=== PATIENT | female | born 1970 | race Caucasian/White ===

== ENCOUNTER 2019-05-23 01:50 | Observation (INO) | payer OTHER, SELFPAY ==
[2019-05-23] VITALS (8 sets, daily range): BP systolic 113–164; BP diastolic 67–94; PULSE 64–74; RESP 13–20; TEMP 36.3–37.1; O2SAT 95–97; BMI 37.2
--- NOTE | ~2019-05-23 | XR_ITS ---
XR chest 1V portable DATE: 05/23/2019 02:57 INDICATION: Generalized, anterior chest pain. TECHNIQUE: Portable upright AP chest on 05/23/2019 0255 hours COMPARISON: 12/15/2017 PA and lateral chest FINDINGS: Normal heart size. No hilar or mediastinal enlargement. No pulmonary infiltrate or consolid ation, pleural effusion or pulmonary vascular congestion or pneumothorax. IMPRESSION: No active cardiopulmonary disease Reviewed, dictated and finalized at location A. [employer] LEAD REFIN[employer]
--- NOTE | ~2019-05-23 | CT_ITS ---
EXAMINATION: CT abdomen pelvis w con DATE: 05/23/2019 03:06 INDICATION: Epigastric abdominal pain for 2 days. Nausea. TECHNIQUE: Computed tomography (CT) of the abdomen and pelvis was performed with 100 cc Omnipaque 350 intravenous contrast. Automated exposure control and iterative reconstruction technique were employe d. Exam dose: 1584.01 mGy-cm total exam DLP. COMPARISON: None. FINDINGS: The lung bases are clear. Normal heart size. No pericardial or pleural effusion. The gallbladder is distended with thickening of the wall. No hepatic, splenic, pancreatic, adrenal or renal space-occupying mass lesion is evident. No bile priscilla t or pancreatic duct dilatation. There are nonobstructing bilateral small kidney stones. No ureteral calculus or hydroureteronephrosis . The urinary bladder is unremarkable. Status post hysterectomy. 3.2 cm right ovarian cystic lesion is noted. Pelvic ultrasound is recommended for further characteriz ation, particularly in a likely postmenopausal patient. Diverticulosis of the left colon; no CT evidence of diverticulitis. Appendix is not definitively iden tified but no evidence of appendicitis. No bowel obstruction or intraperitoneal free air. Normal caliber of the abdominal aorta. No intraperitoneal or retroperitoneal or pelvic mass lesion or adenopathy or ascites. Degenerative changes of the thoracic and lumbar spine. IMPRESSION: Distended gallbladder with gallbladder wall thickening; consider gallbladder ultrasound for further evaluation 3.2 cm right ovarian cyst; pelvic ultrasound examination is recommended Diverticulosis of the colon Reviewed, dictated and finalized at Location [facility]. Reviewed, dictated and finalized at location A. UCTION CONTROLLER IMPRESSION: Distended gallbladder with gallbladder wall thickening; consider g allbladder ultrasound for further evaluation 3.2 cm right ovarian cyst; pelvic ultrasound examination is recommended Diverticulosis of the colon
--- NOTE | ~2019-05-23 | US_ITS ---
US right upper quadrant DATE: 05/23/2019 08:23 INDICATION: Abdominal pain. Gallbladder wall thickening reported on 05/23/2019 CT abdomen pelvis exami [place] TECHNIQUE: Real-time imaging of liver, pancreas, gallbladder areas COMPARISON: 05/23/2019 CT abdomen pelvis FINDINGS: No hepatic or pancreatic space-occupying mass lesion is detected. Normal hepatic portal fadia ous flow direction. There is an apparent filling defect of the gallbladder neck with shadowing, suggesting cholelithiasis . There is gallbladder wall thickening, measuring up to 4-5 mm. Comment bile duct measures 4 mm, normal. IMPRESSION: Nonmobile stone is suggested at the gallbladder neck, with thickening of the gallbladder wall, suggesting acute cholecystitis If further imaging confirmation is desired, consider radionuclide hepatobiliary scan Reviewed, dictated and finalized at [facility]. Reviewed, dictated and finalized at location A. [employer] IMPRESSION: Nonmobile stone is suggested at the gallbladder neck, with thickeni ng of the gallbladder wall, suggesting acute cholecystitis If further imaging confirmation is desired, consider radionuclide hepatobiliary scan
--- NOTE | 2019-05-23 01:58 | ECG_ITS ---
Measurements Intervals [place] Rate: 57 P: 38 [place]: 155 QRS: -3 QRSD: 94 T: 47 QT: 428 QTc: 418 Interpretive Statements SINUS BRADYCARDIA BASELINE ARTIFACT- I, II, AVR BORDERLINE ECG Electronically Signed On 05-23-2019 7:21:08 [employer]INE [employer]ENDER by Rogelio Coreas D.O.
--- NOTE | 2019-05-23 01:58 | ED.ABDPAIN ---
HPI - Abdominal Pain General Chief Complaint: Chest Pain Stated Complaint: CHEST PAIN Time Seen by Provider: 05/23/19 01:55 Source: patient and RN notes reviewed Mode of arrival: ambulatory Limitations: no limitations History of Present Illness HPI narrative: Pt is a 49 y/o female presenting to the ED c/o ABD pain. Pt reports she started experiencing bilateral upper ABD pain last Friday. Pt also reports nausea and dry heaving. Pt states she took Gas X and Ibuprofen around 1500 this afternoon. Pt states she presented to the ED at this time due to insomnia. Pertinent past history: none Onset (ago): day(s) (2) Location: [facility] and [facility]Q Associated symptoms: nausea, vomiting (Dry heaving) and other (Insomnia) Related Data Allergies Allergy/AdvReac Type Severity Reaction Status Date / Time No Known Allergies Allergy Unverified 11/17/18 15:40 Review of Systems Review of Systems: All systems reviewed & are unremarkable except as noted in HPI and below Constitutional: Constitutional: Reports difficulty sleeping Gastrointestinal: Gastrointestinal: Reports abdominal pain (Bilateral upper), Reports nausea and Reports vomiting (Dry heaving) [facility] Past Medical History Medical History Anemia Anxiety Arthritis Hypothyroid Migraines UTI (urinary tract infection) Surgical History Surgical History H/O bilateral breast reduction surgery H/O: hysterectomy History of appendectomy Family History Family History Sibling Family history of thyroid disease Asthma Family history of diabetes mellitus in first degree relative Grandparent Family history of cataracts Cerebrovascular accident Family history of Alzheimer's disease Family history of heart disease in male family member before age 55 Father Family history of alcoholism Family history of seizure disorder Family history of heart disease in male family member before age 55 Social History Social History Smoking packs per day: 1 Smoking cigarettes per day: 20.0 Years smoked: 20 Smoking pack-years: 20.00 Smoking status: Former smoker Alcohol intake: current Exam Narrative: Exam Narrative: APPEARANCE: No acute distress, nontoxic, resting in bed HEENT: Normocephalic, atraumatic, OMM RESPIRATORY: No respiratory distress, clear to auscultation bilaterally with no rhonchi wheezing or rales CARDIOVASCULAR: RRR s murmur ABDOMINAL: Soft, nondistended, tender palpation epigastric and right upper quadrant left upper quadrant, no tenderness right lower quadrant left lower quadrant, no rebound or guarding MUSCULOSKELETAl: Moves all extremities. No clubbing, cyanosis or edema. NEURO: Awake and alert. Following commands, speech normal, no focal deficits SKIN:: Warm, dry. Normal Color PSYCHIATRIC: Normal affect/mood Course Course Emergency Course: Patient continues to have pain following morphine and Tylenol. Will admit at this time Discussed with Dr. Salazar presentation work-up. Agrees with admission at this time. Request antibiotics be held at this time but does request a.m. ultrasound Discussed with patient and family results of workup and diagnosis. Discussed need for admission. Patient and family understand and agree to current treatment plan Vital Signs Vital signs: Vital Signs Temperature 97.9 F 05/23/19 01:55 Pulse Rate 65 05/23/19 01:55 Respiratory Rate 13 05/23/19 01:55 Blood Pressure 164/94 H 05/23/19 01:55 Pulse Oximetry 97 05/23/19 01:55 Temperature 97.9 F 05/23/19 01:55 Pulse Rate 64 05/23/19 01:58 Respiratory Rate 13 05/23/19 01:55 Blood Pressure 164/94 H 05/23/19 01:55 Pulse Oximetry 97 05/23/19 01:55 MDM - Abdominal Pain Lab Data Result diagrams: 05/23/19 02:13 05/23/19 02:13 Labs: Lab Results 05/23/19
[2019-05-23] MEDS: LACTATED RINGERS 1,000 ML 999 ML IV CONT (02:28)
[2019-05-23] MEDS: ONDANSETRON INJ 4 MG/2 ML VIAL IV PUSH ×2 (02:28→09:22)
[2019-05-23 02:32] LABS: Basophils Absolute Auto 0.1 K/mm3 (0.0-0.1); Basophils Percent Auto 0.9 % (0.2-1.2); Eosinophils Absolute Auto 0.3 K/mm3 (0-0.3); Eosinophils Percent Auto 2.7 % (0-4.4); Hematocrit 44.1 % (37.0-47.0); Hemoglobin 14.5 g/dL (12.0-15.0); Immature Granulocyte Absolute 0.05 K/mm3 (0.00-0.031); Immature Granulocyte Percent A 0.5 % (0-0.5); Lymphocytes Absolute Auto 2.53 K/mm3 (0.9-3.2); Lymphocytes Percent Auto 24.2 % (18.3-44.2); Mean Corpuscular HGB Conc 32.9 g/dl (32-36); Mean Corpuscular Hemoglobin 29.6 pg (26-34); Mean Platelet Volume 10.7 fl (7.4-10.4); Monocytes Absolute Auto 0.8 K/mm3 (0.1-0.6); Monocytes Percent Auto 7.5 % (2.6-8.5); Neutrophils Absolute Auto 6.7 K/mm3 (1.3-6.7); Neutrophils Percent Auto 64.2 % (45.5-73.1); Platelet Count Result 314 k/mm3 (150-375); Red Cell Distribution Width 13.2 % (11.5-14.5); White Blood Count 10.5 K/mm3 (4.5-10.0)
[2019-05-23 02:37] LABS: Alanine Aminotransferase 20 U/L (4-35); Albumin Level 3.9 g/dL (3.5-5.1); Alkaline Phosphatase 94 U/L (38-126); Aspartate Amino Transferase 22 U/L (14-36); Bilirubin,Total 0.2 mg/dL (0.2-1.3); Blood Urea Nitrogen 13 mg/dL (7-17); Calcium 9.3 mg/dL (8.4-10.2); Carbon Dioxide 28 mmol/L (22-30); Chloride 98 mmol/L (98-107); Estimated CRCL calculation 92 ml/min; Estimated Glomerular Filt Rate > 60; Glucose 121 mg/dL (65-105); Lipase 249 U/L (23-300); Potassium 3.4 mmol/L (3.4-5.0); Sodium 136 mmol/L (137-145)
[2019-05-23 02:38] LABS: INR 0.9; Prothrombin Time 11.4 Seconds (11.1-14.7)
[2019-05-23 02:40] LABS: Partial Thromboplastin Time 26.4 SECONDS (22.3-36.8)
[2019-05-23 02:45] LABS: Add Urine Microscopic? YES; Appearance Urine Clear (Clear); Bacteria Urine Trace /hpf; Bilirubin Urine Negative (Negative); Blood Urine Negative (Negative); Color Urine Yellow (Yellow); Glucose Urine UA Negative (Negative); Ketones Urine Negative (Negative); Leukocyte Esterase Ur Negative LEU/UL (Negative); Mucus Urine Rare /lpf; Nitrate Urine Negative (Negative); Protein Urine 1+ mg/dL (Negative); RBC Urine 0-2 /hpf (0-2); Specific Grav Ur 1.026 (1.001-1.035); Squamous Epithelial Cell Urine Many /hpf (Few); Urobilinogen Urine Negative mg/dL (<2.0); WBC Urine 0-3 /hpf
[2019-05-23 02:49] LABS: Troponin I < 0.012 ng/mL (0.000-0.034)
[2019-05-23] MEDS: MORPHINE SULFATE 4 MG/ML INJ IV PUSH (03:46)
--- NOTE | 2019-05-23 04:41 | PC.NURSE ---
Patient verbalized her pain still 10/10. Dr Quintero aware, no further orders.
--- NOTE | 2019-05-23 05:03 | ADMGEN ---
This patient, Alethea Newsome, was admitted to 3 [facility] Surg Room 300-01 at 0457. Patient/family oriented to hospital policies and general routines including ID bracelet, bed and alarms, visiting hours, pain management, procedures, bathroom and other care routines, personal items, smoking policy, room service/diet, and visiting hours. Valuables list has been completed. Information on how to activate the Rapid Response Team has been discussed. Patient/Family are encouraged to report perceived risks to care and to ask questions if they do not understand what they are told or what they should do.
[2019-05-23] MEDS: LACTATED RINGERS 1,000 ML 125 ML IV CONT ×2 (06:01→14:15)
--- NOTE | 2019-05-23 12:37 | PM.IMHP ---
H&P: HPI History of Present Illness Chief complaint: cholecystitis Narrative: Alethea Newsome is a 49 year old female who presented to the emergency department early this morning with right upper quadrant pain and bloating. Patient states that she has had pain off and on for about a week, but yesterday pain became more severe. She could not tolerate the pain anymore and could not get comfortable enough to sleep, therefore she came into the emergency department. She was having some diarrhea yesterday, but denies any typical problems with her bowels moving. She was having some slight nausea, but no vomiting. She has had minor episodes of pain after eating before, but never attributes it to any particular food. She denies any fevers. She does have a family history of gallbladder disease. Review of Systems Review of Systems: All systems reviewed & are unremarkable except as noted in HPI and below Eyes: Eyes: Denies change in vision ENT: Denies hearing loss, Denies neck pain and Denies sore throat Cardiovascular: Cardiovascular: Denies chest pain and Denies dyspnea Respiratory: Respiratory: Denies cough, Denies dyspnea and Denies wheezing Genitourinary: Genitourinary: Denies hematuria and Denies dysuria Musculoskeletal: Musculoskeletal: Denies arthralgias, Denies joint swelling and Denies neck pain Allergic/Immunologic: Allergic/Immunologic: Denies wheezing PMFSH Past Medical History Medical History Anemia Anxiety Arthritis Hypothyroid Migraines UTI (urinary tract infection) Surgical History Surgical History H/O bilateral breast reduction surgery H/O: hysterectomy History of appendectomy Family History Family History Sibling Family history of thyroid disease Asthma Family history of diabetes mellitus in first degree relative Grandparent Family history of cataracts Cerebrovascular accident Family history of Alzheimer's disease Family history of heart disease in male family member before age 55 Father Family history of alcoholism Family history of seizure disorder Family history of heart disease in male family member before age 55 Social History Social History Smoking packs per day: 1 Smoking cigarettes per day: 20.0 Years smoked: 20 Smoking pack-years: 20.00 Smoking status: Former smoker Tobacco type: cigarettes Alcohol intake: current Substance use: never Gender identity (if verbalized by the patient): Female Spiritual care concerns: No Agree to blood products: Yes Meds Home Medications and Allergies Home Medications Medication Instructions Recorded Confirmed Type bupropion HCl 150 mg PO DAILY 05/23/19 05/23/19 History duloxetine 60 mg PO DAILY 05/23/19 05/23/19 History estradiol 2 mg PO DAILY 05/23/19 05/23/19 History levothyroxine 100 mcg PO DAILY 05/23/19 05/23/19 History liothyronine 10 mcg PO BID 05/23/19 05/23/19 History triamterene-hydrochlorothiazid 1 tablet PO DAILY 05/23/19 05/23/19 History Allergies Allergy/AdvReac Type Severity Reaction Status Date / Time No Known Allergies Allergy Unverified 11/17/18 15:40 Vital Signs Vital Signs - 24 hr 05/23/19 01:55 05/23/19 01:58 05/23/19 04:42 Temperature 36.6 C Pulse Rate 65 64 73 Respiratory Rate 13 16 Blood Pressure 164/94 H 133/85 Pulse Oximetry 97 95 05/23/19 04:53 05/23/19 05:05 Temperature 36.3 C L Pulse Rate 71 65 Respiratory Rate 18 18 Blood Pressure 132/78 153/94 H Pulse Oximetry 97 97 Exam Const: General: alert; No acute distress Orientation/consciousness: patient oriented x3 Limitations: no limitations HENMT: Head: normocephalic and atraumatic Ears: hearing grossly normal bilaterally General nose exam: Normal external nose present and [place]
[2019-05-23] MEDS: estradioL 1 MG TABLET 2 MG PO (14:14)
[2019-05-23] MEDS: TRIAMTERENE 37.5 MG/HCTZ 25 MG (MAXZIDE) TABLET 2 TAB PO (14:14)
[2019-05-23] MEDS: DULOXETINE 60 MG CAPSULE.DR PO (14:15)
--- NOTE | 2019-05-23 14:53 | WPDANESEPP ---
Anes - Eval Pre Procedure Procedure: LAP RENEA Date/Time: 05/23/19 14:53 Surgeon: Paula QURESHI Preop Diagnosis: CHOLECYSTITIS Pre Op Diagnosis: cholecystitis Patient Data Age: 49 Gender: F Height: 5 ft 7 in Weight: 107.9 kg Last Vital Signs Temp 97.4 F L 05/23/19 05:05 Pulse 72 05/23/19 14:12 Resp 18 05/23/19 14:12 BP 151/67 H 05/23/19 14:12 Pulse Ox 97 05/23/19 14:12 Allergies Allergy/AdvReac Type Severity Reaction Status Date / Time No Known Allergies Allergy Unverified 11/17/18 15:40 Home Medications Medication Instructions Recorded Confirmed Type bupropion HCl 150 mg PO DAILY 05/23/19 05/23/19 History duloxetine 60 mg PO DAILY 05/23/19 05/23/19 History estradiol 2 mg PO DAILY 05/23/19 05/23/19 History levothyroxine 100 mcg PO DAILY 05/23/19 05/23/19 History liothyronine 10 mcg PO BID 05/23/19 05/23/19 History triamterene-hydrochlorothiazid 1 tablet PO DAILY 05/23/19 05/23/19 History Laboratory Tests 05/23/19 05/23/19 05/23/19 02:13 02:13 02:13 WBC 10.5 K/mm3 H K/mm3 (4.5-10.0) RBC 4.90 M/mm3 M/mm3 (4.2-5.4) Hgb 14.5 g/dL g/dL (12.0-15.0) Hct 44.1 % % (37.0-47.0) MCV 90.0 fl fl (80-100) MCH 29.6 pg pg (26-34) MCHC 32.9 g/dl g/dl (32-36) RDW 13.2 % % (11.5-14.5) Plt Count 314 k/mm3 k/mm3 (150-375) MPV 10.7 fl H fl (7.4-10.4) Immature Gran % (Auto) 0.5 % % (0-0.5) Neut % (Auto) 64.2 % % (45.5-73.1) Lymph % (Auto) 24.2 % % (18.3-44.2) [place] % (Auto) 7.5 % % (2.6-8.5) Eos % (Auto) 2.7 % % (0-4.4) Baso % (Auto) 0.9 % % (0.2-1.2) Lymph # (Auto) 2.53 K/mm3 K/mm3 (0.9-3.2) [place] # (Auto) 0.8 K/mm3 H K/mm3 (0.1-0.6) Eos # (Auto) 0.3 K/mm3 K/mm3 (0-0.3) Baso # (Auto) 0.1 K/mm3 K/mm3 (0.0-0.1) Abs Immat Gran (auto) 0.05 K/mm3 H K/mm3 (0.00-0.031) Absolute Neuts (auto) 6.7 K/mm3 K/mm3 (1.3-6.7) Absolute Nucleated RBC 0.0 K/mm3 K/mm3 (0.0-0.012) Nucleated RBC % 0.0 % % (0.0-0.2) PT 11.4 Seconds Seconds (11.1-14.7) INR 0.9 APTT 26.4 SECONDS SECONDS (22.3-36.8) Sodium 136 mmol/L L mmol/L (137-145) Potassium 3.4 mmol/L mmol/L (3.4-5.0) Chloride 98 mmol/L mmol/L (98-107) Carbon Dioxide 28 mmol/L mmol/L (22-30) BUN 13 mg/dL mg/dL (7-17) Creatinine 0.80 mg/dL mg/dL (0.7-1.0) Estim Creat Clear Calc 92 ml/min ml/min Estimated GFR > 60 (59 - ) Glucose 121 mg/dL H mg/dL (65-105) Calcium 9.3 mg/dL mg/dL (8.4-10.2) Total Bilirubin 0.2 mg/dL mg/dL (0.2-1.3) AST 22 U/L U/L (14-36) ALT 20 U/L U/L (4-35) Alkaline Phosphatase 94 U/L U/L (38-126) Troponin I < 0.012 ng/mL ng/mL (0.000-0.034) Total Protein 7.0 g/dL g/dL (6.3-8.2) Albumin 3.9 g/dL g/dL (3.5-5.1) Lipase 249 U/L U/L (23-300) Urine Color Urine Appearance Urine pH Ur Specific [place] Urine Protein Urine Glucose (UA) Urine Ketones Ur Blood (Man) Urine Nitrate Urine Bilirubin Urine Urobilinogen Leukocyte Esterase Rfl Urine RBC Urine WBC Ur Squamous Epith Cells Urine Bacteria Urine Mucus 05/23/19 02:25 WBC RBC Hgb Hct MCV MCH MCHC RDW Plt Count MPV Immature Gran % (Auto) Neut % (Auto) Lymph % (Auto) [place] % (Auto) Eos % (Auto) Baso % (Auto) Lymph # (Auto) [place] # (Auto) Eos # (Auto) Baso # (Auto
[2019-05-23] MEDS: ACETAMINOPHEN 500 MG TABLET 1000 MG PO (19:56)
[2019-05-24] VITALS (14 sets, daily range): BP systolic 117–143; BP diastolic 63–79; PULSE 58–90; RESP 12–18; TEMP 36.2–36.9; O2SAT 89–99
[2019-05-24] MEDS: LACTATED RINGERS 1,000 ML 125 ML IV CONT ×2 (01:06→06:12)
[2019-05-24] MEDS: CHLORHEXIDINE GLUCONATE 4% SOL 120 ML BTL 1 APPLIC TOPICAL (06:12)
[2019-05-24] MEDS: LEVOTHYROXINE SODIUM 100 MCG TABLET PO (06:13)
[2019-05-24 06:28] LABS: Basophils Absolute Auto 0.1 K/mm3 (0.0-0.1); Eosinophils Absolute Auto 0.2 K/mm3 (0-0.3); Eosinophils Percent Auto 3.5 % (0-4.4); Hematocrit 40.3 % (37.0-47.0); Hemoglobin 13.5 g/dL (12.0-15.0); Immature Granulocyte Absolute 0.01 K/mm3 (0.00-0.031); Immature Granulocyte Percent A 0.2 % (0-0.5); Lymphocytes Absolute Auto 1.83 K/mm3 (0.9-3.2); Mean Corpuscular HGB Conc 33.5 g/dl (32-36); Mean Corpuscular Volume 89.6 fl (80-100); Mean Platelet Volume 10.5 fl (7.4-10.4); Monocytes Absolute Auto 0.4 K/mm3 (0.1-0.6); Monocytes Percent Auto 6.5 % (2.6-8.5); Neutrophils Absolute Auto 3.8 K/mm3 (1.3-6.7); Neutrophils Percent Auto 59.8 % (45.5-73.1); Platelet Count Result 279 k/mm3 (150-375); Red Cell Distribution Width 13.1 % (11.5-14.5); White Blood Count 6.3 K/mm3 (4.5-10.0)
[2019-05-24 06:37] LABS: Alanine Aminotransferase 16 U/L (4-35); Albumin Level 3.4 g/dL (3.5-5.1); Alkaline Phosphatase 79 U/L (38-126); Aspartate Amino Transferase 18 U/L (14-36); Bilirubin,Total 0.2 mg/dL (0.2-1.3); Blood Urea Nitrogen 8 mg/dL (7-17); Calcium 8.2 mg/dL (8.4-10.2); Carbon Dioxide 29 mmol/L (22-30); Chloride 100 mmol/L (98-107); Estimated CRCL calculation 106 ml/min; Estimated Glomerular Filt Rate > 60; Glucose 99 mg/dL (65-105); Potassium 3.6 mmol/L (3.4-5.0); Sodium 136 mmol/L (137-145)
[2019-05-24] MEDS: ACETAMINOPHEN 500 MG TABLET 1000 MG PO ×2 (06:42→20:15)
[2019-05-24] MEDS: TRIAMTERENE 37.5 MG/HCTZ 25 MG (MAXZIDE) TABLET 2 TAB PO (10:13)
[2019-05-24] MEDS: DULOXETINE 60 MG CAPSULE.DR PO (10:13)
[2019-05-24] MEDS: estradioL 1 MG TABLET 2 MG PO (10:13)
[2019-05-24] MEDS: buPROPion HCL XL (24 HR) 150 MG TABCR PO (10:13)
[2019-05-24] MEDS: ONDANSETRON INJ 4 MG/2 ML VIAL IV PUSH (13:22)
[2019-05-24] MEDS: LACTATED RINGERS 1,000 ML 30 ML IV CONT ×2 (13:45→16:11)
--- NOTE | 2019-05-24 14:13 | WPDANESEFPP ---
Anes - Eval Final PreProcedure Day of Procedure 05/24/19 14:13 Patient weight: obese Heart: regular rate and rhythm Lungs: decreased breath sounds Airway: Mallampati scale class II Neurological: alert and oriented Last oral intake: >/= 8 hours ASA classification: III Emergent: no Anesthetic plan: proceed Anesthesia type and monitoring: general ETT and standard monitoring Informed Consent: The patient's anesthetic plan and its attendant risks and benefits were discussed with the patient/family/POA. Questions were solicited and answers provided to the satisfaction of the patient/family/POA.
[2019-05-24] MEDS: SCOPOLAMINE 1.5 MG PATCH TRANSDERM (14:15)
[2019-05-24] MEDS: ceFAZolin 2 GM/D5W 50 ML 2 GM/50 ML BAG IVPB (14:58)
[2019-05-24] MEDS: IBUPROFEN IV 800 MG/200 ML 800 MG/200 ML BAG 400 MG IVPB (15:15)
[2019-05-24] MEDS: BUPIVACAINE/EPINEPHRINE 0.5% 30 ML VIAL INFILTRATE (15:31)
--- NOTE | 2019-05-24 16:03 | PM.PROC ---
Procedure Note - Detailed Date of procedure: 05/24/19 Pre-op diagnosis: acute calculous cholecystitis Post-op diagnosis: same Procedure performed: Laparoscopic Cholecystectomy Description of procedure: Procedure as well as risks, benefits, and alternatives were discussed with patient. Written consent was obtained and placed in chart prior to procedure. The patient was brought back to surgical suite. Patient was placed in supine position on operating table. Time-out was done to confirm patient and procedure. Patient was then intubated by the anesthesia department. Abdomen was prepped and draped in sterile fashion using chlorhexidine prep. 0.5% bupivacaine with epinephrine was infiltrated at each site of incision. A 5 millimeter incision was made near the umbilicus, and a 5 millimeter Optiview trocar was advanced through the abdominal layers under direct visualization. Once inside the abdominal cavity, carbon dioxide was insufflated to create a pneumoperitoneum. The camera was inserted and the abdomen was inspected. No immediate abnormalities were identified. The patient was placed in reverse Trendelenburg position and rotated slightly to the left. An 11 millimeter incision was made in the subxiphoid region, and an 11 millimeter trocar was inserted under direct visualization. Two 5 millimeter incisions were made in the right upper quadrant, and two 5 millimeter trocars were inserted under direct visualization. The gallbladder was identified and grasped at the fundus and retracted superiorly. It was then grasped at the infundibulum retracted laterally. Careful dissection around the neck of the gallbladder was performed using blunt dissection with a [place] grasper and hook electrocautery. The cystic duct was identified, and a window was created behind it. The cystic artery was also identified and a window was created behind it. The critical view of safety was identified, visualizing the cystic duct running directly into the neck of the gallbladder, and the cystic artery running directly into the wall of the gallbladder. A 5 millimeter clip android ios developer was then used to place 2 clips proximally and 1 clip distally on both the cystic duct and cystic artery. They were then both transected using endoscopic scissors. Once safely away from the albina hepatitis, the gallbladder was dissected free from the liver bed using hook electrocautery. Hemostasis was achieved along the way. The gallbladder was removed completely and then removed through the subxiphoid port. The liver bed was then inspected. Hemostasis appeared adequate, and our clips appeared secure. The area was gently irrigated with sterile saline. No other abnormalities were seen. The patient was flattened out in bed, and 1 final inspection was made around the abdominal cavity. The subxiphoid port was removed, and a Chun Eliz cone was used to approximate the fascia with an 0-Vicryl simple interrupted suture. The remaining ports were then removed under direct visualization, the camera was removed, and the pneumoperitoneum was released. The skin of the incisions was approximated using 4-0 Monocryl subcuticular sutures. Exofin glue was applied on top. The patient was then awakened from anesthesia, extubated, and transferred to recovery. Anesthesia: GETA and local (0.5% bupivicaine with epi) Surgeon: Toy Salazar DO Estimated blood loss (mL): 20 Drains: No Packing: No Pathology: yes Complications: No immediate complications Condition: stable (Patient tolerated procedure well, and is currently resting comfortably in recovery.) Disposition: same day Findings: This is a 49-year-old woman who presented to the emergency department yesterday with right upper quadrant pain for the past 2 days. She had been having some mild pain off and on for about a week before hand but then over the past 2 days her pain became constant and more severe. She denied any fevers or chills. She was having some nause
[2019-05-24] MEDS: LACTATED RINGERS 1,000 ML 100 ML IV CONT (18:40)
--- NOTE | 2019-05-24 19:56 | PC.NURSE ---
Patient arrived from PACU @1800, incisions glued and open to air. Stating 10/10 pain. Pain was controlled with position change and medication.
--- NOTE | 2019-05-24 20:37 | PC.NURSE ---
Dr. Marroquin notified about patient requesting to stay one more night due to post-op pain and nausea.
[2019-05-25 02:00] VITALS: BP 117/71; PULSE 66; RESP 18; TEMP 36.5; O2SAT 97
[2019-05-25 05:52] VITALS: BP 126/75; PULSE 71; RESP 18; TEMP 36.8; O2SAT 97
[2019-05-25 06:06] LABS: Hematocrit 39.9 % (37.0-47.0); Hemoglobin 13.4 g/dL (12.0-15.0); Mean Corpuscular HGB Conc 33.6 g/dl (32-36); Mean Corpuscular Volume 89.5 fl (80-100); Mean Platelet Volume 10.6 fl (7.4-10.4); Platelet Count Result 287 k/mm3 (150-375); Red Blood Count 4.46 M/mm3 (4.2-5.4); Red Cell Distribution Width 12.8 % (11.5-14.5); White Blood Count 11.4 K/mm3 (4.5-10.0)
[2019-05-25] MEDS: LEVOTHYROXINE SODIUM 100 MCG TABLET PO (06:06)
[2019-05-25 06:30] LABS: Alanine Aminotransferase 22 U/L (4-35); Albumin Level 3.5 g/dL (3.5-5.1); Alkaline Phosphatase 86 U/L (38-126); Aspartate Amino Transferase 28 U/L (14-36); Bilirubin,Total 0.4 mg/dL (0.2-1.3); Blood Urea Nitrogen 7 mg/dL (7-17); Calcium 8.4 mg/dL (8.4-10.2); Carbon Dioxide 28 mmol/L (22-30); Chloride 98 mmol/L (98-107); Estimated CRCL calculation 106 ml/min; Estimated Glomerular Filt Rate > 60; Glucose 109 mg/dL (65-105); Potassium 3.4 mmol/L (3.4-5.0); Sodium 136 mmol/L (137-145)
[2019-05-25 08:00] VITALS: BP 120/65; PULSE 58; RESP 16; TEMP 36.5; O2SAT 96
[2019-05-25] MEDS: buPROPion HCL XL (24 HR) 150 MG TABCR PO (08:17)
[2019-05-25] MEDS: TRIAMTERENE 37.5 MG/HCTZ 25 MG (MAXZIDE) TABLET 2 TAB PO (08:17)
[2019-05-25] MEDS: DULOXETINE 60 MG CAPSULE.DR PO (08:17)
[2019-05-25] MEDS: estradioL 1 MG TABLET 2 MG PO (08:18)
--- NOTE | 2019-05-25 08:50 | PM.PNGS ---
Progress Note: A&P Assessment and Plan (1) Calculus of gallbladder with acute cholecystitis without obstruction: Code(s): K80.00 - Calculus of gallbladder with acute cholecystitis without obstruction Status: Acute Assessment and Plan: Post-op day 1 and patient doing well. Had an episode of shortness of breath and anxiety last night after surgery. This has since resolved. EKG without acute changes. Stable for discharge today. Discharge orders in place. (2) Obesity (BMI 30-39.9): Code(s): E66.9 - Obesity, unspecified Status: Acute (3) Hypothyroid: Code(s): E03.9 - Hypothyroidism, unspecified Status: Chronic (4) Anxiety: Code(s): F41.9 - Anxiety disorder, unspecified Status: Chronic Subjective Subjective Date/Time Seen: 05/25/19 08:20 Patient reports: no new complaints, feels better and no flatus Interval history: Patient seen and examined. Reports having pain near incisions today and feeling sore but no other pain. Shortly after surgery she had an episode of shortness of breath with anxiety that resolved with walking. Denies any shortness of breath or chest pain this morning. Tolerating a low fat diet. Voiding without difficulty. No other complaints at this time. Review of Systems Review of Systems: All systems reviewed & are unremarkable except as noted in HPI and below Exam Const: General: comfortable, no acute distress, alert and awake Orientation/consciousness: patient oriented x3 GI: Inspection: non-distended and incision (Abdominal incisions healing as expected. Clean/dry/intact.) GI Palp: Yes Soft to palpation, Yes Tenderness to palpation present (GI) (expected incisional tenderness) and No Guarding due to palpation present (GI) Auscultation: normal bowel sounds Neuro: General: moves all extremities Cranial nerves: Yes CN's II-XII intact bilaterally Speech: normal speech Extrem: General: no calf tenderness and no edema Psych: Mental Status: mental status grossly normal Attitude: cooperative Thought process: Normal thought process present Thought content: Yes Normal thought content present Objective Data Vital Signs Vital Signs: Vital Signs - 24 hr 05/24/19 14:43 05/24/19 16:11 05/24/19 16:25 Temperature 36.9 C 36.7 C Pulse Rate 65 84 80 Respiratory Rate 18 14 14 Blood Pressure 132/73 143/79 H 126/69 Pulse Oximetry 96 97 99 05/24/19 16:40 05/24/19 16:48 05/24/19 16:49 Temperature Pulse Rate 79 Respiratory Rate 14 Blood Pressure 117/63 Pulse Oximetry 92 89 L 96 05/24/19 16:55 05/24/19 17:09 05/24/19 17:40 Temperature 36.2 C L Pulse Rate 75 90 72 Respiratory Rate 12 18 16 Blood Pressure 127/70 122/69 138/68 Pulse Oximetry 93 98 97 05/24/19 17:55 05/24/19 18:25 05/24/19 19:25 Temperature 36.7 C Pulse Rate 66 68 73 Respiratory Rate 16 16 18 Blood Pressure 141/79 H 142/73 H 141/79 H Pulse Oximetry 97 98 96 05/24/19 22:00 05/25/19 02:00 05/25/19 05:52 Temperature 36.9 C 36.5 C 36.8 C Pulse Rate 76 66 71 Respiratory Rate 16 18 18 Blood Pressure 132/71 117/71 126/75 Pulse Oximetry 94 97 97 05/25/19 08:00 Temperature 36.5 C Pulse Rate 58 L Respiratory Rate 16 Blood Pressure 120/65 Pulse Oximetry 96 Intake/Output Intake/Output: Intake & Output 05/22/19 05/23/19 05/24/19 05/25/19 23:59 23:59 23:59 23:59 Intake Total 3460 2020 1050 Output Total 0 3200 1700 Balance 3460 -1180 -650 Meds/Results Medications: Active Medications Generic Name Dose Route Start Last Admin Trade Name Cherie PRN Reason Stop Dose Admin Acetaminophen 1,000 mg 05/23/19 19:04 05/24/19 20:15 Tylenol Tablet PO 1,000 mg Q6H PRN Administration Headache or Pain 1-3 Hydrocodone Bitart/Acetaminophen 1 tab 05/24/19 17:10 Goodrich 5-325 Mg PO Q4H PRN Pain Rated 4-6 Hydrocodone Bitart/Acetaminophen 1 tab 05/24/19 17:10 05/25/19 06:06 Goodrich 7.5-325 Mg PO 1 tab Q4H PRN Administration
--- NOTE | 2019-05-25 09:32 | WPDANESPN ---
Anes - Prog Note Post-Op Date/Time: 05/25/19 09:32 Cardiovascular status: normal Respiratory status: normal Airway patency: baseline Mental status: baseline Post-Op hydration status: normal Vital Signs: Last Vital Signs Temp 36.5 C 05/25/19 08:00 Pulse 58 L 05/25/19 08:00 Resp 16 05/25/19 08:00 BP 120/65 05/25/19 08:00 Pulse Ox 96 05/25/19 08:00 I/O: Intake & Output 05/24/19 05/25/19 05/25/19 23:59 07:59 15:59 Intake Total 470 1050 480 Output Total 1100 1700 Balance -630 -650 480 Laboratory Tests 05/25/19 05:31 05/25/19 05:31 05/25/19 05/25/19 05:31 05:31 WBC 11.4 H RBC 4.46 Hgb 13.4 Hct 39.9 MCV 89.5 MCH 30.0 MCHC 33.6 RDW 12.8 Plt Count 287 MPV 10.6 H Sodium 136 L Potassium 3.4 Chloride 98 Carbon Dioxide 28 BUN 7 Creatinine 0.70 Estim Creat Clear Calc 106 Estimated GFR > 60 Glucose 109 H Calcium 8.4 Total Bilirubin 0.4 AST 28 ALT 22 Alkaline Phosphatase 86 Total Protein 6.0 L Albumin 3.5 Post-procedural complaints: none Patient Feedback: Patient satisfied with anesthetic care.
--- NOTE | 2019-06-10 10:48 | PM.DS ---
DS: Diagnosis Admitting Diagnosis Admitting Diagnosis: Chest pain, unspecified Discharge Diagnosis (1) Calculus of gallbladder with acute cholecystitis without obstruction: Code(s): K80.00 - Calculus of gallbladder with acute cholecystitis without obstruction Status: Acute (2) Obesity (BMI 30.0-34.9): Code(s): E66.9 - Obesity, unspecified Status: Chronic (3) Hypothyroid: Code(s): E03.9 - Hypothyroidism, unspecified Status: Chronic (4) Anxiety: Code(s): F41.9 - Anxiety disorder, unspecified Status: Chronic DS: Summary Hospital Course Reason for hospitalization: Acute calculous cholecystitis Hospital Course: This is a 49-year-old woman who presented to the emergency department on 05/23/2018 with acute onset of upper abdominal pain. She had an elevated white blood count but normal liver enzymes. A gallbladder ultrasound showed evidence of a stone lodged in the neck of the gallbladder. She was admitted for further treatment. On 05/24 she underwent laparoscopic cholecystectomy. Surgery was uncomplicated and she was returned to the surgical floor postoperatively. Her diet and activity were advanced as tolerated. She was experiencing a lot of gas pains initially postoperatively and was therefore kept overnight 1 more night. On postop day 1 her pains were significantly improved and she was tolerating a low-fat diet. She remained hemodynamically stable. She was discharged on postop day 1. Status at Discharge Functional status at discharge: independent ambulation Overall status at discharge: patient is progressing back to baseline Time Spent with Patient Time attestation: Total time spent providing and/or coordinating discharge services: Time spent: Less than 30 minutes DS: Data Data Completed and Pending Completed studies during hospitalization: Pending at discharge 05/24/19 15:24 Surgical [PTH] Routine Discharge Plan Discharge Attending physician on discharge: Toy Qureshi Consulting providers: Ana Riggins ; Rogelio Coreas ; Pancho Blancas Discharging Clinician: Toy Qureshi Anticipated Discharge Date/Time: 05/24/19 19:00 Patient Disposition: Home, Self-Care Activity: other - see discharge instructions Diet: other - see discharge instructions Wound Care Instructions: other - see discharge instructions Discharge Instructions: Remove the Scopolamine patch that was placed behind your ear in 72 hours or less. Wash your hands after touching. DISCHARGE INSTRUCTION SHEET FOR HERNIA, GALLBLADDER AND APPENDIX SURGERIES DR. QURESHI PATIENT TO TAKE HOME 1. May shower in 24 hours, no soaking in bath x 2weeks. 2. Call office for: Wound increasingly painful or bleeding Vomiting Fever of greater than 101 degrees 3. If no bowel movement for three days, take 1 oz. (30 ml) Milk of Magnesia or MiraLax 17g 1 to 2 times daily. 4. No heavy lifting > 10-15 pounds x 2 weeks for laparoscopic cholecystectomy or appendectomy. 5. No driving for 3 days or while taking narcotic pain medications. 6. Ice to surgical site for 48 hours (30 min on, then 30 min off). 7. Up walking 10-30 minutes three times per day. 8. Resume previous home medications. 9. Call the office to schedule a follow-up in 10-[address] Qureshi in the office for wound check. Our office is located in [address] at [facility] and our phone number is [phone]. 10. Oral pain medications prescription to be sent to pharmacy. Take Tylenol 500mg every 6 hours and Ibuprofen 600mg every 6 hours for the first 2 days, then as needed. 11. NUTRITION: Start out by drinking fluids and increase your diet as tolerated. If you experience nausea, try dry toast, crackers, and 7-UP. If nausea or vomiting persists, contact your surgeon?s office. 12. Gallbladders-Low Fat Diet for 2 weeks (send care note of low fa
== END 2019-05-25 09:50 | disposition home or self-care (01) ==
LOC: ANHED 04:27 → ANH3MEDSUR 04:28
PROVIDERS: Admitting Provider Surgery; Emergency Provider Emergency Medicine; PCP Physician Assistant; Visit Provider Surgery
PROC: 0FT44ZZ Resection of Gallbladder, Percutaneous Endoscopic Approach (ICD-10-PCS; CPT 47562; principal; 2019-05-24 15:00)
DX: K80.12 Calculus of gallbladder with acute and chronic cholecystitis without obstruction (principal); F17.210 Nicotine dependence, cigarettes, uncomplicated; E66.9 Obesity, unspecified; Z68.37 Body mass index [BMI] 37.0-37.9, adult; E03.9 Hypothyroidism, unspecified; F41.9 Anxiety disorder, unspecified
CPT/HCPCS: 47562; 36415; 71045; 74177; 76705; 80053; 81001; 81025; 83690; 84484; 85025; 85027; 85610; 85730; 86850; 86900; 86901; 88304; 93005; 96361; 96365; 96374; 96375; 96376; 99285; A9270; G0378; J0131; J0330; J0690; J1100; J1741; J2250; J2270; J2405; J2704; J2710; J3010; J7030; J7120; Q9967

== ENCOUNTER 2019-06-09 08:11 | Outpatient (CLI) | payer OTHER, SELFPAY ==
--- NOTE | ~2019-06-09 | MM_ITS ---
EXAMINATION: MM screening rad BI w dal[facility] HISTORY: Screening mammogram TECHNIQUE: Craniocaudal and mediolateral oblique 3-D tomosynthesis images were obtained and synthetic 2-D images were generated. CAD analysis was submitted and interpreted. COMPARISON: 05/20/2018 bilateral digital screening mammogram 12/15/2017 and 05/05/2017 bilateral diagnostic mammogram and limited right breast ultrasound examination s 03/27/2016, 03/21/2015 bilateral digital screening mammogram examinations BREAST PARENCHYMAL COMPOSITION: There are scattered areas of fibroglandular density. FINDINGS: There are scattered bilateral punctate benign-appearing microcalcifications. There is no ev idence of suspicious mass, calcification, or architectural distortion to suggest malignancy in either breast. There has been no suspicious interval change. IMPRESSION: 1. No mammographic evidence of malignancy. 2. Recommend routine screening mammography in one year. BI-RADS Category 2: Benign finding(s). Reviewed, dictated and finalized at location A. FACILITATOR
== END 2019-06-09 08:12 | disposition home or self-care (01) ==
PROVIDERS: PCP Physician Assistant; Visit Provider Physician Assistant
DX: Z12.31 Encounter for screening mammogram for malignant neoplasm of breast (principal)
CPT/HCPCS: 77063; 77067

== ENCOUNTER 2019-06-13 15:33 | Emergency (ER) | payer OTHER, SELFPAY ==
--- NOTE | ~2019-06-13 | CT_ITS ---
EXAMINATION: CT abdomen pelvis w con INDICATION: Abdominal pain, recent cholecystectomy TECHNIQUE: Computed tomographic images of the abdomen and pelvis were obtained after the administrati on of 100 cc of Omnipaque 350 intravenous contrast. The dose-length product (DLP) was 1387.03 mGy-cm. Automated exposure control and iterative reconstruction technique were employed. COMPARISON: 05/23/2019 FINDINGS: Minimal dependent atelectasis is present in the lung bases. The heart size is normal. The l iver, spleen, pancreas, and adrenal glands are normal. Areas of mild fatty infiltration of the anteri or subcutaneous tissues in the right upper quadrant are consistent with laparoscopic port sites. Ther e is a 2 mm nonobstructing stone of the right kidney lower pole. A 3 mm nonobstructing stone is prese nt in the left kidney. No pathologically enlarged abdominal or pelvic lymph nodes are identified. The re is no free intraperitoneal gas or evidence of bowel obstruction. A moderate volume of colonic stoo l is present. There is moderate lumbar spondylosis. IMPRESSION: 1. Changes of interval cholecystectomy without acute abnormality. Reviewed, dictated and finalized at location A. TY ASSESSOR
[2019-06-13 15:35] VITALS: BP 138/73; PULSE 69; RESP 16; TEMP 36.2; O2SAT 98
--- NOTE | 2019-06-13 16:03 | ED.ABDPAIN ---
HPI - Abdominal Pain General Chief Complaint: Abdominal Pain Stated Complaint: abd pain Time Seen by Provider: 06/13/19 16:04 Source: patient Mode of arrival: ambulatory Limitations: no limitations History of Present Illness HPI narrative: A 49 y/o female presents to the ED with c/o epigastric ABD pain that began suddenly yesterday. Pt had a cholecystectomy [address] Salazar and notes that he told her there were some stones in her bile duct. Pt states that her pain is the same as before her surgery and she can't bend over due to the pain. Pt has not taken any pain medication. She reports SOB, fatigue, being a former smoker, and occasional alcohol use, but denies a fever, chills, N/V, dysuria, urinary frequency, a cough, rhinorrhea, sneezing, and a PSHx of an appendectomy. Onset (ago): day(s) (1) Radiation: epigastric Context: confirms recent surgery/procedure (cholecystectomy) Related Data Home Medications Medication Instructions Recorded Confirmed bupropion HCl 150 mg PO DAILY 05/23/19 06/08/19 duloxetine 60 mg PO DAILY 05/23/19 06/08/19 estradiol 2 mg PO DAILY 05/23/19 06/08/19 levothyroxine 100 mcg PO DAILY 05/23/19 06/08/19 liothyronine 10 mcg PO BID 05/23/19 06/08/19 triamterene-hydrochlorothiazid 1 tablet PO DAILY 05/23/19 06/08/19 Allergies Allergy/AdvReac Type Severity Reaction Status Date / Time No Known Allergies Allergy Verified 06/13/19 16:07 Review of Systems Review of Systems: All systems reviewed & are unremarkable except as noted in HPI and below Constitutional: Constitutional: Denies chills, Reports fatigue and Denies fever(s) ENT: Comments: Denies: rhinorrhea, sneezing Respiratory: Respiratory: Denies cough and Reports dyspnea Gastrointestinal: Gastrointestinal: Reports abdominal pain (epigastric), Denies nausea and Denies vomiting Genitourinary: Genitourinary: Denies nocturia and Denies dysuria [facility] Past Medical History Medical History (Updated 06/13/19 @ 17:59 by Hansa Hanson MD) Anemia Anxiety Arthritis Hypothyroid Migraines Obesity (BMI 30-39.9) UTI (urinary tract infection) Surgical History Surgical History (Updated 06/13/19 @ 16:16 by Snehal Appiah) H/O bilateral breast reduction surgery H/O left wrist surgery H/O: hysterectomy History of appendectomy Hx of cholecystectomy Family History Family History Sibling Family history of thyroid disease Asthma Family history of diabetes mellitus in first degree relative Grandparent Family history of cataracts Cerebrovascular accident Family history of Alzheimer's disease Family history of heart disease in male family member before age 55 Father Family history of alcoholism Family history of seizure disorder Family history of heart disease in male family member before age 55 Social History Social History Smoking packs per day: 1 Smoking cigarettes per day: 20.0 Years smoked: 20 Smoking pack-years: 20.00 Smoking status: Former smoker Tobacco type: cigarettes Alcohol intake: current Substance use: never Gender identity (if verbalized by the patient): Female Spiritual care concerns: No Agree to blood products: Yes Comments PCP: OSKAR Patton Exam Narrative: Exam Narrative: General appearance: Well-developed, well-nourished Skin: Normal color Head: Normocephalic, nontraumatic Eyes: Clear conjunctiva ENT: Oropharynx normal, ears normal, nose normal Neck: Supple, nontender Chest and respiratory: Airway patent, no respiratory distress, no accessory muscle use Heart: Regular rate/rhythm Abdomen: Soft, mild tenderness epigastric and right upper quadrant, no organomegaly, quiet bowel sounds Vascular: Normal peripheral pulses, normal capillary refill. Musculoskeletal: Normal range of motion, nontender back Neurologic: Alert and oriented ?3, KETTLE COORDINATOR is normal as tested, no gross mo
[2019-06-13 16:15] LABS: Basophils Absolute Auto 0.1 K/mm3 (0.0-0.1); Basophils Percent Auto 1.1 % (0.2-1.2); Eosinophils Absolute Auto 0.3 K/mm3 (0-0.3); Eosinophils Percent Auto 4.3 % (0-4.4); Hematocrit 40.1 % (37.0-47.0); Hemoglobin 13.6 g/dL (12.0-15.0); Immature Granulocyte Absolute 0.01 K/mm3 (0.00-0.031); Immature Granulocyte Percent A 0.1 % (0-0.5); Lymphocytes Absolute Auto 3.11 K/mm3 (0.9-3.2); Lymphocytes Percent Auto 39.7 % (18.3-44.2); Mean Corpuscular HGB Conc 33.9 g/dl (32-36); Mean Corpuscular Hemoglobin 29.8 pg (26-34); Mean Corpuscular Volume 87.9 fl (80-100); Mean Platelet Volume 11.3 fl (7.4-10.4); Monocytes Absolute Auto 0.6 K/mm3 (0.1-0.6); Monocytes Percent Auto 7.4 % (2.6-8.5); Neutrophils Absolute Auto 3.7 K/mm3 (1.3-6.7); Neutrophils Percent Auto 47.4 % (45.5-73.1); Platelet Count Result 296 k/mm3 (150-375); Red Blood Count 4.56 M/mm3 (4.2-5.4); Red Cell Distribution Width 12.9 % (11.5-14.5); White Blood Count 7.8 K/mm3 (4.5-10.0)
[2019-06-13 16:24] LABS: Alanine Aminotransferase 31 U/L (4-35); Alkaline Phosphatase 97 U/L (38-126); Aspartate Amino Transferase 26 U/L (14-36); Bilirubin,Total 0.3 mg/dL (0.2-1.3); Blood Urea Nitrogen 17 mg/dL (7-17); Calcium 9.1 mg/dL (8.4-10.2); Carbon Dioxide 27 mmol/L (22-30); Chloride 99 mmol/L (98-107); Estimated CRCL calculation 118 ml/min; Estimated Glomerular Filt Rate > 60; Glucose 93 mg/dL (65-105); Lipase 421 U/L (23-300); Potassium 3.4 mmol/L (3.4-5.0); Sodium 136 mmol/L (137-145)
[2019-06-13] MEDS: SODIUM CHLORIDE 0.9% IV 1,000 ML 999 ML IV CONT (16:25)
[2019-06-13 18:08] VITALS: BP 122/77; PULSE 80; RESP 18; TEMP 36.7; O2SAT 99
== END 2019-06-13 18:10 | disposition home or self-care (01) ==
PROVIDERS: Emergency Provider Emergency Medicine; PCP Physician Assistant
DX: R10.11 Right upper quadrant pain (principal); F41.9 Anxiety disorder, unspecified; M19.90 Unspecified osteoarthritis, unspecified site; E03.9 Hypothyroidism, unspecified; E66.9 Obesity, unspecified; Z68.35 Body mass index [BMI] 35.0-35.9, adult; Z87.440 Personal history of urinary (tract) infections; Z86.2 Personal history of diseases of the blood and blood-forming organs and certain disorders involving the immune mechanism
CPT/HCPCS: 36415; 74177; 80053; 83690; 85025; 99284; J7030; Q9967

== ENCOUNTER 2019-12-28 15:50 | Emergency (ER) | payer OTHER, SELFPAY ==
[2019-12-28 16:00] VITALS: BP 114/71; PULSE 80; RESP 16; TEMP 36.8; O2SAT 97
--- NOTE | 2019-12-28 16:29 | ED.GENADULT ---
HPI - General Adult General Chief complaint: Extremity Injury, Upper Stated complaint: right elbow pain Time Seen by Provider: 12/28/19 16:10 Source: patient and RN notes reviewed Mode of arrival: ambulatory Limitations: no limitations History of Present Illness HPI narrative: Patient presents today complaining of a two-week history of right elbow pain without injury. States she did bump it on a door frame today, which caused increased pain. She reports some intermittent numbness and tingling to the forearm and fingers. She currently rates her pain 8/10 and has been wearing a forearm sleeve. She takes Celebrex daily. History of tendinitis. States his sleep is not helpful for her symptoms. MD complaint: Right elbow pain Related Data Home Medications Medication Instructions Recorded Confirmed bupropion HCl 150 mg PO DAILY 05/23/19 06/08/19 duloxetine 60 mg PO DAILY 05/23/19 06/08/19 liothyronine 10 mcg PO BID 05/23/19 06/08/19 triamterene-hydrochlorothiazid 1 tablet PO DAILY 05/23/19 06/08/19 Potassium 2 tab-cap DAILY 12/28/19 celecoxib mg 12/28/19 cholecalciferol (vitamin D3) 125 mcg PO DAILY 12/28/19 12/28/19 [Vitamin D3] levothyroxine [Euthyrox] 12/28/19 Allergies Allergy/AdvReac Type Severity Reaction Status Date / Time No Known Allergies Allergy Verified 06/13/19 16:07 Review of Systems Review of Systems: Narrative: CONSTITUTIONAL: Denies body aches, fever, chills, or sweats. EYES: Denies visual changes, redness, or discharge. ENT: Denies rhinorrhea, congestion, sore throat, or otalgia. CARDIOVASCULAR: Denies chest pain, palpitations, or edema. RESPIRATORY: Denies cough or dyspnea. GASTROINTESTINAL: Denies abdominal pain, nausea, vomiting, or diarrhea. GENITOURINARY: Denies dysuria or hematuria. SKIN: Denies rash, itching, or wounds. MUSCULOSKELETAL: Denies back pain, or myalgia. + Right elbow pain NEUROLOGIC: Denies headache, or weakness. + Numbness and tingling in the right forearm and hand PSYCH: Denies depression or anxiety. [facility] Past Medical History Medical History (Updated 12/28/19 @ 16:28 by KRISTI GarciaP, ) Anemia Anxiety Arthritis Hypothyroid Migraines Obesity (BMI 30-39.9) UTI (urinary tract infection) Surgical History Surgical History (Updated 06/13/19 @ 16:16 by Snehal Appiah) H/O bilateral breast reduction surgery H/O left wrist surgery H/O: hysterectomy History of appendectomy Hx of cholecystectomy Social History Social History Smoking packs per day: 1 Smoking cigarettes per day: 20.0 Years smoked: 20 Smoking pack-years: 20.00 Smoking status: Former smoker Tobacco type: cigarettes Alcohol intake: current Substance use: never Gender identity (if verbalized by the patient): Female Spiritual care concerns: No Agree to blood products: Yes Comments At time of signature, I have reviewed and agree with nursing past medical, surgical, social and family history unless otherwise noted. Please see nursing chart for further information. There is no relevant family history pertinent to the presenting complaint Exam Narrative: Exam Narrative: GENERAL: Well-appearing, well-nourished, and in no acute distress. HEAD: Normocephalic, atraumatic. EYES: EOMI. No redness or drainage. Conjunctivae normal. ENT: Mucous membranes pink and moist. NECK: Normal AROM. Nontender cervical spine and bilateral paraspinal cervical muscles. CHEST: No respiratory distress. EXTREMITIES: Right elbow: Tenderness to the lateral epicondyle. No tenderness to the medial epicondyle. No tenderness to the ulnar nerve area. Full range of motion of the elbow with increased pain, slight decreased full flexion due to pain. Full range of motion of the wrist and all fingers. Distal sensation intact. Capillary refill normal. Radial pulse normal. Hand occupational health and safety officer slightly decreased. SKIN: Warm, dry, no rash. Capillary refill no
== END 2019-12-28 16:31 | disposition home or self-care (01) ==
PROVIDERS: Emergency Provider Nurse Practitioner; PCP Physician Assistant
DX: M77.11 Lateral epicondylitis, right elbow (principal); Z87.891 Personal history of nicotine dependence; F41.9 Anxiety disorder, unspecified; M19.90 Unspecified osteoarthritis, unspecified site; E03.9 Hypothyroidism, unspecified; E66.9 Obesity, unspecified; Z68.30 Body mass index [BMI] 30.0-30.9, adult
CPT/HCPCS: 99213; G0463

== ENCOUNTER 2020-01-17 16:05 | Outpatient (CLI) | payer OTHER, SELFPAY ==
--- NOTE | ~2020-01-17 | XR_ITS ---
EXAMINATION: XR elbow RT min 3V DATE: 01/17/2020 16:25 INDICATION: Left lateral elbow pain, tendinitis TECHNIQUE: Anteroposterior, two oblique and lateral views of the right elbow were obtained. COMPARISON: 12/04/2016 FINDINGS: Alignment is normal. No fracture or joint effusion. Mild elbow joint osteoarthritis persist s without significant change.Soft tissues are unremarkable. IMPRESSION: 1. Mild elbow joint osteoarthritis without acute findings or significant interval change. Reviewed, dictated and finalized at location A. IMPRESSION: 1. Mild elbow joint osteoarthritis without acute findings or significant interv al change.
== END 2020-01-17 16:06 | disposition home or self-care (01) ==
PROVIDERS: PCP Physician Assistant; Visit Provider Chiropractor
DX: M19.022 Primary osteoarthritis, left elbow (principal)
CPT/HCPCS: 73080

== ENCOUNTER 2020-04-25 08:55 | Outpatient (CLI) | payer OTHER, SELFPAY ==
--- NOTE | ~2020-04-25 | MR_ITS ---
EXAMINATION: MR elbow RT wo con DATE: 04/25/2020 10:12 INDICATION: Right elbow pain TECHNIQUE: Magnetic resonance imaging (MRI) of the right elbow was performed without intravenous cont rast. Sequences included coronal, axial, and sagittal PD-weighted FS FSE and coronal, axial, and sagi ttal PD-weighted FSE. COMPARISON: None FINDINGS: Osseous/other: Normal alignment. Normal marrow signal with no marrow edema, fracture, osteochondral lesion or abnor mal marrow replacing process. Tiny marginal osteophytes and mild nonuniform joint space narrowing con sistent with mild tricompartmental osteoarthritis at the right elbow. Tendons: Triceps, biceps brachii and brachialis tendons are normal. Common flexor tendon wad is normal. Mild tendinopathy of the common extensor tendon wad with high-grade partial avulsive tear from its lateral epicondylar origin which involves the majority of the wad with up to 1 cm distal retraction of the t ear margin. Ligaments: The medial and lateral collateral ligament complexes are normal. Cubital tunnel: Cubital tunnel is unremarkable with normal signal and caliber of the ulnar nerve. Fluid: Small right elbow joint effusion. IMPRESSION: 1. Mild tendinopathy and high-grade partial tear at the lateral epicondylar origin of the common exte nsor tendon wad. 2. Mild osteoarthritis at the right elbow with small joint effusion. Reviewed, dictated and finalized at location A. DER SETTER IMPRESSION: 1. Mild tendinopathy and high-grade partial tear at the lateral epicondylar katina gin of the common extensor tendon wad. 2. Mild osteoarthritis at the right elbow with small joint effusion.
== END 2020-04-25 08:56 | disposition home or self-care (01) ==
PROVIDERS: PCP Physician Assistant; Visit Provider Orthopaedic Surgery
DX: S56.511A Strain of other extensor muscle, fascia and tendon at forearm level, right arm, initial encounter (principal); M19.021 Primary osteoarthritis, right elbow; M25.421 Effusion, right elbow
CPT/HCPCS: 73221

== ENCOUNTER 2020-06-08 14:47 | Emergency (ER) | payer OTHER, SELFPAY ==
--- NOTE | ~2020-06-08 | CT_ITS ---
EXAMINATION: CT brain wo con DATE: 06/08/2020 19:05 INDICATION: Headache TECHNIQUE: Computed tomography (CT) of the head was performed without intravenous contrast. Sagittal and coronal reconstructions were performed. The mA was adjusted according to patient size. Iterative reconstruction technique was employed. The dose-length product was 605.33 mGy-cm. COMPARISON: None FINDINGS: No acute intracranial hemorrhage, acute infarction or abnormal extra axial fluid collection. Ventricl es are normal and symmetric. No mass/mass effect. The orbits, paranasal sinuses and mastoid air cells are normal. IMPRESSION: 1. Normal head CT. Reviewed, dictated and finalized at location A. LY DAY CARER IMPRESSION: 1. Normal head CT.
--- NOTE | ~2020-06-08 | XR_ITS ---
EXAMINATION: XR chest 2V 06/08/2020 15:53 INDICATION: Shortness of breath, dizziness, vertigo. Migraine. PROCEDURE: 2 view chest COMPARISON: 05/23/2019 FINDINGS: The lungs are clear. The cardiomediastinal silhouette is within normal limits. There are no pleural effusions. There is no pneumothorax suspected. IMPRESSION: 1: NO ACUTE CARDIOPULMONARY DISEASE. Reviewed, dictated and finalized at location B. ER TECHNICIAN
--- NOTE | ~2020-06-08 | CT_ITS ---
EXAMINATION: CTA chest PE protocol DATE: 06/08/2020 19:05 INDICATION: Shortness of breath, nausea and dizziness. TECHNIQUE: Computed tomography (CT) pulmonary angiogram of the chest was performed with 100 mL Omnipa que-350 intravenous contrast. Additional 3D reconstructions utilizing coronal maximum intensity proje ction (MIP) were performed. Automated exposure control and iterative reconstruction technique were em ployed. The dose-length product was 1087.67 mGy-cm. COMPARISON: None FINDINGS: Good contrast opacification of the pulmonary arteries. There is mild streak artifact from dense contr ast in the superior vena cava and right atrium. Mild scattered respiratory motion artifact which does not significantly limit evaluation. No pulmonary embolism. Mild emphysema. Mild dependent atelectasi s in the bilateral upper and lower lobes. No pneumonia, pulmonary edema, pleural effusion or pneumoth orax. Heart size is normal. No pericardial effusion. Thoracic aorta is normal in caliber with no diss ection. No pathologically enlarged thoracic lymphadenopathy. Cholecystectomy clips the gallbladder fo ssa. Visualized upper abdomen is otherwise unremarkable. Moderate thoracic spondylosis. IMPRESSION: 1. No pulmonary embolism or other acute cardiopulmonary disease. 2. Mild emphysema. Reviewed, dictated and finalized at location A. INA PLANT SUPERVISOR
--- NOTE | 2020-06-08 15:12 | ECG_ITS ---
Measurements Intervals [place] Rate: 91 P: 26 DC: 156 QRS: -14 QRSD: 92 T: 47 QT: 352 QTc: 434 Interpretive Statements SINUS RHYTHM BORDERLINE R WAVE PROGRESSION, ANTERIOR LEADS BASELINE WANDER- I, III, AVL BORDERLINE ECG Electronically Signed On 06-08-2020 16:03:40 WATER SAFETY TEACHER by Rogelio Coreas D.O.
[2020-06-08 15:17] VITALS: BP 141/91; PULSE 88; RESP 17; TEMP 36.9; O2SAT 98
[2020-06-08 15:31] LABS: Basophils Absolute Auto 0.1 K/mm3 (0.0-0.1); Basophils Percent Auto 0.8 % (0.2-1.2); Eosinophils Absolute Auto 0.2 K/mm3 (0-0.3); Eosinophils Percent Auto 1.8 % (0-4.4); Hematocrit 46.4 % (37.0-47.0); Immature Granulocyte Absolute 0.03 K/mm3 (0.00-0.031); Immature Granulocyte Percent A 0.3 % (0-0.5); Lymphocytes Absolute Auto 2.91 K/mm3 (0.9-3.2); Lymphocytes Percent Auto 29.6 % (18.3-44.2); Mean Corpuscular HGB Conc 34.5 g/dl (32-36); Mean Corpuscular Hemoglobin 30.2 pg (26-34); Mean Corpuscular Volume 87.7 fl (80-100); Mean Platelet Volume 10.3 fl (7.4-10.4); Monocytes Absolute Auto 0.7 K/mm3 (0.1-0.6); Neutrophils Percent Auto 60.5 % (45.5-73.1); Platelet Count Result 354 k/mm3 (150-375); Red Blood Count 5.29 M/mm3 (4.2-5.4); Red Cell Distribution Width 13.2 % (11.5-14.5); White Blood Count 9.8 K/mm3 (4.5-10.0)
[2020-06-08 15:43] LABS: Anion Gap 6 mmol/L (8-16); Blood Urea Nitrogen 15 mg/dL (7-17); Calcium 9.4 mg/dL (8.4-10.2); Carbon Dioxide 29 mmol/L (22-30); Chloride 103 mmol/L (98-107); Estimated CRCL calculation 96 ml/min; Estimated Glomerular Filt Rate > 60; Glucose 97 mg/dL (65-105); Potassium 3.8 mmol/L (3.4-5.0); Sodium 138 mmol/L (137-145)
[2020-06-08 17:42] VITALS: PULSE 93
[2020-06-08 17:43] VITALS: BP 157/91; PULSE 90; RESP 17; O2SAT 98
[2020-06-08] MEDS: SODIUM CHLORIDE 0.9% IV 1,000 ML 999 ML IV CONT (17:58)
[2020-06-08] MEDS: KETOROLAC 30 MG/ML VIAL (*BKC) IV PUSH (17:59)
[2020-06-08] MEDS: diphenhydrAMINE HCl INJ 50 MG/ML VIAL IV PUSH (17:59)
[2020-06-08] MEDS: METOCLOPRAMIDE HCL INJ 10 MG/2 ML VIAL IV PUSH (18:00)
[2020-06-08 18:23] LABS: NT Pro B Type Natriuretic Pept 17 PG/ML (5-100); Troponin I < 0.012 ng/mL (0.000-0.034)
[2020-06-08] MEDS: MECLIZINE HCL 25 MG TABLET PO (18:34)
--- NOTE | 2020-06-08 19:31 | ED.SOB ---
HPI - SOB/Dyspnea General Chief Complaint: Shortness of Breath/Dyspnea Stated Complaint: SOB Time Seen by Provider: 06/08/20 17:38 History of Present Illness HPI Narrative: Patient is a 50-year-old female who presents the emergency department with chief complaint of headache vertigo symptoms and shortness of breath. The patient reports she has been tested twice for COVID-19 states that the primary thing that made her come into the emergency department today was a rotational vertigo symptom and also that she was having a continual headache. The patient reports has been treated with antibiotics without improvement in her symptoms. The patient reports that she had an episode that it felt as though the room was spinning and she was unable to stop the symptoms. Patient denies chest pain reports that the shortness of breath was worsened by her vertigo symptoms. Related Data Home Medications Medication Instructions Recorded Confirmed duloxetine 60 mg PO DAILY 05/23/19 06/08/19 triamterene-hydrochlorothiazid 1 tablet PO DAILY 05/23/19 06/08/19 Potassium 2 tab-cap DAILY 12/28/19 celecoxib mg 12/28/19 cholecalciferol (vitamin D3) 125 mcg PO DAILY 12/28/19 12/28/19 [Vitamin D3] Allergies Allergy/AdvReac Type Severity Reaction Status Date / Time No Known Allergies Allergy Verified 03/08/20 10:10 Review of Systems Review of Systems: Narrative: A 10 system review of systems was completed on the patient and is negative except for what is stated in the HPI. Nursing and ancillary documentation was reviewed. PMFSH Past Medical History Medical History Anemia Anxiety Arthritis Hypothyroid Migraines Obesity (BMI 30-39.9) Prediabetes Prediabetes UTI (urinary tract infection) Surgical History Surgical History H/O bilateral breast reduction surgery H/O left wrist surgery H/O: hysterectomy History of appendectomy Hx of cholecystectomy Family History Family History Sibling Family history of thyroid disease Asthma Family history of diabetes mellitus in first degree relative Grandparent Family history of cataracts Cerebrovascular accident Family history of Alzheimer's disease Family history of heart disease in male family member before age 55 Father Family history of alcoholism Family history of seizure disorder Family history of heart disease in male family member before age 55 Social History Social History Smoking packs per day: 1 Smoking cigarettes per day: 20.0 Years smoked: 20 Smoking pack-years: 20.00 Smoking status: Former smoker Tobacco type: cigarettes Alcohol intake: current Substance use: never Gender identity (if verbalized by the patient): Female Spiritual care concerns: No Agree to blood products: Yes Exam Narrative: Exam Narrative: GENERAL: Well-appearing, well-nourished, and in no acute distress. HEAD: Normocephalic, atraumatic. EYES: PERRLA and EOMI. ENT: Nares clear, no rhinorrhea or epistaxis. Mucous membranes moist. NECK: Supple. CHEST: Clear to auscultation. No respiratory distress. HEART: Regular rate and rhythm. No murmur heard. Normal peripheral pulses. ABDOMEN: Soft, nontender, nondistended, normal active bowel sounds. EXTREMITIES: Normal range of motion. No edema. SKIN: Warm, dry, no rash. NEURO: No focal deficits. Alert and oriented x3. PSYCH: Normal mood and affect. Course Course Emergency Course: EKG showed no acute ischemia CT head showed no evidence of focal findings CTA chest showed no pulmonary embolism Vital Signs Vital signs: Vital Signs Temperature 36.9 C 06/08/20 15:17 Pulse Rate 88 06/08/20 15:17 Respiratory Rate 17 06/08/20 15:17 Blood Pressure 141/91 H 06/08/20 15:17 P
[2020-06-08 19:56] VITALS: BP 141/80; PULSE 85; RESP 16; TEMP 36.6; O2SAT 95
== END 2020-06-08 19:57 | disposition home or self-care (01) ==
PROVIDERS: Emergency Provider Emergency Medicine; PCP Physician Assistant
DX: R51.9 Headache, unspecified (principal); R42 Dizziness and giddiness; Z86.2 Personal history of diseases of the blood and blood-forming organs and certain disorders involving the immune mechanism; R94.31 Abnormal electrocardiogram [ECG] [EKG]; M19.90 Unspecified osteoarthritis, unspecified site; E03.9 Hypothyroidism, unspecified; E66.9 Obesity, unspecified; Z68.39 Body mass index [BMI] 39.0-39.9, adult; Z87.440 Personal history of urinary (tract) infections; R73.03 Prediabetes; Z87.891 Personal history of nicotine dependence; J43.9 Emphysema, unspecified
CPT/HCPCS: 36415; 70450; 71046; 71275; 80048; 83880; 84484; 85025; 93005; 96361; 96374; 96375; 99284; A9270; J1200; J1885; J2765; J7030; Q9967

== ENCOUNTER 2020-06-21 15:11 | Outpatient (CLI) | payer OTHER, SELFPAY ==
--- NOTE | ~2020-06-21 | MM_ITS ---
EXAMINATION: MM screening [facility] [place] HISTORY: Screening mammogram TECHNIQUE: Craniocaudal and mediolateral oblique 3-D tomosynthesis images were obtained and synthetic 2-D images were generated. CAD analysis was submitted and interpreted. COMPARISON: 06/09/2019, 05/20/2018, 12/15/2017 BREAST PARENCHYMAL COMPOSITION: There are scattered areas of fibroglandular density. FINDINGS: Scattered benign-appearing calcifications are present. There is no evidence of suspicious m ass, calcification, or architectural distortion to suggest malignancy in either breast. There has bee n no suspicious interval change. IMPRESSION: 1. No mammographic evidence of malignancy. 2. Recommend routine screening mammography in one year. BI-RADS Category 2: Benign finding(s). Reviewed, dictated and finalized at location A. HAULER
== END 2020-06-21 15:12 | disposition home or self-care (01) ==
LOC: ANHIMG 15:13
PROVIDERS: PCP Physician Assistant; Visit Provider Obstetrics & Gynecology
DX: Z12.31 Encounter for screening mammogram for malignant neoplasm of breast (principal)
CPT/HCPCS: 77063; 77067

== ENCOUNTER → 2020-06-26 14:52 | Outpatient (CLI) | payer OTHER, SELFPAY ==
--- NOTE | ~2020-06-26 | XR_ITS ---
EXAMINATION: XR hip RT min 2V DATE: 06/26/2020 15:26 INDICATION: Right hip pain TECHNIQUE: Anteroposterior, frog leg, and cross-table lateral views of affected hip were obtained. COMPARISON: None. FINDINGS: Bone alignment is normal. There is no fracture. Mild osteoarthritis is noted. The soft tiss ues are unremarkable. IMPRESSION: 1. Osteoarthritis. Reviewed, dictated and finalized at location A. [employer] IMPRESSION: 1. Osteoarthritis.
--- NOTE | ~2020-06-26 | XR_ITS ---
EXAMINATION: XR lumbar spine 2-3V DATE: 06/26/2020 15:26 INDICATION: Low back pain TECHNIQUE: Anteroposterior and lateral views of the lumbar spine, and cone-down lateral view of the l umbosacral junction were obtained. COMPARISON: None. FINDINGS: There are 3 mm of retrolisthesis of L4 on L5 and L5 on S1. The vertebral body heights are n ormal. There is moderate loss of intervertebral disc space height at L1-2 and L3-4 through L5-S1. Sma ll degenerative osteophytes project from the anterior endplates of multiple vertebral bodies. There i s no fracture. There is severe facet osteoarthritis of the lower lumbar spine. Surgical clips in the right upper quadrant are likely from prior cholecystectomy. IMPRESSION: 1. Moderate lumbar spondylosis without acute findings. Reviewed, dictated and finalized at location A. T [employer]ATION OFFICER
--- NOTE | ~2020-06-26 | XR_ITS ---
EXAMINATION: XR hip LT min 2V INDICATION: Left hip pain TECHNIQUE: Three views of the left hip are obtained. COMPARISON: None available FINDINGS: Bone alignment is normal. There is no fracture. Mild osteoarthritis is noted. The soft tiss ues are unremarkable. IMPRESSION: 1. Osteoarthritis. Reviewed, dictated and finalized at location A. L MAKER IMPRESSION: 1. Osteoarthritis.
== END ==
PROVIDERS: PCP Physician Assistant; Visit Provider Physician Assistant
DX: M16.0 Bilateral primary osteoarthritis of hip (principal); M47.816 Spondylosis without myelopathy or radiculopathy, lumbar region
CPT/HCPCS: 72100; 73502

== ENCOUNTER → 2020-08-25 02:04 | Outpatient (CLI) | payer OTHER, SELFPAY ==
[2020-08-25 19:11] LABS: SARS-CoV-2 RNA PCR Negative
== END ==
PROVIDERS: PCP Physician Assistant; Visit Provider Internal Medicine Gastroenterology
DX: Z01.812 Encounter for preprocedural laboratory examination (principal); Z20.822 Contact with and (suspected) exposure to COVID-19
CPT/HCPCS: C9803; U0003; U0005

== ENCOUNTER 2020-08-28 01:31 | Day surgery (SDC) | payer OTHER, SELFPAY ==
[2020-08-16 16:00] VITALS: BMI 39.2
[2020-08-28 08:45] VITALS: BP 146/87; RESP 20; TEMP 36.2; O2SAT 96; BMI 39.2
[2020-08-28] MEDS: LACTATED RINGERS 1,000 ML 150 ML IV CONT (09:01)
--- NOTE | 2020-08-28 09:10 | WPDANESEPPF ---
Anes - Initial Pre Proc Eval Procedure: Operation Date: 08/28/20 10:00 Proposed Procedures p Screening Colonoscopy - Jonanthan Cerna MD Date/Time: 08/28/20 09:10 Surgeon: Jonnathan Cerna MD Pre Op Diagnosis: neoplasm screening Patient Data Age: 50 Gender: F Height: 5 ft 7 in Weight: 113.5 kg Last Vital Signs Temp 36.2 C L 08/28/20 08:45 Resp 20 08/28/20 08:45 BP 146/87 H 08/28/20 08:45 Pulse Ox 96 08/28/20 08:45 Allergies Allergy/AdvReac Type Severity Reaction Status Date / Time No Known Allergies Allergy Verified 08/16/20 15:58 Home Medications Medication Instructions Recorded Confirmed Type duloxetine [Cymbalta] 60 mg PO DAILY 05/23/19 08/16/20 History triamterene-hydrochlorothiazid 1 tablet PO DAILY 05/23/19 08/16/20 History Potassium 2 tab-cap PO DAILY 12/28/19 08/16/20 History celecoxib 200 mg PO DAILY 12/28/19 08/16/20 History cholecalciferol (vitamin D3) 125 mcg PO DAILY 12/28/19 08/16/20 History [Vitamin D3] meclizine 25 mg PO BID PRN #20 tablet 06/08/20 08/16/20 Rx liothyronine [Cytomel] 5 mcg PO BID 08/16/20 08/16/20 History Synthroid 150 mcg tablet See Rx Instructions .ROUTE 08/22/20 Rx .COMPLEX #90 tablet NS Patient hx anesthesia problems: post op nausea/vomiting Family hx anesthesia problems: post op nausea/vomiting PMFSH Past Medical History Medical History Anemia Anxiety Arthritis Hypothyroid Migraines Obesity (BMI 30-39.9) Prediabetes Prediabetes UTI (urinary tract infection) Surgical History Surgical History H/O bilateral breast reduction surgery H/O left wrist surgery H/O: hysterectomy History of appendectomy Hx of cholecystectomy Family History Family History Sibling Family history of thyroid disease Asthma Family history of diabetes mellitus in first degree relative Grandparent Family history of cataracts Cerebrovascular accident Family history of Alzheimer's disease Family history of heart disease in male family member before age 55 Father Family history of alcoholism Family history of seizure disorder Family history of heart disease in male family member before age 55 Social History Social History Smoking packs per day: 1 Smoking cigarettes per day: 20.0 Years smoked: 20 Smoking pack-years: 20.00 Smoking status: Former smoker Tobacco type: cigarettes Alcohol intake: current Substance use: never Substance use type: does not use Living arrangements: with family Gender identity (if verbalized by the patient): Female Spiritual care concerns: No Agree to blood products: Yes Anes - Eval Final PreProcedure Day of Procedure 08/28/20 09:10 Patient weight: obese Heart: regular rate and rhythm Lungs: decreased breath sounds Airway: Mallampati scale class II Neurological: alert and oriented Last oral intake: >/= 8 hours ASA classification: III Emergent: no Anesthetic plan: proceed Anesthesia type and monitoring: general GIVS and standard monitoring Informed Consent: The patient's anesthetic plan and its attendant risks and benefits were discussed with the patient/family/POA. Questions were solicited and answers provided to the satisfaction of the patient/family/POA.
--- NOTE | 2020-08-28 09:20 | PM.HPGS ---
History of Present Illness History of Present Illness Consent: Risks, benefits, and alternatives have been discussed and questions answered. Patient agrees to proceed with procedure. Chief complaint: neoplasm screening Narrative: Alethea Newsome is a 50 year old female here for first screening colonoscopy Review of Systems Constitutional: Constitutional: Denies headache(s) and Denies weakness Eyes: Eyes: Denies blurry vision ENT: Reports Normal hearing present, Denies headache(s) and Denies neck pain Cardiovascular: Cardiovascular: Denies chest pain and Denies dyspnea Respiratory: Respiratory: Denies dyspnea Gastrointestinal: Gastrointestinal: Reports no additional gastrointestinal complaints Genitourinary: Genitourinary: Denies dysuria Musculoskeletal: Musculoskeletal: Denies neck pain Integumentary/Breasts: Skin/Breast: Denies dry skin Neurologic: Reports Normal hearing present, Denies headache(s) and Denies weakness Psychiatric: Psychiatric: Denies anxiety Endocrine: Endocrine: Denies change in body appearance Hematologic/Lymphatic: Hematologic/Lymphatic: Denies easy bleeding Allergic/Immunologic: Allergic/Immunologic: Denies urticaria PMFSH Past Medical History Medical History (Updated 08/28/20 @ 09:20 by Jonnathan Cerna MD) Anemia Anxiety Arthritis Colon cancer screening Hypothyroid Migraines Obesity (BMI 30-39.9) Prediabetes Prediabetes UTI (urinary tract infection) Surgical History Surgical History H/O bilateral breast reduction surgery H/O left wrist surgery H/O: hysterectomy History of appendectomy Hx of cholecystectomy Family History Family History Sibling Family history of thyroid disease Asthma Family history of diabetes mellitus in first degree relative Grandparent Family history of cataracts Cerebrovascular accident Family history of Alzheimer's disease Family history of heart disease in male family member before age 55 Father Family history of alcoholism Family history of seizure disorder Family history of heart disease in male family member before age 55 Social History Social History Smoking packs per day: 1 Smoking cigarettes per day: 20.0 Years smoked: 20 Smoking pack-years: 20.00 Smoking status: Former smoker Tobacco type: cigarettes Alcohol intake: current Substance use: never Substance use type: does not use Living arrangements: with family Gender identity (if verbalized by the patient): Female Spiritual care concerns: No Agree to blood products: Yes Meds Home Medications and Allergies Home Medications Medication Instructions Recorded Confirmed Type duloxetine [Cymbalta] 60 mg PO DAILY 05/23/19 08/16/20 History triamterene-hydrochlorothiazid 1 tablet PO DAILY 05/23/19 08/16/20 History Potassium 2 tab-cap PO DAILY 12/28/19 08/16/20 History celecoxib 200 mg PO DAILY 12/28/19 08/16/20 History cholecalciferol (vitamin D3) 125 mcg PO DAILY 12/28/19 08/16/20 History [Vitamin D3] meclizine 25 mg PO BID PRN #20 tablet 06/08/20 08/16/20 Rx liothyronine [Cytomel] 5 mcg PO BID 08/16/20 08/16/20 History Synthroid 150 mcg tablet See Rx Instructions .ROUTE 08/22/20 Rx .COMPLEX #90 tablet NS Allergies Allergy/AdvReac Type Severity Reaction Status Date / Time No Known Allergies Allergy Verified 08/16/20 15:58 Vital Signs Vital Signs - 24 hr 08/28/20 08:45 Temperature 97.1 F L Respiratory Rate 20 Blood Pressure 146/87 H Pulse Oximetry 96 Exam Const: General: comfortable and no acute distress HENMT: General nose exam: Normal nares present Eyes: General: appearance normal, both eyes and all related structures Neck: Neck: no JVD Resp: Auscultation: clear to auscultation bilaterally Cardio: Rate: regular rate Rhy
[2020-08-28 09:46] VITALS: BP 130/66; PULSE 71; RESP 16; O2SAT 97
[2020-08-28 09:56] VITALS: BP 127/64; PULSE 69; RESP 23; O2SAT 97
[2020-08-28 10:06] VITALS: BP 125/64; PULSE 65; RESP 23; O2SAT 98
== END 2020-08-28 10:14 | disposition home or self-care (01) ==
PROVIDERS: PCP Physician Assistant; Visit Provider Internal Medicine Gastroenterology
PROC: 0DJD8ZZ Inspection of Lower Intestinal Tract, Via Natural or Artificial Opening Endoscopic (ICD-10-PCS; CPT 45378; principal; 2020-08-28 10:00)
DX: Z12.11 Encounter for screening for malignant neoplasm of colon (principal); K57.30 Diverticulosis of large intestine without perforation or abscess without bleeding; K64.8 Other hemorrhoids; D64.9 Anemia, unspecified; F41.9 Anxiety disorder, unspecified; M19.90 Unspecified osteoarthritis, unspecified site; E03.9 Hypothyroidism, unspecified; R73.03 Prediabetes; Z87.891 Personal history of nicotine dependence; E66.9 Obesity, unspecified; Z68.39 Body mass index [BMI] 39.0-39.9, adult
CPT/HCPCS: 45378; J2001; J2704; J7120

== ENCOUNTER 2020-10-01 14:19 | Emergency (ER) | payer OTHER, SELFPAY ==
--- NOTE | ~2020-10-01 | CT_ITS ---
EXAMINATION: CT abdomen pelvis wo con DATE: 10/01/2020 15:12 INDICATION: Bilateral flank pain TECHNIQUE: Computed tomography (CT) of the abdomen and pelvis was performed without intravenous contr ast. Automated exposure control and iterative reconstruction technique were employed. Exam dose: 868 .86 mGy-cm total exam DLP. COMPARISON: 06/13/2019 CT abdomen pelvis FINDINGS: The lung bases are clear of infiltrate or consolidation. Normal heart size. No pericardial or pleural effusion. Status post cholecystectomy. No space-occupying mass lesion of the liver, spleen, pancreas, adrenal g lands or kidneys is evident on this limited noncontrast examination. There are 2 small nonobstructing lower pole right renal calculi measuring up to 2.6 mm approximate ma ximal dimension. 3 nonobstructing left renal calculi are noted, the largest measuring up to approxima tely 3.7 mm. No ureteral calculus or hydroureteronephrosis. The urinary bladder is unremarkable. Status post hysterectomy. Small sliding hiatal hernia. Diverticulosis of left and right colon; no CT evidence of diverticulitis. No bowel obstruction, bowel wall thickening, pneumatosis or intraperitoneal free air is detected. Small fat-containing umbilical hernia. Degenerative changes of the thoracic and lumbar spine; no suspicious osteolytic or osteoblastic lesio ns are noted. IMPRESSION: Bilateral nonobstructive nephrolithiasis No ureteral calculus or hydroureteronephrosis Status post cholecystectomy Small sliding hiatal hernia Diverticulosis of the colon; no CT evidence of diverticulitis Reviewed, dictated and finalized at Location A. Reviewed, dictated and finalized at location A.
--- NOTE | ~2020-10-01 | XR_ITS ---
XR abdomen/kub 1V DATE: 10/01/2020 15:18 INDICATION: Bilateral flank pain for one week. History of urinary tract infection. TECHNIQUE: AP projection, 2 views COMPARISON: 10/01/[address] abdomen pelvis FINDINGS: Surgical clips, right upper quadrant, consistent with cholecystectomy. Very faintly calcifi ed bilateral small renal calculi, which number approximately 2 on the right and 3 on the left on the sixth I 09/2020 CT abdomen pelvis examination. The psoas shadows are intact. No visceromegaly is evident. There is a moderately prominent amount of fecal material in the colon but no evidence of bowel obstruction. IMPRESSION: Very faintly calcified bilateral renal calculi Status post cholecystectomy Reviewed, dictated and finalized at Location A. Reviewed, dictated and finalized at location A.
[2020-10-01 14:21] VITALS: BP 150/105; PULSE 117; RESP 18; TEMP 36.2; O2SAT 95
[2020-10-01 14:53] LABS: Add Urine Microscopic? NO; Appearance Urine Clear (Clear); Bilirubin Urine Negative (Negative); Blood Urine Negative (Negative); Color Urine Yellow (Yellow); Glucose Urine UA Negative (Negative); Ketones Urine Negative (Negative); Leukocyte Esterase Ur Negative LEU/UL (Negative); Nitrate Urine Negative (Negative); Protein Urine Negative (Negative); Specific Grav Ur 1.014 (1.001-1.035); Urobilinogen Urine Negative mg/dL (<2.0)
--- NOTE | 2020-10-01 15:15 | ED.BACK ---
HPI - Back Pain/Injury General Chief Complaint: Urogenital-Female Stated Complaint: kidney pain Time Seen by Provider: 10/01/20 14:38 Source: patient and RN notes reviewed Mode of arrival: ambulatory Limitations: no limitations History of Present Illness HPI Narrative: This is a 50 year old female who presents for evaluation of a possible kidney infection. She states she developed a bad urinary tract infection 1.5 weeks ago. She reports symptoms of hematuria, urinary urgency and pressure. She was started on an unknown antibiotic. She states her symptoms did not improved so she was started on Keflex by her oncall OBGYN. She states her hematuria has resolved but she still has urinary urgency. She is also complaining of diffuse abdominal pain and bilateral flank pain. She is unsure of fever or chills. She denies nausea, vomiting but she does reports diarrhea. She denies needing pain medication. Related Data Home Medications Medication Instructions Recorded Confirmed duloxetine [Cymbalta] 60 mg PO DAILY 05/23/19 08/29/20 triamterene-hydrochlorothiazid 1 tablet PO DAILY 05/23/19 08/29/20 Potassium 2 tab-cap PO DAILY 12/28/19 08/29/20 celecoxib 200 mg PO DAILY 12/28/19 08/29/20 cholecalciferol (vitamin D3) 125 mcg PO DAILY 12/28/19 08/29/20 [Vitamin D3] liothyronine [Cytomel] 5 mcg PO BID 08/16/20 08/29/20 Allergies Allergy/AdvReac Type Severity Reaction Status Date / Time No Known Allergies Allergy Verified 08/16/20 15:58 Review of Systems Review of Systems: All systems reviewed & are unremarkable except as noted in HPI and below PMFSH Past Medical History Medical History Anemia Anxiety Arthritis Colon cancer screening Hypothyroid Migraines Obesity (BMI 30-39.9) Prediabetes Prediabetes UTI (urinary tract infection) Surgical History Surgical History H/O bilateral breast reduction surgery H/O left wrist surgery H/O: hysterectomy History of appendectomy Hx of cholecystectomy Family History Family History Sibling Family history of thyroid disease Asthma Family history of diabetes mellitus in first degree relative Grandparent Family history of cataracts Cerebrovascular accident Family history of Alzheimer's disease Family history of heart disease in male family member before age 55 Father Family history of alcoholism Family history of seizure disorder Family history of heart disease in male family member before age 55 Social History Social History Smoking packs per day: 1 Smoking cigarettes per day: 20.0 Years smoked: 20 Smoking pack-years: 20.00 Smoking status: Former smoker Tobacco type: cigarettes Alcohol intake: current Substance use: never Substance use type: does not use Gender identity (if verbalized by the patient): Female Spiritual care concerns: No Agree to blood products: Yes Exam Const: General: no acute distress and alert Orientation/consciousness: patient oriented x3 Eyes: EOM: EOMs intact bilaterally Chest: Chest palpation & inspection: normal inspection of the chest Resp: Effort & Inspection: normal respiratory effort and no retractions Auscultation: clear to auscultation bilaterally Cardio: Rate: regular rate Rhythm: regular rhythm Heart sounds: no murmurs GI: GI Palp: Yes Soft to palpation, Yes Tenderness to palpation present (GI) (bilateral lower quadrant) and No Guarding due to palpation present (GI) Auscultation: normal bowel sounds : General: Yes CVA tenderness bilateral Skin: General skin exam: normal color Rashes: no rashes Neuro: General: patient oriented x3, moves all extremities and CN's II-XI intact bilaterally Psych: Mental Status: mental status grossly normal Affect: normal aff
[2020-10-01] MEDS: SODIUM CHLORIDE 0.9% IV 1,000 ML 999 ML IV CONT (15:43)
[2020-10-01] MEDS: ONDANSETRON INJ 4 MG/2 ML VIAL IV PUSH (15:45)
[2020-10-01 15:52] LABS: Basophils Absolute Auto 0.1 K/mm3 (0.0-0.1); Basophils Percent Auto 0.8 % (0.2-1.2); Eosinophils Absolute Auto 0.2 K/mm3 (0-0.3); Eosinophils Percent Auto 1.6 % (0-4.4); Hematocrit 43.5 % (37.0-47.0); Immature Granulocyte Absolute 0.04 K/mm3 (0.00-0.031); Immature Granulocyte Percent A 0.4 % (0-0.5); Lymphocytes Absolute Auto 2.65 K/mm3 (0.9-3.2); Lymphocytes Percent Auto 25.1 % (18.3-44.2); Mean Corpuscular HGB Conc 34.5 g/dl (32-36); Mean Corpuscular Hemoglobin 30.1 pg (26-34); Mean Corpuscular Volume 87.2 fl (80-100); Mean Platelet Volume 10.6 fl (7.4-10.4); Monocytes Absolute Auto 0.8 K/mm3 (0.1-0.6); Monocytes Percent Auto 7.1 % (2.6-8.5); Neutrophils Absolute Auto 6.9 K/mm3 (1.3-6.7); Platelet Count Result 319 k/mm3 (150-375); Red Blood Count 4.99 M/mm3 (4.2-5.4); White Blood Count 10.6 K/mm3 (4.5-10.0)
[2020-10-01 16:03] LABS: INR 0.9; Prothrombin Time 12.3 Seconds (11.1-14.7)
[2020-10-01 16:04] LABS: Partial Thromboplastin Time 25.8 SECONDS (22.3-36.8)
[2020-10-01 16:06] LABS: Alanine Aminotransferase 25 U/L (4-35); Alkaline Phosphatase 104 U/L (38-126); Anion Gap 9 mmol/L (8-16); Aspartate Amino Transferase 25 U/L (14-36); Bilirubin,Total 0.3 mg/dL (0.2-1.3); Blood Urea Nitrogen 14 mg/dL (7-17); Carbon Dioxide 27 mmol/L (22-30); Chloride 103 mmol/L (98-107); Estimated CRCL calculation 95 ml/min; Estimated Glomerular Filt Rate > 60; Glucose 122 mg/dL (65-105); Lactic Acid Reflex 1.6 mmol/L (0.7-2.1); Lipase 414 U/L (23-300); Potassium 3.1 mmol/L (3.4-5.0); Sodium 139 mmol/L (137-145)
[2020-10-01 16:14] LABS: D Dimer 0.27 ug/mL (<0.48)
== END 2020-10-01 17:53 | disposition home or self-care (01) ==
PROVIDERS: Nurse Practitioner; Emergency Provider General Practice; PCP Physician Assistant
DX: N20.0 Calculus of kidney (principal); E03.9 Hypothyroidism, unspecified; R73.03 Prediabetes; F41.9 Anxiety disorder, unspecified; M19.90 Unspecified osteoarthritis, unspecified site; E66.9 Obesity, unspecified; Z68.39 Body mass index [BMI] 39.0-39.9, adult; Z86.2 Personal history of diseases of the blood and blood-forming organs and certain disorders involving the immune mechanism; Z87.891 Personal history of nicotine dependence; K44.9 Diaphragmatic hernia without obstruction or gangrene; K57.90 Diverticulosis of intestine, part unspecified, without perforation or abscess without bleeding
CPT/HCPCS: 36415; 74018; 74176; 80053; 81003; 83605; 83690; 85025; 85380; 85610; 85730; 96361; 96365; 96375; 99284; J0131; J2405; J7030

== ENCOUNTER 2020-11-06 17:11 | Outpatient (CLI) | payer OTHER, SELFPAY ==
--- NOTE | ~2020-11-06 | US_ITS ---
EXAMINATION: US venous doppler [facility] EXAM DATE: 11/06/2020 17:45 INDICATION: Left leg pain. TECHNIQUE: Multiple grayscale, color flow and Doppler images of the left lower extremity deep venous system were obtained and reviewed. There is no prior study for comparison. FINDINGS: The left common femoral, femoral and profunda veins demonstrate normal color flow, respirat ory variation, augmentation and compressibility. Compressibility, color flow confirmed within the le ft popliteal, posterior tibial, peroneal, and greater saphenous veins. Popliteal fossa cystic mass m easuring 7.7 x 3.8 x 2.2 cm, likely a moderate-sized Coughlin's cyst. IMPRESSION: 1. No left lower extremity deep venous thrombosis. 2. Moderate-sized left Coughlin's cyst. Reviewed, dictated and finalized at location A.
== END 2020-11-06 17:12 | disposition home or self-care (01) ==
LOC: ANHIMG 17:14
PROVIDERS: PCP Physician Assistant; Visit Provider Physician Assistant
DX: M79.662 Pain in left lower leg (principal); M71.22 Synovial cyst of popliteal space [Baker], left knee
CPT/HCPCS: 93971

== ENCOUNTER 2020-12-12 14:30 | Outpatient (CLI) | payer OTHER, SELFPAY ==
--- NOTE | 2020-12-12 | ECG_ITS ---
Measurements Intervals [place] Rate: 77 P: -77 ME: 133 QRS: -6 QRSD: 96 T: 29 QT: 392 QTc: 445 Interpretive Statements ECTOPIC ATRIAL RHYTHM ATRIAL PREMATURE COMPLEXES ABNORMAL ECG Electronically Signed On 12-12-2020 15:22:01 CDT by Rogelio Coreas D.O.
== END 2020-12-12 14:31 | disposition home or self-care (01) ==
PROVIDERS: PCP Physician Assistant; Visit Provider Physician Assistant
DX: M25.562 Pain in left knee (principal); G89.29 Other chronic pain; Z01.818 Encounter for other preprocedural examination; R94.31 Abnormal electrocardiogram [ECG] [EKG]
CPT/HCPCS: 93005

== ENCOUNTER 2021-05-01 11:35 | Emergency (ER) | payer OTHER, SELFPAY ==
[2021-05-01 11:43] VITALS: BP 131/85; PULSE 98; RESP 18; TEMP 36.6; O2SAT 99
== END 2021-05-01 11:55 | disposition left against medical advice (07) ==
PROVIDERS: Emergency Provider Internal Medicine Hematology & Oncology; PCP Physician Assistant
DX: Z53.21 Procedure and treatment not carried out due to patient leaving prior to being seen by health care provider (principal)
CPT/HCPCS: 99199

== ENCOUNTER 2021-05-06 03:50 | Emergency (ER) | payer OTHER, SELFPAY ==
--- NOTE | ~2021-05-06 | XR_ITS ---
XR chest 1V portable 05/06/2021 04:37 Indication: Cough Procedure: AP portable chest Comparison: 06/08/2020 Findings: Heart size normal. Subtle infiltrates of the left mid and lower lung chest which may repres ent atelectasis or developing pneumonia. Heart size normal. No pleural effusion or pneumothorax. No a cute osseous abnormality. Impression: 1: Subtle infiltrates of the left mid and lower thorax which may represent atelectasis or developing pneumonia. Reviewed, dictated and finalized at location A. T AID NURSE Impression: 1: Subtle infiltrates of the left mid and lower thorax which may represent atel ectasis or developing pneumonia.
[2021-05-06 03:59] VITALS: BP 127/70; PULSE 104; RESP 20; TEMP 36.4; O2SAT 95
[2021-05-06 04:35] VITALS: PULSE 98; RESP 15
[2021-05-06 04:36] VITALS: BP 128/64; PULSE 100; RESP 20; O2SAT 100
[2021-05-06] MEDS: ALBUTEROL SULFATE NEB 2.5 MG/0.5 ML INH 5 MG INHALATION (04:43)
[2021-05-06] MEDS: IPRATROPIUM BR 0.02% INH SOLN 0.5 MG/2.5 ML VIAL INHALATION (04:43)
[2021-05-06 04:45] VITALS: PULSE 101; RESP 19
[2021-05-06] MEDS: diphenhydrAMINE HCl INJ 50 MG/ML VIAL IV PUSH (04:46)
[2021-05-06] MEDS: SODIUM CHLORIDE 0.9% IV 1,000 ML 999 ML IV CONT (04:46)
[2021-05-06] MEDS: PROCHLORPERAZINE EDISYLATE 10 MG/2 ML VIAL IV PUSH (04:49)
[2021-05-06] MEDS: KETOROLAC 30 MG/ML VIAL (*BKC) IV PUSH (04:51)
[2021-05-06] MEDS: BENZONATATE 100 MG CAPSULE 200 MG PO (04:52)
--- NOTE | 2021-05-06 04:59 | ED.GENADULT ---
HPI - General Adult General Chief complaint: Headache Stated complaint: headache, N/V Time Seen by Provider: 05/06/21 04:17 History of Present Illness HPI narrative: Patient is a 50-year-old female presents the emergency department chief complaint of headache. The patient reports she has history of migraines and reports she was. Patient states she is a little bit of cough reports she has had body aches and reports that lights been bothering her eyes. Patient states symptoms or not improved by anything or they worsened by anything. Patient has been diagnosed with COVID-19 about 1 week ago Related Data Home Medications Medication Instructions Recorded Confirmed duloxetine [Cymbalta] 60 mg PO DAILY 05/23/19 04/19/21 triamterene-hydrochlorothiazid 1 tablet PO DAILY 05/23/19 04/19/21 Potassium 2 tab-cap PO DAILY 12/28/19 04/19/21 celecoxib 200 mg PO DAILY 12/28/19 04/19/21 cholecalciferol (vitamin D3) 125 mcg PO DAILY 12/28/19 04/19/21 [Vitamin D3] Allergies Allergy/AdvReac Type Severity Reaction Status Date / Time No Known Allergies Allergy Verified 05/06/21 04:53 Review of Systems Review of Systems: A 10 system review of systems was completed on the patient and is negative except for what is stated in the HPI. Nursing and ancillary documentation was reviewed. [facility] Past Medical History Medical History Anemia Anxiety Arthritis Colon cancer screening Hypothyroid Migraines Obesity (BMI 30-39.9) Prediabetes Prediabetes UTI (urinary tract infection) Surgical History Surgical History H/O bilateral breast reduction surgery H/O left wrist surgery H/O: hysterectomy History of appendectomy Hx of cholecystectomy Family History Family History Sibling Family history of thyroid disease Asthma Family history of diabetes mellitus in first degree relative Grandparent Family history of cataracts Cerebrovascular accident Family history of Alzheimer's disease Family history of heart disease in male family member before age 55 Father Family history of alcoholism Family history of seizure disorder Family history of heart disease in male family member before age 55 Social History Social History Smoking packs per day: 1 Smoking cigarettes per day: 20.0 Years smoked: 20 Smoking pack-years: 20.00 Smoking status: Former smoker Tobacco type: cigarettes Alcohol intake: current Substance use: never Substance use type: does not use Gender identity (if verbalized by the patient): Female Spiritual care concerns: No Agree to blood products: Yes Exam Narrative: GENERAL: Well-appearing, well-nourished, and in no acute distress. HEAD: Normocephalic, atraumatic. EYES: PERRLA and EOMI. ENT: Nares clear, no rhinorrhea or epistaxis. Mucous membranes moist. NECK: Supple. CHEST: Clear to auscultation. No respiratory distress. HEART: Regular rate and rhythm. No murmur heard. Normal peripheral pulses. ABDOMEN: Soft, nontender, nondistended, normal active bowel sounds. EXTREMITIES: Normal range of motion. No edema. SKIN: Warm, dry, no rash. NEURO: No focal deficits. Alert and oriented x3. PSYCH: Normal mood and affect. Course Course Emergency Course: Chest x-ray does not show evidence of large infiltrate Patient is feeling better after medications Vital Signs Vital signs: Vital Signs Temperature 36.4 C L 05/06/21 03:59 Pulse Rate 104 H 05/06/21 03:59 Respiratory Rate 20 05/06/21 03:59 Blood Pressure 127/70 05/06/21 03:59 Pulse Oximetry 95 05/06/21 03:59 Temperature 36.4 C L 05/06/21 03:59 Pulse Rate 101 H 05/06/21 04:45 Respiratory Rate 19 05/06/21 04:45 Blood Pressure 128/64 05/06/21 04:36 Pulse Oximetry 10
[2021-05-06 05:52] VITALS: BP 110/76; PULSE 89; RESP 23; O2SAT 97
== END 2021-05-06 05:55 | disposition home or self-care (01) ==
PROVIDERS: Emergency Provider Emergency Medicine; PCP Physician Assistant
DX: U07.1 COVID-19 (principal); R51.9 Headache, unspecified; M19.90 Unspecified osteoarthritis, unspecified site; Z86.2 Personal history of diseases of the blood and blood-forming organs and certain disorders involving the immune mechanism; F41.9 Anxiety disorder, unspecified; E03.9 Hypothyroidism, unspecified; E66.9 Obesity, unspecified; Z68.36 Body mass index [BMI] 36.0-36.9, adult; Z87.440 Personal history of urinary (tract) infections; R73.03 Prediabetes; Z87.891 Personal history of nicotine dependence; R91.8 Other nonspecific abnormal finding of lung field
CPT/HCPCS: 71045; 94640; 96361; 96374; 96375; 99284; A9270; J0780; J1200; J1885; J7030

== ENCOUNTER 2021-06-12 08:42 | Emergency (ER) | payer OTHER, SELFPAY ==
--- NOTE | ~2021-06-12 | XR_ITS ---
EXAMINATION: XR abdomen obstructive series DATE: 06/12/2021 09:28 INDICATION: Abdominal pain. Constipation. TECHNIQUE: Upright and supine views of the abdomen were obtained. COMPARISON: CT abdomen and pelvis 10/01/2020 FINDINGS: There are no dilated loops of bowel. There is liquid stool in the colon suggestive of diarr hea. No free intraperitoneal gas. Surgical clips in the right upper quadrant are likely from cholecys tectomy. IMPRESSION: 1. Nonobstructive bowel gas pattern. Reviewed, dictated and finalized at location A. OR ERP CONSULTANT
[2021-06-12 08:53] VITALS: BP 129/98; PULSE 87; RESP 18; TEMP 36.2; O2SAT 100
[2021-06-12 09:15] LABS: Glucose Point of Care 124 mg/dl (65-105)
[2021-06-12 09:20] VITALS: BP 129/98; PULSE 87; RESP 18; TEMP 36.2; O2SAT 100
--- NOTE | 2021-06-12 10:04 | PC.NURSE ---
0900-- accucheck 124mg/Dl
--- NOTE | 2021-06-12 10:06 | ED.GENADULT ---
HPI - General Adult General Chief complaint: Abdominal Pain Stated complaint: Abdominal Pain Source: patient Mode of arrival: ambulatory Limitations: no limitations History of Present Illness HPI narrative: Patient presents for evaluation of nausea for the last week. She indicates that the start of April she tested positive for COVID. At that time she had fever, chills, shortness of breath and cough. Those symptoms have all improved. Last week she developed some nausea which she has experienced on a daily basis since that time. She states that her abdomen feels fall . Last bowel movement was at the end of last week. Normal bowel pattern is once every 1 to 2 days. She has decreased appetite/oral intake. No history of abdominal surgeries she is not taking any medication to assist with her symptoms. She contacted her primary provider today and states she was frustrated with office staff. Therefore, she came here for further evaluation. She does have body aches. No other physical complaints. She has not received a flu shot and has not been vaccinated for COVID. Related Data Home Medications Medication Instructions Recorded Confirmed triamterene-hydrochlorothiazid 1 tablet PO DAILY 05/23/19 06/12/21 cholecalciferol (vitamin D3) 125 mcg PO DAILY 12/28/19 06/12/21 [Vitamin D3] albuterol sulfate 2 inh INHALATION DIRECTED 06/12/21 06/12/21 duloxetine 30 mg PO DAILY 06/12/21 06/12/21 levothyroxine [Synthroid] 175 mcg PO DAILY 06/12/21 06/12/21 liothyronine 5 mcg PO DAILY 06/12/21 06/12/21 topiramate 100 mg PO DAILY 06/12/21 06/12/21 Allergies Allergy/AdvReac Type Severity Reaction Status Date / Time No Known Allergies Allergy Verified 06/12/21 08:50 Review of Systems Review of Systems: CONSTITUTIONAL: Reports decreased appetite. Denies fever, chills, or sweats. EYES: Denies visual changes, redness, or discharge. ENT: Denies rhinorrhea, congestion, sore throat, or otalgia. CARDIOVASCULAR: Denies chest pain, palpitations, or edema. RESPIRATORY: Denies cough or dyspnea. GASTROINTESTINAL: Reports abdominal fullness and nausea without vomiting. GENITOURINARY: Denies dysuria or hematuria. SKIN: Denies rash or itching. MUSCULOSKELETAL: Denies back pain, joint pain, or myalgia. NEUROLOGIC: Denies headache, numbness, dizziness, or weakness. PSYCHIATRIC: Denies anxiety or depression. [facility] Past Medical History Medical History Anemia Anxiety Arthritis Colon cancer screening Hypothyroid Migraines Obesity (BMI 30-39.9) Prediabetes Prediabetes UTI (urinary tract infection) Surgical History Surgical History H/O bilateral breast reduction surgery H/O left wrist surgery H/O: hysterectomy History of appendectomy Hx of cholecystectomy Family History Family History Sibling Family history of thyroid disease Asthma Family history of diabetes mellitus in first degree relative Grandparent Family history of cataracts Cerebrovascular accident Family history of Alzheimer's disease Family history of heart disease in male family member before age 55 Father Family history of alcoholism Family history of seizure disorder Family history of heart disease in male family member before age 55 Social History Social History Smoking packs per day: 1 Smoking cigarettes per day: 20.0 Years smoked: 20 Smoking pack-years: 20.00 Smoking status: Former smoker Tobacco type: cigarettes Alcohol intake: current Substance use: never Substance use type: does not use Gender identity (if verbalized by the patient): Female Spiritual care concerns: No Agree to blood products: Yes Exam Narrative: GENERAL: Well-appearing, well-nourished, and in no acute distress. SUDHA
== END 2021-06-12 09:43 | disposition home or self-care (01) ==
PROVIDERS: Emergency Provider Nurse Practitioner; PCP Family Medicine
DX: K59.00 Constipation, unspecified (principal); R11.2 Nausea with vomiting, unspecified; Z86.16 Personal history of COVID-19; Z87.891 Personal history of nicotine dependence; M19.90 Unspecified osteoarthritis, unspecified site; E03.9 Hypothyroidism, unspecified; R73.03 Prediabetes; E66.9 Obesity, unspecified; Z68.34 Body mass index [BMI] 34.0-34.9, adult
CPT/HCPCS: 74019; 81003; 82948; 87077; 87086; 87186; 87804; 99213; G0463

== ENCOUNTER 2021-06-13 20:44 | Emergency (ER) | payer OTHER, SELFPAY ==
--- NOTE | ~2021-06-13 | CT_ITS ---
EXAMINATION: CT abdomen pelvis w con DATE: 06/14/2021 01:59 INDICATION: Upper abdominal pain, nausea, vomiting and diarrhea for 24 hours TECHNIQUE: Computed tomography (CT) of the abdomen and pelvis was performed with 100 cc Omnipaque 350 intravenous contrast. Automated exposure control and iterative reconstruction technique were employe d. Exam dose: 1258.00 mGy-cm total exam DLP. COMPARISON: June 12, 2021 obstructive series 10/01/2020 CT abdomen pelvis air-fluid FINDINGS: The lung bases are clear of infiltrate or consolidation. Normal heart size. No pericardial or pleural effusion. Status post cholecystectomy. The liver, spleen, pancreas, bile ducts and pancreatic duct, and adrenal glands are unremarkable. There are couple of small nonobstructing lower pole right renal calculi and several nonobstructing left renal calculi measuring up to approximately 4.2 mm maximal dimension. No ureteral calculus or hydroureteronephrosis. No renal space occupying mass lesion. Normal caliber of the abdominal aorta. No intraperitoneal or retroperitoneal or pelvic mass lesion or adenopathy or ascites. There is diverticulosis of the left colon; no CT evidence of diverticulitis. There are fluid levels i n the small bowel and colon suggesting enterocolitis. There is no evidence of bowel obstruction or in traperitoneal free air. The uterus is surgically absent. 3.4 cm right ovarian cystic lesion; consider pelvic ultrasound correlation. No suspicious osteolytic or osteoblastic lesions. There is moderately prominent degenerative disc dis ease at L3-4, L4-5 and L5-S1 and degenerative spurring of the thoracic spine. IMPRESSION: Scattered air-fluid levels the small and large bowel suggesting enterocolitis; no bowel obstruction or free air Diverticulosis of left colon; no CT evidence of diverticulitis 3.4 cm right ovarian cystic lesion; consider pelvic ultrasound Status post hysterectomy Status post cholecystectomy Bilateral nonobstructive nephrolithiasis Reviewed, dictated and finalized at Location A. Reviewed, dictated and finalized at location B. AND GREASER IMPRESSION: Scattered air-fluid levels the small and large bowel suggesting en terocolitis; no bowel obstruction or free air Diverticulosis of left colon; no CT evidence of diverticulitis 3.4 cm right ovarian cystic lesion; consider pelvic ultrasound Status post hysterectomy Status post cholecystectomy Bilateral nonobstructive nephrolithiasis
[2021-06-13 21:01] VITALS: BP 143/67; PULSE 53; RESP 18; TEMP 36.1; O2SAT 97
[2021-06-13 23:00] VITALS: BP 120/83; PULSE 101; RESP 16; O2SAT 99
[2021-06-13 23:49] LABS: Basophils Absolute Auto 0.1 K/mm3 (0.0-0.1); Basophils Percent Auto 0.3 % (0.2-1.2); Eosinophils Absolute Auto 0.2 K/mm3 (0-0.3); Hematocrit 48.6 % (37.0-47.0); Hemoglobin 17.3 g/dL (12.0-15.0); Immature Granulocyte Absolute 0.08 K/mm3 (0.00-0.031); Immature Granulocyte Percent A 0.5 % (0-0.5); Lymphocytes Absolute Auto 4.03 K/mm3 (0.9-3.2); Lymphocytes Percent Auto 23.4 % (18.3-44.2); Mean Corpuscular HGB Conc 35.6 g/dl (32-36); Mean Corpuscular Hemoglobin 30.2 pg (26-34); Mean Corpuscular Volume 84.8 fl (80-100); Mean Platelet Volume 10.5 fl (7.4-10.4); Monocytes Absolute Auto 1.3 K/mm3 (0.1-0.6); Monocytes Percent Auto 7.3 % (2.6-8.5); Neutrophils Absolute Auto 11.6 K/mm3 (1.3-6.7); Neutrophils Percent Auto 67.5 % (45.5-73.1); Platelet Count Result 447 k/mm3 (150-375); Red Blood Count 5.73 M/mm3 (4.2-5.4); White Blood Count 17.2 K/mm3 (4.5-10.0)
[2021-06-13 23:51] LABS: Add Urine Microscopic? NO; Appearance Urine Clear (Clear); Bilirubin Urine Negative (Negative); Blood Urine Negative (Negative); Color Urine Yellow (Yellow); Glucose Urine UA Negative (Negative); Ketones Urine Negative (Negative); Leukocyte Esterase Ur Negative LEU/UL (Negative); Nitrate Urine Negative (Negative); Protein Urine Negative (Negative); Specific Grav Ur 1.012 (1.001-1.035); Urobilinogen Urine Negative mg/dL (<2.0)
[2021-06-14 00:12] LABS: Atypical Lymphocytes Present; Platelet Estimate Adequate (Adequate)
[2021-06-14 00:27] LABS: Alanine Aminotransferase 19 U/L (4-35); Albumin Level 4.3 g/dL (3.5-5.1); Alkaline Phosphatase 157 U/L (38-126); Anion Gap 13 mmol/L (8-16); Aspartate Amino Transferase 18 U/L (14-36); Bilirubin,Total 0.6 mg/dL (0.2-1.3); Blood Urea Nitrogen 20 mg/dL (7-17); Calcium 9.4 mg/dL (8.4-10.2); Carbon Dioxide 23 mmol/L (22-30); Chloride 97 mmol/L (98-107); Estimated CRCL calculation 60 ml/min; Estimated Glomerular Filt Rate 47; Glucose 123 mg/dL (65-110); Lipase 157 U/L (23-300); Potassium 3.1 mmol/L (3.4-5.0); Sodium 133 mmol/L (137-145)
--- NOTE | 2021-06-14 00:58 | ED.ABDPAIN ---
HPI - Abdominal Pain General Chief Complaint: Abdominal Pain Stated Complaint: abdominal pain Time Seen by Provider: 06/14/21 00:49 History of Present Illness HPI narrative: 51-year-old female presents the emergency room with acute onset of abdominal pain x3 days ago. Patient states that she was evaluated at a local urgent care was told that she had constipation and long-covid. Patient is status post Ginny appendectomy and hysterectomy. Patient was given mag citrate for her constipation and Zofran ODT for nausea. Patient states treatments given to her at the urgent care have been ineffective. Patient states that she feels bloated in the periumbilical area. Related Data Home Medications Medication Instructions Recorded Confirmed triamterene-hydrochlorothiazid 1 tablet PO DAILY 05/23/19 06/12/21 cholecalciferol (vitamin D3) 125 mcg PO DAILY 12/28/19 06/12/21 [Vitamin D3] albuterol sulfate 2 inh INHALATION DIRECTED 06/12/21 06/12/21 duloxetine 30 mg PO DAILY 06/12/21 06/12/21 levothyroxine [Synthroid] 175 mcg PO DAILY 06/12/21 06/12/21 liothyronine 5 mcg PO DAILY 06/12/21 06/12/21 topiramate 100 mg PO DAILY 06/12/21 06/12/21 Allergies Allergy/AdvReac Type Severity Reaction Status Date / Time No Known Allergies Allergy Verified 06/12/21 08:50 Review of Systems Review of Systems: CONSTITUTIONAL: Denies fever, chills, or sweats. EYES: Denies visual changes, redness, or discharge. ENT: Denies rhinorrhea, congestion, sore throat, or otalgia. CARDIOVASCULAR: Denies chest pain, palpitations, or edema. RESPIRATORY: Denies cough or dyspnea. GASTROINTESTINAL: Per HPI GENITOURINARY: Denies dysuria or hematuria. SKIN: Denies rash or itching. MUSCULOSKELETAL: Denies back pain, joint pain, or myalgia. NEUROLOGIC: Denies headache, numbness, dizziness, or weakness. PSYCHIATRIC: Denies anxiety or depression. [facility] Past Medical History Medical History Anemia Anxiety Arthritis Colon cancer screening Hypothyroid Migraines Obesity (BMI 30-39.9) Prediabetes Prediabetes UTI (urinary tract infection) Surgical History Surgical History H/O bilateral breast reduction surgery H/O left wrist surgery H/O: hysterectomy History of appendectomy Hx of cholecystectomy Family History Family History Sibling Family history of thyroid disease Asthma Family history of diabetes mellitus in first degree relative Grandparent Family history of cataracts Cerebrovascular accident Family history of Alzheimer's disease Family history of heart disease in male family member before age 55 Father Family history of alcoholism Family history of seizure disorder Family history of heart disease in male family member before age 55 Social History Social History Smoking packs per day: 1 Smoking cigarettes per day: 20.0 Years smoked: 20 Smoking pack-years: 20.00 Smoking status: Former smoker Tobacco type: cigarettes Alcohol intake: current Substance use: never Substance use type: does not use Gender identity (if verbalized by the patient): Female Spiritual care concerns: No Agree to blood products: Yes Exam Narrative: GENERAL: Well-appearing, well-nourished, and in no acute distress. HEAD: Normocephalic, atraumatic. EYES: PERRLA and EOMI. ENT: Nares clear, no rhinorrhea or epistaxis. Mucous membranes moist. Oropharynx without tonsillar hypertrophy exudate or other lesions. Bilateral TMs pearly saha nonbulging NECK: Supple. No adenopathy or masses. No carotid bruits or JVD CHEST: Clear to auscultation. No respiratory distress. No wheezes rales or rhonchi HEART: Regular rate and rhythm. No murmur heard. Normal peripheral pulses. ABDOMEN: Soft, periumbilical tenderness, nondistended, hypoac
[2021-06-14 01:25] VITALS: BP 130/93; PULSE 92; RESP 18; O2SAT 98
[2021-06-14] MEDS: SODIUM CHLORIDE 0.9% IV 1,000 ML 999 ML IV CONT (01:37)
[2021-06-14] MEDS: ONDANSETRON INJ 4 MG/2 ML VIAL IV PUSH (01:38)
[2021-06-14] MEDS: KETOROLAC 30 MG/ML VIAL (*BKC) IV PUSH (01:38)
[2021-06-14 02:25] LABS: SARS-CoV-2 RNA PCR Positive
[2021-06-14 03:07] VITALS: BP 114/82; PULSE 60; RESP 18; O2SAT 98
== END 2021-06-14 03:05 | disposition home or self-care (01) ==
PROVIDERS: Emergency Medicine; Emergency Provider Nurse Practitioner Family; PCP Family Medicine
DX: U07.1 COVID-19 (principal); K52.9 Noninfective gastroenteritis and colitis, unspecified; Z86.16 Personal history of COVID-19; E03.9 Hypothyroidism, unspecified; E66.9 Obesity, unspecified; Z68.34 Body mass index [BMI] 34.0-34.9, adult; R73.03 Prediabetes; Z86.2 Personal history of diseases of the blood and blood-forming organs and certain disorders involving the immune mechanism; Z87.440 Personal history of urinary (tract) infections; Z87.891 Personal history of nicotine dependence
CPT/HCPCS: 36415; 74177; 80053; 81003; 83690; 85025; 96361; 96374; 96375; 99284; C9803; J1885; J2405; J7030; Q9967; U0003; U0005

== ENCOUNTER 2021-07-03 17:04 | Outpatient (CLI) | payer OTHER, SELFPAY ==
--- NOTE | ~2021-07-03 | MM_ITS ---
EXAMINATION: MM screening rad BI w [place] HISTORY: Screening TECHNIQUE: Craniocaudal and mediolateral oblique 3-D tomosynthesis images were obtained and synthetic 2-D images were generated. CAD analysis was submitted and interpreted. COMPARISON: Comparison to multiple prior studies sequentially, with oldest reviewed study dated 02/28. BREAST PARENCHYMAL COMPOSITION: There are scattered areas of fibroglandular density. FINDINGS: There is no evidence of suspicious mass, calcification, or architectural distortion to sugg est malignancy in either breast. There has been no suspicious interval change. IMPRESSION: 1. No mammographic evidence of malignancy. 2. Recommend routine screening mammography in one year. BI-RADS Category 1: Negative Reviewed, dictated and finalized at location A. MACY STOCK CLERK
== END 2021-07-03 17:05 | disposition home or self-care (01) ==
LOC: ANHIMG 17:05
PROVIDERS: PCP Family Medicine; Visit Provider Obstetrics & Gynecology
DX: Z12.31 Encounter for screening mammogram for malignant neoplasm of breast (principal)
CPT/HCPCS: 77063; 77067

== ENCOUNTER 2021-08-09 08:47 | Outpatient (CLI) | payer OTHER, SELFPAY ==
--- NOTE | ~2021-08-09 | XR_ITS ---
EXAMINATION: XR abdomen/kub 1V INDICATION: Microscopic hematuria TECHNIQUE: Supine views of the abdomen were obtained on 2 radiographs. COMPARISON: CT from today FINDINGS: The right proximal ureteral stone identified on CT is not well demonstrated. A 4 mm stone i s seen in the left mid kidney. Additional bilateral nephrolithiasis described on the CT scan is not i dentified. Cholecystectomy clips are noted. The bowel gas pattern is normal. The lung bases are clear . There is moderate osteoarthritis of the hips. IMPRESSION: 1. Left nephrolithiasis. Additional urolithiasis identified on CT is not well demonstrated. Reviewed, dictated and finalized at location A. IMPRESSION: 1. Left nephrolithiasis. Additional urolithiasis identified on CT is not well d emonstrated.
--- NOTE | ~2021-08-09 | CT_ITS ---
EXAMINATION: CT abdomen pelvis wo con DATE: 08/09/2021 09:30 INDICATION: Microscopic hematuria TECHNIQUE: Computed tomography (CT) of the abdomen and pelvis was performed without intravenous contr ast. The dose-length product (DLP) was 1271.08 mGy-cm. Automated exposure control and iterative recon struction technique were employed. COMPARISON: 06/14/2021 FINDINGS: The lung bases are clear. The heart size is normal. The gallbladder is surgically absent. T he liver, spleen, pancreas, and adrenal glands are normal. There is a 3 mm stone of the proximal righ t ureter. There is a 2 mm nonobstructing stone of the right kidney lower pole. There are three nonobs tructing stones of the left kidney which measure up to 4.4 mm. No pathologically enlarged abdominal o r pelvic lymph nodes are identified. There is no free intraperitoneal gas or evidence of bowel obstru ction. There is a 4.4 cm cystic lesion of the right pelvis. Changes of hysterectomy are noted. There is moderate thoracic spondylosis. IMPRESSION: 1. 3 mm stone of the proximal right ureter. 2. Bilateral nephrolithiasis. 3. 4.4 cm cystic lesion of the right pelvis which may be related to adnexal structures. Further evalu ation with ultrasound is recommended. Reviewed, dictated and finalized at location A. IMPRESSION: 1. 3 mm stone of the proximal right ureter. 2. Bilateral nephrolithiasis. 3. 4.4 cm cystic lesion of the right pelvis which may be related to adnexal str uctures. Further evaluation with ultrasound is recommended.
[2021-08-09 09:16] LABS: Estimated Glomerular Filt Rate 28
== END 2021-08-09 08:48 | disposition home or self-care (01) ==
PROVIDERS: PCP Family Medicine; Visit Provider Nurse Practitioner Family
DX: R31.29 Other microscopic hematuria (principal); N20.2 Calculus of kidney with calculus of ureter
CPT/HCPCS: 74018; 74176

== ENCOUNTER 2021-10-02 11:36 | Outpatient (CLI) | payer OTHER, SELFPAY ==
--- NOTE | ~2021-10-02 | XR_ITS ---
EXAM: XR abdomen/kub 1V DATE: 10/02/2021 12:18 HISTORY: MICROSCOPIC HEMATURIA . COMPARISON: 08/09/2021. FINDINGS: Cholecystectomy clips Clear lung bases. Normal bowel gas pattern. No organomegaly. 3 stable calcifications over the left renal shadow. Degenerative change in lumbar spine bilateral hips and pu bic symphysis. IMPRESSION: Stable left nephrolithiasis. Reviewed, dictated and finalized at location K.
--- NOTE | ~2021-10-02 | US_ITS ---
US retroperitoneal comp 10/02/2021 12:20 Procedure: Realtime transabdominal ultrasound of the kidneys and bladder. Indication: Microscopic hematuria Comparison: Ultrasound dated 05/23/2019 Findings: Renal echotexture is normal bilaterally without hydronephrosis, contour deforming mass or r enal calculus. The right kidney measures 10.9 cm and left kidney measures 11.7 cm. Bladder is not we ll distended for evaluation. Impression: 1: Unremarkable renal ultrasound. No stones, masses or hydronephrosis. Reviewed, dictated and finalized at location B. Impression: 1: Unremarkable renal ultrasound. No stones, masses or hydronephrosis.
== END 2021-10-02 11:37 | disposition home or self-care (01) ==
PROVIDERS: PCP Family Medicine; Visit Provider Urology
DX: N20.1 Calculus of ureter (principal); N20.0 Calculus of kidney
CPT/HCPCS: 74018; 76770

== ENCOUNTER 2021-10-25 15:25 | Emergency (ER) | payer OTHER, SELFPAY ==
--- NOTE | ~2021-10-25 | XR_ITS ---
EXAMINATION: XR hand RT min 3V INDICATION: Right hand pain TECHNIQUE: Three views of the right hand are obtained. COMPARISON: 11/24/2013 FINDINGS: Bone alignment is normal. There is no fracture. There is mild osteoarthritis in the wrist a nd at multiple interphalangeal joints. The soft tissues are unremarkable. IMPRESSION: 1. No acute osseous abnormality. Reviewed, dictated and finalized at location F.
[2021-10-25 15:33] VITALS: BP 133/80; PULSE 82; RESP 16; TEMP 36.8; O2SAT 99
--- NOTE | 2021-10-25 15:40 | ED.UPPEXIN ---
HPI - Extremity Injury (Upper) General Chief Complaint: Extremity Injury, Upper Stated Complaint: Right Hand Pain Time Seen by Provider: 10/25/21 15:40 Source: patient Mode of arrival: ambulatory Limitations: no limitations History of Present Illness HPI narrative: 51-year-old female presents with complaint of contusion to right hand. States that this morning she whacked her hand on her dresser. Reports pain and swelling have gotten progressively worse throughout the day. Wants x-ray to make sure she does not have a fracture. Range of motion and distal neurovascularly intact. All systems systems reviewed and negative except as noted above. Related Data Home Medications Medication Instructions Recorded Confirmed triamterene 75 1 tablet PO DAILY 05/23/19 06/12/21 mg-hydrochlorothiazide 50 mg tablet cholecalciferol (vitamin D3) 125 125 mcg PO DAILY 12/28/19 06/12/21 mcg (5,000 unit) tablet (Vitamin D3) duloxetine 30 mg capsule,delayed 30 mg PO DAILY 06/12/21 06/12/21 release topiramate 100 mg tablet 100 mg PO DAILY 06/12/21 06/12/21 Allergies Allergy/AdvReac Type Severity Reaction Status Date / Time No Known Allergies Allergy Verified 10/25/21 15:30 Review of Systems Review of Systems: CONSTITUTIONAL: Denies fever, chills, or sweats. EYES: Denies visual changes, redness, or discharge. ENT: Denies rhinorrhea, congestion, sore throat, or otalgia. CARDIOVASCULAR: Denies chest pain, palpitations, or edema. RESPIRATORY: Denies cough or dyspnea. GASTROINTESTINAL: Denies abdominal pain, nausea, vomiting, or diarrhea. GENITOURINARY: Denies dysuria or hematuria. SKIN: Denies rash or itching. MUSCULOSKELETAL: Denies back pain, joint pain, or myalgia. Reports pain and bruising to right hand. NEUROLOGIC: Denies headache, numbness, or weakness. PSYCHIATRIC: Denies anxiety or depression. All other systems reviewed are negative, except as documented in HPI. [facility] Past Medical History Medical History (Updated 10/25/21 @ 15:51 by Sarah Avitia NP) Anemia Anxiety Arthritis Colon cancer screening Hypothyroid Migraines Obesity (BMI 30-39.9) Prediabetes Prediabetes UTI (urinary tract infection) Surgical History Surgical History (Updated 08/20/21 @ 14:32 by Laurie Arevalo [facility]) H/O bilateral breast reduction surgery H/O left wrist surgery H/O: hysterectomy History of appendectomy History of elbow surgery History of left knee replacement Hx of cholecystectomy Family History Family History Sibling Family history of thyroid disease Asthma Family history of diabetes mellitus in first degree relative Grandparent Family history of cataracts Cerebrovascular accident Family history of Alzheimer's disease Family history of heart disease in male family member before age 55 Father Family history of alcoholism Family history of seizure disorder Family history of heart disease in male family member before age 55 Social History Social History Smoking packs per day: 1 Smoking cigarettes per day: 20.0 Years smoked: 20 Smoking pack-years: 20.00 Tobacco type: cigarettes Alcohol intake: current Substance use: never Substance use type: does not use Gender identity (if verbalized by the patient): Female Spiritual care concerns: No Agree to blood products: Yes Comments At time of signature, agree with nursing past medical, surgical, social and family history. There is no relevant family history pertinent to the presenting complaint. Exam Narrative: GENERAL: This is a well-nourished, well-developed patient, in no apparent distress. HEAD: normocephalic, atraumatic. EYES: PERRL. Sclera clear/white. Vision is grossly intact. EARS: External ears normal NOSE: External nose normal NECK: Neck supple, non-tender without lymphadenopathy, masses or thyromegaly. C
== END 2021-10-25 15:53 | disposition home or self-care (01) ==
PROVIDERS: Emergency Provider Nurse Practitioner Family; PCP Family Medicine
DX: S60.221A Contusion of right hand, initial encounter (principal); W22.8XXA Striking against or struck by other objects, initial encounter; M19.90 Unspecified osteoarthritis, unspecified site; E03.9 Hypothyroidism, unspecified; R73.03 Prediabetes; E66.9 Obesity, unspecified; Z68.29 Body mass index [BMI] 29.0-29.9, adult; Z96.652 Presence of left artificial knee joint; F17.210 Nicotine dependence, cigarettes, uncomplicated
CPT/HCPCS: 73130; 99213; G0463

== ENCOUNTER 2021-11-28 08:41 | Emergency (ER) | payer OTHER, SELFPAY ==
[2021-11-28 08:49] VITALS: BP 102/68; PULSE 109; RESP 16; TEMP 36.4; O2SAT 99
--- NOTE | 2021-11-28 08:53 | ED.URI ---
HPI - URI/Sore Throat General Chief Complaint: Upper Respiratory Infection Stated Complaint: uri Time Seen by Provider: 11/28/21 08:54 Source: patient Mode of arrival: ambulatory Limitations: no limitations History of Present Illness HPI Narrative: 51 yo F presents with c/o cough, chest and nasal congestion, headaches, fatigue for 3 days. Reports that he work did a covid test but will not be back for 2 to 3 days. Is requesting a rapid test. No fever. hx of bronchitis. States maybe i just need some steroids and zpak . Denies SOB/CP. Pt not vaccinated for covid. has had covid twice. All systems reviewed and negative except as noted above. Related Data Home Medications Medication Instructions Recorded Confirmed triamterene 75 1 tablet PO DAILY 05/23/19 11/28/21 mg-hydrochlorothiazide 50 mg tablet cholecalciferol (vitamin D3) 125 125 mcg PO DAILY 12/28/19 11/28/21 mcg (5,000 unit) tablet (Vitamin D3) duloxetine 30 mg capsule,delayed 30 mg PO DAILY 06/12/21 11/28/21 release topiramate 100 mg tablet 100 mg PO BID 11/19/21 11/28/21 Allergies Allergy/AdvReac Type Severity Reaction Status Date / Time No Known Allergies Allergy Verified 11/28/21 08:44 Review of Systems Review of Systems: CONSTITUTIONAL: Denies fever, chills, or sweats. Reports fatigue. EYES: Denies visual changes, redness, or discharge. ENT: Reports rhinorrhea, congestion, sore throat. Denies otalgia. CARDIOVASCULAR: Denies chest pain, palpitations, or edema. RESPIRATORY: Reports cough. Denies dyspnea. GASTROINTESTINAL: Denies abdominal pain, nausea, vomiting, or diarrhea. GENITOURINARY: Denies dysuria or hematuria. SKIN: Denies rash or itching. MUSCULOSKELETAL: Denies back pain, joint pain, or myalgia. NEUROLOGIC: Denies headache, numbness, or weakness. PSYCHIATRIC: Denies anxiety or depression. All other systems reviewed are negative, except as documented in HPI. [facility] Past Medical History Medical History Anemia Anxiety Arthritis Colon cancer screening Hypothyroid Migraines Obesity (BMI 30-39.9) Prediabetes Prediabetes UTI (urinary tract infection) Surgical History Surgical History H/O bilateral breast reduction surgery H/O left wrist surgery H/O: hysterectomy History of appendectomy History of elbow surgery History of left knee replacement Hx of cholecystectomy Family History Family History Sibling Family history of thyroid disease Asthma Family history of diabetes mellitus in first degree relative Grandparent Family history of cataracts Cerebrovascular accident Family history of Alzheimer's disease Family history of heart disease in male family member before age 55 Father Family history of alcoholism Family history of seizure disorder Family history of heart disease in male family member before age 55 Social History Social History Smoking packs per day: 1 Smoking cigarettes per day: 20.0 Years smoked: 20 Smoking pack-years: 20.00 Smoking status: Former smoker Tobacco type: cigarettes Alcohol intake: current Substance use: never Substance use type: does not use Gender identity (if verbalized by the patient): Female Spiritual care concerns: No Agree to blood products: Yes Comments At time of signature, agree with nursing past medical, surgical, social and family history. There is no relevant family history pertinent to the presenting complaint. Exam Narrative: GENERAL: This is a well-nourished, well-developed patient, in no apparent distress. HEAD: normocephalic, atraumatic. EYES: PERRL. Sclera clear/white. Vision is grossly intact. EARS: External ears normal, auditory canals clear and without drainage, TMs normal without perforation. Hearing grossly
== END 2021-11-28 09:18 | disposition home or self-care (01) ==
PROVIDERS: Emergency Provider Nurse Practitioner Family; PCP Family Medicine
DX: U07.1 COVID-19 (principal); Z28.310 Unvaccinated for COVID-19; E03.9 Hypothyroidism, unspecified; R73.03 Prediabetes; E66.9 Obesity, unspecified; Z68.28 Body mass index [BMI] 28.0-28.9, adult; Z96.652 Presence of left artificial knee joint; M19.90 Unspecified osteoarthritis, unspecified site
CPT/HCPCS: 87426; 99213; C9803; G0463

== ENCOUNTER 2022-03-05 09:14 | Outpatient (CLI) | payer OTHER, SELFPAY ==
--- NOTE | ~2022-03-05 | XR_ITS ---
EXAMINATION: XR abdomen/kub 1V DATE: 03/05/2022 09:33 INDICATION: Right ureteral stone. TECHNIQUE: A supine view of the abdomen on 2 radiographs was obtained. COMPARISON: Abdomen radiograph 10/02/21, CT abdomen and pelvis 08/09/2021 FINDINGS: The kidneys are obscured by bowel. There are no dilated loops of bowel. Surgical clips in t he right upper quadrant are likely from cholecystectomy. There are 4 mm and 2 mm stones in left kidne y. IMPRESSION: 1. Left kidney stones. Reviewed, dictated and finalized at location A. LATORY AGENCY DIRECTOR IMPRESSION: 1. Left kidney stones.
== END 2022-03-05 09:15 | disposition home or self-care (01) ==
LOC: ANHIMG 09:16
PROVIDERS: PCP Family Medicine; Visit Provider Urology
DX: N20.2 Calculus of kidney with calculus of ureter (principal)
CPT/HCPCS: 74018

== ENCOUNTER 2022-06-04 08:05 | Outpatient (CLI) | payer OTHER, SELFPAY ==
--- NOTE | ~2022-06-04 | MR_ITS ---
MRI of the left shoulder Technique: Axial proton-density fat-sat images, coronal proton density fat-sat and T2 fat-sat images, and sagittal T1-weighted and T2 fat-sat images were acquired. Clinical History: Pain Findings: There is advanced degenerative change at the AC joint, with subacromial spur as well as bon y productive change at the inferior margin of the distal clavicle. There is mild extrinsic impingemen t upon the supraspinatus myotendinous junction region. Coracoclavicular, coracoacromial, and coracohu meral ligament are intact. Supraspinatus and infraspinatus tendons are intact, without partial or full-thickness tear. Probable minimal tendinosis. Subscapularis tendon is intact. Tendon of the long head of the biceps is intact. There is probable mild attenuation of the anterior labrum, but no discrete labral tear clearly identi fied. Small inframedial humeral head osteophyte present. No glenohumeral joint effusion. No fluid distentio n of the subacromial/subdeltoid bursa. Inferior glenohumeral ligament is mildly thickened. No muscle atrophy or edema. Impression: No partial or full-thickness rotator cuff tear. Mild attenuation of the anterior labrum without discrete tear. Advanced AC joint degenerative change, as detailed above. Small intrarenal humeral head osteophyte. Mild thickening of the inferior glenohumeral ligament. Correlate for any possibility of adhesive caps ulitis. Reviewed, dictated and finalized at [facility]. GER STRATEGY Impression: No partial or full-thickness rotator cuff tear. Mild attenuation of the anterior labrum without discrete tear. Advanced AC joint degenerative change, as detailed above. Small intrarenal humeral head osteophyte. Mild thickening of the inferior glenohumeral ligament. Correlate for any possib ility of adhesive capsulitis.
== END 2022-06-04 08:06 | disposition home or self-care (01) ==
PROVIDERS: PCP Family Medicine; Visit Provider Family Medicine
DX: M19.012 Primary osteoarthritis, left shoulder (principal)
CPT/HCPCS: 73221

== ENCOUNTER 2022-07-11 16:05 | Outpatient (CLI) | payer OTHER, SELFPAY ==
--- NOTE | ~2022-07-11 | MM_ITS ---
EXAMINATION: MM screening rad BI w dalton HISTORY: Screening mammogram, family history of breast cancer in her mother. TECHNIQUE: Craniocaudal and mediolateral oblique 3-D tomosynthesis images were obtained and synthetic 2-D images were generated. CAD analysis was submitted and interpreted. COMPARISON: 322, 06/21/2020, 06/09/2019, 05/20/2018 BREAST PARENCHYMAL COMPOSITION:The breasts are heterogeneously dense, which may obscure small masses. FINDINGS: Extensive bilateral benign calcifications are essentially unchanged from prior exams. No diana spicious mass, calcification, or architectural distortion are identified in either breast to suggest malignancy. There has been no suspicious interval change. IMPRESSION: No mammographic evidence of malignancy. Recommend routine screening mammography in one year. BI-RADS Category 2: Benign finding(s). Reviewed, dictated and finalized at location .
== END 2022-07-11 16:06 | disposition home or self-care (01) ==
PROVIDERS: PCP Family Medicine; Visit Provider Obstetrics & Gynecology
DX: Z12.31 Encounter for screening mammogram for malignant neoplasm of breast (principal)
CPT/HCPCS: 77063; 77067

== ENCOUNTER 2022-07-12 08:23 | Outpatient (CLI) | payer OTHER, SELFPAY ==
--- NOTE | ~2022-07-12 | MR_ITS ---
EXAMINATION: MR cervical spine wo con DATE: 07/12/2022 09:02 INDICATION: Neck pain TECHNIQUE: Magnetic resonance imaging (MRI) of the cervical spine was performed without intravenous c ontrast. Sequences included sagittal T2-weighted FSE, sagittal T2-weighted FS FSE, sagittal T1-weight ed FSE, axial MERGE and axial T2-weighted FSE. COMPARISON: None FINDINGS: Straightening of the normal cervical lordosis. No spondylolisthesis or facet subluxation. Vertebral body heights are normal. Bone marrow signal intensity is normal. Mild disc height loss at C4-C5 thro ugh C6-C7 as well as at T1-T2. Cord signal intensity is normal. The visualized cervical soft tissues are unremarkable. The following disc levels are specifically discussed: C2-C3: The disc does not extend beyond the endplate margin. There is no uncovertebral joint osteoarth ritis. There is mild bilateral facet joint osteoarthritis. There is no neural foraminal stenosis. The re is no central canal stenosis. C3-C4: The disc does not extend beyond the endplate margin. There is mild bilateral uncovertebral devika nt osteoarthritis. There is mild to moderate bilateral facet joint osteoarthritis. There is mild left neural foraminal stenosis. There is no central canal stenosis. C4-C5: The disc does not extend beyond the endplate margin. There is moderate left and mild right unc overtebral joint osteoarthritis. There is mild bilateral facet joint osteoarthritis. There is mild bi lateral, left greater than right neural foraminal stenosis. There is no central canal stenosis. C5-C6: Disc is bulging. There is severe left and moderate right uncovertebral joint osteoarthritis. T here is mild bilateral facet joint osteoarthritis. There is moderate bilateral neural foraminal steno sis. There is mild central canal stenosis with mild flattening of the ventral surface of the cord. C6-C7: Disc is bulging. There is moderate bilateral uncovertebral joint osteoarthritis. There is mild right and moderate left facet joint osteoarthritis. There is moderate bilateral neural foraminal michael nosis. There is mild central canal stenosis. C7-T1: Minimal central disc protrusion. There is no uncovertebral joint osteoarthritis. There is mode rate bilateral facet joint osteoarthritis. There is minimal bilateral neural foraminal stenosis. Ther e is no central canal stenosis. IMPRESSION: 1. Mild cervical spondylosis. Reviewed, dictated and finalized at location B.
== END 2022-07-12 08:24 | disposition home or self-care (01) ==
PROVIDERS: PCP Family Medicine
DX: M47.892 Other spondylosis, cervical region (principal)
CPT/HCPCS: 72141

== ENCOUNTER 2023-02-11 08:53 | Outpatient (CLI) | payer OTHER, SELFPAY ==
--- NOTE | ~2023-02-11 | XR_ITS ---
EXAMINATION: XR abdomen/kub 1V DATE: 02/11/2023 09:09 INDICATION: Left kidney stone. TECHNIQUE: A supine view of the abdomen on 2 radiographs was obtained. COMPARISON: Abdomen radiographs 03/07/2022, CT abdomen and pelvis 08/09/2021 FINDINGS: There are no dilated loops of bowel. There is a moderate volume of stool in the colon. Surg ical clips in the right upper quadrant are likely from cholecystectomy. There are two 4 mm stones in left kidney. There are phleboliths in right pelvis. IMPRESSION: 1. Left kidney stones. Reviewed, dictated and finalized at location E. IMPRESSION: 1. Left kidney stones.
== END 2023-02-11 08:54 | disposition home or self-care (01) ==
LOC: ANHIMG 08:55
PROVIDERS: PCP Family Medicine; Visit Provider Urology
DX: N20.0 Calculus of kidney (principal)
CPT/HCPCS: 74018

== ENCOUNTER 2023-03-27 15:23 | Emergency (ER) | payer OTHER, SELFPAY ==
[2023-03-27 15:30] VITALS: BP 114/63; PULSE 88; RESP 16; TEMP 36.6; O2SAT 100
--- NOTE | 2023-03-27 15:31 | ED.SKABFB ---
HPI - Skin/Abscess/Foreign Bdy General Chief complaint: Skin/Abscess/Foreign Body Stated complaint: Rash Right Forearm Time Seen by Provider: 03/27/23 15:31 Source: patient Mode of arrival: ambulatory Limitations: no limitations History of Present Illness HPI narrative: Patient is a 52-year-old female that presents with right forearm redness, itching and blister drain that started 2 days ago. Patient states yesterday the arm was very red and warm to touch but started taking Benadryl and that helped mildly. Unsure what started rash. Patient states she was going through old shelia files from 2019 and may been bit by a spider. Denies any fever, chills, nausea, vomiting, diarrhea. Related Data Home Medications Medication Instructions Recorded Confirmed triamterene 75 1 tablet PO DAILY 05/23/19 12/16/22 mg-hydrochlorothiazide 50 mg tablet cholecalciferol (vitamin D3) 125 125 mcg PO DAILY 12/28/19 12/16/22 mcg (5,000 unit) tablet (Vitamin D3) duloxetine 30 mg capsule,delayed 30 mg PO DAILY 06/12/21 12/16/22 release topiramate 100 mg tablet 100 mg PO BID 11/19/21 12/16/22 potassium 95 mg tablet mg PO 12/16/22 12/16/22 Allergies Allergy/AdvReac Type Severity Reaction Status Date / Time No Known Allergies Allergy Verified 03/27/23 15:31 Review of Systems Review of Systems: All systems reviewed & are unremarkable except as noted in HPI and below Constitutional: Constitutional: Denies body ache(s), Denies chills, Denies fatigue, Denies fever(s), Denies headache(s), Denies malaise and Denies weakness Eyes: Eyes: Denies blurry vision, Denies irritation and Denies loss of vision ENT: Denies otalgia, Denies headache(s), Denies nasal discharge, Denies sinus pain and Denies sore throat Cardiovascular: Cardiovascular: Denies chest pain, Denies irregular heart rhythm and Denies dyspnea Respiratory: Respiratory: Denies dyspnea Gastrointestinal: Gastrointestinal: Denies abdominal pain, Denies melena, Denies hematochezia, Denies diarrhea, Denies nausea and Denies vomiting Musculoskeletal: Musculoskeletal: Denies back pain, Denies myalgias and Denies arthralgias Integumentary/Breasts: Skin/Breast: Denies pruritus, Reports erythema and Reports rash Neurologic: Denies headache(s), Denies loss of vision and Denies weakness Psychiatric: Psychiatric: Reports no additional psychiatric complaints Endocrine: Endocrine: Denies fatigue [facility] Past Medical History Medical History Anemia Anxiety Arthritis Colon cancer screening Hypothyroid Hypothyroidism (acquired) Metabolic syndrome Migraines Obesity (BMI 30-39.9) Prediabetes UTI (urinary tract infection) Vitamin D deficiency Surgical History Surgical History H/O bilateral breast reduction surgery H/O left wrist surgery H/O: hysterectomy History of appendectomy History of elbow surgery History of left knee replacement Hx of cholecystectomy Family History Family History Sibling Family history of thyroid disease Asthma Family history of diabetes mellitus in first degree relative Grandparent Family history of cataracts Cerebrovascular accident Family history of Alzheimer's disease Family history of heart disease in male family member before age 55 Father Family history of alcoholism Family history of seizure disorder Family history of heart disease in male family member before age 55 Social History Social History Smoking packs per day: 1 Smoking cigarettes per day: 20.0 Years smoked: 20 Smoking pack-years: 20.00 Smoking status: Former smoker Tobacco type: cigarettes Additional smoking assessment comments: 2016 Alcohol intake: current Alcohol use details: socially Substance use: never Substance use type: does
== END 2023-03-27 16:03 | disposition home or self-care (01) ==
PROVIDERS: Emergency Provider Nurse Practitioner Family; PCP Family Medicine
DX: L03.113 Cellulitis of right upper limb (principal); Z87.891 Personal history of nicotine dependence; M19.90 Unspecified osteoarthritis, unspecified site; E03.9 Hypothyroidism, unspecified; E88.810 Metabolic syndrome; E66.9 Obesity, unspecified; Z68.25 Body mass index [BMI] 25.0-25.9, adult; E55.9 Vitamin D deficiency, unspecified; Z96.652 Presence of left artificial knee joint
CPT/HCPCS: 99213; G0463

== ENCOUNTER 2023-06-20 16:05 | Outpatient (CLI) | payer OTHER, SELFPAY ==
--- NOTE | ~2023-06-20 | XR_ITS ---
EXAMINATION: XR abdomen/kub 1V DATE: 06/20/2023 16:25 INDICATION: Left renal stone. TECHNIQUE: A supine view of the abdomen on 2 radiographs was obtained. COMPARISON: Abdomen radiographs 02/11/2023, CT abdomen and pelvis 08/09/2021 FINDINGS: There are no dilated loops of bowel. There is a large volume of stool in the colon. Surgica l clips in the right upper quadrant are likely from cholecystectomy. There are 2 stones in left kidne y measuring up to 3 mm. IMPRESSION: 1. Left kidney stones. Reviewed, dictated and finalized at location E. OR RECTIFIER IMPRESSION: 1. Left kidney stones.
== END 2023-06-20 16:06 | disposition home or self-care (01) ==
LOC: ANHIMG 16:08
PROVIDERS: PCP Family Medicine; Visit Provider Urology
DX: Z01.818 Encounter for other preprocedural examination (principal); N20.0 Calculus of kidney
CPT/HCPCS: 74018; 87086

== ENCOUNTER 2023-06-26 09:44 | Outpatient (CLI) | payer OTHER, SELFPAY ==
--- NOTE | 2023-06-26 09:49 | ECG_ITS ---
Measurements Intervals [place] Rate: 66 P: 53 DE: 176 QRS: -8 QRSD: 93 T: 62 QT: 411 QTc: 431 Interpretive Statements SINUS RHYTHM WITH OCCASIONAL SUPRAVENTRICULAR PREMATURE COMPLEXES WARNING: DATA QUALITY MAY AFFECT INTERPRETATION COMPARED TO ECG 12/12/2020 15:20:08 SINUS RHYTHM NOW PRESENT Electronically Signed On 06-26-2023 15:44:33 APPRENTICE PAINTER HAND by Luda Soriano M.D.
[2023-06-26 10:23] LABS: INR 0.9; Prothrombin Time 12.5 Seconds (11.1-14.7)
[2023-06-26 10:24] LABS: Partial Thromboplastin Time 28.6 SECONDS (22.3-36.8)
== END 2023-06-26 09:45 | disposition home or self-care (01) ==
LOC: ANHSURGERY 09:46
PROVIDERS: PCP Family Medicine; Visit Provider Urology
DX: N20.0 Calculus of kidney (principal); I10 Essential (primary) hypertension; Z01.818 Encounter for other preprocedural examination
CPT/HCPCS: 36415; 85610; 85730; 93005

== ENCOUNTER 2023-07-04 00:04 | Day surgery (SDC) | payer OTHER, SELFPAY ==
[2023-06-24 13:05] VITALS: BMI 29.2
--- NOTE | 2023-06-24 13:13 | PC.NURSE ---
Addendum entered by Jenni Garcia RN 06/24/23 13:22: PT INSTRUCTED TO HOLD WEGOVY FOR 10 DAYS PRIOR TO PROCEDURE (PT NOT CURRENTLY TAKING IT DUE TO SUPPLY ISSUES). Original Note: Report to the Outpatient Waiting Room, entrance under the green pavilion located off [facility], at time 6:00 on date 07/04/23. Planned Procedure Time: 7:30. Time changes happen often and if your time is changed the preop area will call you the afternoon before. - You and your visitor will be asked to self-screen and do not enter if you have any COVID symptoms. - A mask is optional within the hospital at this time. Patients may have clear liquids (water, carbonated beverages, clear teas, apple juice) until 3 hours prior to surgery (4:30) with a maximum of 20 ounces. - No food from midnight until time of surgery Take the following medications with a SIP of water the morning of surgery: DULOXETINE, LIOTHYRONINE, SYNTHROID, TOPIRAMATE DO NOT STOP ANY OF YOUR OTHER PRESCRIPTION MEDICATIONS PRIOR TO SURGERY ?EXCEPT THE FOLLOWING Medications to discontinue per physician: VITAMINS Date to take last dose: 06/30/23 Please no make-up, nail greenlandic, hairspray, perfume, deodorant, or body powder the day of surgery. No jewelry (including any body piercings) or valuables the day of surgery, leave them at home. Please take a shower or bath the night before, or the morning of, surgery with an antibacterial soap. Wear comfortable, loose fitting clothing. - Jewelry must be removed prior to entering the operating room. Rings and piercings that are not removed may be cut off. - The hospital will not accept responsibility for valuables. - Please leave all valuables, including medications, at home the day of surgery. If you are going home after surgery, a licensed construction driver must drive you home. - NO public transportation without another adult if you receive anesthesia. - We recommend that an adult stay with you for 24 hours following discharge. - We also recommend that you do not drive, make important decision, drink alcoholic beverages, or take any drugs that were not prescribed by your health care provider for at least 24 hours after your discharge time. Follow any additional instructions given to you from your surgeon. If you or anyone in your household have experienced Covid symptoms in the past week, please notify your surgeon or the nurse liaison at the phone number below for possible testing. Telephone instructions given to WESTON BUSCH and asked if any additional questions and then verbalized understanding. Patient advised to call surgeon office or pre surgery nurse liaison [phone] if any additional questions.
--- NOTE | 2023-07-02 06:32 | PM.HPGS ---
History of Present Illness History of Present Illness Consent: Risks, benefits, and alternatives have been discussed and questions answered. Patient agrees to proceed with procedure. Chief complaint: kidney stone Narrative: Alethea Newsome is a 53 year old female who is previously undergone evaluation for recurrent cystitis by Dr. Markos Blake. During the course of evaluation upper tract imaging revealed to 4 mm stones in her left kidney. After discussion of options and consideration she has elected for left ESWL. She is aware of the risks including, but not limited to, adverse cardiopulmonary events, need for additional procedures, hematuria and perinephric hematoma Review of Systems Review of Systems: All systems reviewed & are unremarkable except as noted in HPI and below PMFSH Past Medical History Medical History Anemia Anxiety Arthritis Colon cancer screening Hypothyroid Hypothyroidism (acquired) Metabolic syndrome Migraines Obesity (BMI 30-39.9) Prediabetes UTI (urinary tract infection) Vitamin D deficiency Surgical History Surgical History H/O bilateral breast reduction surgery H/O left wrist surgery H/O: hysterectomy History of appendectomy History of elbow surgery History of left knee replacement Hx of cholecystectomy Family History Family History Sibling Family history of thyroid disease Asthma Family history of diabetes mellitus in first degree relative Grandparent Family history of cataracts Cerebrovascular accident Family history of Alzheimer's disease Family history of heart disease in male family member before age 55 Father Family history of alcoholism Family history of seizure disorder Family history of heart disease in male family member before age 55 Social History Social History Smoking packs per day: 1.25 Smoking cigarettes per day: 25.0 Years smoked: 25 Smoking pack-years: 31.25 Smoking status: Former smoker Tobacco type: cigarettes Smoking end date: 04/28/15 Additional smoking assessment comments: 2016 Alcohol intake: never Alcohol use details: socially Substance use: never Substance use type: does not use Lack of Transportation: No Lack of Food: Never True Current Housing: I Have Housing Concerned About Future Housing: No Difficulty Paying Gas/Electric Bills: No Difficulty Paying for Meds: No Currently Unemployed: No Education: Associate Degree Difficulty w/ Childcare or Family Care: No Living arrangements: with family Gender identity (if verbalized by the patient): Female Spiritual care concerns: No Agree to blood products: Yes Meds Home Medications and Allergies Home Medications Medication Instructions Recorded Confirmed Type triamterene 75 1 tablet PO DAILY 05/23/19 06/24/23 History mg-hydrochlorothiazide 50 mg tablet cholecalciferol (vitamin D3) 125 125 mcg PO DAILY 12/28/19 06/24/23 History mcg (5,000 unit) tablet (Vitamin D3) topiramate 100 mg tablet 100 mg PO BID 11/19/21 06/24/23 History inhalational spacing device #1 ea 11/28/21 06/17/23 Rx (Aerochamber Plus Z Stat spacer) liothyronine 5 mcg tablet 5 mcg PO DAILY 90 days #90 tabs 12/16/22 06/24/23 Rx potassium 95 mg tablet 95 mg PO DAILY 12/16/22 06/24/23 History duloxetine 30 mg capsule,delayed 60 mg PO DAILY 06/17/23 06/24/23 History release semaglutide (weight loss) 0.25 0.25 mg (0.5 mL) subcut WEEKLY #2 06/17/23 06/24/23 Rx mg/0.5 mL subcutaneous pen mL injector (Wegovy) Synthroid 150 mcg tablet 150 mcg PO DAILY #90 tabs 06/18/23 06/24/23 Rx (levothyroxine) Allergies Allergy/AdvReac Type Severity Reaction Status Date / Time No Known Allergies Allergy Verified 06/24/23 13:02 Derek
--- NOTE | 2023-07-03 13:31 | WPDANESEPPF ---
Anes - Initial Pre Proc Eval Procedure: Operation Date: 07/04/23 07:30 Proposed Procedures p Left Extracorporeal Shock Wave Lithotripsy - Orion Singh MD Date/Time: 07/03/23 13:31 Surgeon: Orion Singh MD Pre Op Diagnosis: kidney stone Patient Data Age: 53 Gender: F Height: 1.7 m Weight: 84.85 kg Allergies Allergy/AdvReac Type Severity Reaction Status Date / Time No Known Allergies Allergy Verified 06/24/23 13:02 Home Medications Medication Instructions Recorded Confirmed Type triamterene 75 1 tablet PO DAILY 05/23/19 06/24/23 History mg-hydrochlorothiazide 50 mg tablet cholecalciferol (vitamin D3) 125 125 mcg PO DAILY 12/28/19 06/24/23 History mcg (5,000 unit) tablet (Vitamin D3) topiramate 100 mg tablet 100 mg PO BID 11/19/21 06/24/23 History inhalational spacing device #1 ea 11/28/21 06/17/23 Rx (Aerochamber Plus Z Stat spacer) liothyronine 5 mcg tablet 5 mcg PO DAILY 90 days #90 tabs 12/16/22 06/24/23 Rx potassium 95 mg tablet 95 mg PO DAILY 12/16/22 06/24/23 History duloxetine 30 mg capsule,delayed 60 mg PO DAILY 06/17/23 06/24/23 History release semaglutide (weight loss) 0.25 0.25 mg (0.5 mL) subcut WEEKLY #2 06/17/23 06/24/23 Rx mg/0.5 mL subcutaneous pen mL injector (Wegovy) Synthroid 150 mcg tablet 150 mcg PO DAILY #90 tabs 06/18/23 06/24/23 Rx (levothyroxine) Patient hx anesthesia problems: post op nausea/vomiting Family hx anesthesia problems: none Results Review: All pre-operative results and documents have been reviewed as part of the pre-operative evaluation. FOR[facility]LY [facility] Past Medical History Medical History (Updated 07/03/23 @ 13:34 by Brendon Huang DO) Anemia Anxiety Arthritis Borderline diabetes Colon cancer screening Hypertension Hypothyroid Hypothyroidism (acquired) Metabolic syndrome Migraines Obesity (BMI 30-39.9) PONV (postoperative nausea and vomiting) Prediabetes UTI (urinary tract infection) Vitamin D deficiency Surgical History Surgical History H/O bilateral breast reduction surgery H/O left wrist surgery H/O: hysterectomy History of appendectomy History of elbow surgery History of left knee replacement Hx of cholecystectomy Family History Family History Sibling Family history of thyroid disease Asthma Family history of diabetes mellitus in first degree relative Grandparent Family history of cataracts Cerebrovascular accident Family history of Alzheimer's disease Family history of heart disease in male family member before age 55 Father Family history of alcoholism Family history of seizure disorder Family history of heart disease in male family member before age 55 Social History Social History Smoking packs per day: 1.25 Smoking cigarettes per day: 25.0 Years smoked: 25 Smoking pack-years: 31.25 Smoking status: Former smoker Tobacco type: cigarettes Smoking end date: 04/28/15 Additional smoking assessment comments: 2016 Alcohol intake: never Alcohol use details: socially Substance use: never Substance use type: does not use Lack of Transportation: No Lack of Food: Never True Current Housing: I Have Housing Concerned About Future Housing: No Difficulty Paying Gas/Electric Bills: No Difficulty Paying for Meds: No Currently Unemployed: No Education: Associate Degree Difficulty w/ Childcare or Family Care: No Living arrangements: with family Gender identity (if verbalized by the patient): Female Spiritual care concerns: No Agree to blood products: Yes Anes - Eval Final PreProcedure Day of Procedure 07/03/23 13:31 Patient weight: overweight Heart: regular rate and rhythm Lungs: clear to auscultation Airway: Mallampati scale class II Neurological: alert and o
[2023-07-04] VITALS (8 sets, daily range): BP systolic 107–124; BP diastolic 48–77; PULSE 50–68; RESP 12–20; TEMP 36.6–36.8; O2SAT 98–100
--- NOTE | ~2023-07-04 | XR_ITS ---
Supine and upright views of the abdomen Clinical history: Lithotripsy COMPARISON: 06/20/2023 Findings: Bowel gas pattern is nonspecific. No evidence for obstruction or free air. Suspected 2-3 mm left renal stone. Osseous structures are intact. Impression: Suspected 2-3 mm left renal stone. Reviewed, dictated and finalized at [facility]. RUNNER Impression: Suspected 2-3 mm left renal stone.
--- NOTE | 2023-07-04 06:22 | WPDHPUPDATE1 ---
History and Physical Update Update Date/Time: 07/04/23 06:22 History and Physical has been reviewed, including an updated exam of the patient. There are NO changes in the patient's condition. Risks, benefits, and alternatives have been discussed and questions answered. Patient agrees to proceed with procedure.
[2023-07-04] MEDS: LACTATED RINGERS 1,000 ML 30 ML IV CONT (06:30)
[2023-07-04] MEDS: SCOPOLAMINE 1 MG PATCH 1 PATCH TRANSDERM (07:07)
[2023-07-04] MEDS: ceFAZolin 2 GM/D5W 50 ML 2 GM/50 ML BAG IVPB (07:13)
--- NOTE | 2023-07-07 07:37 | W.PM.PROC2 ---
Procedure Note - Detailed Date of Procedure 07/07/23 Pre-op Diagnosis Left kidney stones Post-op Diagnosis Same Procedure Performed Left ESWL Surgeon Orion Singh MD Anesthesia General Description of Procedure The patient was brought to the operative suite where he was placed in the supine position on the Dornier lithotripsy table. The focal point of the lithotripter was placed at two small stones in left kidney, each measuring approx. 4mm. A total of 2500 shocks were delivered at a power setting of 4. There appeared to be good fragmentation of the stone. The patient tolerated the procedure well and was taken to the recovery room in good condition. Drains No Packing No Pathology None sent
== END 2023-07-04 09:36 | disposition home or self-care (01) ==
PROVIDERS: PCP Family Medicine; Visit Provider Urology
PROC: (CPT 50590; principal; 2023-07-04 07:30)
DX: N20.0 Calculus of kidney (principal); R73.03 Prediabetes; I10 Essential (primary) hypertension; E03.9 Hypothyroidism, unspecified; E55.9 Vitamin D deficiency, unspecified; F41.9 Anxiety disorder, unspecified; Z87.891 Personal history of nicotine dependence; Z79.85 Long-term (current) use of injectable non-insulin antidiabetic drugs
CPT/HCPCS: 50590; 74018; A9270; J0690; J1100; J2250; J2405; J2704; J3010; J7120

== ENCOUNTER 2023-08-10 14:21 | Outpatient (CLI) | payer OTHER, SELFPAY ==
--- NOTE | ~2023-08-10 | XR_ITS ---
EXAMINATION: XR abdomen/kub 1V DATE: 08/10/2023 14:36 INDICATION: Calculus of kidney, left. TECHNIQUE: A supine view of the abdomen on 2 radiographs was obtained. COMPARISON: Abdomen radiographs 07/04/2023 FINDINGS: There are no dilated loops of bowel. There is no visible urolithiasis. Surgical clips in th e right upper quadrant are likely from cholecystectomy. IMPRESSION: 1. No visible urolithiasis. Reviewed, dictated and finalized at location E. IMPRESSION: 1. No visible urolithiasis.
== END 2023-08-10 14:22 | disposition home or self-care (01) ==
PROVIDERS: PCP Family Medicine; Referring Provider Urology; Visit Provider Urology
DX: N20.0 Calculus of kidney (principal)
CPT/HCPCS: 74018

== ENCOUNTER 2023-09-16 14:14 | Outpatient (CLI) | payer OTHER, SELFPAY ==
--- NOTE | ~2023-09-16 | MM_ITS ---
EXAMINATION: MM screening rad BI w dalton HISTORY: Screening TECHNIQUE: Craniocaudal and mediolateral oblique 3-D tomosynthesis images were obtained and synthetic 2-D images were generated. CAD analysis was submitted and interpreted. COMPARISON: No prior mammogram is available for comparison at this institution. BREAST PARENCHYMAL COMPOSITION: Dense: The breasts are heterogeneously dense, which may obscure small masses FINDINGS: There is no evidence of suspicious mass, calcification, or architectural distortion to sugg est malignancy in either breast. There has been no suspicious interval change. IMPRESSION: 1. No mammographic evidence of malignancy. 2. Recommend routine screening mammography in one year. BI-RADS Category 1: Negative Reviewed, dictated and finalized at location A.
== END 2023-09-16 14:15 | disposition home or self-care (01) ==
PROVIDERS: PCP Family Medicine; Visit Provider Obstetrics & Gynecology
DX: Z12.31 Encounter for screening mammogram for malignant neoplasm of breast (principal)
CPT/HCPCS: 77063; 77067

== ENCOUNTER 2023-12-20 16:19 | Emergency (ER) | payer OTHER, SELFPAY ==
--- NOTE | ~2023-12-20 | XR_ITS ---
EXAM: XR forearm RT 2V DATE: 12/20/2023 16:35 HISTORY: shelf fell onto mid right forearm . COMPARISON: None available. FINDINGS: Normal mineralization. No fracture or dislocation. No lytic or blastic lesion. Mild degene rative changes in the elbow and wrist. No erosion or periosteal change. Soft tissues within normal li mits. IMPRESSION: No acute osseous finding in the left forearm. Reviewed, dictated and finalized at location K.
[2023-12-20 16:27] VITALS: BP 101/65; PULSE 96; RESP 16; TEMP 37.5; O2SAT 100
--- NOTE | 2023-12-20 16:28 | ED.EXTPRO ---
HPI - Extremity Problem General Chief complaint: Extremity Injury, Upper Stated complaint: Right Arm Pain Time Seen by Provider: 12/20/23 16:28 Source: patient, RN notes reviewed and old records reviewed Mode of arrival: ambulatory Limitations: no limitations History of Present Illness HPI Narrative: Patient presents with complaints of right arm pain and bruising. She reports that a shelf fell on to it yesterday, she has been using [id number] medications and ice. She became concerned today when she was still having pain despite home measures. She retains full range of motion of the affected extremity. There is some bruising present. She denies other injury and trauma, voices no other concerns or complaints at this time. Related Data Home Medications Medication Instructions Recorded Confirmed triamterene 75 1 tablet PO DAILY 05/23/19 12/01/23 mg-hydrochlorothiazide 50 mg tablet cholecalciferol (vitamin D3) 125 125 mcg PO DAILY 12/28/19 12/01/23 mcg (5,000 unit) tablet (Vitamin D3) topiramate 100 mg tablet 100 mg PO BID 11/19/21 12/01/23 potassium 95 mg tablet 95 mg PO DAILY 12/16/22 12/01/23 duloxetine 30 mg capsule,delayed 60 mg PO DAILY 06/17/23 12/01/23 release Allergies Allergy/AdvReac Type Severity Reaction Status Date / Time No Known Allergies Allergy Verified 12/01/23 08:18 Review of Systems Review of Systems: All systems reviewed & are unremarkable except as noted in HPI and below Constitutional: Constitutional: Reports no additional constitutional complaints ENT: Reports system reviewed and no additional complaints, except as documented Cardiovascular: Cardiovascular: Reports no additional cardiovascular complaints Respiratory: Respiratory: Reports no additional respiratory complaints Gastrointestinal: Gastrointestinal: Reports no additional gastrointestinal complaints Musculoskeletal: Musculoskeletal: Reports no additional musculoskeletal complaints and Reports as per HPI Integumentary/Breasts: Skin/Breast: Reports system reviewed and no additional complaints, except as docu and Reports as per HPI PMFSH Past Medical History Medical History Anemia Anxiety Arthritis Borderline diabetes Colon cancer screening Hypertension Hypothyroid Hypothyroidism (acquired) Metabolic syndrome Migraines Obesity (BMI 30-39.9) PONV (postoperative nausea and vomiting) Prediabetes UTI (urinary tract infection) Vitamin D deficiency Surgical History Surgical History H/O bilateral breast reduction surgery H/O left wrist surgery H/O: hysterectomy History of appendectomy History of elbow surgery History of left knee replacement Hx of cholecystectomy Family History Family History Sibling Family history of thyroid disease Asthma Family history of diabetes mellitus in first degree relative Grandparent Family history of cataracts Cerebrovascular accident Family history of Alzheimer's disease Family history of heart disease in male family member before age 55 Father Family history of alcoholism Family history of seizure disorder Family history of heart disease in male family member before age 55 Social History Social History Smoking packs per day: 1.25 Smoking cigarettes per day: 25.0 Years smoked: 25 Smoking pack-years: 31.25 Smoking status: Former smoker Tobacco type: cigarettes Smoking end date: 04/28/15 Additional smoking assessment comments: 2016 Alcohol intake: never Alcohol use details: socially Substance use: never Substance use type: does not use Do You Feel Safe in your Home?: Yes Lack of Transportation: No Lack of Food: Never True Current Housing: I Have Housing Concerned About Future Housing: No Difficulty Paying
== END 2023-12-20 17:16 | disposition home or self-care (01) ==
PROVIDERS: Emergency Provider Nurse Practitioner Family; PCP Family Medicine
DX: S59.911A Unspecified injury of right forearm, initial encounter (principal); W20.8XXA Other cause of strike by thrown, projected or falling object, initial encounter; Z87.891 Personal history of nicotine dependence; I10 Essential (primary) hypertension; E03.9 Hypothyroidism, unspecified; E66.9 Obesity, unspecified; Z68.36 Body mass index [BMI] 36.0-36.9, adult; R73.03 Prediabetes; E55.9 Vitamin D deficiency, unspecified; M19.90 Unspecified osteoarthritis, unspecified site
CPT/HCPCS: 73090; 99213; G0463

== ENCOUNTER 2024-03-02 08:51 | Outpatient (CLI) | payer OTHER, SELFPAY ==
--- NOTE | ~2024-03-02 | XR_ITS ---
XR abdomen/kub 1V Ordering provider: Markos Blake MD History: . HX OF KIDNEY STONES . Comparison: August 10, 2023 FINDINGS: BOWEL: Nonobstructive bowel gas pattern. ORGANOMEGALY: None. SIGNIFICANT PATHOLOGIC CALCIFICATIONS: None. OTHER: No free air is seen under the diaphragm. Degenerative the spine. IMPRESSION: NO ACUTE ABDOMINAL FINDINGS. Reviewed, dictated and finalized at location A. ICAL COORDINATOR
== END 2024-03-02 08:52 | disposition home or self-care (01) ==
LOC: ANHIMG 08:54
PROVIDERS: PCP Family Medicine; Visit Provider Urology
DX: Z87.442 Personal history of urinary calculi (principal); Z87.19 Personal history of other diseases of the digestive system; Z98.890 Other specified postprocedural states
CPT/HCPCS: 74018

== ENCOUNTER 2024-04-22 12:30 | Outpatient (CLI) | payer OTHER, SELFPAY ==
--- NOTE | ~2024-04-22 | XR_ITS ---
XR hand RT 2V Ordering provider: Evans Restrepo, History: . Pain in rt hand . Comparison: None. FINDINGS: BONES: No acute fracture or dislocation. JOINT SPACES: Early osteoarthritic changes in the proximal interphalangeal joint of the second finger . SOFT TISSUES: Normal. IMPRESSION: No acute osseous abnormality right hand. Reviewed, dictated and finalized at location A. OCHIP SPECIALIST
--- NOTE | ~2024-04-22 | XR_ITS ---
XR hand LT 2V Ordering provider: Evans Restrepo, History: . Pain in Lt hand, pt states swelling to bilateral hands . Comparison: None. FINDINGS: BONES: No acute fracture or dislocation. JOINT SPACES: Well maintained. SOFT TISSUES: Unremarkable. IMPRESSION: No acute osseous abnormality left hand. Reviewed, dictated and finalized at location A. H MIXER OPERATOR
== END 2024-04-22 12:31 | disposition home or self-care (01) ==
PROVIDERS: PCP Family Medicine; Visit Provider Family Medicine
DX: M79.641 Pain in right hand (principal); M79.642 Pain in left hand; M79.89 Other specified soft tissue disorders
CPT/HCPCS: 73120

== ENCOUNTER 2024-09-30 14:25 | Outpatient (CLI) | payer OTHER, SELFPAY ==
--- NOTE | ~2024-09-30 | CT_ITS ---
CT abdomen pelvis w con Ordering provider: Evans RestrepoMD History: 54 years Female with . ACUTE COLITIS . Comparison: August 09, 2021 Technique: CT abdomen and pelvis with IV and without oral contrast. Automated exposure control and it erative reconstruction technique were employed. The dose-length product was 1446.59 mGy-cm. 100 mL Om nipaque 350 was given IV. Findings: VISUALIZED LOWER CHEST: Dependent atelectatic changes. UPPER ABDOMINAL ORGANS: Liver: Fat infiltration. Gallbladder: Status post cholecystectomy. Spleen: Normal. Stomach/duodenum: Normal. Pancreas: Normal. Adrenals: Normal. Kidneys: Tiny stones in the left kidney upper, mid and lower poles. No ureteric stones. Tiny stone in the right kidney lower pole. No ureteric stones. PELVIC ORGANS: The bladder is normal. BOWEL AND MESENTERY: Colon: No evidence of diverticulitis. Fluid content seen in the distal small bowel and proximal colon which may indicate diarrhea. Clinical correlation advised. The appendix is not demonstrated. Small Bowel: Normal. No obstruction. Peritoneum/mesentery: No free air or free fluid. No mesenteric lymphadenopathy. RETROPERITONEUM: Mild atheromatous disease of the abdominal aorta. No retroperitoneal lymphadenopat hy. MUSCULOSKELETAL: Superficial soft tissues: Tiny fat-containing umbilical hernia. Otherwise, The superficial soft tissu es are normal. Bones: Age appropriate degenerative changes of the spine. Bilateral mild osteoarthritic changes. Bila teral sacroiliitis. IMPRESSION: 1. No evidence of appendicitis, diverticulitis or intestinal obstruction. 2. Bilateral kidney stones with no ureteric stones or hydronephrotic changes. 3. Fluid in the proximal colon. Diarrhea is possible. Clinical correlation advised. Reviewed, dictated and finalized at location A. IMPRESSION: 1. No evidence of appendicitis, diverticulitis or intestinal obstruction. 2. Bilateral kidney stones with no ureteric stones or hydronephrotic changes. 3. Fluid in the proximal colon. Diarrhea is possible. Clinical correlation adv ised.
--- OUTSIDE RECORDS SUMMARY | 2024-09-30 15:06 | XMS_ITS | Continuity of Care Document ---
Author Organization [facility] Address [address] [place] [address] Phone Care Team Providers Care Silverware Buffer Name Role Phone Shawn Rico MD Unavailable Unavailable Allergies, Adverse Reactions, Alerts Substance Reaction Status Criticality No Known Allergies Active No Inform ation Medications Medication Instructions Dosage Effective Dates (start - stop) Status Comments Medrol (Chris) 4 mg tablets in a dose pack take as directed - Active etodolac 400 mg tablet take 1 tablet by oral route 2 times every day with food 400 MG - Active tizanidine 2 mg tablet take 1/2-1 po qhs or bid for muscle relaxation - Active SYNTHROID (unknown strength) Not Available - Active TOPAMAX (unknown strength) Not Available - Active MAXIDEX (unknown strength) Not Available - Active CYTOMEL (unknown strength) Not Available - Active Procedures Procedure Date OFFICE/OUTPATIENT VISIT EST OFFICE CONSULTATION Advance Directives Directive Yes / No Effective Date File Name No Information Encounters Encounter Description Practice Location Reason(s) For Visit Diagnoses Date Provider Providers Copied on Encounter [facility], [address], [place], [address], [place] tel:[phone] [facility] No Information 7 Trisha Escobar. [address], [place], [place], [id number] . tel: [phone] OFFICE/OUTPAT IENT VISIT EST [facility], [address], [place], [address], [place] tel:[phone] [facility] LBP and bilateral leg pain (chief complaint) Lumbar radiculitisDJD (degenerative joint disease), lumbosacral 5 Flip Rose. [address] , [place], [place], [id number] . tel: [phone] [facility], [address] [facility] [address], [address], tel:[phone] [facility] No Information 5 Flip Rose. [address] , [place], [place], [id number] . tel: [phone] OFFICE CONSULTATION [facility], [address], [address], tel:[phone] [facility] LBP abd bilateral leg pain (chief complaint) DJD (degenerative joint disease), lumbosacralLum bar radiculitisKne e pain 5 Flip Rose. [address] [facility] [place], [place], [id number] . tel:[phone] Referring Provider: Ajay Lisa, RETIRED [address] [place] [address] [address], [place], [address]. tel:[phone] [facility], [address] [facility] [address], [address], [place] tel:[phone] [facility] No Information 5 Flip Rose. [address] [facility] [place], [id number] . tel:[phone] Family History Family Member Type Diagnosis Age At Onset Aunt Problem (finding) Cancer, breast Father Problem (finding) Heart Disease Mother Problem (finding) Alive and well Father Problem (finding) Alive and well Sister Problem (finding) Maternal history of kathrine betes mellitus Payers Payer name Insurance type Covered green party ID Authoriza tion(s) No Information Social History Type Description Quantity Date Captured Comments Sex Female Smoking Status No Information Chief Complaint And Reason For Visit No Information Reason For Referral Reason For Referral No Information History Of Present Illness Encounter Date Complaint History Of Prese nt Illness LBP and bilateral leg pain LBP abd bilateral leg pain Functional Status Date Functional Assessmen t No Information Instructions Date Instruction Additional Infor mation No Information Assessments Type Assessment Date No Information Patient Care Teams Name Effective Dates (start - stop) Status Members No Information
--- OUTSIDE RECORDS SUMMARY | 2024-09-30 15:06 | XMS_ITS | Data Portability ---
Author Organization [facility] Address [address] [place] [address] Assessment No assessment recorded. Plan of Treatment Reminders Order Date Submit Date Provider Last Modified By Organization Details Last Modified Time Details Appointments ANY 15 2024 01:15P My Restrepo MD Not available Not available Not available Lab O&P (ova & parasites ), stool 2024 025 mike [facility], [address], [place], [address], 09/29/2024 16:22:56 culture, stool 2024 025 mike [facility], [address], [place], [address], 09/29/2024 16:22:56 C diff toxin A+B, qual IA, stool 2024 025 mike [facility], [address], [place], [address], 09/29/2024 16:22:56 CBC w/ auto diff 2024 025 [facility] [address], [address], [address], [place], [address], 09/29/2024 21:21:59 CMP, serum or plasma 2024 025 [facility] [address], [address], [address], [place], [address], 09/29/2024 21:42:28 STEPHANIE (antinucl ear antibodie s) screen, ifa, serum 2023 024 [email or web address] [facility], [address] [facility], [place], [address], 2024 07:51:16 erythrocy te sedimenta tion rate by westergre n method 2023 024 [email or web address] [facility], [address] [facility], [place], [address], 2024 07:51:23 sjogren antibody panel, serum 2023 024 [email or web address] [facility], [address] [facility], [place], [address], 2024 07:51:31 dsDNA Ab, serum 2023 024 [facility], [address] [facility], [place], [address], 2024 07:51:38 rf (rheumato id factor), serum 2023 024 [facility], [address] [facility], [place], [address], 04/23/2024 14:12:22 lipid panel, serum 2023 024 [facility], [facility] [facility], [place], [address], 01/02/2024 05:36:56 CMP, serum or plasma 2023 024 [facility], [facility] [facility], [place], [address], 01/02/2024 05:36:57 CBC w/ auto diff 2023 024 [facility], [facility] [facility], [place], [address], 01/02/2024 05:36:58 Referral None recorded. Procedures None recorded. Surgeries None recorded. Imaging CT, abdomen + pelvis, w/ contrast 2024 025 [facility] (Imaging), [address] [place] [address] [address], [place], [address], 09/29/2024 18:18:50 XR, hand, 2 view - bilateral [email or web address] [place] [address] Imaging, [address] [place] [address] [address], [place], [address], 05/18/2024 15:55:31 Medication Orders ondansetr on 4 mg disintegr ating tablet 2024 025 [email or web address] [facility] [address], [address] [facility], [place], [address], 09/29/2024 16:22:56 Medrol (Chris) 4 mg tablets in a dose pack 2023 024 [email or web address] [address], [address] [facility], [place], [address], 04/20/2024 10:09:28 topiramat e 100 mg tablet 2023 024 [email or web address] [facility] [address], [address] [facility], [place], [address], 12/09/2023 11:29:44 Bactrim DS 800 mg-160 mg tablet 2023 024 ADE [facility] [address], [address] [facility], [place], [address], 01/08/2024 16:40:26 duloxetin e 60 mg capsule,d elayed release 2023 024 [email or web address] [address], [address] [facility], [place], [address], 12/09/2023 11:29:44 triamcino lone acetonide 0.1 % topical cream 2023 024 [email or web address] [facility] [address], [address], [place], [address], 12/09/2023 11:29:44 Patient TargetsNo targets recorded. Patient Instructions Encounter Date Encounter Id Patient Instructions Last Modified By Organization Details Last Modified Time 04/20/2024 [id number] A healthy lifestyle: care instructions [email or web address] Not available 04/20/2024 10:09:28 Reason for Referral None Reported. Results Created Date Observation Date Name Description Value Unit Range Abnormal Flag Note LastModifiedBy Organization Detail LastModifiedTime 01/01/2001/02/2024 LIPID PANEL , STAND RYLAN cholesterol, total 228 mg/dL <200 high Not Available [facility] [address] [address] [place], [address], 01/02/2024 05:36:56 01/01/2001/02/2024 LIPID PANEL , STAND RYLAN HDL cholesterol 66 mg/dL > or = 50 normal Not Available [facility] [address] [address] [place], [address], 01/02/2024 05:36:56 01/01/2001/02/2024 LIPID PANEL , STAND RYLAN triglyceride s 169 mg/dL <150 high Not Available [facility] [address] [address] [place], [address], 01/02/2024 05:36:56 01/01/2001/02/2024 LIPID PANEL , STAND RYLAN LDL-choleste rol 131 mg/dL _(wilton c) high Refer ence range : <100 Bertha able range <100 mg/dL for prima ry preve ntion ; <70 mg/dL for patie nts with CHD or diabe tic patie nts with > or = 2 CHD risk facto rs. LDL-C is now calcu lated using the Liz n-Hop kins calcu latedenilson n, which is a valid ated novel congo dallas landry acy than the Fried debra equat ion in the estim ation of LDL-C . Liz n SS et al. ZEN. 2013; 310(1 9): 2061- 2068 (http ://ed ucati on.Evie foleyFirst Rate Medical Transportation. com/f aq/FA Q164) Not Available [address] [address] [place], [address], 01/02/2024 05:36:56 01/01/2001/02/2024 LIPID PANEL , STAND RYLAN chol/HDLC ratio 3.5 (calc ) <5.0 normal Not Available [facility] [address] [place], [address], 01/02/2024 05:36:56 01/01/2001/02/2024 LIPID PANEL , STAND RYLAN non HDL cholesterol 162 mg/dL _(wilton c) <130 high For patie nts with diabe michael plus 1 major ASCVD risk facto r, treat ing to a non-H DL-C goal of <100 mg/dL (LDL- C of <70 mg/dL ) is consi dered a thera pegwen c optio n. Not Available [address], [address], 01/02/2024 05:36:56 01/01/20 24 01/02/2024 COMPR EHENS ARNOLD METAB OLIC PANEL glucose 86 mg/dL 65-139 normal Non-f astin g refer ence inter reagan Not Available [facility] [address], [address], 01/02/2024 05:36:57 01/01/20 24 01/02/2024 COMPR EHENS ARNOLD METAB OLIC PANEL urea nitrogen (BUN) 21 mg/dL 7-25 normal Not Available [facility] [address], [address], 01/02/2024 05:36:57 01/01/20 24 01/02/2024 COMPR EHENS ARNOLD METAB OLIC PANEL creatinine 1.14 mg/dL 0.50-1 .03 high Not Available [facility] [address] [address], [place], [address], 01/02/2024 05:36:57 01/01/2001/02/2024 COMPR EHENS ARNOLD METAB OLIC PANEL eGFR 58 mL/mi n/1.7 3m2 > or = 60 low Not Available [address], [address], 01/02/2024 05:36:57 01/01/20 24 01/02/2024 COMPR EHENS ARNOLD METAB OLIC PANEL BUN/creatini ne ratio 18 (calc ) 6-22 normal Not Available [address], [address], 01/02/2024 05:36:57 01/01/20 24 01/02/2024 COMPR EHENS ARNOLD METAB OLIC PANEL sodium 140 mmol/ L 135-14 6 normal Not Available [address], [address], 01/02/2024 05:36:57 01/01/20 24 01/02/2024 COMPR EHENS ARNOLD METAB OLIC PANEL potassium 3.5 mmol/ L 3.5-5. 3 normal Not Available [address], [address], 01/02/2024 05:36:57 01/01/2001/02/2024 COMPR EHENS ARNOLD METAB OLIC PANEL chloride 103 mmol/ L 98-110 normal Not Available [address], [address], 01/02/2024 05:36:57 01/01/2001/02/2024 COMPR EHENS ARNOLD METAB OLIC PANEL carbon dioxide 29 mmol/ L 20-32 normal Not Available [address], [address], 01/02/2024 05:36:57 01/01/20 24 01/02/2024 COMPR EHENS ARNOLD METAB OLIC PANEL calcium 9.2 mg/dL 8.6-10 .4 normal Not Available [address], [address], 01/02/2024 05:36:57 01/01/20 24 01/02/2024 COMPR EHENS ARNOLD METAB OLIC PANEL protein, total 6.2 g/dL 6.1-8. 1 normal Not Available [address], [address], 01/02/2024 05:36:57 01/01/2001/02/2024 COMPR EHENS ARNOLD METAB OLIC PANEL albumin 4.1 g/dL 3.6-5. 1 normal Not Available [address], [address], 01/02/2024 05:36:57 01/01/20 24 01/02/2024 COMPR EHENS ARNOLD METAB OLIC PANEL globulin 2.1 g/dL_ (calc ) 1.9-3. 7 normal Not Available [address], [address], 01/02/2024 05:36:57 01/01/20 24 01/02/2024 COMPR EHENS ARNOLD METAB OLIC PANEL albumin/glob ulin ratio 2.0 (calc ) 1.0-2. 5 normal Not Available [address], [address], 01/02/2024 05:36:57 01/01/20 24 01/02/2024 COMPR EHENS ARNOLD METAB OLIC PANEL bilirubin, total 0.5 mg/dL 0.2-1. 2 normal Not Available [address], [address], 01/02/2024 05:36:57 01/01/20 24 01/02/2024 COMPR EHENS ARNOLD METAB OLIC PANEL alkaline phosphatase 93 U/L 37-153 normal Not Available [facility] [employer] [address], [address], 01/02/2024 05:36:57 01/01/20 24 01/02/2024 COMPR EHENS ARNOLD METAB OLIC PANEL AST 14 U/L 10-35 normal Not Available [address], [address], 01/02/2024 05:36:57 01/01/20 24 01/02/2024 COMPR EHENS ARNOLD METAB OLIC PANEL ALT 14 U/L 6-29 normal Not Available [address], [address], 01/02/2024 05:36:57 01/01/20 24 01/02/2024 CBC (INCL UDES DIFF/ PLT) white blood cell count 6.7 thous and/u L 3.8-10 .8 normal Not Available [address], [address], 01/02/2024 05:36:57 01/01/20 24 01/02/2024 CBC (INCL UDES DIFF/ PLT) red blood cell count 5.25 judy on/uL 3.80-5 .10 high Not Available [facility] [address], [address], 01/02/2024 05:36:57 01/01/20 24 01/02/2024 CBC (INCL UDES DIFF/ PLT) hemoglobin 15.6 g/dL 11.7-1 5.5 high Not Available [facility] [address], [address], 01/02/2024 05:36:57 01/01/20 24 01/02/2024 CBC (INCL UDES DIFF/ PLT) hematocrit 48.7 % 35.0-4 5.0 high Not Available [facility] [address], [address], 01/02/2024 05:36:57 01/01/20 24 01/02/2024 CBC (INCL UDES DIFF/ PLT) MCV 92.8 fL 80.0-1 00.0 normal Not Available [address], [address], 01/02/2024 05:36:57 01/01/20 24 01/02/2024 CBC (INCL UDES DIFF/ PLT) MCH 29.7 pg 27.0-3 3.0 normal Not Available [address], [address], 01/02/2024 05:36:57 01/01/20 24 01/02/2024 CBC (INCL UDES DIFF/ PLT) MCHC 32.0 g/dL 32.0-3 6.0 normal Not Available [address], [address], 01/02/2024 05:36:57 01/01/20 24 01/02/2024 CBC (INCL UDES DIFF/ PLT) RDW 13.4 % 11.0-1 5.0 normal Not Available [address], [address], 01/02/2024 05:36:57 01/01/20 24 01/02/2024 CBC (INCL UDES DIFF/ PLT) platelet count 336 thous and/u L 140-40 0 normal Not Available [address], [address], 01/02/2024 05:36:57 01/01/20 24 01/02/2024 CBC (INCL UDES DIFF/ PLT) MPV 10.7 fL 7.5-12 .5 normal Not Available [address], [address], 01/02/2024 05:36:57 01/01/20 24 01/02/2024 CBC (INCL UDES DIFF/ PLT) absolute neutrophils 3585 cells /uL 1500-7 800 normal Not Available [address], [address], 01/02/2024 05:36:57 01/01/20 24 01/02/2024 CBC (INCL UDES DIFF/ PLT) absolute lymphocytes 2352 cells /uL 850-39 00 normal Not Available [address], [address], 01/02/2024 05:36:57 01/01/20 24 01/02/2024 CBC (INCL UDES DIFF/ PLT) absolute monocytes 456 cells /uL 200-95 0 normal Not Available [address], [address], 01/02/2024 05:36:57 01/01/2001/02/2024 CBC (INCL UDES DIFF/ PLT) absolute eosinophils 228 cells /uL 15-500 normal Not Available [address], [address], 01/02/2024 05:36:57 01/01/2001/02/2024 CBC (INCL UDES DIFF/ PLT) absolute basophils 80 cells /uL 0-200 normal Not Available [address], [address], 01/02/2024 05:36:57 01/01/2001/02/2024 CBC (INCL UDES DIFF/ PLT) neutrophils 53.5 % normal Not Available [address], [address], 01/02/2024 05:36:57 01/01/2001/02/2024 CBC (INCL UDES DIFF/ PLT) lymphocytes 35.1 % normal Not Available [address], [address], 01/02/2024 05:36:57 01/01/2001/02/2024 CBC (INCL UDES DIFF/ PLT) monocytes 6.8 % normal Not Available [address], [address], 01/02/2024 05:36:57 01/01/20 24 01/02/2024 CBC (INCL UDES DIFF/ PLT) eosinophils 3.4 % normal Not Available [address], [address], 01/02/2024 05:36:57 01/01/20 24 01/02/2024 CBC (INCL UDES DIFF/ PLT) basophils 1.2 % normal Not Available [address], [address], 01/02/2024 05:36:57 01/01/20 24 01/02/2024 TSH TSH 2.10 mIU/L normal Refer ence Range > or = 20 Years 0.40- 4.50 Pregn anand Range s First trime ster 0.26- 2.66 Secon d trime ster 0.55- 2.73 Third trime ster 0.43- 2.91 Not Available [address], [address], 01/02/2024 05:36:58 09/30/19 25 09/29/2024 COMPL ETE BLOOD COUNT AUTO DIFF white blood count 8.4 x10e3 /uL 3.4-10 .8 normal Not Available [facility] (Lab) [address] [place], [address], 09/29/2024 21:21:59 09/30/19 25 09/29/2024 COMPL ETE BLOOD COUNT AUTO DIFF red blood count 5.32 x10e6 /uL 3.77-5 .28 high Not Available [facility] (Lab) [address] [place], [address], 09/29/2024 21:21:59 09/30/19 25 09/29/2024 COMPL ETE BLOOD COUNT AUTO DIFF hemoglobin 15.6 g/dL 11.1-1 5.9 normal Not Available [facility] (Lab) [address] [place], [address], 09/29/2024 21:21:59 09/30/19 25 09/29/2024 COMPL ETE BLOOD COUNT AUTO DIFF hematocrit 47.8 % 34.0-4 6.6 high Not Available [facility] (Lab) [address] [place], [address], 09/29/2024 21:21:59 09/30/19 25 09/29/2024 COMPL ETE BLOOD COUNT AUTO DIFF mean corpuscular volume 90 fL 79-97 normal Not Available [facility] [address], [place], [address], 09/29/2024 21:21:59 09/30/19 25 09/29/2024 COMPL ETE BLOOD COUNT AUTO DIFF mean corpuscular hemoglobin 29.3 pg 26.6-3 3.0 normal Not Available [facility] (Lab) [address], [place], [address], 09/29/2024 21:21:59 09/30/19 25 09/29/2024 COMPL ETE BLOOD COUNT AUTO DIFF mean corpuscular HGB conc 32.6 g/dL 31.5-3 5.7 normal Not Available [facility] (Lab) [address] [place], [address], 09/29/2024 21:21:59 09/30/19 25 09/29/2024 COMPL ETE BLOOD COUNT AUTO DIFF red cell distribution width 13.6 % 11.5-1 4.5 normal Not Available [facility] ([facility]) [address] [place], [address], 09/29/2024 21:21:59 09/30/19 25 09/29/2024 COMPL ETE BLOOD COUNT AUTO DIFF platelet count 311 x10e3 /uL 150-45 0 normal Not Available [facility] (Lab) [address] [place], [address], 09/29/2024 21:21:59 09/30/19 25 09/29/2024 COMPL ETE BLOOD COUNT AUTO DIFF mean platelet volume 11.0 fL 8.9-12 .7 normal Not Available [facility] (Lab) [address] [facility], [place], [address], 09/29/2024 21:21:59 09/30/19 25 09/29/2024 COMPL ETE BLOOD COUNT AUTO DIFF immature granulocytes pct auto 0.2 % not estb. Not Available [facility] (Lab) [address] [facility], [place], [address], 09/29/2024 21:21:59 09/30/19 25 09/29/2024 COMPL ETE BLOOD COUNT AUTO DIFF neutrophils percent auto 52 % not estb. Not Available [facility] (Lab) [address] [place], [address], 09/29/2024 21:21:59 09/30/19 25 09/29/2024 COMPL ETE BLOOD COUNT AUTO DIFF lymphocytes percent auto 36 % not estb. Not Available [facility] (Lab) [address] [facility], [place], [address], 09/29/2024 21:21:59 09/30/19 25 09/29/2024 COMPL ETE BLOOD COUNT AUTO DIFF monocytes percent auto 7 % not estb. Not Available [facility] (Lab) [address] [facility], [place], [address], 09/29/2024 21:21:59 09/30/19 25 09/29/2024 COMPL ETE BLOOD COUNT AUTO DIFF eosinophils percent auto 3 % not estb. Not Available [facility] (Lab) [address] [place], [address], 09/29/2024 21:21:59 09/30/19 25 09/29/2024 COMPL ETE BLOOD COUNT AUTO DIFF basophils percent auto 1 % not estb. Not Available [facility] (Lab) [address] [place], [address], 09/29/2024 21:21:59 09/30/19 25 09/29/2024 COMPL ETE BLOOD COUNT AUTO DIFF neutrophils absolute auto 4.4 x10e3 /uL 1.4-7. 0 normal Not Available [facility] (Lab) [address] [place], [address], 09/29/2024 21:21:59 09/30/19 25 09/29/2024 COMPL ETE BLOOD COUNT AUTO DIFF immature granulocytes abs auto 0.0 x10e3 /uL 0.0-0. 1 normal Not Available [facility] (Lab) [address] [place], [address], 09/29/2024 21:21:59 09/30/19 25 09/29/2024 COMPL ETE BLOOD COUNT AUTO DIFF lymphocytes absolute auto 3.0 x10e3 /uL 0.7-3. 1 normal Not Available [facility] (Lab) [address] [place], [address], 09/29/2024 21:21:59 09/30/19 25 09/29/2024 COMPL ETE BLOOD COUNT AUTO DIFF monocytes absolute auto 0.6 x10e3 /uL 0.1-0. 9 normal Not Available [facility] (Lab) [address] [place], [address], 09/29/2024 21:21:59 09/30/19 25 09/29/2024 COMPL ETE BLOOD COUNT AUTO DIFF eosinophils absolute auto 0.3 x10e3 /uL 0.0-0. 4 normal Not Available [facility] (Lab) [address] [place], [address], 09/29/2024 21:21:59 09/30/19 25 09/29/2024 COMPL ETE BLOOD COUNT AUTO DIFF basophils absolute auto 0.1 x10e3 /uL 0.0-0. 2 normal Not Available [facility] (Lab) [address] [place], [address], 09/29/2024 21:21:59 09/30/19 25 09/29/2024 COMPL ETE BLOOD COUNT AUTO DIFF nucleated red blood cells auto 0 % 0-0 normal Not Available [facility] (Lab) [address] [place], [address], 09/29/2024 21:21:59 09/30/19 25 09/29/2024 COMPR EHENS ARNOLD METAB OLIC PANEL sodium 143 mmol/ L 134-14 4 normal Not Available [facility] (Lab) [address] [place], [address], 09/29/2024 21:42:28 09/30/19 25 09/29/2024 COMPR EHENS ARNOLD METAB OLIC PANEL potassium 4.0 mmol/ L 3.5-5. 2 normal Not Available [facility] ([facility]) [address] [place], [address], 09/29/2024 21:42:28 09/30/19 25 09/29/2024 COMPR EHENS ARNOLD METAB OLIC PANEL chloride 104 mmol/ L 96-106 normal Not Available [facility] (Lab) [address] [place], [address], 09/29/2024 21:42:28 09/30/19 25 09/29/2024 COMPR EHENS ARNOLD METAB OLIC PANEL carbon dioxide 24 mmol/ L 20-29 normal Not Available [facility] ([facility]) [address] [place], [address], 09/29/2024 21:42:28 09/30/19 25 09/29/2024 COMPR EHENS ARNOLD METAB OLIC PANEL anion gap 19.0 mmol/ L Not Available [facility] (Lab) [address] [place], [address], 09/29/2024 21:42:28 09/30/19 25 09/29/2024 COMPR EHENS ARNOLD METAB OLIC PANEL blood urea nitrogen 16 mg/dL 6-24 normal Not Available [facility] ([facility]) [address] [place], [address], 09/29/2024 21:42:28 09/30/19 25 09/29/2024 COMPR EHENS ARNOLD METAB OLIC PANEL creatinine 1.19 mg/dL 0.76-1 .27 normal Not Available [facility] (Lab) [address], [place], [address], 09/29/2024 21:42:28 09/30/19 25 09/29/2024 COMPR EHENS ARNOLD METAB OLIC PANEL glomerular filtration rate 54 mL/mi n/1 Not Available [facility] (Lab) [address] [place], [address], 09/29/2024 21:42:28 09/30/19 25 09/29/2024 COMPR EHENS ARNOLD METAB OLIC PANEL BUN creatinine ratio 13 9-23 normal Not Available [facility] (Lab) [address] [place], [address], 09/29/2024 21:42:28 09/30/19 25 09/29/2024 COMPR EHENS ARNOLD METAB OLIC PANEL glucose 86 mg/dL 70-99 normal Not Available [facility] (Lab) [address], [place], [address], 09/29/2024 21:42:28 09/30/19 25 09/29/2024 COMPR EHENS ARNOLD METAB OLIC PANEL osmolality calculated 285 275-29 5 normal Not Available [facility] (Lab) [address] [place], [address], 09/29/2024 21:42:28 09/30/19 25 09/29/2024 COMPR EHENS ARNOLD METAB OLIC PANEL calcium 9.6 mg/dL 8.7-10 .2 normal Not Available [facility] (Lab) [address] [place], [address], 09/29/2024 21:42:28 09/30/19 25 09/29/2024 COMPR EHENS ARNOLD METAB OLIC PANEL bilirubin total 0.3 mg/dL 0.0-1. 2 normal Not Available [facility] (Lab) [address], [place], [address], 09/29/2024 21:42:28 09/30/19 25 09/29/2024 COMPR EHENS ARNOLD METAB OLIC PANEL AST aspartate aminotransfe rase 16 U/L 0-40 normal Not Available [facility] [address], [place], [address], 09/29/2024 21:42:28 09/30/19 25 09/29/2024 COMPR EHENS ARNOLD METAB OLIC PANEL ALT (alanine aminotransfe rase) 19 IU/L 0-32 normal Not Available [facility] (Lab) [address], [place], [address], 09/29/2024 21:42:28 09/30/19 25 09/29/2024 COMPR EHENS ARNOLD METAB OLIC PANEL total protein 6.7 g/dL 6.0-8. 5 normal Not Available [facility] (Lab) [address], [place], [address], 09/29/2024 21:42:28 09/30/19 25 09/29/2024 COMPR EHENS ARNOLD METAB OLIC PANEL albumin level 4.6 g/dL 3.8-4. 9 normal Not Available [facility] (Lab) [address], [place], [address], 09/29/2024 21:42:28 09/30/19 25 09/29/2024 COMPR EHENS ARNOLD METAB OLIC PANEL globulin 2.1 g/dL 1.5-4. 5 normal Not Available [facility] (Lab) [address] [place], [address], 09/29/2024 21:42:28 09/30/19 25 09/29/2024 COMPR EHENS ARNOLD METAB OLIC PANEL albumin globulin ratio 2.0 1.2-2. 2 normal Not Available [facility] (Lab) [address] [place], [address], 09/29/2024 21:42:28 09/30/19 25 09/29/2024 COMPR EHENS ARNOLD METAB OLIC PANEL alkaline phosphatase 127 IU/L 44-121 high Not Available [facility] (Lab) [address] [facility], [place], [address], 09/29/2024 21:42:28 09/30/19 25 09/29/2024 COMPR EHENS ARNOLD METAB OLIC PANEL hemolysis 4 0-19 Not Available [facility] (Lab) [address] [facility], [place], [address], 09/29/2024 21:42:28 09/30/19 25 09/29/2024 COMPR EHENS ARNOLD METAB OLIC PANEL icterus 1 0.5-4. 9 Not Available [facility] (Lab) [address] [facility], [place], [address], 09/29/2024 21:42:28 09/30/19 25 09/29/2024 COMPR EHENS ARNOLD METAB OLIC PANEL lipemia 7 0-99 Not Available [facility] (Lab) [address] [place], [address], 09/29/2024 21:42:28 Result Notes None recorded. Problems Name Problem SNOMED Code Status Onset Date Resolution Date Notes Provider Name and Address Organization Details Recorded Time Recurrent urinary tract infection 865179299 Active 2023 Evans Restrepo MD Attn: Lefty barton,[address] [place], [address], [place] [facility] 4 11:03:28 Bilateral lower leg edema 835426471 Active 2023 Evans Restrepo MD Attn: Lefty barton,[address] [place], [address] [facility] 4 11:03:30 Atopic dermatitis 62986071 Active 2023 Evans Restrepo MD Attn: Lefty barton,[address] [place], [address] [facility] 4 11:03:33 Hypothyroidism 68238371 Active 2023 Evans Restrepo MD Attn: Lefty barton,[address] [facility], [place], [address] [facility] 4 11:03:36 Depressive disorder 54583902 Active 2023 Evans Restrepo MD Attn: Lefty barton,[address] [facility], [place], [address], [place] [facility] 4 11:03:37 Obesity 501127804 Active 2023 Evans Restrepo MD Attn: Lefty barton,[address] [facility], [place], [address], [place] [facility] 4 09:34:33 Hypertriglycer idemia 437760938 Active 2023 Evans Restrepo MD Attn: Lefty barton,[address] [facility], [place], [address], [place] [facility] 4 09:34:34 Hypercholester olemia 99232885 Active 2023 Evans Restrepo MD Attn: Lefty barton,[address] [facility], [place], [address], [place] [facility] 4 09:34:37 Chronic renal failure 03790105 Active 2023 Evans Restrepo MD Attn: Luisavidya barton,[address] [facility], [place], [address], [place] [facility] 4 09:35:36 Problem Notes None recorded. Procedures Surgical History Date Name Laterality Status Provider Name and Address Organization Details Recorded Time Appendectomy completed Kalli Lopez MA [place] - [facility] 12/09/2023 10:37:42 Cholecystectomy completed Kalli Lopez [place] [facility] 12/09/2023 10:37:52 Knee Surgery completed Kalli Lopez [place] [facility] 12/09/2023 10:38:11 Breast Surgery completed Kalli Lopez [place] [facility] 12/09/2023 10:38:21 hysterectomy completed Kalli Lopez MA [place] - [facility] 12/09/2023 10:38:33 Imaging Results None recorded. Procedure Notes None recorded. Medical Equipment None Reported. Allergies No known drug allergies Medications Name Sig Start Date Stop Date Status Note LastModified by Organization Details LastModified Time amoxicillin 500 mg capsule TAKE FOUR CAPSULES BY MOUTH ONE HOUR BEFORE APPOINTME NT 12/07 completed Not Available Not Available Not Available levothyroxi ne 137 mcg tablet TAKE 1 TABLET BY MOUTH ONCE DAILY BEFORE BREAKFAST active Not Available Not Available No t Available fluconazole 150 mg tablet TAKE 1 TABLET BY MOUTH ON DAY 1 AND DAY 3 04/05 completed Not Available Not Available Not Available prednisone 20 mg tablet TAKE 2 TABLETS BY MOUTH IN THE MORNING WITH FOOD FOR 5 DAYS 12/07 completed Not Available Not Available Not Available sulfamethox azole 800 mg-trimetho prim 160 mg tablet TAKE 1 TABLET BY MOUTH TWICE DAILY WHEN HAVING SYMPTOMS OF URINARY TRACT INFECTION active Not Available Not Available No t Available liothyronin e 5 mcg tablet TAKE 1 TABLET BY MOUTH ONCE DAILY active Not Available Not Available No t Available tramadol 50 mg tablet active Not Available Not Available No t Available triamcinolo ne acetonide 0.1 % topical cream APPLY A THIN LAYER TO THE AFFECTED AREA(S) BY TOPICAL ROUTE 2 TIMES PER DAY active Not Available Not Available No t Available potassium citrate ER 10 mEq (1,080 mg) tablet,exte nded release TAKE 1 TABLET BY MOUTH THREE TIMES DAILY active Not Available Not Available No t Available cephalexin 500 mg capsule TAKE 1 CAPSULE BY MOUTH 4 TIMES DAILY FOR 7 DAYS 12/07 completed Not Available Not Available Not Available levothyroxi ne 150 mcg tablet Take 1 tablet every day by oral route for 90 days. active Not Available Not Available No t Available progesteron e micronized 200 mg capsule TAKE 1 CAPSULE BY MOUTH EVERY DAY AT BEDTIME active Not Available Not Available No t Available furosemide 20 mg tablet TAKE 1 TABLET BY MOUTH TWICE DAILY active Not Available Not Available No t Available estradiol 0.5 mg tablet TAKE 1 TABLET BY MOUTH ONCE DAILY active Not Available Not Available No t Available triamterene 75 mg-hydrochl orothiazide 50 mg tablet TAKE 1 TABLET BY MOUTH ONCE DAILY active Not Available Not Available No t Available methylpredn isolone 4 mg tablets in a dose pack Take 1 dose pk by oral route. active Not Available Not Available No t Available albuterol sulfate HFA 90 mcg/actuati on aerosol inhaler INHALE 2 PUFFS BY MOUTH EVERY 4 TO 6 HOURS NEEDED active Not Available Not Available No t Available ondansetron 4 mg disintegrat ing tablet Place 1 tablet 3 times a day by transling ual route as needed for 30 days. 2024 active Not Available Not Available Not Avai lable topiramate 100 mg tablet TAKE 1 TABLET BY MOUTH TWICE DAILY active Not Available Not Available No t Available amoxicillin 500 mg-potassiu m clavulanate 125 mg tablet TAKE 1 TABLET BY MOUTH EVERY 8 HOURS FOR 1 WEEK 09/28 completed Not Available Not Available Not Available duloxetine 60 mg capsule,del ayed release TAKE 1 CAPSULE BY MOUTH ONCE DAILY active Not Available Not Available No t Available Wegovy 1 mg/0.5 mL subcutaneou s pen injector INJECT 1MG (0.5 ML) SUBCUTANE OUSLY WEEKLY 12/08 completed Not Available Not Available Not Available Wegovy 0.25 mg/0.5 mL subcutaneou s pen injector INJECT 0.25MG SUBCUTANE OUSLY ONCE WEEKLY FOR FOUR WEEKS 12/08 completed Not Available Not Available Not Available Wegovy 0.5 mg/0.5 mL subcutaneou s pen injector INJECT 0.5MG SUBCUTANE OUSLY WEEKLY 12/08 completed Not Available Not Available Not Available Ozempic 0.25 mg or 0.5 mg (2 mg/3 mL) subcutaneou s pen injector INJECT 0.25 MG ONCE A WEEK FOR 4 WEEKS THEN INCREASE TO 0.5 MG WEEKLY active Not Available Not Available No t Available Vitals Date Recorded Body height Body mass index (BMI) Body weight Oxygen saturation Oxygen saturation in Arterial blood by Pulse oximetry Heart rate Systolic blood pressure Diastolic blood pressure Provider Name and Address Organization Details Last Updated DateTime 5 170.18 cm 37.1 kg/m2 685045. 74 g 97 % 97 % 80 /min 122 mm[Hg] 72 mm[Hg] Kalli Lopez MA [place] - [facility] 5 14:47:02 Date Recorded Body weight Oxygen saturation Oxygen saturation in Arterial blood by Pulse oximetry Heart rate Body temperature Body mass index (BMI) Body height Systolic blood pressure Diastolic blood pressure Provider Name and Address Organization Details Last Updated DateTime 4 72906.2 1 g 97 % 97 % 83 /min 96.7 [degF] 32.6 kg/m2 170.18 cm 118 mm[Hg] 58 mm[Hg] Kalli Lopez MA [facility] 4 10:24:16 Date Recorded Body height Body mass index (BMI) Body weight Oxygen saturation Oxygen saturation in Arterial blood by Pulse oximetry Heart rate Systolic blood pressure Diastolic blood pressure Provider Name and Address Organization Details Last Updated DateTime 4 170.18 cm 35.7 kg/m2 574032. 06 g 97 % 97 % 70 /min 124 mm[Hg] 70 mm[Hg] Kalli Lopez MA [facility] 4 09:02:48 Social History Question Answer Notes LastModified by [employer] Details LastModified Time Tobacco Smoking Status Former Smoker Kalli Lopez MA null, [facility] 12/09/2023 10:39:14 What Was The Date Of Your Most Recent Tobacco Screening? 09/29/2024 Information not available 09/29/2024 Sex: Unknown Functional Status Question Answer Note LastModified by [employer] Details LastModified Time What is your level of alcohol consumption? Occasional Information not available 12/09/2023 Mental Status None recorded. Family History Relationship Description Onset Age of this Age Resolved Age Notes LastModified by Organization Details LastModified Time Mother Malignant tumor of breast [email or web address] Not available 2023 10:24:04 Mother Family history of breast cancer [email or web address] Not available 2023 10:38:55 Father Myocardial infarction [email or web address] Not available 12/08 10:24:31 Father Harmful pattern of use of alcohol [email or web address] Not available 2023 10:38:48 Father Heart disease [email or web address] Not available 2023 10:39:00 Medical History Condition Response Coronary Artery Disease N Other N High Blood Pressure N Atrial Fibrillation N Thyroid Problems Y Kidney or Bladder Problems N GI Problems N Depression N COPD N Blood Clots N Have you had a mammogram in the last yea r? N Skin Problems N Eating Disorder N Anemia N Heart Attack ([place]) N Anxiety Disorder N Diabetes N Muscle, Joint, or Bone Problems N Arthritis N Seizures/Epilepsy N Have you had a colonoscopy in the last 1 0 years? N Acid Reflux (GERD) N Cancer N Stroke N Asthma N Allergies N Have you had a PSA blood test in the las t year? N ADHD N Substance Abuse N High Cholesterol N Hepatitis N Liver Disease N Schizophrenia N Headaches N Heart Failure N Osteoporosis N Gynecological HistoryNo gynecological history recorded. Obstetrics History GPAL:G 0 P 0 0 0 0 Immunizations Vaccine Type Date Status Note Provider Nam e and Address Organization Details Recorded Time Tdap 07/06/2018 completed Not Available [employer] 09/29/2024 14:37:07 Past Encounters Encounter ID Performer Location Encounter Start Date Encounter Closed Date Diagnosis/Indication Diagnosis SNOMED-CT Code Diagnosis ICD10 Code Diagnosis Note [id number] Evans Restrepo MD [facility] [address] [facility] [address] [place] [address] 12/09/2023 09:59:50 12/10/2023 09:24:43 Adult health examination 439008636 Z00.00 order cbc, cmp, lipid panel Depressive disorder 3548 9007 F32.A condition chronic and at goal refill the cymbalta for 90 days and 3 refills Hypothyroidism 53739848 E03.9 condition chroinc and at goal follow with endo Atopic dermatitis 675008 01 L20.9 condition chronic and at goal refill the triamcinal one 60 gram tube with 5 refills. Bilateral lower leg edema 959438691 R60.0 condiotn chronic and at goal refill the maxide for 90 days nad 3 refills. Migraine 72253870 G43.90 9 condiion chronic and at goal refill the topamax for 90 days nad 3 refills. Recurrent urinary tract infection 717717799 N39.0 condiotn chroinc and at goal order bactrim for 3 days with 5 refills. [id number] Evans Restrepo MD [facility] [address] [facility] [address] [place] [address] 04/20/2024 08:54:08 04/26/2024 17:42:05 Pain of bilateral hands 9636511356 5799889 M79.641 conditon acute order xrays bilateral hands. order connective tissue pain order medrol dose pack Chronic renal failure 90 331127 N18.9 conditon chroic and not at goal refer to dr grant Hypothyroidism 60530303 E03.9 condition chroinc and at goal follow with endo Depressive disorder 3548 9007 F32.A condition chronic and at goal refill the cymbalta for 90 days and 3 refills Hypercholesterolemia 136 69020 E78.00 condition acute start low fat diet. Hypertriglyceridemia 302 081153 E78.1 conditon chroinc and not at goal start low fat diet. Obesity 140436686 E66.9 conditon chronic and not at goal start low fat diet. [id number] Evans Restrepo MD [facility] [address] [facility] [address] [place] [address] 09/29/2024 14:35:11 09/29/2024 15:21:07 Colitis 11116399 K52.[address] abd/pelvis with contrast tomorrow order cbc, cmp. Acute diarrhea 131455859 R19.7 conditoin acute order stool culture, o & p, c diff after the culture start pepto bismal tablets 2 tid. Nausea 692265528 R11.0 condition acute order zofan odt 4 mg tid #90 Hypercholesterolemia 136 45767 E78.00 condition acute start low fat diet. Chronic renal failure 90 936757 N18.9 conditon chroic and not at goal refer to dr grant Health Concerns Section Related Observation LastModified by Organization Detai ls LastModified Time None Recorded Concern Status LastModified by Organization Details LastModified Time None Recorded Advance Directives Directive None Recorded Payers Encounter Date Sequence Insurance Name Policy Number Policy Maldonado Covered Member ID Maldonado Member ID Guarantor Name 12/09/2023 1 [facility] [id number] Alethea Newsome [id number] OI Alethea Newsome 04/20/2024 1 [facility] [employer] (O) [id number] Alethea Newsome [id number] OI Alethea Mercedez 09/29/2024 1 [facility] [employer] PLAN (HMO) [id number] Alethea Newsome [id number] OI Alethea Newsome Notes Date Note Type Note Provider Name and Address Organization Details Recorded Time 12/09/2023 text/html presents to the office for intial annual physical. sees endo for thyroid. takes the topamax for the migraines. is taking hte cymbalta for the depression has swelling in hte legs has atopic dermatitis has vit d def. colo and mammo are utd. Evans Restrepo MD Attn: Accounting,[address] [facility], [place], [address], [facility] 12/09/2023 13:26:15 04/20/2024 text/html states that she has pain and swelling in the hands. bri deprssion and the thyroid is under control the leg edema is under control states that she has menapausal symptoms and is seeing editor map. the chol and hte triglycerides are under control has crf Evans Restrepo MD Attn: Accounting,[address] [facility], [place], [address], [facility] 04/20/2024 10:41:32 09/29/2024 text/html states that she has been having nausea, diarrhea watery and abdominal cramping 1 month. the depression adn the chol is under control the crf is under control taking her meds as directed. Delisa Lane RN [facility], [facility] 09/29/2024 17:04:43 OBGyn Episode No OBEpisode recorded.
--- OUTSIDE RECORDS SUMMARY | 2024-09-30 15:06 | XMS_ITS | Continuity of Care Document ---
Author Organization [facility], [facility] Address [address] [facility] [address] [place] [address] Assessment No assessment recorded. Plan of Treatment Reminders Order Date Submit Date Provider Last Modified By Organization Details Last Modified Time Details Appointments ANY 15 2024 01:15P My Restrepo MD Not available Not available Not available Lab O&P (ova & parasites ), stool 2024 025 mike [facility], [address], [facility] [address], [place], [address], 09/29/2024 16:22:56 culture, stool 2024 025 mike [facility], [address], [address], [place], [address], 09/29/2024 16:22:56 C diff toxin A+B, qual IA, stool 2024 025 mike [facility], [address], [address], [place], [address], 09/29/2024 16:22:56 CBC w/ auto diff 2024 025 [facility] [address], [facility] [address], [place], [address], 09/29/2024 21:21:59 CMP, serum or plasma 2024 025 [facility] [address], [address], [facility] [address], [place], [address], 09/29/2024 21:42:28 Referral None recorded. Procedures None recorded. Surgeries None recorded. Imaging CT, abdomen + pelvis, w/ contrast 2024 025 [facility] (Imaging), [address], [place], [address], 09/29/2024 18:18:50 Medication Orders ondansetr on 4 mg disintegr ating tablet 2024 025 [email or web address] [facility] [address], [place], [address], 09/29/2024 16:22:56 Patient TargetsNo targets recorded. Patient InstructionsNo instructions recorded. Reason for Referral None Reported. Problems Name Problem SNOMED Code Status Onset Date Resolution Date Notes Provider Name and Address Organization Details Recorded Time Recurrent urinary tract infection 990855405 Active 2023 Evans Restrepo MD Attn: Lefty barton,[address] [facility], [place], [address], [place] - [facility] 4 11:03:28 Bilateral lower leg edema 098429392 Active 2023 Evans Restrepo MD Attn: Lefty barton,[address] [facility], [place], [address], [place] [facility] 4 11:03:30 Atopic dermatitis 08596102 Active 2023 Evans Restrepo MD Attn: Lefty barton,[address] [facility], [place], [address], [place] [facility] 4 11:03:33 Hypothyroidism 96560989 Active 2023 Evans Restrepo MD Attn: Lefty barton,[address] [facility], [place], [address], [place] [facility] 4 11:03:36 Depressive disorder 65551359 Active 2023 Evans Restrepo MD Attn: Lefty barton,[address] [facility], [place], [address], [place] [facility] 4 11:03:37 Obesity 748116523 Active 2023 Evans Restrepo MD Attn: Lefty barton,[address] [facility], [place], [address], [place] [facility] 4 09:34:33 Hypertriglycer idemia 801357491 Active 2023 Evans Restrepo MD Attn: Lefty barton,[address] [facility], [place], [address], [place] [facility] 4 09:34:34 Hypercholester olemia 99652111 Active 2023 Evans Restrepo MD Attn: Lefty barton,[address] [facility], [place], [address], [place] [facility] 4 09:34:37 Chronic renal failure 74470302 Active 2023 Evans Restrepo MD Attn: Lefty barton,[address] [facility], [place], [address], [place] [facility] 4 09:35:36 Problem Notes None recorded. Procedures Surgical History Date Name Laterality Status Provider Name and Address Organization Details Recorded Time Appendectomy completed Kalli Lopez MA [facility] 12/09/2023 10:37:42 Cholecystectomy completed Kalli Lopez MA [facility] 12/09/2023 10:37:52 Knee Surgery completed Kalli Lopez MA [facility] 12/09/2023 10:38:11 Breast Surgery completed Kalli Lopez MA [facility] 12/09/2023 10:38:21 hysterectomy completed Kalli Lopez MA [facility] 12/09/2023 10:38:33 Imaging Results None recorded. Procedure [...] Updated DateTime 5 170.18 cm 37.1 kg/m2 845478. 74 g 97 % 97 % 80 /min 122 mm[Hg] 72 mm[Hg] Kalli Lopez MA [facility] 14:47:02 Social History Question Answer Notes LastModified by [employer] Details LastModified Time Tobacco Smoking Status Former Smoker Kalli Lopez MA null, [facility] 12/09/2023 10:39:14 What Was The Date Of Your Most Recent Tobacco Screening? 09/29/2024 Information not available 09/29/2024 Sex: Unknown Functional Status Question Answer Note LastModified by [employer] Details LastModified Time What is your level of alcohol consumption? Occasional Information not available 12/09/2023 Mental Status None recorded. Family History Relationship Description Onset Age of this Age Resolved Age Notes LastModified by Organization Details LastModified Time Mother Malignant tumor of breast [email or web address] Not available 2023 10:24:04 Mother Family history of breast cancer [email or web address] Not available 2023 10:38:55 Father Myocardial infarction [email or web address] Not available 12/08 10:24:31 Father Harmful pattern of use of alcohol [email or web address] Not available 2023 10:38:48 Father Heart disease [email or web address] Not available 2023 10:39:00 Medical History Condition Response Coronary Artery Disease N Other N High Blood Pressure N Atrial Fibrillation N Kidney or Bladder Problems N Thyroid Problems Y Depression N COPD N Blood Clots N GI Problems N Have you had a mammogram in the last yea r? N Skin Problems N Eating Disorder N Anemia N Heart Attack ([place]) N Anxiety Disorder N Diabetes N Muscle, [...] Cholesterol N Hepatitis N Liver Disease N Headaches N Schizophrenia N Osteoporosis N Heart Failure N Gynecological HistoryNo gynecological history recorded. Obstetrics History GPAL:G 0 P 0 0 0 0 Immunizations Vaccine Type Date Status Note Provider Nam e and Address Organization Details Recorded Time Tdap 07/06/2018 completed Not Available [facility] 09/29/2024 14:37:07 Past Encounters Encounter ID Performer Location Encounter Start Date Encounter Closed Date Diagnosis/Indication Diagnosis SNOMED-CT Code Diagnosis ICD10 Code Diagnosis Note [id number] Evans Restrepo MD [facility] [place] [facility] [address] [facility] [address] [place] [address] 09/29/2024 14:35:11 09/29/2024 15:21:07 Colitis 35762105 K52.[address] abd/pelvis with contrast tomorrow order cbc, cmp. Acute diarrhea 296544576 R19.7 conditoin acute order stool culture, o & p, c diff after the culture start pepto bismal tablets 2 tid. Nausea 530684879 R11.0 condition acute order zofan odt 4 mg tid #90 Hypercholesterolemia 136 54741 E78.00 condition acute start low fat diet. Chronic renal failure 90 132315 N18.9 conditon chroic and not at goal refer to dr grant Health Concerns Section Related Observation LastModified by Organization Detai ls LastModified Time None Recorded Concern Status LastModified by Organization Details LastModified Time None Recorded Payers Encounter Date Sequence Insurance Name Policy Number Policy Maldonado Covered Member ID Maldonado Member ID Guarantor Name 09/29/2024 1 [employer] - [facility] BENEFITS PLAN (HMO) [id number] Alethea Newsome [id number] OI Alethea Newsome Notes Date Note Type Note Provider Name and Address Organization Details Recorded Time 09/29/2024 text/html states that she has been having nausea, diarrhea watery and abdominal cramping 1 month. the depression adn the chol is under control the crf is under control taking her meds as directed. Delisa Lane RN [place], [place] - [facility], [facility] 09/29/2024 17:04:43 OBGyn Episode No OBEpisode recorded.
--- OUTSIDE RECORDS SUMMARY | 2024-09-30 15:07 | XMS_ITS | Clinical Summary ---
Author Organization [facility] [address] [place] [address] Care Team Providers Care Rn Mds Name Role Phone Elza Martinez Primary Care Provider [phone] Allergies Active Allergy Reactions Criticality Noted Date Comments Potassium Citrate Diarrhea,Stomach upset Low 2024 Patient reported the medication is too much to tolerate Terconazole Unknown 11/05/2016 Medications cholecalciferol (VITAMIN D-3) 5,000 unit tablet Take 1 tablet (5,000 Units total) by mouth daily Active liothyronine (CYTOMEL) 5 mcg tablet TAKE 2 TABLETS BY MOUTH IN THE MORNING AND 2 IN THE EVENING 360 tablet 0 Active Additional Information Patient taking differently: 5 mcg oral Daily, Reported on 07/07/2024 Synthroid 175 mcg tablet Take 137 mcg by mouth daily 1 Active albuterol HFA (Proventil HFA) 90 mcg/actuation inhalerIndicati ons:COVID-19 Inhale 1 puff every 6 (six) hours as needed for wheezing or shortness of breath 6.7 g [address] (CYMBALTA) 30 mg capsule Take 1 capsule (30 mg total) by mouth daily 30 capsule 11 2 Active Additional Information Patient taking differently: 60 mgoral Daily, Reported on 07/07/2024 topiramate (TOPAMAX) 25 mg tablet Take 1 tablet (25 mg total) by mouth 2 (two) times a day 60 tablet 5 2 Active Additional Information Patient taking differently: 100 mgoral 2 times daily, Reported on 07/07/2024 furosemide (LASIX) 20 mg tablet Take 1 tablet (20 mg total) by mouth 2 (two) times a day Active Active Problems Problem Noted Date Diagnosed Date COVID-19 05/03/2021 Assessment & Plan (2021 3:31 PM CUSTOM CLOTHIER): Symptoms improving and almost resolved. Patient advised to continue with tylenol every six hours as needed for fever/body aches. Will send in prednisone x 5d - encouraged her to start this if cough is not improving in the next 24h. Note provided for return to work on Friday. Advised her to contact [facility] office Friday/friday if symptoms are not improving as she may need to extend leave. Assessment & Plan (05/03/2021 1:23 PM CUSTOM CLOTHIER): We discussed supportive treatment, including Tylenol every 6 hours as needed for fever or body aches. She is advised to increase her fluid intake and monitor her oxygen level. She was advised to report to the ER if having an oxygen saturation running less than 92%, chest tightness, or difficulty breathing. We did discuss monoclonal antibody treatment, however she is outside of the desired window of 7 days since symptom onset. She expressed understanding of this conversation. BMI 40.0-44.9, adult 12/11/2020 Assessment & Plan (12/11/2020 3:32 PM CDT): Obesity is unchanged. Discussed the patient's BMI. The BMI is above average. BMI management plan is completed. BMI Follow-up includes: nutrition counseling, exercise counseling and education provided. Morbid obesity with BMI of 40.0-44.9, adult 11/26 Assessment & Plan (12/11/2020 3:32 PM CDT): Obesity is unchanged. Discussed the patient's BMI. The BMI is above average. BMI management plan is completed. BMI Follow-up includes: nutrition counseling, exercise counseling and education provided. Bilateral leg pain 08/15/2020 Urine incontinence 07/20/2020 Assessment & Plan (07/20/2020 8:36 PM CDT): Has had incontience/OAB sxs but has felt like the loss is different in the last week or two. Related to back vs OAB ? unknown Chronic pain of left knee 07/20/2020 Assessment & Plan (08/13/2020 11:12 PM CDT): Recvd injection from Dr. Spear and has noted significant improvement Assessment & Plan (07/20/2020 8:40 PM CDT): Refer to Ortho for further workup of her knee. She is limping. Will rule out lumbar spine contribution. Lumbar back pain with radicu lopathy affecting right lower extremity 07/20/2020 Assessment & Plan (08/13/2020 11:10 PM CDT): Awaiting appointment with Dr. Graham, NeuroSurg Assessment & Plan (07/20/2020 8:39 PM CDT): Lumbar back pain with radicular pain down the right leg. Increased urinary loss sxs. Recommend MRI lumbar spine. Await results. Encouraged NSAIDS (if able to safely tolerate) or Tylenol. Topical preparations like Lidocaine patches, Biofreeze, ICYHOT etc as needed. Heat, stretching Avoid long periods of sitting/laying. Encouraged PT but she declined. Followup if has any problems controlling bowels or bladder or if sxs worsen. Neuropathy 06/26/2020 Assessment & Plan (06/26/2020 3:49 PM CUSTOM CLOTHIER): Will refer to ortho for further evaluation and treatment. She has tried and failed lyrica and gabapentin in the past. Arthritis, senescent 06/26/2020 Colon cancer screening 06/26/2020 Assessment & Plan (06/26/2020 3:48 PM CUSTOM CLOTHIER): Will refer for screening cscope Intractable migraine with status migrainosus Assessment & Plan (06/12/2020 11:11 AM CUSTOM CLOTHIER): Continue with tylenol q6h as needed for headache Advised to er if worsens Will start topamax bid. Discussed increasing strength at end of week pending response - she will contact office on Friday. Will retrieve records from [facility] for review. Nausea 06/08/2020 Assessment & Plan (06/08/2020 2:14 PM CUSTOM CLOTHIER): Patient was advised given symptoms to report to er for further evaluation and treatment. She will have drive. Shortness of breath 06/08/2020 Assessment & Plan (06/08/2020 2:14 PM CUSTOM CLOTHIER): Patient was advised given symptoms to report to er for further evaluation and treatment. She will have drive. Vertigo 06/06/2020 Assessment & Plan (06/12/2020 11:12 AM CUSTOM CLOTHIER): Will retrieve records from [facility] for review. She will start meclizine 25mg q8h as needed for dizziness from [facility] er. She was advised caution after taking as it may make her drowsy. Assessment & Plan (06/08/2020 2:14 PM CUSTOM CLOTHIER): Patient was advised given symptoms to report to er for further evaluation and treatment. She will have drive. Assessment & Plan (06/06/2020 2:46 PM CUSTOM CLOTHIER): Will send patient to [place] for Covid-19 testing. The patient was advised to quarantine at least 10 days from symptom onset, but this determination will depend on result of testing. They were advised to contact us in the next 72h if they have not heard results of testing. They were advised to report to the ER if worsening. Nasal congestion 06/06/2020 Assessment & Plan (06/06/2020 2:46 PM CUSTOM CLOTHIER): Will send patient to [place] for Covid-19 testing. The patient was advised to quarantine at least 10 days from symptom onset, but this determination will depend on result of testing. They were advised to contact us in the next 72h if they have not heard results of testing. They were advised to report to the ER if worsening. Annual physical exam 02/02/2020 Assessment & Plan (07/30/2020 10:56 PM CDT): Encouraged healthy lifestyle, good nutrition and exercise. Encouraged Calcium and Vitamin D and weight bearing exercise for bone health. Reviewed immunizations Reviewed age appropirate screenings. Fatigue 12/10/2019 Assessment & Plan (12/15/2020 8:15 PM CDT): Probably multifactorial. Check labs and followup to re-evaluate Assessment & Plan (12/10/2019 8:17 PM CDT): Check labs Primary osteoarthritis of left knee 08/24/2019 Assessment & Plan (12/15/2020 8:14 PM CDT): Planning TKR with Dr. Llamas Mixed hyperlipidemia 06/13/2019 Assessment & Plan (12/15/2020 8:11 PM CDT): Encouraged patient to follow fat/low chol diet like the Mediterranean diet. Increase good fats in the diet. Increase exercise. Monitor labs as needed. Assessment & Plan (12/10/2019 8:16 PM CDT): Check labs Assessment & Plan (06/13/2019 10:53 PM CUSTOM CLOTHIER): Encouraged patient to continue low fat/low chol diet. Continue exercise. Increase good fats in the diet. Monitor labs as needed. Breast cancer screening by mammogram 04/25/2019 Assessment & Plan (04/25/2019 7:01 PM CUSTOM CLOTHIER): Mammogram order provided Polyarthralgia 03/05/2019 Assessment & Plan (06/26/2020 3:49 PM CUSTOM CLOTHIER): Will evaluate further with labs and imaging. Will notify her of results as available. Will add a topical voltaren gel. We discussed changing celebrex to mobic, however she reports she has tried and failed mobic in the past. Assessment & Plan (03/05/2019 1:57 PM CUSTOM CLOTHIER): Check labs. Continue K and Mg as stable with replacement. Monitor closely as not on meds that would be electrolyte lowering Other fatigue 08/30/2018 Assessment & Plan (06/13/2019 10:51 PM CUSTOM CLOTHIER): Probably multifactorial. Check labs and followup to re-evaluate Assessment & Plan (08/30/2018 4:08 PM CDT): Probably multifactorial. Check labs and followup to re-evaluate Abdominal pain 08/30/2018 Assessment & Plan (06/17/2019 11:23 AM CUSTOM CLOTHIER): Sxs seem to be c/w GERD. Discussed GERD at length including anatomy, behavioral changes (raise HOB, meal timings), dietary changes and medication options. Reviewed risks, benefits alternatives, side effects and proper use. Followup if sxs worsen or has hematochezia or hematemeis. Start Omeprazole. May use TUMS prn. F.u 4-6 weeks. Assessment & Plan (06/13/2019 10:50 PM CUSTOM CLOTHIER): Improved since having gallbladder removed. Assessment & Plan (08/30/2018 4:06 PM CDT): Discussed , behavioral changes (raise HOB, meal timings), dietary changes and medication option regarding GERD. Start PPI. . Reviewed risks, benefits alternatives, side effects and proper use. Followup if sxs worsen or has hematochezia or hematemeis. If pain/sxs persist will workup GB Moderate episode of recurrent major depressive d isorder 07/06/2018 Assessment & Plan (12/15/2020 8:12 PM CDT): Stable with cymbalta Assessment & Plan (12/10/2019 8:17 PM CDT): Stable with cymbalta Assessment & Plan (06/17/2019 11:25 AM CUSTOM CLOTHIER): Stable with Cymbalta. Continue current dose. Assessment & Plan (06/13/2019 10:51 PM CUSTOM CLOTHIER): Stable with the cymbalta Assessment & Plan (04/25/2019 7:01 PM CUSTOM CLOTHIER): Continue the Cymbalta. Start wellbutrinXL 150mg q am. Reviewed risks, benefit, alternatives, side effects and proper use. No history of seizures. Assessment & Plan (03/05/2019 2:05 PM CUSTOM CLOTHIER): Continue the Cymbalta. Start Wellbutrinxl 150mg. Reviewed risks, benefit, alternatives, side effects and proper use. Assessment & Plan (12/24/2018 10:28 PM CDT): Increase the Cymbalta 60 and will continue to monitor closely. Provided a few Xanax to use an extremely stressful situations. She is hesitant to use but encouraged her that if she gets so anxious that she is getting into a panic attack which should working, down. Reviewed risks benefits alternatives side effects and proper use. Also reviewed the addictive and dependency characteristics associated with this group of medications Assessment & Plan (08/30/2018 4:08 PM CDT): Improving. Continue Cymbalta. Monitor closely Migraine without aura and wi thout status migrainosus, not intractable 07/06/2018 Assessment & Plan (05/28/2021 8:31 PM CUSTOM CLOTHIER): We reviewed medication list. She notes that since she had knee replacement, her pain and moods are improving. She is going to stop celebrex and will decrease cymbalta from 60mg every day to 30mg every day with intention of tapering off over the coming weeks. She has previously taken topamax and is desiring to restart it. We discussed potential for serotonin syndrome due to concomitant cymbalta and topamax - she expressed understanding and desire to proceed due to severity of migraines. Assessment & Plan (06/26/2020 3:50 PM CUSTOM CLOTHIER): Will add a prn maxalt. Advised her of potential drowsiness after taking. Assessment & Plan (06/13/2019 10:51 PM CUSTOM CLOTHIER): Felling better off the Topamax. Assessment & Plan (04/25/2019 7:04 PM CUSTOM CLOTHIER): Continue the Topamax but work on stretching to see if helps with the tension type PIERSON. She is on Celebrex so no further NSAIDs. Monitor to see if Wellbutrin/Cymbalta helps too. Assessment & Plan (08/30/2018 4:06 PM CDT): Lower extremity edema 07/06/2018 Assessment & Plan (08/30/2018 4:07 PM CDT): Increase the maxzide. Keep legs elevated. Hypokalemia 07/06/2018 Overview (06/26/2020): monitored by [facility] Dr. Tovar Venous insufficiency of both lower extremities 1 Overview (06/26/2020): Dr. Winn also saw and examined the patient today. Although venous insufficiency was identified by reflux exam, the patient does not experience significant edema that worsens throughout the day and lower extremity edema is also not an exacerbating facto Acquired hypothyroidism 09/11/2013 Overview (06/26/2020): HYPOTHYROIDISM NOS monitored by [facility] Dr. Tovar Assessment & Plan (12/15/2020 8:11 PM CDT): Continue levothyroxine. Monitor labs. Continue per Dr. Martínez Assessment & Plan (08/13/2020 11:08 PM CDT): Continue with Endocrinology Assessment & Plan (12/10/2019 8:16 PM CDT): Check labs and adjust as indicated. Assessment & Plan (06/13/2019 10:52 PM CUSTOM CLOTHIER): Stable with levothyoroxine and cytomel Monitor levels. Assessment & Plan (03/05/2019 1:57 PM CUSTOM CLOTHIER): Continue current regimen Assessment & Plan (12/24/2018 10:27 PM CDT): Stable continue with the current medications. Assessment & Plan (10/20/2018 12:23 AM CDT): Decrease Levothyroxine to 100mcg. Continue Cytomel 20mg. Recheck labs in 4 weeks. Assessment & Plan (08/30/2018 4:07 PM CDT): Check labs. Managed by Endocrinology Resolved Problems Problem Noted Date Diagnosed Date Resolved Date Encounter for pre-operative examination 12/15/2020 08/06/2021 Assessment & Plan (12/15/2020 8:41 PM CDT): I have examined this patient and ordered the appropriate lab work/tests. I have reviewed with patient the inherent risks associated with surgery, not limited to bleeding, infection, DVT. Will await labs/EKG results. If they are normal, I will provide documentation that to the best of my knowledge, there is not a medical contraindication for undergoing this elective surgery with general and/or regional anesthesia. Obesity (BMI 30-39.9) 07/31/20202020 Assessment & Plan (07/31/2020 11:49 AM CDT): Obesity is unchanged. Discussed the patient's BMI. The BMI is above average. BMI management plan is completed. BMI Follow-up includes: nutrition counseling, exercise counseling and education provided. BMI 39.0-39.9,adult 07/31/2020 12/12/19 Assessment & Plan (07/31/2020 11:48 AM CDT): Obesity is unchanged. Discussed the patient's BMI. The BMI is above average. BMI management plan is completed. BMI Follow-up includes: nutrition counseling, exercise counseling and education provided. Morbid obesity with BMI of 40.0-44.9, adult 07/11/2020 07/31/2020 Assessment & Plan (07/11/2020 3:46 PM CDT): Obesity is unchanged. Discussed the patient's BMI. The BMI is above average. BMI management plan is completed. BMI Follow-up includes: nutrition counseling, exercise counseling and education provided. Obesity, morbid, BMI 40.0-49.9 06/26/2020 07/11/2020 Assessment & Plan (06/26/2020 1:55 PM CUSTOM CLOTHIER): Obesity is unchanged. Discussed the patient's BMI. The BMI is above average. BMI management plan is completed. BMI Follow-up includes: nutrition counseling, exercise counseling and education provided. Cough 06/06/2020 08/06/2021 Assessment & Plan (06/06/2020 2:46 PM CUSTOM CLOTHIER): Will send patient to [place] for Covid-19 testing. The patient was advised to quarantine at least 10 days from symptom onset, but this determination will depend on result of testing. They were advised to contact us in the next 72h if they have not heard results of testing. They were advised to report to the ER if worsening. Diabetes mellitus screening 06/13/2019 12/15/2020 Assessment & Plan (12/10/2019 8:17 PM CDT): Check labs Assessment & Plan (06/13/2019 10:53 PM CUSTOM CLOTHIER): Check labs Breast cancer screening by mammogram 03/05/2019 03/05/2019 Assessment & Plan (03/05/2019 2:04 PM CUSTOM CLOTHIER): Mammogram order provided BMI 39.0-39.9,adult 10/19/2018 07/12/19 21 Assessment & Plan (12/10/2019 8:16 PM CDT): Obesity is unchanged. Discussed the patient's BMI. The BMI is above average. BMI management plan is completed. BMI Follow-up includes: nutrition counseling, exercise counseling and education provided. Assessment & Plan (06/17/2019 7:09 AM CUSTOM CLOTHIER): Obesity is unchanged. Discussed the patient's BMI. The BMI is above average. BMI management plan is completed. BMI Follow-up includes: nutrition counseling, exercise counseling and education provided. Assessment & Plan (06/09/2019 7:07 AM CUSTOM CLOTHIER): Obesity is unchanged. Discussed the patient's BMI. The BMI is above average. BMI management plan is completed. BMI Follow-up includes: nutrition counseling, exercise counseling and education provided. Assessment & Plan (04/16/2019 7:14 AM CUSTOM CLOTHIER): Obesity is unchanged. Discussed the patient's BMI. The BMI is above average. BMI management plan is completed. BMI Follow-up includes: nutrition counseling, exercise counseling and education provided. Assessment & Plan (03/05/2019 1:58 PM CUSTOM CLOTHIER): Obesity is unchanged. Discussed the patient's BMI. The BMI is above average. BMI management plan is completed. BMI Follow-up includes: nutrition counseling, exercise counseling and education provided. Assessment & Plan (12/23/2018 3:35 PM CDT): Obesity is unchanged. Discussed the patient's BMI. The BMI is above average. BMI management plan is completed. BMI Follow-up includes: nutrition counseling, exercise counseling and education provided. Assessment & Plan (10/19/2018 3:33 PM CDT): Obesity is unchanged. Discussed the patient's BMI. The BMI is above average; BMI management plan is completed. General weight loss/lifestyle modification strategies discussed (elicit support from others; identify saboteurs; non-food rewards, etc). Encouraged increased exercise. Obesity (BMI 30-39.9) 10/19/20182020 Assessment & Plan (12/10/2019 7:32 AM CDT): Obesity is unchanged. Discussed the patient's BMI. The BMI is above average. BMI management plan is completed. BMI Follow-up includes: nutrition counseling, exercise counseling and education provided. Assessment & Plan (06/17/2019 7:09 AM CUSTOM CLOTHIER): Obesity is unchanged. Discussed the patient's BMI. The BMI is above average. BMI management plan is completed. BMI Follow-up includes: nutrition counseling, exercise counseling and education provided. Assessment & Plan (06/09/2019 7:07 AM CUSTOM CLOTHIER): Obesity is unchanged. Discussed the patient's BMI. The BMI is above average. BMI management plan is completed. BMI Follow-up includes: nutrition counseling, exercise counseling and education provided. Assessment & Plan (04/16/2019 7:14 AM CUSTOM CLOTHIER): Obesity is unchanged. Discussed the patient's BMI. The BMI is above average. BMI management plan is completed. BMI Follow-up includes: nutrition counseling, exercise counseling and education provided. Assessment & Plan (12/23/2018 3:35 PM CDT): Obesity is unchanged. Discussed the patient's BMI. The BMI is above average. BMI management plan is completed. BMI Follow-up includes: nutrition counseling, exercise counseling and education provided. Assessment & Plan (10/19/2018 3:34 PM CDT): Obesity is unchanged. Discussed the patient's BMI. The BMI is above average; BMI management plan is completed. General weight loss/lifestyle modification strategies discussed (elicit support from others; identify saboteurs; non-food rewards, etc). Encouraged increased exercise. Lipid screening 08/30/2018 03/05/2019 Assessment & Plan (08/30/2018 4:08 PM CDT): Check labs Encounters Date Type Department Care Team Description 08/04/2024 Telephone [facility] Nephrology at [address] [place] [address] Mark Gandara MD 08/04/2024 Orders Only [facility] Nephrology at [address] [place] [address] ProviderPartha MD 07/26/2024 Telephone [facility] Nephrology at [address] [phone] Mark Gandara MD 07/23/2024 Telephone [facility] Gastroenterology at [address] [phone] Brian Carson MD 07/15/2024 6:30 AM CDT - 07/15/2024 11:59 PM CDT Hospital Encounter [address] [address] Stage 3b chronic kidney disease (HCC); Nephrolithiasis Discharge Disposition: Discharge to home or self care 07/12/2024 Results Follow-Up [facility] Nephrology at [address] [phone] Brian Carson MD Protein / creatinine ratio, urine, random, PTH, Renal function panel, Additional followed-up results: 6 07/09/2024 Orders Only [facility] Nephrology at [address] [address] ProviderPartha MD 07/08/2024 Telephone [facility] Nephrology at [address] [phone] Mark Gandara MD 07/07/2024 4:00 PM CDT Office Visit [facility] Nephrology at [address] [place] [phone] Mark Gandara MD Stage 3b chronic kidney disease (HCC); Nephrolithiasis; Anemia in stage 3b chronic kidney disease (HCC); Secondary hyperparathyroidism from Last 3 Months Immunizations Immunization Administration Dates Next Due Influenza, Unspecified 01/27/2020(Deferr ed: Patient Refused),01/26/2018(Deferred: Patient Refused) Tdap 07/06/2018 Surgical History Surgery Date Site/Laterality Comments REDUCTION MAMMOPLASTY Breast reduction APPENDECTOMY Appendectomy WRIST SURGERY PARTIAL HYSTERECTOMY HYSTERECTOMY CHOLECYSTECTOMY Medical History Medical History Date Comments Disorder of thyroid Thyroid dise ase Hx Other Medical 09/2003 Breast Reductio n Hypothyroidism Migraine Lumbar pain with radiation down both legs Venous insufficiency of lower extremity Obesity Mixed hyperlipidemia Hypokalemia Moderate episode of recurren t major depressive disorder (HCC) Vertigo Fatigue Lower extremity edema Family History Medical History Relation Name Comments Epilepsy Father Heart attack Father Heart disease Father Asthma Mother Hyperlipidemia Mother Diabetes type II Other 1 Family hist ory of Diabetes -Type 2; Hyperthyroidism Other 2 Family histo ry of Hyperthyroidism; Heart disease Other 3 Family history of Cardiovascular disease; Relation Name Status Comments Father Alive Mother Alive Other 1 Other 2 Other 3 Social History Tobacco Use Types Packs/Day Years Used Date Smoking Tobacco: Former Cigarettes 1 20 0 08/16/1995 - 08/16/2015 Smokeless Tobacco: Never Tobacco Cessation:Counseling Given: No Alcohol Use Standard Drinks/Week Comments No 0 (1 standard drink = 0.6 oz pur e alcohol) AUDIT-C Answer Date Recorded Q1: How often do you have a drink containing alc ohol? 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 Not on file Not on faby e Not on file Obstetrics History Last Filed Vital Signs Vital Sign Reading Time Taken Comments Blood Pressure 118/78 07/07/2024 4:01 PM CDT Pulse 83 07/07/2024 4:01 PM CDT Temperature 36.9 C (98.4 F) 07/07/2024 4:01 PM CDT Respiratory Rate - - Oxygen Saturation 96% 12/11/2020 3:29 PM CDT Inhaled Oxygen Concentration - - Weight 103 kg (227 lb) 07/07/2024 4:01 PM CDT Height 170.2 cm (5' 7) 07/07/2024 4:01 PM CDT Body Mass Index 35.55 07/07/2024 4:01 PM CDT Plan of Treatment Health Maintenance Due Date Last Done Comments Hepatitis C Screening 1970 Hepatitis B Screening 1988 Lung Cancer Screening 2020 Zoster Vaccine (1 of 2) 2020 Breast Cancer Screening-Mammogram 06/21/2021 06/21/2020, 06/09/2019 Regular Well Visit/Exam 18-64 07/31/2021 07/31/2020, 07/06/2018 Depression Screening 05/03/2022 05/03/2021, 07/31/2020, 07/11/2020, Additional history exists Influenza Vaccine (Season Ended) 2024 DTaP/Tdap/Td Vaccine (2 - Td or Tdap) 07/06/2028 07/06/2018 Colon Cancer Screening-Colonoscopy 08/28/2030 08/28/2020 Cervical Cancer Screening Discontinued 04/29/2020 Pneumococcal vaccine <65 Aged Out No longer eligible based on patient's age to complete this topic Procedures Procedure Name Priority Date/Time Associated Diagnosis Comments CBC WITH AUTO DIFFERENTIAL Routine 08/05/2024 7:29 AM CDT Stage 3b chronic kidney disease (HCC) VITAMIN D 25 HYDROXY Routine 08/05/2024 7:29 AM CDT Stage 3b chronic kidney disease (HCC) RENAL FUNCTION PANEL Routine 08/05/2024 7:29 AM CDT Stage 3b chronic kidney disease (HCC) PTH Routine 08/05/2024 7:29 AM CDT Stage 3b chronic kidney disease (HCC) PROTEIN / CREATININE RATIO, URINE, RANDOM Routine 08/05/2024 7:29 AM CDT Stage 3b chronic kidney disease (HCC) REFLEXIVE URINE CULTURE Routine 08/05/2024 7:29 AM CDT URINALYSIS AND REFLEX TO MICROSCOPIC AND CULTURE Routine 08/05/2024 7:29 AM CDT Stage 3b chronic kidney disease (HCC) US KIDNEY COMPLETE Schedule Routine, Read Routine (OP Routine) 07/15/2024 7:02 AM CDT Stage 3b chronic kidney disease (HCC) Nephrolithiasis URINE SUPERSATURATION, 24 HOUR Routine 07/12/2024 2:31 PM CDT STONERISK(R) DIAGNOSTIC PROFILE Routine 07/12/2024 7:35 AM CDT Nephrolithiasis PROTEIN / CREATININE RATIO, URINE, RANDOM Routine 07/09/2024 7:35 AM CDT Stage 3b chronic kidney disease (HCC) PTH Routine 07/09/2024 7:34 AM CDT Stage 3b chronic kidney disease (HCC) RENAL FUNCTION PANEL Routine 07/09/2024 7:33 AM CDT Stage 3b chronic kidney disease (HCC) VITAMIN D 25 HYDROXY Routine 07/09/2024 7:32 AM CDT Stage 3b chronic kidney disease (HCC) CBC WITH AUTO DIFFERENTIAL Routine 07/09/2024 7:30 AM CDT Stage 3b chronic kidney disease (HCC) URINE CULTURE Routine 07/09/2024 7:29 AM CDT REFLEXIVE URINE CULTURE Routine 07/09/2024 7:29 AM CDT URINALYSIS AND REFLEX TO MICROSCOPIC AND CULTURE Routine 07/09/2024 7:29 AM CDT Stage 3b chronic kidney disease (HCC) HM COLONOSCOPY Routine 08/28/2020 DIAGNOSTIC MAMMOGRAM BILATERAL W MARSHALL Schedule Routine, Read Routine (OP Routine) 06/21/2020 HM PAP SMEAR WITH HPV Routine 04/29/2020 from Last 3 Months or Most Recently Relevant to Health Maintenance Results * REFLEXIVE URINE CULTURE (08/05/2024 7:29 AM CDT) [facility] Comment:NO CULTURE INDICATED 08/05/2024 7:29 AM CDT 08/05/2024 7:31 AM CDT Narrative [facility] - 08/06/2024 6:32 AM CDT FASTING:YES FASTING: YES us Mark Gandara MD LAB MICROBIOLOGY - GENERAL ORDERABLES Final Result Performing Organization Address [facility] Co de Phone Number QUEST [facility] [address] [place] [address] * Urinalysis reflex to microscopic and culture Urine, clean voided (08/05/2024 7:29 AM CDT) Color, ur YELLOW YELLOW [facility] Appearance, ur CLEAR CLEAR [facility] Specific gravity 1.014 1.001 - 1.035 [facility] pH, ur 7.5 5.0 - 8.0 [facility] Glucose, ur NEGATIVE NEGATIVE [facility] Bilirubin, ur NEGATIVE NEGATIVE [facility] Ketones, ur NEGATIVE NEGATIVE [facility] Blood, ur NEGATIVE NEGATIVE [facility] Protein, ur, quant NEGATIVE NEGATIVE [facility] Nitrites, ur NEGATIVE NEGATIVE [facility] Leukocyte esterase, ur NEGATIVE NEGATIVE [facility] WBC, ur NONE SEEN < OR = 5 /HPF [facility] RBC, ur NONE SEEN < OR = 2 /HPF [facility] Epithelial cells, squamous, ur 0-5 < OR = 5 /HPF [facility] Bacteria, ur, quant NONE SEEN NONE SEEN /HPF [facility] Hyaline cast NONE SEEN NONE SEEN /LPF [facility] Note [facility] Comment: This urine was analyzed for the presence of WBC, RBC, bacteria, casts, and other formed elements. Only those elements seen were reported. Urine, clean voided 08/05/2024 7:29 AM CDT 08/05/2024 7:31 AM CDT Narrative [facility] - 08/06/2024 6:32 AM CDT FASTING:YES FASTING: YES Result Trent Gandara MD LAB MICROBIOLOGY - GENERAL ORDERABLES Final Result Performing Organization Address [facility] Co de Phone Number QUEST [facility] [address] [place] [address] * (ABNORMAL) CBC with auto differential (08/05/2024 7:29 AM CDT) [facility] WBC 6.0 3.8 - 10.8 Thousand/u L [facility] RBC, POC 5.21(H) 3.80 - 5.10 Million/uL [facility] Hgb 15.0 11.7 - 15.5 g/dL [facility] Hct 46.8(H) 35.0 - 45.0 % [facility] MCV 89.8 80.0 - 100.0 fL [facility] MCH 28.8 27.0 - 33.0 pg [facility] MCHC 32.1 32.0 - 36.0 g/dL [facility] Comment: For adults, a slight decrease in the calculated MCHC value (in the range of 30 to 32 g/dL) is most likely not clinically significant; however, it should be interpreted with caution in correlation with other red cell parameters and the patient's clinical condition. Rdw 13.8 11.0 - 15.0 % [facility] Platelets 280 140 - 400 Thousand/u L [facility] MPV 10.7 7.5 - 12.5 fL [facility] Neutrophils, abs 3,558 1,500 - 7,800 cells/uL [facility] Lymphocytes, abs 1,740 850 - 3,900 cells/uL [facility] Monocyte abs 402 200 - 950 cells/uL [facility] Eosinophils, abs 240 15 - 500 cells/uL [facility] Basophils, abs 60 0 - 200 cells/uL [facility] Neutrophils 59.3 % [facility] Lymphocyte pct 29.0 % [facility] Monocytes 6.7 % [facility] Eosinophils 4.0 % [facility] Basophils 1.0 % [facility] Blood 08/05/2024 7:29 AM CDT 08/05/2024 7:31 AM CDT Narrative [facility] - 08/06/2024 6:32 AM CDT FASTING:YES FASTING: YES Mark Gandara MD LAB BLOOD ORDERABLES Final Result Performing Organization Address [facility] Co de Phone Number QUEST [facility] [address] [place] [address] * Protein / creatinine ratio, urine, random (08/05/2024 7:29 AM CDT) Creatinine, ur 67 20 - 275 mg/dL [facility] Protein/creatin ine ratio 149 24 - 184 mg/g creat [facility] Protein/Creatin ine Ratio 0.149 0.024 - 0.184 mg/mg creat [facility] Protein, ur, quant 10 5 - 24 mg/dL [facility] Urine 08/05/2024 7:29 AM CDT 08/05/2024 7:31 AM CDT Narrative [facility] - 08/06/2024 6:32 AM CDT FASTING:YES FASTING: YES Mark Gandara MD LAB URINE ORDERABLES Final Result Performing Organization Address [facility] de Phone Number [facility] [address] [place] [address] * Vitamin D 25 hydroxy (08/05/2024 7:29 AM CDT) Vitamin D 25-OH 57 30 - 100 ng/mL [facility] Comment: Vitamin D Status 25-OH Vitamin D: Deficiency: <20 ng/mL Insufficiency: 20 - 29 ng/mL Optimal: > or = 30 ng/mL For 25-OH Vitamin D testing on patients on D2-supplementation and patients for whom quantitation of D2 and D3 fractions is required, the QuestAssureD(TM) 25-OH VIT D, (D2,D3), LC/MS/MS is recommended: order code 53831 (patients >2yrs). See Note 1 Note 1 For additional information, please refer to http://education.Reachable/faq/VCJ950 (This link is being provided for informational/ educational purposes only.) Blood 08/05/2024 7:29 AM CDT 08/05/2024 7:31 AM CDT Narrative [facility] - 08/06/2024 6:32 AM CDT FASTING:YES FASTING: YES Mark Gandara MD LAB BLOOD ORDERABLES Final Result Performing Organization Address [facility] de Phone Number [facility] [address] [place] [address] * PTH (08/05/2024 7:29 AM CDT) Pathologist [facility] Parathyroid hormone, intact 38 16 - 77 pg/mL [facility] Comment: Interpretive Guide Intact PTH Calcium ------- Normal Parathyroid Normal Normal Hypoparathyroidism Low or Low Normal Low Hyperparathyroidism Primary Normal or High High Secondary High Normal or Low Tertiary High High Non-Parathyroid Hypercalcemia Low or Low Normal High Blood 08/05/2024 7:29 AM CDT 08/05/2024 7:31 AM CDT Narrative [facility] - 08/06/2024 6:32 AM CDT FASTING:YES FASTING: YES Result [facility] Mark Gandara MD LAB BLOOD ORDERABLES Final Result Performing Organization Address [facility] de Phone Number [facility] [address] [place] [address] * (ABNORMAL) Renal function panel (08/05/2024 7:29 AM CDT) Glucose 107(H) 65 - 99 mg/dL [facility] Comment: Fasting reference interval For someone without known diabetes, a glucose value between 100 and 125 mg/dL is consistent with prediabetes and should be confirmed with a follow-up test. BUN 23 7 - 25 mg/dL [facility] Creatinine 1.26(H) 0.50 - 1.03 mg/dL [facility] eGFR 51(L) > OR = 60 mL/min/1.7 3m2 [facility] BUN/creat ratio 18 6 - 22 (calc) [facility] Sodium 140 135 - 146 mmol/L [facility] Potassium, pl 3.9 3.5 - 5.3 mmol/L [facility] Chloride 105 98 - 110 mmol/L [facility] CO2 26 20 - 32 mmol/L [facility] Calcium 9.1 8.6 - 10.4 mg/dL [facility] Phosphorus, sr 3.8 2.5 - 4.5 mg/dL [facility] Albumin 4.0 3.6 - 5.1 g/dL [facility] Blood 08/05/2024 7:29 AM CDT 08/05/2024 7:31 AM CDT Narrative [facility] - 08/06/2024 6:32 AM CDT FASTING:YES FASTING: YES us Mark Gandara MD LAB BLOOD ORDERABLES Final Result [facility] [address] [place] [address] * US Kidney Complete (07/15/2024 7:02 AM CDT) Anatomical Region Laterality Modality Kidney N/A Ultrasound 07/20/2024 7:55 AM CDT Narrative 07/20/2024 7:59 AM CDT EXAM DESCRIPTION: US KIDNEY COMPLETE REASON FOR STUDY: Chronic kidney disease, stage IIIB. Elevated creatinine for 6 days. Intermittent bilateral flank pain for several months. Prior lithotripsy TECHNIQUE: Ultrasound of the kidneys and urinary bladder was performed with grayscale imaging. COMPARISON: None FINDINGS: RIGHT KIDNEY: The right kidney measures 10.0 x 4.6 x 4.3 cm. There is no hydronephrosis. Mild increased echogenicity of the cortex of the kidney is noted. No discrete mass. No definitive calculus. LEFT KIDNEY: The left kidney measures 10.6 x 4.0 x 4.6 cm. There is no hydronephrosis. Mild lobulation of the cortical margin. Increased echogenicity of the cortex of the kidney, similar to that of the left kidney. There is a calculus within the interpolar aspect of the left kidney measuring up to 4 mm. URINARY BLADDER: The urinary bladder is incompletely distended, limiting evaluation and accentuating the wall thickness. Both ureteral jets are demonstrated. OTHER: No other additional findings. IMPRESSION: 1. Nonobstructing left renal calculus. 2. Increased echogenicity of the cortex of both kidneys, as can be seen with both acute and chronic medical renal disease. Correlate with renal function tests. 3. No hydronephrosis. 4. Urinary bladder decompressed limiting evaluation. Both ureteral jets demonstrated THIS IS AN ELECTRONICALLY VERIFIED FINAL REPORT 07/20/2024 7:59 AM - Electronically signed by Mary Salmon M.D. TW: TW Report ID: [id number] Reading Location: [id number] Procedure Note Mary Salmon MD - 07/20/2024 EXAM DESCRIPTION: US KIDNEY COMPLETE REASON FOR STUDY: Chronic kidney disease, stage IIIB. Elevated creatininefor 6 days. Intermittent bilateral flank pain for several months. Prior lithotripsy TECHNIQUE: Ultrasound of the kidneys and urinary bladder was performedwith grayscale imaging. COMPARISON: None FINDINGS: RIGHT KIDNEY: The right kidney measures 10.0 x 4.6 x 4.3 cm.There is no hydronephrosis. Mild increased echogenicity of the cortex of thekidney is noted. No discrete mass. No definitive calculus. LEFT KIDNEY: The left kidney measures 10.6 x 4.0 x 4.6 cm. There is no hydronephrosis. Mild lobulation of the cortical margin. Increased echogenicity of the cortex of the kidney, similar to that of the leftkidney. There is a calculus within the interpolar aspect of the left kidneymeasuring up to 4 mm. URINARY BLADDER: The urinary bladder is incompletely distended, limiting evaluation and accentuating the wall thickness. Both ureteral jets are demonstrated. OTHER: No other additional findings. IMPRESSION: 1. Nonobstructing left renal calculus. 2. Increased echogenicity of the cortex of both kidneys, as can be seenwith both acute and chronic medical renal disease. Correlate with renalfunction tests. 3. No hydronephrosis. 4. Urinary bladder decompressed limiting evaluation. Both ureteral jets demonstrated THIS IS AN ELECTRONICALLY VERIFIED FINAL REPORT 07/20/2024 7:59 AM - Electronically signed by Mary Salmon M.D. TW: TW Report ID: [id number] Reading Location: [place] [address] Mark Gandara MD IMG US PROCEDURES Final Re sult * Urine supersaturation, 24 hour (07/12/2024 2:31 PM CDT) Historical Provider LAB BLOOD ORDERABLES Colette l Result * (ABNORMAL) STONERISK(R) DIAGNOSTIC PROFILE (07/12/2024 7:35 AM CDT) Volume, ur 0.96(L) >2.00 L/day [facility], Comment:See Note 1 pH, ur 7.6(H) 5.5 - 7.0 [facility], Calcium, ur 141 <250.0 mg/day [facility], Comment:See Note 1 Oxalate ur 21 <45 mg/day [facility], Comment:See Note 1 Uric acid, ur 447 <700 mg/day [facility], Comment:See Note 1 Citrate ur 271(L) >320 mg/day [facility], Comment:See Note 1 Sodium ur 93 <200 mEq/day [facility], Comment:See Note 1 Sulfate ur 9 <30 mmol/day [facility], Comment:See Note 1 Phosphorus ur 773 <1,100 mg/day [facility], Comment:See Note 1 Magnesium ur 93 >60.0 mg/day [facility], Comment:See Note 1 Ammonium ur 10(L) 14 - 62 mEq/day [facility], Comment:See Note 1 Potassium ur 46 19 - 135 mEq/day [facility], Comment:See Note 1 Creatinine ur 968 600 - 1,800 mg/day [facility], Comment:See Note 1 Calcium oxalate 1.81 <2.00 [facility], Brushite crystals, ur 7.88(H) <2.00 [facility], Sodium urate crystals, ur 3.76(H) <2.00 [facility], STRUVITE 76.64(H) <75.00 [facility], Uric acid 0.06 <2.00 [facility], THE PATIENT HAS: See Below [facility], Comment: Hypocitraturia High urinary pH Low urine volume Saturation ratio, ur See Below [facility], Comment: Brushite (Ca phosphate) Monosodium urate Struvite SUSPECTED PROBLEM IS: See Below [facility], Comment: Hypocitraturic Nephrolithiasis Infection Lithiasis Note 1 This test was developed and its analytical performance characteristics have been determined by [employer]. It has not been cleared or approved by the FDA. This assay has been validated pursuant to the CLIA regulations and is used for clinical purposes. Urine 07/12/2024 7:35 AM CDT 07/12/2024 11:15 PM CDT Result [facility] Mark Gandara MD LAB BLOOD ORDERABLES Final Result [facility], [address] [place] [address] * (ABNORMAL) Protein / creatinine ratio, urine, random (07/09/2024 7:35 AM CDT) Creatinine, ur 33 20 - 275 mg/dL [facility] Protein/creatin ine ratio NOTE 24 - 184 mg/g creat [facility] Comment: THE PROTEIN VALUE IS LESS THAN 4 MG/DL THEREFORE WE ARE UNABLE TO CALCULATE EXCRETION AND/OR CREATININE RATIO. Protein/Creatin ine Ratio NOTE 0.024 - 0.184 mg/mg creat [facility] Protein, ur, quant <4(L) 5 - 24 mg/dL [facility] Urine 07/09/2024 7:35 AM CDT 07/09/2024 7:36 AM CDT us Mark Gandara MD LAB URINE ORDERABLES Final Result [facility] [address] [place] [address] * PTH (07/09/2024 7:34 AM CDT) Parathyroid hormone, intact 36 16 - 77 pg/mL [facility] Comment: Interpretive Guide Intact PTH Calcium ------- Normal Parathyroid Normal Normal Hypoparathyroidism Low or Low Normal Low Hyperparathyroidism Primary Normal or High High Secondary High Normal or Low Tertiary High High Non-Parathyroid Hypercalcemia Low or Low Normal High Blood 07/09/2024 7:34 AM CDT 07/09/2024 7:35 AM CDT Narrative [facility] - 07/10/2024 1:40 AM CDT FASTING:YES FASTING: YES us Mark Gandara MD LAB BLOOD ORDERABLES Final Result [facility] [address] [place] [address] * (ABNORMAL) Renal function panel (07/09/2024 7:33 AM CDT) Glucose 92 65 - 99 mg/dL [facility] Comment: Fasting reference interval BUN 23 7 - 25 mg/dL [facility] Creatinine 1.34(H) 0.50 - 1.03 mg/dL [facility] eGFR 47(L) > OR = 60 mL/min/1.7 3m2 [facility] BUN/creat ratio 17 6 - 22 (calc) [facility] Sodium 140 135 - 146 mmol/L [facility] Potassium, pl 3.7 3.5 - 5.3 mmol/L [facility] Chloride 106 98 - 110 mmol/L [facility] CO2 24 20 - 32 mmol/L [facility] Calcium 9.4 8.6 - 10.4 mg/dL [facility] Phosphorus, sr 4.0 2.5 - 4.5 mg/dL [facility] Albumin 4.3 3.6 - 5.1 g/dL [facility] Blood 07/09/2024 7:33 AM CDT 07/09/2024 7:33 AM CDT Narrative [facility] - 07/10/2024 1:42 AM CDT FASTING:YES FASTING: YES Mark Gandara MD LAB BLOOD ORDERABLES Final Result Performing Organization Address City/[facility]/ZIP Co de Phone Number [facility] [address] [place] [address] * Vitamin D 25 hydroxy (07/09/2024 7:32 AM CDT) Vitamin D 25-OH 68 30 - 100 ng/mL [facility] Comment: Vitamin D Status 25-OH Vitamin D: Deficiency: <20 ng/mL Insufficiency: 20 - 29 ng/mL Optimal: > or = 30 ng/mL For 25-OH Vitamin D testing on patients on D2-supplementation and patients for whom quantitation of D2 and D3 fractions is required, the QuestAssureD(TM) 25-OH VIT D, (D2,D3), LC/MS/MS is recommended: order code 77792 (patients >2yrs). See Note 1 Note 1 For additional information, please refer to http://education.Reachable/faq/JVE420 (This link is being provided for informational/ educational purposes only.) Blood 07/09/2024 7:32 AM CDT 07/09/2024 7:32 AM CDT Narrative [facility] - 07/10/2024 12:49 AM CDT FASTING:YES FASTING: YES Mark Gandara MD LAB BLOOD ORDERABLES Final Result Performing Organization Address City/State/[facility] Co de Phone Number QUE[facility] [address] [place] [address] * (ABNORMAL) CBC with auto differential (07/09/2024 7:30 AM CDT) WBC 5.9 3.8 - 10.8 Thousand/u L [facility] RBC, POC 5.31(H) 3.80 - 5.10 Million/uL [facility] Hgb 15.6(H) 11.7 - 15.5 g/dL [facility] Hct 47.1(H) 35.0 - 45.0 % [facility] MCV 88.7 80.0 - 100.0 fL [facility] MCH 29.4 27.0 - 33.0 pg [facility] MCHC 33.1 32.0 - 36.0 g/dL [facility] Comment: For adults, a slight decrease in the calculated MCHC value (in the range of 30 to 32 g/dL) is most likely not clinically significant; however, it should be interpreted with caution in correlation with other red cell parameters and the patient's clinical condition. Rdw 13.1 11.0 - 15.0 % [facility] Platelets 260 140 - 400 Thousand/u L [facility] MPV 11.1 7.5 - 12.5 fL [facility] Neutrophils, abs 3,157 1,500 - 7,800 cells/uL [facility] Lymphocytes, abs 2,024 850 - 3,900 cells/uL [facility] Monocyte abs 466 200 - 950 cells/uL [facility] Eosinophils, abs 177 15 - 500 cells/uL [facility] Basophils, abs 77 0 - 200 cells/uL [facility] Neutrophils 53.5 % [facility] Lymphocyte pct 34.3 % [facility] Monocytes 7.9 % [facility] Eosinophils 3.0 % [facility] Basophils 1.3 % [facility] Blood 07/09/2024 7:30 AM CDT 07/09/2024 7:31 AM CDT Narrative [facility] - 07/10/2024 1:40 AM CDT FASTING:YES FASTING: YES Mark Gandara MD LAB BLOOD ORDERABLES Final Result [facility] [address] [place] [address] * REFLEXIVE URINE CULTURE (07/09/2024 7:29 AM CDT) [facility] Comment:CULTURE INDICATED - RESULTS TO FOLLOW 07/09/2024 7:29 AM CDT 07/09/2024 7:30 AM CDT us Mark Gandara MD LAB MICROBIOLOGY - GENERAL ORDERABLES Final Result [facility] [address] [place] [address] * (ABNORMAL) Urinalysis reflex to microscopic and culture Urine, clean voided (07/09/2024 7:29 AM CDT) Color, ur YELLOW YELLOW [facility] Appearance, ur CLEAR CLEAR [facility] Specific gravity 1.009 1.001 - 1.035 [facility] pH, ur 7.0 5.0 - 8.0 [facility] Glucose, ur NEGATIVE NEGATIVE [facility] Bilirubin, ur NEGATIVE NEGATIVE [facility] Ketones, ur NEGATIVE NEGATIVE [facility] Blood, ur NEGATIVE NEGATIVE [facility] Protein, ur, quant NEGATIVE NEGATIVE [facility] Nitrites, ur NEGATIVE NEGATIVE [facility] Leukocyte esterase, ur TRACE(A) NEGATIVE [facility] WBC, ur NONE SEEN < OR = 5 /HPF [facility] RBC, ur NONE SEEN < OR = 2 /HPF [facility] Epithelial cells, squamous, ur NONE SEEN < OR = 5 /HPF [facility] Bacteria, ur, quant NONE SEEN NONE SEEN /HPF [facility] Hyaline cast NONE SEEN NONE SEEN /LPF [facility] Note [facility] Comment: This urine was analyzed for the presence of WBC, RBC, bacteria, casts, and other formed elements. Only those elements seen were reported. Urine, clean voided 07/09/2024 7:29 AM CDT 07/09/2024 7:30 AM CDT us Mark Gandara MD LAB MICROBIOLOGY - GENERAL ORDERABLES Final Result [facility] [address] [place] [address] * Urine culture (07/09/2024 7:29 AM CDT) Urine culture [facility] Comment: CULTURE, URINE, ROUTINE Micro Number: [id number] Test Status: Final Specimen Source: Urine Specimen Quality: Adequate Result: No Growth 07/09/2024 7:29 AM CDT 07/09/2024 7:30 AM CDT us Mark Gandara MD LAB MICROBIOLOGY - GENERAL ORDERABLES Final Result [facility] [address] [place] [address] * HM COLONOSCOPY (08/28/2020) Historical Provider HEALTH MAINTENANCE Final Result * Diagnostic Mammogram Bilateral W Marshall (06/21/2020) Anatomical Region Laterality Modality Breast Bilateral Mammography Evans Perez MD IMG MAMMO PROCEDURES Colette l Result * PAP SMEAR WITH HPV (04/29/2020) Historical Provider HEALTH MAINTENANCE Final Result from Last 3 Months or Most Recently Relevant to Health Maintenance Insurance [employer] [facility] [id number] [facility] [id number] Care Teams Rn Mds Relationship Specialty Start Date End Date Elza Martinez PA 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
--- OUTSIDE RECORDS SUMMARY | 2024-09-30 15:07 | XMS_ITS | Clinical Summary ---
Author Organization [email or web address] Address [address] [place] [address] Care Team Providers Care Associate Financial Representative Name Role Phone Ajay Díaz MD Primary Care Provider [phone] Source Comments [email or web address],non-owned Affiliates and Associated Physician Practices is amultiple site organization consisting of ambulatory clinics and hospital sitesin [place], [place], [place] and [place]. This disclosure is being madepursuant to the Care Everywhere program and may not contain all information available regarding this patient. Last updated 18.[email or web address] Allergies Active Allergy Reactions Criticality Noted Date Comments Terconazole Unknown 11/05/2016 Medications * Be aware that medications may not be up to date on this document. Alwaysverify current medications with the patient. ALPRAZolam (XANAX) 0.5 MG tablet Take 0.5 mg by mouth every 8 hours as needed For anxiety. 12/25/2018 Active buPROPion XL 24hr (WELLBUTRIN-XL) 150 MG tablet TAKE 1 TABLET BY MOUTH ONCE DAILY IN THE MORNING 04/25/2019 Active celecoxib (CELEBREX) 200 MG capsule Take 200 mg by mouth once daily 06/08/2019 Active vitamin D3 (CHOLECACIFEROL ) 125 MCG (5000 UT) Active DULoxetine (CYMBALTA) 60 MG capsule TAKE 1 CAPSULE BY MOUTH ONCE DAILY 02/17/2019 Active VICENTE 0.0375 MG/24HR patch APPLY 1 PATCH TO ABDOMEN OR BUTTOCKS TWICE WEEKLY 04/19/2019 Active estradiol (ESTRACE) 2 MG tablet Take 2 mg by mouth once daily 07/31/2019 Active fluconazole (DIFLUCAN) 150 MG tablet TAKE ONE TABLET BY MOUTH A ONE TIME DOSE AND MAY REPEAT IN 5 7 DAYS 02/25/2019 Active levothyroxine (SYNTHROID) 100 MCG tablet Take 100 mcg by mouth once daily 12/17/2018 Active liothyronine (CYTOMEL) 5 MCG tablet TAKE 2 TABLETS BY MOUTH IN THE MORNING AND 2 IN THE EVENING 07/19/2019 Active omeprazole (PRILOSEC) 40 MG capsule Take 40 mg by mouth once daily 06/17/2019 Active topiramate (TOPAMAX) 50 MG tablet TAKE 1 TABLET BY MOUTH ONCE DAILY FOR 90 DAYS 03/22/2019 Active triamterene-hyd roCHLOROthiazid e (MAXZIDE) 75-50 MG tablet Take 1 tablet by mouth once daily 12/24/2018 Active Active Problems Problem Noted Date Diagnosed Date Primary osteoarthritis of left knee 08/24/2019 Mixed hyperlipidemia 06/13/2019 Overview (08/24/2019): Last Assessment & Plan: Encouraged patient to continue low fat/low chol diet. Continue exercise. Increase good fats in the diet. Monitor labs as needed. Other fatigue 08/30/2018 Overview (08/24/2019): Last Assessment & Plan: Probably multifactorial. Check labs and followup to re-evaluate Migraine without aura and wi thout status migrainosus, not intractable 08/19/2018 Overview (08/24/2019): Last Assessment & Plan: Felling better off the Topamax. Moderate episode of recurrent major depressive d isorder 08/19/2018 Overview (08/24/2019): Last Assessment & Plan: Stable with Cymbalta. Continue current dose. 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 Gender Identity Not on file Sexual Orientation Not on file Last Filed Vital Signs Vital Sign Reading Time Taken Comments Blood Pressure - - Pulse - - Temperature - - Respiratory Rate - - Oxygen Saturation - - Inhaled Oxygen Concentration - - Weight 104.3 kg (230 lb) 08/24/2019 11:39 AM CDT Height 170.2 cm (5' 7) 08/24/2019 11:39 AM CDT Body Mass Index 36.02 08/24/2019 11:39 AM CDT Plan of Treatment Health Maintenance Due Date Last Done Comments COLOGUARD (AGES 45-75) - COL ON CA SCREENING 1970 COLON MONITORING 1970 COLONOSCOPY - COLON CA SCREENING 1970 CT COLONOGRAPHY - COLON CA SCREENING 1970 Colorectal Cancer Screening 1970 FIT - COLON CA SCREENING 1970 FLEX SIG - COLON CA SCREENING 1970 LIPID TESTING 1970 MAMMOGRAM 1970 HIV SCREENING 1985 HEPATITIS C SCREENING 05/06/1988 DTAP/TDAP/TD VACCINES (1 - Tdap) 1989 HEPATITIS B VACCINE (1 of 3 - 19+ 3-dose series) 1989 PNEUMOCOCCAL VACCINE 50+ (1 of 1 - PCV) 2020 ZOSTER VACCINE (1 of 2) 2020 SCREENING FOR DIABETES 06/09/2022 06/09/2019 COVID-19 VACCINE (1 - 2023-2 5 season) 2023 DEPRESSION SCREENING 04/28/2024 INFLUENZA VACCINE (Season Ended) 2024 HIB VACCINE Aged Out No longer eligi ble based on patient's age to complete this topic HPV VACCINE Aged Out No longer eligi ble based on patient's age to complete this topic MENINGOCOCCAL (Group B) VACC INE SHARED DECISION-MAKING Aged Out No longer eligibl e based on patient's age to complete this topic MENINGOCOCCAL GROUPS A/C/Y/W VACCINE Aged Out No longer eligible b ased on patient's age to complete this topic Insurance [employer] [facility] [place] Address: [facility] [id number] [place] [address] Care Teams Associate Financial Representative Relationship Specialty Start Date End Date Ajay Díaz MD PCP - General Family Medicine 03/04/16
--- OUTSIDE RECORDS SUMMARY | 2024-09-30 15:07 | XMS_ITS | Data Portability ---
Author Organization [facility] [employer] [facility], Main Office Address [address] [place] [address] Assessment No assessment recorded. Plan of Treatment Reminders Order Date Submit Date Provider Last Modified By Organization Details Last Modified Time Details Appointments None record ed. Lab None record ed. Referral None record ed. Procedures None record ed. Surgeries None record ed. Imaging None record ed. Medication Orders None record ed. Patient TargetsNo targets recorded. Patient InstructionsNo instructions recorded. Reason for Referral None Reported. Results Created Date Observation Date Name Description Value Unit Range Abnormal Flag Note LastModifiedBy Organization Detail LastModifiedTime 01/16/20 22 01/16/2022 HEMOG LOBIN A1C hemoglobin A1C 5.2 %_of_ total _HGB <5.7 normal For the purpo se of nirmala walden for the prese nce of diabe michael: <5.7% Consi stent with the absen ce of diabe michael 5.7-6 .4% Consi stent with incre ased risk for diabe michael (pred iabet es) > or =6.5% Consi stent with diabe michael This assay resul t is consi stent with a decre ased risk of diabe michael. Curre ntly, no conse nsus exist s ankit solorzano use of hemog lobin A1c for diagn osis of diabe michael in child nilda. Accor ding to Ameri can Diabe michael Assoc iatio n (ADA) guide lines , hemog lobin A1c <7.0% repre sents optim al contr ol in non-p regna nt diabe tic patie nts. Diffe rent metri cs may apply to speci fic patie nt popul ation s. Stand ards of Medic al Care in Diabe michael(A DA). Not Available [facility] [address] [place], [address], 01/16/2022 09:21:01 01/16/20 22 01/16/2022 VITAM IN D,25- OH,TO JT,I A vitamin D,25-oh,tota l,ia 98 NG/mL 30-100 normal Vitam in D Statu s 25-OH Vitam in D: Defic iency : <20 ng/mL Insuf ficie ncy: 20 - 29 ng/mL Optim al: > or = 30 ng/mL For 25-OH Vitam in D testi ng on patie nts on D2-diana pplem entat ion and patie nts for whom quant itati on of D2 and D3 fract ions is requi red, the [facility] [employer] eD(TM ) 25-OH VIT D, (D2,D 3), LC/MS /MS is recom sacha d: order code 05391 (julian ents >2yrs ). See Note 1 Note 1 For addit ional infor jeff moise e refer to http: //[facility] misty [employer] stDia gnost ics.c om/fa q/FAQ 199 (This link is being provi ded for infor everardo esteban/ chetna agee purpo ses only. ) Not Available [facility] [address] [place], [address], 01/16/2022 09:21:00 01/16/20 22 01/16/2022 TSH TSH 0.01 mIU/L low Refer ence Range > or = 20 Years 0.40- 4.50 Pregn anand Range s First trime ster 0.26- 2.66 Secon d trime ster 0.55- 2.73 Third trime ster 0.43- 2.91 Not Available [facility] [address] [place], [address], 01/16/2022 09:20:59 01/16/20 22 01/16/2022 CBC (INCL UDES DIFF/ PLT) white blood cell count 7.8 thous and/u L 3.8-10 .8 normal Not Available [address], [address], 01/16/2022 09:20:59 01/16/20 22 01/16/2022 CBC (INCL UDES DIFF/ PLT) red blood cell count 5.26 judy on/uL 3.80-5 .10 high Not Available [address], [address], 01/16/2022 09:20:59 01/16/20 22 01/16/2022 CBC (INCL UDES DIFF/ PLT) hemoglobin 16.0 g/dL 11.7-1 5.5 high Not Available [address], [address], 01/16/2022 09:20:59 01/16/20 22 01/16/2022 CBC (INCL UDES DIFF/ PLT) hematocrit 46.4 % 35.0-4 5.0 high Not Available [address], [address], 01/16/2022 09:20:59 01/16/20 22 01/16/2022 CBC (INCL UDES DIFF/ PLT) MCV 88.2 fL 80.0-1 00.0 normal Not Available [address], [address], 01/16/2022 09:20:59 01/16/20 22 01/16/2022 CBC (INCL UDES DIFF/ PLT) MCH 30.4 pg 27.0-3 3.0 normal Not Available [address], [address], 01/16/2022 09:20:59 01/16/20 22 01/16/2022 CBC (INCL UDES DIFF/ PLT) MCHC 34.5 g/dL 32.0-3 6.0 normal Not Available [employer] [address], [address], 01/16/2022 09:20:59 01/16/20 22 01/16/2022 CBC (INCL UDES DIFF/ PLT) RDW 13.3 % 11.0-1 5.0 normal Not Available [address], [address], 01/16/2022 09:20:59 01/16/20 22 01/16/2022 CBC (INCL UDES DIFF/ PLT) platelet count 352 thous and/u L 140-40 0 normal Not Available [address], [address], 01/16/2022 09:20:59 01/16/20 22 01/16/2022 CBC (INCL UDES DIFF/ PLT) MPV 11.2 fL 7.5-12 .5 normal Not Available [address], [address], 01/16/2022 09:20:59 01/16/20 22 01/16/2022 CBC (INCL UDES DIFF/ PLT) absolute neutrophils 4625 cells /uL 1500-7 800 normal Not Available [address], [address], 01/16/2022 09:20:59 01/16/20 22 01/16/2022 CBC (INCL UDES DIFF/ PLT) absolute lymphocytes 2426 cells /uL 850-39 00 normal Not Available [address], [address], 01/16/2022 09:20:59 01/16/20 22 01/16/2022 CBC (INCL UDES DIFF/ PLT) absolute monocytes 515 cells /uL 200-95 0 normal Not Available [address], [address], 01/16/2022 09:20:59 01/16/20 22 01/16/2022 CBC (INCL UDES DIFF/ PLT) absolute eosinophils 156 cells /uL 15-500 normal Not Available [address], [address], 01/16/2022 09:20:59 01/16/20 22 01/16/2022 CBC (INCL UDES DIFF/ PLT) absolute basophils 78 cells /uL 0-200 normal Not Available [address], [address], 01/16/2022 09:20:59 01/16/20 22 01/16/2022 CBC (INCL UDES DIFF/ PLT) neutrophils 59.3 % normal Not Available [address], [address], 01/16/2022 09:20:59 01/16/20 22 01/16/2022 CBC (INCL UDES DIFF/ PLT) lymphocytes 31.1 % normal Not Available [address], [address], 01/16/2022 09:20:59 01/16/20 22 01/16/2022 CBC (INCL UDES DIFF/ PLT) monocytes 6.6 % normal Not Available [address], [address], 01/16/2022 09:20:59 01/16/20 22 01/16/2022 CBC (INCL UDES DIFF/ PLT) eosinophils 2.0 % normal Not Available [address], [address], 01/16/2022 09:20:59 01/16/20 22 01/16/2022 CBC (INCL UDES DIFF/ PLT) basophils 1.0 % normal Not Available [address], [address], 01/16/2022 09:20:59 01/16/20 22 01/16/2022 HEPAT IC FUNCT ION PANEL protein, total 7.0 g/dL 6.1-8. 1 normal Not Available [address], [address], 01/16/2022 09:20:58 01/16/20 22 01/16/2022 HEPAT IC FUNCT ION PANEL albumin 4.5 g/dL 3.6-5. 1 normal Not Available [address], [address], 01/16/2022 09:20:58 01/16/20 22 01/16/2022 HEPAT IC FUNCT ION PANEL globulin 2.5 g/dL_ (calc ) 1.9-3. 7 normal Not Available [address], [address], 01/16/2022 09:20:58 01/16/20 22 01/16/2022 HEPAT IC FUNCT ION PANEL albumin/glob ulin ratio 1.8 (calc ) 1.0-2. 5 normal Not Available [address], [address], 01/16/2022 09:20:58 01/16/20 22 01/16/2022 HEPAT IC FUNCT ION PANEL bilirubin, total 0.5 mg/dL 0.2-1. 2 normal Not Available [address], [address], 01/16/2022 09:20:58 01/16/20 22 01/16/2022 HEPAT IC FUNCT ION PANEL bilirubin, direct 0.1 mg/dL < or = 0.2 normal Not Available [address], [address], 01/16/2022 09:20:58 01/16/20 22 01/16/2022 HEPAT IC FUNCT ION PANEL ALT 27 U/L 6-29 normal Not Available [address], [address], 01/16/2022 09:20:58 01/16/20 22 01/16/2022 HEPAT IC FUNCT ION PANEL bilirubin, indirect 0.4 mg/dL _(wilton c) 0.2-1. 2 normal Not Available [address], [address], 01/16/2022 09:20:58 01/16/20 22 01/16/2022 HEPAT IC FUNCT ION PANEL alkaline phosphatase 129 U/L 37-153 normal Not Available [facility] [employer] [address], [address], 01/16/2022 09:20:58 01/16/20 22 01/16/2022 HEPAT IC FUNCT ION PANEL AST 21 U/L 10-35 normal Not Available [facility] [employer] [address], [address], 01/16/2022 09:20:58 01/16/20 22 01/16/2022 BASIC METAB OLIC PANEL glucose 130 mg/dL 65-99 high Fasti ng refer ence inter reagan For someo ne witho ut known diabe michael, a gluco se value >125 mg/dL indic ates that they may have diabe michael and this shoul d be confi rmed with a follo w-up test. Not Available [facility] [employer] [address], [address], 01/16/2022 09:20:57 01/16/20 22 01/16/2022 BASIC METAB OLIC PANEL urea nitrogen (BUN) 22 mg/dL 7-25 normal Not Available [employer] [address], [address], 01/16/2022 09:20:57 01/16/20 22 01/16/2022 BASIC METAB OLIC PANEL creatinine 1.17 mg/dL 0.50-1 .03 high Not Available [employer] [address], [address], 01/16/2022 09:20:57 01/16/20 22 01/16/2022 BASIC METAB OLIC PANEL eGFR 56 mL/mi n/1.7 3m2 > or = 60 low The eGFR is based on the CKD-E PI 2020 equat ion. To calcu late the new eGFR from a previ ous Creat inine or Cysta tin C resul t, go to https ://toño hensley.o ismael/pr ofess ional s/ kdoqi /gfr% 5Fcal culat or Not Available [address], [address], 01/16/2022 09:20:57 01/16/20 22 01/16/2022 BASIC METAB OLIC PANEL BUN/creatini ne ratio 19 (calc ) 6-22 normal Not Available [address], [address], 01/16/2022 09:20:57 01/16/20 22 01/16/2022 BASIC METAB OLIC PANEL sodium 140 mmol/ L 135-14 6 normal Not Available [address], [address], 01/16/2022 09:20:57 01/16/20 22 01/16/2022 BASIC METAB OLIC PANEL potassium 3.2 mmol/ L 3.5-5. 3 low Not Available [address], [address], 01/16/2022 09:20:57 01/16/20 22 01/16/2022 BASIC METAB OLIC PANEL chloride 100 mmol/ L 98-110 normal Not Available [address], [address], 01/16/2022 09:20:57 01/16/20 22 01/16/2022 BASIC METAB OLIC PANEL carbon dioxide 29 mmol/ L 20-32 normal Not Available [facility] [address] [address] [place], [address], 01/16/2022 09:20:57 01/16/20 22 01/16/2022 BASIC METAB OLIC PANEL calcium 9.5 mg/dL 8.6-10 .4 normal Not Available [address] [address] [place], [address], 01/16/2022 09:20:57 03/04/20 22 03/05/2022 BASIC METAB OLIC PANEL creatinine 1.31 mg/dL 0.50-1 .03 high Not Available [address], [address], 03/05/2022 15:21:12 03/04/20 22 03/05/2022 BASIC METAB OLIC PANEL glucose 61 mg/dL 65-99 low Fasti ng refer ence inter reagan Not Available [address], [address], 03/05/2022 15:21:12 03/04/20 22 03/05/2022 BASIC METAB OLIC PANEL urea nitrogen (BUN) 23 mg/dL 7-25 normal Not Available [address], [address], 03/05/2022 15:21:12 03/04/20 22 03/05/2022 BASIC METAB OLIC PANEL eGFR 49 mL/mi n/1.7 3m2 > or = 60 low The eGFR is based on the CKD-E PI 2020 equat ion. To calcu late the new eGFR from a previ ous Creat inine or Cysta tin C resul t, go to https ://toño w.shania guerreroy.o ismael/mita rdz s/ kdoqi /gfr% 5Fcal culat or Not Available [address] [address] [place], [address], 03/05/2022 15:21:12 03/04/20 22 03/05/2022 BASIC METAB OLIC PANEL BUN/creatini ne ratio 18 (calc ) 6-22 normal Not Available [address] [address] [place], [address], 03/05/2022 15:21:12 03/04/20 22 03/05/2022 BASIC METAB OLIC PANEL sodium 138 mmol/ L 135-14 6 normal Not Available [address], [address], 03/05/2022 15:21:12 03/04/20 22 03/05/2022 BASIC METAB OLIC PANEL potassium 3.8 mmol/ L 3.5-5. 3 normal Not Available [address], [address], 03/05/2022 15:21:12 03/04/20 22 03/05/2022 BASIC METAB OLIC PANEL chloride 96 mmol/ L 98-110 low Not Available [address], [address], 03/05/2022 15:21:12 03/04/20 22 03/05/2022 BASIC METAB OLIC PANEL carbon dioxide 29 mmol/ L 20-32 normal Not Available [address], [address], 03/05/2022 15:21:12 03/04/20 22 03/05/2022 BASIC METAB OLIC PANEL calcium 9.3 mg/dL 8.6-10 .4 normal Not Available [address], [address], 03/05/2022 15:21:12 03/04/20 22 03/05/2022 SPECI MEN INTEG RITY COMPR OMISE D specimen integrity compromised Whole blood , unspu n or parti ally spun gel barri er tube was recei payal more than 6 hours since colle ction . A false eleva tion of K, Phos and LD as well as a false decre ase in gluco se may occur due to prolo nged conta ct with red cells . Not Available [address], [address], 03/05/2022 15:21:11 03/05/20 22 03/05/2022 XR, abdom en No observ ation record ed. [id number] [address] [facility], [place], [address], 06/27/2022 00:34:34 07/13/19 23 07/11/2022 MAMMO , scree iram, digit al, bilat eral No observ ation record ed. [address] [address], [place], [address], 07/15/2022 08:03:43 07/13/19 23 07/12/2022 MRI, cervi wilton spine , w/o contr ast No observ ation record ed. [address] [address], [place], [address], 07/15/2022 08:04:07 02/12/20 23 02/11/2023 XR, abdom en No observ ation record ed. [address] [address], [place], [address], 06/26/2023 16:33:02 06/20/19 24 06/20/2023 XR, abdom en No observ ation record ed. [address] [address], [place], [address], 06/26/2023 16:36:17 07/04/19 24 07/04/2023 XR, abdom en No observ ation record ed. [address] [address], [place], [address], 09/12/2023 16:35:52 08/10/19 24 08/10/2023 XR, abdom en No observ ation record ed. [address] [address], [place], [address], 09/12/2023 16:36:07 09/16/19 24 09/16/2023 MAMMO , scree iram, digit al, bilat eral No observ ation record ed. [facility] [address], [place], [address], 09/22/2023 11:07:43 12/20/1912/20/2023 imagi ng/tru alainaos tic resul t No observ ation record ed. [facility] [address], [place], [address], 12/22/2023 13:32:03 Result Notes None recorded. Problems Name Problem SNOMED Code Status Onset Date Resolution Date Notes Provider Name and Address Organization Details Recorded Time Mixed anxiety and depressive disorder 244178617 Active 2021 Not Available [facility] 3 00:30:37 Degeneration of lumbar intervertebra l disc 10668962 Active 2021 Not Available [facility] 3 00:30:37 Gastroesophag eal reflux disease without esophagitis 733645460 Active 2021 Not Available [facility] 3 00:30:37 Edema 574274358 Active 2021 Not Available [facility] 3 00:30:37 Restless legs 93785697 Active 2021 Not Available [facility] 3 00:30:38 Migraine 04716284 Active 2021 Not Available [facility] 3 00:30:38 Hypothyroidis m 96817631 Active 2021 Not Available [facility] 3 00:30:38 Small bowel bacterial overgrowth syndrome 446337841 Active 2021 Not Available [facility] 3 00:30:38 Postcholecyst ectomy syndrome 59651430 Active 2021 Not Available [facility] 3 00:30:38 Acute situational disturbance 979824699 Active 2022 Annetta eL MD [address] [facility], [address] [address], [place], [address] , [facility] 3 07:53:32 Eruption 538525389 Active 2022 Annetta Le MD [address] [facility] [address] [facility], [place], [address] , [facility] 10:09:40 Problem Notes None recorded. Procedures Surgical History Date Name Laterality Status Provider Name and Address Organization Details Recorded Time Breast reduction completed Not Available [facility] 06/27/2022 00:28:12 Imaging Results None recorded. Procedure Notes None recorded. Medical Equipment None Reported. Allergies No known drug allergies Medications Name Sig Start Date Stop Date Status Note LastModified by Organization Details LastModified Time celecoxib 200 mg capsule TAKE 1 CAPSULE BY MOUTH ONCE DAILY 07/04 completed Not Available Not Available Not Available cyclobenz aprine 10 mg tablet active Not Available Not Available No t Available amoxicill in 500 mg capsule TAKE FOUR CAPSULES BY MOUTH ONE HOUR BEFORE APPOINTM ENT 04/01 completed Not Available Not Available Not Available levothyro xine 137 mcg tablet active Not Available Not Available Not Available prednison e 10 mg tablet TAKE 1 TABLET BY MOUTH TWICE DAILY FOR 5 DAYS 07/04 completed Not Available Not Available Not Available doxycycli ne hyclate 100 mg capsule TAKE 1 CAPSULE BY MOUTH TWICE DAILY FOR 7 DAYS 01/15 completed Not Available Not Available Not Available ropinirol e 1 mg tablet Take 1 tablet every day by oral route at bedtime. 12/17 completed dose changes Not Available Not Available Not Available tizanidin e 2 mg tablet active Not Available Not Available Not Available azithromy cece 250 mg tablet 10/18 completed Not Available Not Available Not Available miconazol e nitrate 2 % topical cream APPLY TO THE AFFECTED AREA(S) BY TOPICAL ROUTE 2 TIMES PER DAY IN THEMORNI NG AND EVENING 04/12 completed Not Available Not Available Not Available fluconazo le 150 mg tablet TAKE 1 TABLET BY MOUTH ON DAYS 1, 3, AND 7 01/15 completed Not Available Not Available Not Available benzonata te 200 mg capsule 10/18 completed Not Available Not Available Not Available clarithro mycin 500 mg tablet 06/04 completed Not Available Not Available Not Available hydrocodo ne 5 mg-acetam inophen 325 mg tablet active Not Available Not Available Not Available Synthroid 150 mcg tablet TAKE ONE TABLET BY MOUTH 6 DAYS A WEEK active Not Available Not Available No t Available meloxicam 15 mg tablet TAKE 1 TABLET BY MOUTH ONCE DAILY active Not Available Not Available No t Available metronida zole 0.75 % (37.5 mg/5 gram) vaginal gel 04/08 completed Not Available Not Available Not Available ondansetr on HCl 4 mg tablet 07/04 completed Not Available Not Available Not Available prednison e 20 mg tablet 2 po qAM with food x 5 days 04/24 completed Not Available Not Available Not Available rizatript an 10 mg tablet TAKE 1 TABLET BY MOUTH ONCE NEEDED FOR MIGRAINE HEADACHE . MAY REPEAT IN 2 HOURS IF UNRESOLV ED. DO NOT EXCEED 30 MG IN 24 HOURS. 07/04 completed Not Available Not Available Not Available topiramat e 25 mg tablet TAKE 1 TABLET BY MOUTH TWICE DAILY 07/04 completed Not Available Not Available Not Available Space Chamber USE DIRECTED 03/31 completed Not Available Not Available Not Available phentermi ne 37.5 mg tablet TAKE 1 TABLET BY MOUTH ONCE DAILY FOR [address] 30 MINUTES BEFORE OR 1-2 HOURS AFTER BREAKFAS T. 07/04 completed Not Available Not Available Not Available ciproflox acin 500 mg tablet TAKE 1 TABLET BY MOUTH TWICE DAILY FOR 5 DAYS 01/15 completed Not Available Not Available Not Available sulfameth oxazole 800 mg-trimet hoprim 160 mg tablet TAKE 1 TABLET BY MOUTH TWICE DAILY WHEN HAVING SYMPTOMS OF URINARY TRACT INFECTIO N active Not Available Not Available No t Available hydrocodo ne 10 mg-acetam inophen 325 mg tablet TAKE 1 TO 2 TABLETS BY MOUTH EVERY 6 HOURS NEEDED FOR 7 DAYS MAX OF 6 TABLETS PER DAY 01/15 completed Not Available Not Available Not Available liothyron ine 5 mcg tablet TAKE 1 TABLET BY MOUTH ONCE DAILY active Not Available Not Available No t Available tramadol 50 mg tablet TAKE 1 TO 2 TABLETS BY MOUTH EVERY 6 TO 8 HOURS FOR 7 DAYS . DO NOT EXCEED 6 PER 24 HOURS 04/01 completed Not Available Not Available Not Available triamcino lone acetonide 0.1 % topical cream APPLY CREAM EXTERNAL LY TWICE DAILY FOR 7-10 days active Not Available Not Available No t Available spironola ctone 25 mg tablet active Not Available Not Available No t Available ketorolac 10 mg tablet TAKE 1 TABLET BY MOUTH EVERY 6 HOURS FOR 5 DAYS WITH FOOD OR MILK 01/15 completed Not Available Not Available Not Available Synthroid 175 mcg tablet TAKE 1 TABLET BY MOUTH ONCE DAILY FOR 90 DAYS 01/15 completed Not Available Not Available Not Available oxycodone -acetamin ophen 5 mg-325 mg tablet 04/12 completed Not Available Not Available Not Available ceftriaxo ne 1 gram solution for injection Take 1 g by injectio n route. 04/13 completed Not Available Not Available Not Available amoxicill in 875 mg tablet Take 1 tablet every 12 hours by oral route for 10 days. active Not Available Not Available No t Available citalopra m 20 mg tablet qd 06/07 completed Not Available Not Available Not Available amitripty line 25 mg tablet active Not Available Not Available No t Available clarithro mycin ER 500 mg tablet,ex tended release 24 hr Take 1 tablet twice a day by oral route. 06/04 completed Not Available Not Available Not Available oxycodone -acetamin ophen 10 mg-325 mg tablet 07/04 completed Not Available Not Available Not Available meclizine 25 mg tablet 07/04 completed Not Available Not Available Not Available triamcino lone acetonide 40 mg/mL suspensio n for injection Take 80 mg by injectio n route. 06/07 completed Not Available Not Available Not Available ropinirol e 2 mg tablet TAKE ONE TABLET BY MOUTH AT BEDTIME active Not Available Not Available No t Available cephalexi n 500 mg capsule TAKE 1 CAPSULE BY MOUTH 4 TIMES DAILY FOR 7 DAYS 04/01 completed Not Available Not Available Not Available pantopraz ole 40 mg tablet,de layed release Take 1 tablet every day by oral route before meals for 90 days. active Not Available Not Available No t Available ropinirol e 0.5 mg tablet Take 1 tablet every day by oral route at bedtime. active Not Available Not Available No t Available clotrimaz ole-betam ethasone 1 %-0.05 % topical cream APPLY TOPICALL Y THREE TIMES A DAY 01/15 completed Not Available Not Available Not Available metronida zole 0.75 % topical cream 07/04 completed Not Available Not Available Not Available nystatin- triamcino lone 100,000 unit/g-0. 1 % topical cream APPLY TO THE AFFECTED AREA(S) BY TOPICAL ROUTE BID active Not Available Not Available No t Available gabapenti n 300 mg capsule TAKE ONE CAPSULE BY MOUTH AT BEDTIME active Not Available Not Available No t Available codeine 10 mg-guaife nesin 100 mg/5 mL oral liquid TAKE 5 ML BY MOUTH EVERY 6 HOURS NEEDED FOR COUGH 01/15 completed Not Available Not Available Not Available triamtere ne 75 mg-hydroc hlorothia zide 50 mg tablet active Not Available Not Available No t Available ibuprofen 600 mg tablet active Not Available Not Available Not Available methylpre dnisolone 4 mg tablets in a dose pack TAKE BY MOUTH DIRECTED ON INSIDE OF PACKAGE 02/26 completed Not Available Not Available Not Available albuterol sulfate HFA 90 mcg/actua tion aerosol inhaler INHALE 2 PUFFS BY MOUTH 4 TIMES DAILY NEEDED FOR SHORTNES S OF BREATH OR WHEEZING 03/31 completed Not Available Not Available Not Available ondansetr on 4 mg disintegr ating tablet Place 1 tablet 3 times a day by translin gual route as needed. 07/04 completed Not Available Not Available Not Available topiramat e 100 mg tablet Take 1 tablet by mouth twice daily active Not Available Not Available No t Available fluticaso ne propionat e 50 mcg/actua tion nasal spray,bethel pension 2 spray IEN active Not Available Not Available No t Available colestipo l 1 gram tablet Take 2 tablets every day by oral route in the morning for 30 days. active Not Available Not Available No t Available metronida zole 375 mg capsule 07/04 completed Not Available Not Available Not Available naproxen 500 mg tablet Take 1 tablet twice a day by oral route with meals. 04/08 completed Not Available Not Available Not Available progester one micronize d 100 mg capsule active Not Available Not Available Not Available levothyro xine 112 mcg tablet active Not Available Not Available Not Available amoxicill in 875 mg-potass ium clavulana te 125 mg tablet Take 1 tablet every 12 hours by oral route. 06/04 completed Not Available Not Available Not Available amoxicill in 500 mg-potass ium clavulana te 125 mg tablet TAKE 1 TABLET BY MOUTH EVERY 8 HOURS FOR 1 WEEK 04/24 completed Not Available Not Available Not Available metaxalon e 800 mg tablet 07/04 completed Not Available Not Available Not Available cyclobenz aprine 5 mg tablet active Not Available Not Available No t Available azelaic acid 15 % topical gel APPLY THIN LAYER TOPICALL Y TWICE DAILY TO FACE 03/31 completed Not Available Not Available Not Available topiramat e 50 mg tablet TAKE 1 TABLET BY MOUTH TWICE DAILY active Not Available Not Available No t Available nitrofura ntoin monohydra te/macroc rystals 100 mg capsule 06/04 completed Not Available Not Available Not Available duloxetin e 30 mg capsule,d elayed release TAKE 1 CAPSULE BY MOUTH ONCE DAILY 03/05 completed Not Available Not Available Not Available duloxetin e 60 mg capsule,d elayed release Take 1 capsule by mouth once daily 2023 active Not Available Not Available Not Avai lable metronida zole 1 % topical gel 12/04 completed Not Available Not Available Not Available Lyrica 50 mg capsule Take 1 capsule twice a day by oral route for 30 days. active Not Available Not Available No t Available Lyrica 75 mg capsule Take 1 capsule twice a day by oral route for 30 days. active Not Available Not Available No t Available Lyrica 150 mg capsule Take 1 capsule twice a day by oral route. active Not Available Not Available No t Available Fish Oil OTC 1 cap daily 2014 active Not Available Not Available Not Avai lable Vitamin D 1 daily 2014 active Not Available Not Available Not Avai lable Cytomel 20 mcg qd 04/13 completed Not Available Not Available Not Available potassium 2 tabs bid 2016 active Not Available Not Available Not Avai lable topiramat e 50mg QD for MIgraine s 2015 active Not Available Not Available Not Avai lable multivita min OTC daily 04/13 completed Not Available Not Available Not Available diclofena c 1 % topical gel 07/04 completed Not Available Not Available Not Available Eliquis 2.5 mg tablet 07/04 completed Not Available Not Available Not Available Brintelli x 5 mg tablet Take 1 tablet every day by oral route. 2014 active Not Available Not Available Not Avai lable Brintelli x 10 mg tablet TAKE ONE TABLET BY MOUTH ONCE DAILY 04/12 completed Not Available Not Available Not Available Procto-Me d HC 2.5 % topical cream perineal applicato r 07/04 completed Not Available Not Available Not Available Ubrelvy 100 mg tablet 1 po qday prn migraine 07/04 completed Not Available Not Available Not Available Breztri Aerospher e 160 mcg-9mcg- 4.8mcg/ac tuation HFA aerosol inhaler Inhale 2 puffs twice a day by inhalati on route. 03/31 completed Not Available Not Available Not Available Ozempic 1 mg/dose (4 mg/3 mL) subcutane ous pen injector INJECT 1 MG (0.75 MLS) SUBCUTAN EOUSLY WEEKLY 01/15 completed Not Available Not Available Not Available Ozempic 2 mg/dose (8 mg/3 mL) subcutane ous pen injector INJECT 2 MG SUBCUTAN EOUSLY ONCE A WEEK 04/01 completed Not Available Not Available Not Available Vitals Date Recorded Body height Body mass index (BMI) Body weight Body temperature Heart rate Oxygen saturation Oxygen saturation in Arterial blood by Pulse oximetry Systolic blood pressure Diastolic blood pressure Provider Name and Address Organization Details Last Updated DateTime 3 170.18 cm 23.3 kg/m2 84627.2 6 g 97 [degF] 70 /min 98 % 98 % 118 mm[Hg] 80 mm[Hg] Luiza Hernandez [place] [facility] 3 14:21:06 Date Recorded Body mass index (BMI) Body height Oxygen saturation Oxygen saturation in Arterial blood by Pulse oximetry Heart rate Body temperature Body weight Systolic blood pressure Diastolic blood pressure Provider Name and Address Organization Details Last Updated DateTime 2 26.3 kg/m2 170.18 cm 97 % 97 % 82 /min 97.6 [degF] 03844.5 2 g 118 mm[Hg] 78 mm[Hg] Not Available [facility] 3 00:29:01 Date Recorded Body mass index (BMI) Body height Oxygen saturation Oxygen saturation in Arterial blood by Pulse oximetry Heart rate Body temperature Body weight Systolic blood pressure Diastolic blood pressure Provider Name and Address Organization Details Last Updated DateTime 2 25.1 kg/m2 170.18 cm 99 % 99 % 80 /min 96.79 [degF] 20876.7 8 g 108 mm[Hg] 64 mm[Hg] Not Available [facility] 3 00:29:01 Date Recorded Body height Body mass index (BMI) Body weight Body temperature Heart rate Oxygen saturation Oxygen saturation in Arterial blood by Pulse oximetry Systolic blood pressure Diastolic blood pressure Provider Name and Address Organization Details Last Updated DateTime 3 170.18 cm 27.6 kg/m2 50116.2 6 g 97.3 [degF] 68 /min 98 % 98 % 142 mm[Hg] 80 mm[Hg] Samantha Dawn RN [place] [facility] 3 12:20:23 Date Recorded Body mass index (BMI) Body height Oxygen saturation Oxygen saturation in Arterial blood by Pulse oximetry Heart rate Body temperature Body weight Systolic blood pressure Diastolic blood pressure Provider Name and Address Organization Details Last Updated DateTime 2 23.8 kg/m2 170.18 cm 98 % 98 % 70 /min 97.1 [degF] 40321.0 4 g 98 mm[Hg] 64 mm[Hg] Not Available [facility] 3 00:29:02 Social History Question Answer Notes LastModified by iFl[employer] ion Details LastModified Time Tobacco Smoking Status Former Smoker quit 2015 Not Available [facility] 06/27/2022 00:27:25 Do You Have An Advance Directive? No Information not available 01/06/2024 What Is Your Level Of Caffeine Consumption? Moderate [id number] Information not available 06/27/2022 How Much Tobacco Do You Chew? None Information not available 01/06/2024 In The 14 Days Before Symptom Onset, Have You Had Close Contact With A Laboratory-confir med COVID-19 While That Case Was Ill? No [id number] Information not available 06/27/2022 In The 14 Days Before Symptom Onset, Have You Had Close Contact With A Person Who Is Under Investigation For COVID-19 While That Person Was Ill? No [id number] Information not available 06/27/2022 What Type Of Diet Are You Following? REGULAR [id number] Information not available 06/27/2022 Do You Have A Medical Power Of Dietitian Consultant? No [id number] Information not available 06/27/2022 What Was The Date Of Your Most Recent Tobacco Screening? 06/07/2021 [id number] Information not available 06/27/2022 What Is Your Relationship Status? Information not available 01/06/2024 Do You Use Your Seat Belt Or Car Seat Routinely? Yes [id number] Information not available 06/27/2022 How Much Tobacco Do You Smoke? No Information not available 01/06/2024 Have You Recently Traveled Abroad? No [id number] Information not available 06/27/2022 Do You Have Any Dietary Restrictions? No [id number] Information not available 06/27/2022 Sex: Unknown Functional Status Question Answer Note LastModified by Organizat ion Details LastModified Time Do you use any illicit or recreational drugs? No [id number] Information not available 06/27/2022 What is your level of alcohol consumption? 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 Moderate [id number] Information not available 06/27/2022 Mental Status Question Answer Note LastModified by Organizat ion Details LastModified Time Do you feel stressed (tense, restless, nervous, or anxious, or unable to sleep at night)? [id number] Information not available 06/27/2022 Family History Relationship Description Onset Age of this Age Resolved Age Notes LastModified by Organization Details LastModified Time Mother Malignant tumor of breast [email or web address] Not available 2022 12:17:04 Mother Prediabetes [email or web address] Not availa ble 04/01/2023 12:17:04 Father Myocardial infarction [id number] Not available 06/27/2022 00:28:15 Father Epilepsy [email or web address] Not available 04/01/2023 12:17:04 Medical History Condition Response HEADACHES/MIGRAINES Y OTHER # 1 Y Gynecological HistoryNo gynecological history recorded. Obstetrics History GPAL:G 0 P 0 0 0 0 Immunizations Vaccine Type Date Status Note Provider Nam e and Address Organization Details Recorded Time Tdap 07/06/2018 completed Debbie Chris, VP DIRECTOR OF [employer]IVE [employer]ATE[employer] [address], [place], [address], [facility] [employer] [facility] 01/06/2024 08:45:53 Past Encounters Encounter ID Performer Location Encounter Start Date Encounter Closed Date Diagnosis/Indication Diagnosis SNOMED-CT Code Diagnosis ICD10 Code Diagnosis Note [id number] Annetta Le MD [facility] [place] [address] [place] [address] 06/07/2021 00:00:00 06/20/2021 14:16:09 [id number] OSKAR Santos [facility] [place] [address] [facility] [address] [place] [address] 06/18/2021 00:00:00 06/18/2021 10:01:26 [id number] _ATHN_MIGR ATION_1 _ATHENA_M IGRATION_ DEFAULT_1 _1 , 07/04/2021 00:00:00 07/04/2021 17:24:02 [id number] Annetta Le MD [facility] [place] [address] [place] [address] 01/15/2022 00:00:00 01/23/2022 18:57:28 [id number] Annetta Le MD [facility] [place] [address] [place] [address] 02/26/2022 00:00:00 03/05/2022 16:15:18 [id number] Annetta Le MD [facility] [place] [address] [place] [address] 04/16/2022 00:00:00 04/16/2022 14:35:59 [id number] Annetta Le MD [facility] [place] [address] [place] [address] 07/16/2022 14:14:20 07/16/2022 14:44:57 Acute situational disturbance 259068907 F43.20 improvedco ntinue duloxetine 60 mg daily [id number] Annetta Le MD [facility] [place] [address] [facility] [address] [place] [address] 04/01/2023 12:14:43 04/01/2023 12:41:02 Acute situational disturbance 933266351 F43.20 improvedco ntinue duloxetine 60 mg daily Health Concerns Section Related Observation LastModified by Organization Detai ls LastModified Time None Recorded Concern Status LastModified by Organization Details LastModified Time None Recorded Advance Directives Directive N: Payers Encounter Date Sequence Insurance Name Policy Number Policy Maldonado Covered Member ID Maldonado Member ID Guarantor Name 07/16/2022 1 [employer] NOW (INDEMNITY) [id number] Alethea Newsome [id number] OI Alethea Newsome 04/01/2023 1 [employer] NOW (INDEMNITY) [id number] Alethea Newsome [id number] OI Alethea Newsome Notes Date Note Type Note Provider Name and Address Organization Details Recorded Time 07/16/2022 text/html will have f/u wi th ortho regarding cervical spondylosis on 07/26 she did notice duloxetine 60 mg daily has helped her nerves/mood Annetta Le MD [address] [place] [address], [place], [address], [employer] 07/25/2022 07:54:07 04/01/2023 text/html she did notice duloxetine 60 mg daily has helped her nerves/mood Annetta Le MD [address] [place] [address], [place], [address], [employer] 04/24/2023 09:02:49 OBGyn Episode No OBEpisode recorded.
--- OUTSIDE RECORDS SUMMARY | 2024-09-30 15:07 | XMS_ITS | Referral Summary ---
Author Organization [facility] [address] Address [address] [place] [address] Care Team Providers Care Covering Machine Operator Name Role Phone Elza Martinez Primary Care Provider [phone] Encounters Date Type Department Care Team Description 08/04/2024 Telephone [facility] Nephrology at [address] [place] [address] Mark Gandara MD 08/04/2024 Orders Only [facility] Nephrology at [address] [facility] [place] [phone] Partha Durán MD 07/26/2024 Telephone [facility] Nephrology at [address] [place] [address] Mark Gandara MD 07/23/2024 Telephone [facility] Gastroenterology at [address] [place] [address] Brian Carson MD 07/15/2024 6:30 AM CDT - 07/15/2024 11:59 PM CDT Hospital Encounter [address] [address] Stage 3b chronic kidney disease (HCC); Nephrolithiasis Discharge Disposition: Discharge to home or self care 07/12/2024 Results Follow-Up [facility] Nephrology at [address] [address] Brian Carson MD Protein / creatinine ratio, urine, random, PTH, Renal function panel, Additional followed-up results: 6 07/09/2024 Orders Only [facility] Nephrology at [address] [phone] ProviderPartha MD 07/08/2024 Telephone [facility] Nephrology at [address] [address] Mark Gandara MD 07/07/2024 4:00 PM CDT Office Visit [facility] Nephrology at [address] [address] Mark Gandara MD Stage 3b chronic kidney disease (HCC); Nephrolithiasis; Anemia in stage 3b chronic kidney disease (HCC); Secondary hyperparathyroidism from Last 3 Months Allergies Active Allergy Reactions Criticality Noted Date [...] 05/03/2021 Assessment & Plan (2021 3:31 PM PILOT SAFETY INSPECTOR): Symptoms improving and almost resolved. Patient advised to continue with tylenol every six hours as needed for fever/body aches. Will send in prednisone x 5d - encouraged her to start this if cough is not improving in the next 24h. Note provided for return to work on Friday. Advised her to contact [facility] office Friday/friday if symptoms are not improving as she may need to extend leave. Assessment & Plan (05/03/2021 1:23 PM PILOT SAFETY INSPECTOR): We discussed supportive treatment, including Tylenol every [...] 06/26/2020 Assessment & Plan (06/26/2020 3:49 PM PILOT SAFETY INSPECTOR): Will refer to ortho for further evaluation and treatment. She has tried and failed lyrica and gabapentin in the past. Arthritis, senescent 06/26/2020 Colon cancer screening 06/26/2020 Assessment & Plan (06/26/2020 3:48 PM PILOT SAFETY INSPECTOR): Will refer for screening cscope Intractable migraine with status migrainosus Assessment & Plan (06/12/2020 11:11 AM PILOT SAFETY INSPECTOR): Continue with tylenol q6h as needed for headache Advised to er if worsens Will start topamax bid. Discussed increasing strength at end of week pending response - she will contact office on Friday. Will retrieve records from [facility] for review. Nausea 06/08/2020 Assessment & Plan (06/08/2020 2:14 PM PILOT SAFETY INSPECTOR): Patient was advised given symptoms to report to er for further evaluation and treatment. She will have drive. Shortness of breath 06/08/2020 Assessment & Plan (06/08/2020 2:14 PM PILOT SAFETY INSPECTOR): Patient was advised given symptoms to report to er for further evaluation and treatment. She will have drive. Vertigo 06/06/2020 Assessment & Plan (06/12/2020 11:12 AM PILOT SAFETY INSPECTOR): Will retrieve records from [facility] for review. She will start meclizine 25mg q8h as needed for dizziness from [facility] er. She was advised caution after taking as it may make her drowsy. Assessment & Plan (06/08/2020 2:14 PM PILOT SAFETY INSPECTOR): Patient was advised given symptoms to report to er for further evaluation and treatment. She will have drive. Assessment & Plan (06/06/2020 2:46 PM PILOT SAFETY INSPECTOR): Will send patient to [facility] for Covid-19 testing. The patient was advised to quarantine at least 10 days from symptom onset, but this determination will depend on result of testing. They were advised to contact us in the next 72h if they have not heard results of testing. They were advised to report to the ER if worsening. Nasal congestion 06/06/2020 Assessment & Plan (06/06/2020 2:46 PM PILOT SAFETY INSPECTOR): Will send patient to [facility] for Covid-19 testing. The patient was advised [...] labs Assessment & Plan (06/13/2019 10:53 PM PILOT SAFETY INSPECTOR): Encouraged patient to continue low fat/low chol diet. Continue exercise. Increase good fats in the diet. Monitor labs as needed. Breast cancer screening by mammogram 04/25/2019 Assessment & Plan (04/25/2019 7:01 PM PILOT SAFETY INSPECTOR): Mammogram order provided Polyarthralgia 03/05/2019 Assessment & Plan (06/26/2020 3:49 PM PILOT SAFETY INSPECTOR): Will evaluate further with labs and imaging. Will notify her of results as available. Will add a topical voltaren gel. We discussed changing celebrex to mobic, however she reports she has tried and failed mobic in the past. Assessment & Plan (03/05/2019 1:57 PM PILOT SAFETY INSPECTOR): Check labs. Continue K and Mg as stable with replacement. Monitor closely as not on meds that would be electrolyte lowering Other fatigue 08/30/2018 Assessment & Plan (06/13/2019 10:51 PM PILOT SAFETY INSPECTOR): Probably multifactorial. Check labs and followup to re-evaluate Assessment & Plan (08/30/2018 4:08 PM CDT): Probably multifactorial. Check labs and followup to re-evaluate Abdominal pain 08/30/2018 Assessment & Plan (06/17/2019 11:23 AM PILOT SAFETY INSPECTOR): Sxs seem to be c/w GERD. Discussed GERD at length including anatomy, behavioral changes (raise HOB, meal timings), dietary changes and medication options. Reviewed risks, benefits alternatives, side effects and proper use. Followup if sxs worsen or has hematochezia or hematemeis. Start Omeprazole. May use TUMS prn. F.u 4-6 weeks. Assessment & Plan (06/13/2019 10:50 PM PILOT SAFETY INSPECTOR): Improved since having gallbladder removed. Assessment & [...] cymbalta Assessment & Plan (06/17/2019 11:25 AM PILOT SAFETY INSPECTOR): Stable with Cymbalta. Continue current dose. Assessment & Plan (06/13/2019 10:51 PM PILOT SAFETY INSPECTOR): Stable with the cymbalta Assessment & Plan (04/25/2019 7:01 PM PILOT SAFETY INSPECTOR): Continue the Cymbalta. Start wellbutrinXL 150mg q am. Reviewed risks, benefit, alternatives, side effects and proper use. No history of seizures. Assessment & Plan (03/05/2019 2:05 PM PILOT SAFETY INSPECTOR): Continue the Cymbalta. Start Wellbutrinxl 150mg. Reviewed [...] 07/06/2018 Assessment & Plan (05/28/2021 8:31 PM PILOT SAFETY INSPECTOR): We reviewed medication list. She notes that [...] migraines. Assessment & Plan (06/26/2020 3:50 PM PILOT SAFETY INSPECTOR): Will add a prn maxalt. Advised her of potential drowsiness after taking. Assessment & Plan (06/13/2019 10:51 PM PILOT SAFETY INSPECTOR): Felling better off the Topamax. Assessment & Plan (04/25/2019 7:04 PM PILOT SAFETY INSPECTOR): Continue the Topamax but work on stretching to see if helps with the tension type PIERSON. She is on Celebrex so no further NSAIDs. Monitor to see if Wellbutrin/Cymbalta helps too. Assessment & Plan (08/30/2018 4:06 PM CDT): Lower extremity edema 07/06/2018 Assessment & Plan (08/30/2018 4:07 PM CDT): Increase the maxzide. Keep legs elevated. Hypokalemia 07/06/2018 Overview (06/26/2020): monitored by Coil Rewind Machine Operator Dr. Tovar Venous insufficiency of both lower extremities 1 Overview (06/26/2020): Dr. Winn also saw and examined the patient today. Although venous insufficiency was identified by reflux exam, the patient does not experience significant edema that worsens throughout the day and lower extremity edema is also not an exacerbating facto Acquired hypothyroidism 09/11/2013 Overview (06/26/2020): HYPOTHYROIDISM NOS monitored by Coil Rewind Machine Operator Dr. Tovar Assessment & Plan (12/15/2020 8:11 PM CDT): Continue levothyroxine. Monitor labs. Continue per Dr. Martínez Assessment & Plan (08/13/2020 11:08 PM CDT): Continue with Endocrinology Assessment & Plan (12/10/2019 8:16 PM CDT): Check labs and adjust as indicated. Assessment & Plan (06/13/2019 10:52 PM PILOT SAFETY INSPECTOR): Stable with levothyoroxine and cytomel Monitor levels. Assessment & Plan (03/05/2019 1:57 PM PILOT SAFETY INSPECTOR): Continue current regimen Assessment & Plan (12/24/2018 [...] 07/11/2020 Assessment & Plan (06/26/2020 1:55 PM PILOT SAFETY INSPECTOR): Obesity is unchanged. Discussed the patient's BMI. The BMI is above average. BMI management plan is completed. BMI Follow-up includes: nutrition counseling, exercise counseling and education provided. Cough 06/06/2020 08/06/2021 Assessment & Plan (06/06/2020 2:46 PM PILOT SAFETY INSPECTOR): Will send patient to [facility] for Covid-19 testing. The patient was advised [...] labs Assessment & Plan (06/13/2019 10:53 PM PILOT SAFETY INSPECTOR): Check labs Breast cancer screening by mammogram 03/05/2019 03/05/2019 Assessment & Plan (03/05/2019 2:04 PM PILOT SAFETY INSPECTOR): Mammogram order provided BMI 39.0-39.9,adult 10/19/2018 07/12/19 21 Assessment & Plan (12/10/2019 8:16 PM CDT): Obesity is unchanged. Discussed the patient's BMI. The BMI is above average. BMI management plan is completed. BMI Follow-up includes: nutrition counseling, exercise counseling and education provided. Assessment & Plan (06/17/2019 7:09 AM PILOT SAFETY INSPECTOR): Obesity is unchanged. Discussed the patient's BMI. The BMI is above average. BMI management plan is completed. BMI Follow-up includes: nutrition counseling, exercise counseling and education provided. Assessment & Plan (06/09/2019 7:07 AM PILOT SAFETY INSPECTOR): Obesity is unchanged. Discussed the patient's BMI. The BMI is above average. BMI management plan is completed. BMI Follow-up includes: nutrition counseling, exercise counseling and education provided. Assessment & Plan (04/16/2019 7:14 AM PILOT SAFETY INSPECTOR): Obesity is unchanged. Discussed the patient's BMI. The BMI is above average. BMI management plan is completed. BMI Follow-up includes: nutrition counseling, exercise counseling and education provided. Assessment & Plan (03/05/2019 1:58 PM PILOT SAFETY INSPECTOR): Obesity is unchanged. Discussed the patient's BMI. [...] provided. Assessment & Plan (06/17/2019 7:09 AM PILOT SAFETY INSPECTOR): Obesity is unchanged. Discussed the patient's BMI. The BMI is above average. BMI management plan is completed. BMI Follow-up includes: nutrition counseling, exercise counseling and education provided. Assessment & Plan (06/09/2019 7:07 AM PILOT SAFETY INSPECTOR): Obesity is unchanged. Discussed the patient's BMI. The BMI is above average. BMI management plan is completed. BMI Follow-up includes: nutrition counseling, exercise counseling and education provided. Assessment & Plan (04/16/2019 7:14 AM PILOT SAFETY INSPECTOR): Obesity is unchanged. Discussed the patient's BMI. 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 Not on file Not on faby e Not on file Last Filed Vital Signs [...] 07/07/2024 4:01 PM CDT Plan of Treatment Not on file Procedures Procedure Name Priority Date/Time Associated Diagnosis [...] CULTURE (08/05/2024 7:29 AM CDT) [facility] Comment:NO CULTURE INDICATED 08/05/2024 7:29 AM CDT 08/05/2024 7:31 AM CDT Narrative [facility] - 08/06/2024 6:32 AM CDT FASTING:YES FASTING: YES Mark Gandara MD LAB MICROBIOLOGY - GENERAL ORDERABLES Final Result [facility] [address] [place] [address] * Urinalysis reflex to microscopic and culture [...] FASTING:YES FASTING: YES Mark Gandara MD LAB MICROBIOLOGY - GENERAL ORDERABLES Final Result [facility] [address] [place] [address] * (ABNORMAL) CBC with auto differential (08/05/2024 7:29 AM CDT) WBC 6.0 3.8 - 10.8 Thousand/u L [...] BLOOD ORDERABLES Final Result Performing Organization Address [facility] de Phone Number [facility] [address] [place] [address] * Protein / creatinine ratio, urine, random (08/05/2024 7:29 AM CDT) Pathologist [facility] Creatinine, ur 67 20 - 275 mg/dL [...] URINE ORDERABLES Final Result Performing Organization Address [facility] Co de Phone Number [facility] [address] [place] [address] * Vitamin D 25 hydroxy (08/05/2024 7:29 AM CDT) Vitamin D 25-OH 57 30 - 100 ng/mL [facility] Comment: Vitamin D Status 25-OH Vitamin D: Deficiency: <20 ng/mL Insufficiency: 20 - 29 ng/mL Optimal: > or = 30 ng/mL For 25-OH Vitamin D testing on patients on D2-supplementation and patients for whom quantitation of D2 and D3 fractions is required, the QuestAssureD(TM) 25-OH VIT D, (D2,D3), LC/MS/MS is recommended: order code 94695 (patients >2yrs). See Note 1 Note 1 For additional information, please refer to http://education.[facility]/faq/HAV425 (This link is being provided for informational/ educational purposes only.) Blood 08/05/2024 7:29 AM CDT 08/05/2024 7:31 AM CDT Narrative [facility] - 08/06/2024 6:32 AM CDT FASTING:YES FASTING: YES us Mark Gandara MD LAB BLOOD ORDERABLES Final Result Performing Organization Address [facility] de Phone Number [facility] [address] [place] [address] * PTH (08/05/2024 7:29 AM CDT) Pathologist [facility] Parathyroid hormone, intact 38 16 - 77 pg/mL [facility] Comment: Interpretive Guide Intact PTH Calcium [...] BLOOD ORDERABLES Final Result Performing Organization Address [facility] de Phone Number [facility] [address] [address] * (ABNORMAL) Renal function panel (08/05/2024 7:29 [...] MD LAB BLOOD ORDERABLES Final Result LORE Albarran [address] [address] * US Kidney Complete (07/15/2024 7:02 AM [...] Electronically signed by Mary Salmon M.D. TW: CAL Report ID: [id number] Reading Location: [id number] Procedure Note Mary Salmon MD - 07/20/2024 [...] Mary Salmon M.D. TW: TW Report ID: [id number] Reading Location: [id number] Mark Gandara MD IMG US PROCEDURES Final Re sult * Urine supersaturation, 24 hour (07/12/2024 2:31 PM CDT) Historical Provider LAB BLOOD ORDERABLES Colette l Result * (ABNORMAL) STONERISK(R) DIAGNOSTIC PROFILE (07/12/2024 7:35 AM CDT) Volume, ur 0.96(L) >2.00 L/day [facility], Comment:See Note 1 pH, ur 7.6(H) 5.5 - 7.0 [facility], Calcium, ur 141 <250.0 mg/day [facility], Comment:See Note 1 Oxalate ur 21 <45 mg/day [facility], Comment:See Note 1 Uric acid, ur 447 <700 mg/day [facility], Comment:See Note 1 Citrate ur 271(L) >320 mg/day [facility], Comment:See Note 1 Sodium ur 93 <200 mEq/day [facility], Comment:See Note 1 Sulfate ur 9 <30 mmol/day [facility], Comment:See Note 1 Phosphorus ur 773 <1,100 mg/day [facility], Comment:See Note 1 Magnesium ur 93 >60.0 mg/day [facility], Comment:See Note 1 Ammonium ur 10(L) 14 - 62 mEq/day [facility], Comment:See Note 1 Potassium ur 46 19 - 135 mEq/day [facility], Comment:See Note 1 Creatinine ur 968 600 - 1,800 mg/day [facility], Comment:See Note 1 Calcium oxalate 1.81 <2.00 [facility], Brushite crystals, ur 7.88(H) <2.00 [facility], Sodium urate crystals, ur 3.76(H) <2.00 [facility], STRUVITE 76.64(H) <75.00 [facility], Uric acid 0.06 <2.00 [facility], THE PATIENT HAS: See Below Que [facility]/ [facility], Comment: Hypocitraturia High urinary pH Low urine volume Saturation ratio, ur See Below [facility], Comment: Brushite (Ca phosphate) Monosodium urate Struvite SUSPECTED PROBLEM IS: See Below [facility], Comment: Hypocitraturic Nephrolithiasis Infection Lithiasis Note 1 This test was developed and its analytical performance characteristics have been determined by [facility]. It has not been cleared or approved by the FDA. This assay has been validated pursuant to the CLIA regulations and is used for clinical purposes. Urine 07/12/2024 7:35 AM CDT 07/12/2024 11:15 PM CDT Mark Gandara MD LAB BLOOD ORDERABLES Final Result Performing Organization Address [facility] Co de Phone Number [facility], [address] [place] [address] * (ABNORMAL) Protein / creatinine ratio, urine, [...] 7:35 AM CDT 07/09/2024 7:36 AM CDT Mark Gandara MD LAB URINE ORDERABLES Final Result Performing Organization Address City/[facility]/ZIP Co de Phone Number [facility] [address] [address] * PTH (07/09/2024 7:34 AM CDT) Parathyroid hormone, intact 36 16 - 77 pg/mL [facility] Comment: Interpretive Guide Intact PTH Calcium ------- [...] MD LAB BLOOD ORDERABLES Final Result [facility] [address] [facility] [place] [address] * (ABNORMAL) Renal function panel (07/09/2024 7:33 [...] BLOOD ORDERABLES Final Result Performing Organization Address [facility] de Phone Number [facility] [address] [place] [address] * Vitamin D 25 hydroxy (07/09/2024 7:32 AM CDT) Pathologist [facility] Vitamin D 25-OH 68 30 - 100 [...] D, (D2,D3), LC/MS/MS is recommended: order code 30873 (patients >2yrs). See Note 1 Note 1 For additional information, please refer to http://education.[facility]/faq/SGG242 (This link is being provided for informational/ educational purposes only.) Blood 07/09/2024 7:32 AM CDT 07/09/2024 7:32 AM CDT Narrative [facility] - 07/10/2024 12:49 AM CDT FASTING:YES FASTING: YES Mark Gandara MD LAB BLOOD ORDERABLES Final Result Performing Organization Address [facility] de Phone Number [facility] [address] [place] [address] * (ABNORMAL) CBC with auto differential (07/09/2024 7:30 AM CDT) Pathologist [facility] WBC 5.9 3.8 - 10.8 Thousand/u L [...] LAB BLOOD ORDERABLES Final Result [facility] [address] [address] * REFLEXIVE URINE CULTURE (07/09/2024 7:29 AM CDT) Urine culture [facility] Comment:CULTURE INDICATED - RESULTS TO FOLLOW 07/09/2024 7:29 AM CDT 07/09/2024 7:30 AM CDT Mark Gandara MD LAB MICROBIOLOGY - GENERAL ORDERABLES Final Result Performing Organization Address City/[facility]/ZIP Co de Phone Number [facility] [address] [place] [address] * (ABNORMAL) Urinalysis reflex to microscopic and culture Urine, clean voided (07/09/2024 7:29 AM CDT) Color, ur YELLOW YELLOW [facility] Appearance, ur CLEAR CLEAR [facility] Specific gravity 1.009 1.001 - 1.035 [facility] pH, ur 7.0 5.0 - 8.0 [facility] Glucose, ur NEGATIVE NEGATIVE [facility] Bilirubin, ur NEGATIVE NEGATIVE [facility] Ketones, ur NEGATIVE NEGATIVE [facility] Blood, ur NEGATIVE NEGATIVE [facility] Protein, ur, quant NEGATIVE NEGATIVE [facility] Nitrites, ur NEGATIVE NEGATIVE [facility] Leukocyte esterase, ur TRACE(A) NEGATIVE [facility] WBC, ur NONE SEEN < OR = 5 /HPF [facility] RBC, ur NONE SEEN < OR = 2 /HPF [facility] Epithelial cells, squamous, ur NONE SEEN [...] 7:29 AM CDT 07/09/2024 7:30 AM CDT Mark Gandara MD LAB MICROBIOLOGY - GENERAL ORDERABLES Final Result Performing Organization Address City/[facility]/ZIP Co de Phone Number [facility] [address] [place] [address] * Urine culture (07/09/2024 7:29 AM CDT) Urine culture [facility] Comment: CULTURE, URINE, ROUTINE Micro Number: [id number] Test Status: Final Specimen Source: Urine Specimen Quality: Adequate Result: No Growth 07/09/2024 7:29 AM CDT 07/09/2024 7:30 AM CDT Mark Gandara MD LAB MICROBIOLOGY - GENERAL ORDERABLES Final Result Performing Organization Address [facility] Co de Phone Number [facility] [address] [place] [address] * HM COLONOSCOPY (08/28/2020) Historical Provider HEALTH MAINTENANCE Final Result * Diagnostic Mammogram Bilateral W [place] (06/21/2020) Anatomical Region Laterality Modality Breast Bilateral Mammography Evans Perez MD IMG MAMMO PROCEDURES Colette l Result * HM PAP SMEAR WITH HPV (04/29/2020) Historical Provider HEALTH MAINTENANCE Final Result from Last 3 Months or Most Recently Relevant to Health Maintenance Insurance [employer] [facility] [id number] [facility] [id number] Member Subscriber Plan / Payer (Ef fective 2020-Present) Name:Alethea Newosme Member ID:[id number] Relation to Subscriber:Self Name:Alethea Newsome Subscriber ID:[id number] Payer ID:[id number] Type:[employer] HMO/PPO Address: [address] [place] [id number] Care Teams Covering Machine Operator Relationship Specialty Start Date End Date Elza Martinez PA PCP - General Fellmongering Machine Operator 05/28/21
[2024-09-30 15:28] LABS: Estimated Glomerular Filt Rate 36
== END 2024-09-30 14:26 | disposition home or self-care (01) ==
PROVIDERS: PCP Family Medicine; Visit Provider Family Medicine
DX: N20.0 Calculus of kidney (principal); K52.9 Noninfective gastroenteritis and colitis, unspecified
CPT/HCPCS: 74177; Q9967

== ENCOUNTER 2024-10-09 07:21 | Outpatient (CLI) | payer OTHER, SELFPAY ==
--- NOTE | ~2024-10-09 | MM_ITS ---
EXAMINATION: MM screening rad BI w dal[place] HISTORY: Screening TECHNIQUE: Craniocaudal and mediolateral oblique 3-D tomosynthesis images were obtained and synthetic 2-D images were generated. CAD analysis was submitted and interpreted. COMPARISON: Comparison to multiple prior studies sequentially, with oldest reviewed study dated 05/20. BREAST PARENCHYMAL COMPOSITION: Not dense: There are scattered areas of fibroglandular density. FINDINGS: The right breast is stable without evidence for malignancy. There are developing nodular as ymmetries in the periareolar location of the left breast. IMPRESSION: 1. Developing left breast asymmetries. 2. Additional mammographic views and possible breast ultrasound are recommended. BI-RADS Category 0: Incomplete: Needs additional imaging evaluation. Reviewed, dictated and finalized at location A. IMPRESSION: 1. Developing left breast asymmetries. 2. Additional mammographic views and possible breast ultrasound are recommended . BI-RADS Category 0: Incomplete: Needs additional imaging evaluation.
--- OUTSIDE RECORDS SUMMARY | 2024-10-09 07:27 | XMS_ITS | Data Portability ---
[facility] Address [address] [place] [address] Assessment No assessment recorded. Plan of Treatment Reminders Order Date Submit Date Provider Last Modified By Organization Details Last Modified Time Details Appointments ANY 15 2024 01:15P My Restrepo MD Not available Not available Not available Lab O&P (ova & parasites ), stool 2024 025 [facility], [address], [place], [address], 10/08/2024 18:36:04 culture, stool 2024 025 [facility], [address], [place], [address], 10/03/2024 16:36:18 C diff toxin A+B, qual IA, stool 2024 025 [facility], [address], [place], [address], 10/01/2024 16:37:09 CBC w/ auto diff 2024 025 [facility] [address], [address], [place], [address], 09/29/2024 21:21:59 CMP, serum or plasma 2024 025 [facility] [address], [address], [place], [address], 09/29/2024 21:42:28 STEPHANIE (antinucl ear antibodie s) screen, ifa, serum 2023 024 [facility], [address] [facility], [place], [address], 2024 07:51:16 erythrocy te sedimenta tion rate by westergre n method 2023 024 [email or web address] [facility], [address] [facility], [place], [address], 2024 07:51:23 sjogren antibody panel, serum 2023 024 [email or web address] [facility], [address] [place] [address], [place], [address], 2024 07:51:31 dsDNA Ab, serum 2023 024 [email or web address] [facility], [address] [place] [address], [place], [address], 2024 07:51:38 rf (rheumato id factor), serum 2023 024 [facility], [facility], [place], [address], 04/23/2024 14:12:22 lipid panel, serum 2023 024 [facility], [address] [place] [address], [place], [address], 01/02/2024 05:36:56 CMP, serum or plasma 2023 024 [facility], [address] [place] [address], [place], [address], 01/02/2024 05:36:57 CBC w/ auto diff 2023 024 [facility], [address] [place] [address], [place], [address], 01/02/2024 05:36:58 Referral None recorded. Procedures None recorded. Surgeries None recorded. Imaging CT, abdomen + pelvis, w/ contrast 2024 025 [facility] (Imaging), [address] [place] [address] [address], [place], [address], 09/30/2024 13:35:29 XR, hand, 2 view - bilateral [email or web address] [place] [address] Imaging, [address] [place] [address] [address], [place], [address], 05/18/2024 15:55:31 Medication Orders ondansetr on 4 mg disintegr ating tablet [address], [address] [facility], [place], [address], 09/29/2024 16:22:56 Medrol (Chris) 4 mg tablets in a dose pack [address], [address] [facility], [place], [address], 04/20/2024 10:09:28 topiramat e 100 mg tablet [address], [address] [facility], [place], [address], 12/09/2023 11:29:44 Bactrim DS 800 mg-160 mg tablet 2023 024 [facility] 2425, [address] [facility], [place], [address], 01/08/2024 16:40:26 duloxetin e 60 mg capsule,d elayed release [address], [address] [facility], [place], [address], 12/09/2023 11:29:44 triamcino lone acetonide 0.1 % topical cream 2023 024 [email or web address] [facility] [address]85, [address], [place], [address], 12/09/2023 11:29:44 Patient TargetsNo targets recorded. Patient Instructions Encounter Date Encounter Id Patient Instructions Last Modified By Organization Details Last Modified Time 04/20/2024 [id number] A healthy lifestyle: care instructions [email or web address] Not available 04/20/2024 10:09:28 Reason for Referral None Reported. Results Created Date Observation Date Name Description Value Unit Range Abnormal Flag Note LastModifiedBy Organization Detail LastModifiedTime 01/01/2001/02/2024 LIPID PANEL , STAND RYLAN cholesterol, total 228 mg/dL <200 high Not Available [address] [place], [address], 01/02/2024 05:36:56 01/01/2001/02/2024 LIPID PANEL , STAND RYLAN HDL cholesterol 66 mg/dL > or = 50 normal Not Available [facility] [address] [address] [place], [address], 01/02/2024 05:36:56 01/01/2001/02/2024 LIPID PANEL , STAND RYLAN triglyceride s 169 mg/dL <150 high Not Available [address] [place], [address], 01/02/2024 05:36:56 01/01/2001/02/2024 LIPID PANEL , STAND RYLAN LDL-choleste rol 131 mg/dL _(wilton c) high Refer ence range : <100 Bertha able range <100 mg/dL for prima ry preve ntion ; <70 mg/dL for patie nts with CHD or diabe tic patie nts with > or = 2 CHD risk facto rs. LDL-C is now calcu lated using the Liz n-Hop kins calcu kamila n, which is a valid ated novel metho d thalia turk r accur acy than the Fried debra equat ion in the estim ation of LDL-C . Liz n SS et al. ZEN. 2013; 310(1 9): 2061- 2068 (http ://ed ucati on.Evie foleyKupiBonus. com/f aq/FA Q164) Not Available [address] [address] [place], [address], 01/02/2024 05:36:56 01/01/20 24 01/02/2024 LIPID PANEL , STAND RYLAN chol/HDLC ratio 3.5 (calc ) <5.0 normal Not Available [address], [address], 01/02/2024 05:36:56 01/01/20 24 01/02/2024 LIPID PANEL , STAND RYLAN non HDL cholesterol 162 mg/dL _(wilton c) <130 high For patie nts with diabe michael plus 1 major ASCVD risk facto r, treat ing to a non-H DL-C goal of <100 mg/dL (LDL- C of <70 mg/dL ) is consi carad a maritza kco n. Not Available [address], [address], 01/02/2024 05:36:56 01/01/20 24 01/02/2024 COMPR EHENS ARNOLD METAB OLIC PANEL glucose 86 mg/dL 65-139 normal Non-f astin g refer ence inter reagan Not Available [address], [address], 01/02/2024 05:36:57 01/01/20 24 01/02/2024 COMPR EHENS ARNOLD METAB OLIC PANEL urea nitrogen (BUN) 21 mg/dL 7-25 normal Not Available [address], [address], 01/02/2024 05:36:57 01/01/20 24 01/02/2024 COMPR EHENS ARNOLD METAB OLIC PANEL creatinine 1.14 mg/dL 0.50-1 .03 high Not Available [address], [address], 01/02/2024 05:36:57 01/01/2001/02/2024 COMPR EHENS ARNOLD METAB OLIC PANEL eGFR 58 mL/mi n/1.7 3m2 > or = 60 low Not Available [address], [address], 01/02/2024 05:36:57 01/01/20 24 01/02/2024 COMPR EHENS ARNOLD METAB OLIC PANEL BUN/creatini ne ratio 18 (calc ) 6-22 normal Not Available [address], [address], 01/02/2024 05:36:57 01/01/20 24 01/02/2024 COMPR EHENS ARNOLD METAB OLIC PANEL sodium 140 mmol/ L 135-14 6 normal Not Available [address], [address], 01/02/2024 05:36:57 01/01/20 24 01/02/2024 COMPR EHENS ARNOLD METAB OLIC PANEL potassium 3.5 mmol/ L 3.5-5. 3 normal Not Available [address], [address], 01/02/2024 05:36:57 01/01/20 24 01/02/2024 COMPR EHENS ARNOLD METAB OLIC PANEL chloride 103 mmol/ L 98-110 normal Not Available [address], [address], 01/02/2024 05:36:57 01/01/2001/02/2024 COMPR EHENS ARNOLD METAB OLIC PANEL carbon dioxide 29 mmol/ L 20-32 normal Not Available [address], [address], 01/02/2024 05:36:57 01/01/20 24 01/02/2024 COMPR EHENS ARNOLD METAB OLIC PANEL calcium 9.2 mg/dL 8.6-10 .4 normal Not Available [address], [address], 01/02/2024 05:36:57 01/01/20 24 01/02/2024 COMPR EHENS ARNOLD METAB OLIC PANEL protein, total 6.2 g/dL 6.1-8. 1 normal Not Available [address], [address], 01/02/2024 05:36:57 01/01/20 24 01/02/2024 COMPR EHENS ARNOLD METAB OLIC PANEL albumin 4.1 g/dL 3.6-5. 1 normal Not Available [address], [address], 01/02/2024 05:36:57 01/01/20 24 01/02/2024 COMPR EHENS ARNOLD METAB OLIC PANEL globulin 2.1 g/dL_ (calc ) 1.9-3. 7 normal Not Available [address], [address], 01/02/2024 05:36:57 01/01/20 24 01/02/2024 COMPR EHENS ARNOLD METAB OLIC PANEL albumin/glob ulin ratio 2.0 (calc ) 1.0-2. 5 normal Not Available [address], [address], 01/02/2024 05:36:57 01/01/20 24 01/02/2024 COMPR EHENS ARNOLD METAB OLIC PANEL bilirubin, total 0.5 mg/dL 0.2-1. 2 normal Not Available [address], [address], 01/02/2024 05:36:57 01/01/20 24 01/02/2024 COMPR EHENS ARNOLD METAB OLIC PANEL alkaline phosphatase 93 U/L 37-153 normal Not Available [facility] [employer] [address], [address], 01/02/2024 05:36:57 01/01/20 24 01/02/2024 COMPR EHENS ARNOLD METAB OLIC PANEL AST 14 U/L 10-35 normal Not Available [address], [address], 01/02/2024 05:36:57 01/01/20 24 01/02/2024 COMPR EHENS ARNOLD METAB OLIC PANEL ALT 14 U/L 6-29 normal Not Available [address], [address], 01/02/2024 05:36:57 01/01/20 24 01/02/2024 CBC (INCL UDES DIFF/ PLT) white blood cell count 6.7 thous and/u L 3.8-10 .8 normal Not Available [address], [address], 01/02/2024 05:36:57 01/01/2001/02/2024 CBC (INCL UDES DIFF/ PLT) red blood cell count 5.25 judy on/uL 3.80-5 .10 high Not Available [employer] [address], [address], 01/02/2024 05:36:57 01/01/20 24 01/02/2024 CBC (INCL UDES DIFF/ PLT) hemoglobin 15.6 g/dL 11.7-1 5.5 high Not Available [employer] [address], [address], 01/02/2024 05:36:57 01/01/2001/02/2024 CBC (INCL UDES DIFF/ PLT) hematocrit 48.7 % 35.0-4 5.0 high Not Available [employer] [address], [address], 01/02/2024 05:36:57 01/01/20 24 01/02/2024 CBC (INCL UDES DIFF/ PLT) MCV 92.8 fL 80.0-1 00.0 normal Not Available [address], [address], 01/02/2024 05:36:57 01/01/20 24 01/02/2024 CBC (INCL UDES DIFF/ PLT) MCH 29.7 pg 27.0-3 3.0 normal Not Available [address], [address], 01/02/2024 05:36:57 01/01/2001/02/2024 CBC (INCL UDES DIFF/ PLT) MCHC 32.0 g/dL 32.0-3 6.0 normal Not Available [address], [address], 01/02/2024 05:36:57 01/01/20 24 01/02/2024 CBC (INCL UDES DIFF/ PLT) RDW 13.4 % 11.0-1 5.0 normal Not Available [address], [address], 01/02/2024 05:36:57 01/01/20 24 01/02/2024 CBC (INCL UDES DIFF/ PLT) platelet count 336 thous and/u L 140-40 0 normal Not Available [address], [address], 01/02/2024 05:36:57 01/01/20 24 01/02/2024 CBC (INCL UDES DIFF/ PLT) MPV 10.7 fL 7.5-12 .5 normal Not Available [address], [address], 01/02/2024 05:36:57 01/01/20 24 01/02/2024 CBC (INCL UDES DIFF/ PLT) absolute neutrophils 3585 cells /uL 1500-7 800 normal Not Available [address], [address], 01/02/2024 05:36:57 01/01/20 24 01/02/2024 CBC (INCL UDES DIFF/ PLT) absolute lymphocytes 2352 cells /uL 850-39 00 normal Not Available [address], [address], 01/02/2024 05:36:57 01/01/20 24 01/02/2024 CBC (INCL UDES DIFF/ PLT) absolute monocytes 456 cells /uL 200-95 0 normal Not Available [address], [address], 01/02/2024 05:36:57 01/01/2001/02/2024 CBC (INCL UDES DIFF/ PLT) absolute eosinophils 228 cells /uL 15-500 normal Not Available [address], [address], 01/02/2024 05:36:57 01/01/2001/02/2024 CBC (INCL UDES DIFF/ PLT) absolute basophils 80 cells /uL 0-200 normal Not Available [address], [address], 01/02/2024 05:36:57 01/01/2001/02/2024 CBC (INCL UDES DIFF/ PLT) neutrophils 53.5 % normal Not Available [address], [address], 01/02/2024 05:36:57 01/01/2001/02/2024 CBC (INCL UDES DIFF/ PLT) lymphocytes 35.1 % normal Not Available [address], [address], 01/02/2024 05:36:57 01/01/2001/02/2024 CBC (INCL UDES DIFF/ PLT) monocytes 6.8 % normal Not Available [address], [address], 01/02/2024 05:36:57 01/01/20 24 01/02/2024 CBC (INCL UDES DIFF/ PLT) eosinophils 3.4 % normal Not Available [address], [address], 01/02/2024 05:36:57 01/01/20 24 01/02/2024 CBC (INCL UDES DIFF/ PLT) basophils 1.2 % normal Not Available [address], [address], 01/02/2024 05:36:57 01/01/20 24 01/02/2024 TSH TSH 2.10 mIU/L normal Refer ence Range > or = 20 Years 0.40- 4.50 Pregn anand Range s First trime ster 0.26- 2.66 Secon d trime ster 0.55- 2.73 Third trime ster 0.43- 2.91 Not Available [address], [address], 01/02/2024 05:36:58 09/30/19 25 09/29/2024 COMPL ETE BLOOD COUNT AUTO DIFF white blood count 8.4 x10e3 /uL 3.4-10 .8 normal Not Available [facility] (Lab) [address] [place], [address], 09/29/2024 21:21:59 09/30/19 25 09/29/2024 COMPL ETE BLOOD COUNT AUTO DIFF red blood count 5.32 x10e6 /uL 3.77-5 .28 high Not Available [facility] (Lab) [address] [place], [address], 09/29/2024 21:21:59 09/30/19 25 09/29/2024 COMPL ETE BLOOD COUNT AUTO DIFF hemoglobin 15.6 g/dL 11.1-1 5.9 normal Not Available [facility] (Lab) [address] [place], [address], 09/29/2024 21:21:59 09/30/19 25 09/29/2024 COMPL ETE BLOOD COUNT AUTO DIFF hematocrit 47.8 % 34.0-4 6.6 high Not Available [facility] (Lab) [address] [place], [address], 09/29/2024 21:21:59 09/30/19 25 09/29/2024 COMPL ETE BLOOD COUNT AUTO DIFF mean corpuscular volume 90 fL 79-97 normal Not Available [facility] [address] [place], [address], 09/29/2024 21:21:59 09/30/19 25 09/29/2024 COMPL ETE BLOOD COUNT AUTO DIFF mean corpuscular hemoglobin 29.3 pg 26.6-3 3.0 normal Not Available [facility] (Lab) [address] [place], [address], 09/29/2024 21:21:59 09/30/1909/29/2024 COMPL ETE BLOOD COUNT AUTO DIFF mean corpuscular HGB conc 32.6 g/dL 31.5-3 5.7 normal Not Available [facility] (Lab) [address] [place], [address], 09/29/2024 21:21:59 09/30/1909/29/2024 COMPL ETE BLOOD COUNT AUTO DIFF red cell distribution width 13.6 % 11.5-1 4.5 normal Not Available [facility] (Lab) [address] [place], [address], 09/29/2024 21:21:59 09/30/1909/29/2024 COMPL ETE BLOOD COUNT AUTO DIFF platelet count 311 x10e3 /uL 150-45 0 normal Not Available [facility] (Lab) [address] [place], [address], 09/29/2024 21:21:59 09/30/19 25 09/29/2024 COMPL ETE BLOOD COUNT AUTO DIFF mean platelet volume 11.0 fL 8.9-12 .7 normal Not Available [facility] (Lab) [address] [facility], [place], [address], 09/29/2024 21:21:59 09/30/19 25 09/29/2024 COMPL ETE BLOOD COUNT AUTO DIFF immature granulocytes pct auto 0.2 % not estb. Not Available [facility] (Lab) [address] [facility], [place], [address], 09/29/2024 21:21:59 09/30/19 25 09/29/2024 COMPL ETE BLOOD COUNT AUTO DIFF neutrophils percent auto 52 % not estb. Not Available [facility] (Lab) [address] [facility], [place], [address], 09/29/2024 21:21:59 09/30/19 25 09/29/2024 COMPL ETE BLOOD COUNT AUTO DIFF lymphocytes percent auto 36 % not estb. Not Available [facility] (Lab) [address] [facility], [place], [address], 09/29/2024 21:21:59 09/30/19 25 09/29/2024 COMPL ETE BLOOD COUNT AUTO DIFF monocytes percent auto 7 % not estb. Not Available [facility] (Lab) [address] [facility], [place], [address], 09/29/2024 21:21:59 09/30/19 25 09/29/2024 COMPL ETE BLOOD COUNT AUTO DIFF eosinophils percent auto 3 % not estb. Not Available [facility] (Lab) [address] [facility], [place], [address], 09/29/2024 21:21:59 09/30/19 25 09/29/2024 COMPL ETE BLOOD COUNT AUTO DIFF basophils percent auto 1 % not estb. Not Available [facility] (Lab) [address] [facility], [place], [address], 09/29/2024 21:21:59 09/30/19 25 09/29/2024 COMPL ETE BLOOD COUNT AUTO DIFF neutrophils absolute auto 4.4 x10e3 /uL 1.4-7. 0 normal Not Available [facility] (Lab) [address] [place], [address], 09/29/2024 21:21:59 09/30/19 25 09/29/2024 COMPL ETE BLOOD COUNT AUTO DIFF immature granulocytes abs auto 0.0 x10e3 /uL 0.0-0. 1 normal Not Available [facility] (Lab) [address] [place], [address], 09/29/2024 21:21:59 09/30/19 25 09/29/2024 COMPL ETE BLOOD COUNT AUTO DIFF lymphocytes absolute auto 3.0 x10e3 /uL 0.7-3. 1 normal Not Available [facility] (Lab) [address] [place], [address], 09/29/2024 21:21:59 09/30/19 25 09/29/2024 COMPL ETE BLOOD COUNT AUTO DIFF monocytes absolute auto 0.6 x10e3 /uL 0.1-0. 9 normal Not Available [facility] (Lab) [address] [facility], [place], [address], 09/29/2024 21:21:59 09/30/19 25 09/29/2024 COMPL ETE BLOOD COUNT AUTO DIFF eosinophils absolute auto 0.3 x10e3 /uL 0.0-0. 4 normal Not Available [facility] (Lab) [address] [place], [address], 09/29/2024 21:21:59 09/30/19 25 09/29/2024 COMPL ETE BLOOD COUNT AUTO DIFF basophils absolute auto 0.1 x10e3 /uL 0.0-0. 2 normal Not Available [facility] (Lab) [address] [place], [address], 09/29/2024 21:21:59 09/30/19 25 09/29/2024 COMPL ETE BLOOD COUNT AUTO DIFF nucleated red blood cells auto 0 % 0-0 normal Not Available [facility] (Lab) [address] [place], [address], 09/29/2024 21:21:59 09/30/19 25 09/29/2024 COMPR EHENS ARNOLD METAB OLIC PANEL sodium 143 mmol/ L 134-14 4 normal Not Available [facility] (Lab) [address] [place], [address], 09/29/2024 21:42:28 09/30/19 25 09/29/2024 COMPR EHENS ARNOLD METAB OLIC PANEL potassium 4.0 mmol/ L 3.5-5. 2 normal Not Available [facility] (Lab) [address] [facility], [place], [address], 09/29/2024 21:42:28 09/30/19 25 09/29/2024 COMPR EHENS ARNOLD METAB OLIC PANEL chloride 104 mmol/ L 96-106 normal Not Available [facility] (Lab) [address] [place], [address], 09/29/2024 21:42:28 09/30/19 25 09/29/2024 COMPR EHENS ARNOLD METAB OLIC PANEL carbon dioxide 24 mmol/ L 20-29 normal Not Available [facility] (Lab) [address] [place], [address], 09/29/2024 21:42:28 09/30/19 25 09/29/2024 COMPR EHENS ARNOLD METAB OLIC PANEL anion gap 19.0 mmol/ L Not Available [facility] (Lab) [address] [place], [address], 09/29/2024 21:42:28 09/30/19 25 09/29/2024 COMPR EHENS ARNOLD METAB OLIC PANEL blood urea nitrogen 16 mg/dL 6-24 normal Not Available [facility] (Lab) [address] [place], [address], 09/29/2024 21:42:28 09/30/19 25 09/29/2024 COMPR EHENS ARNOLD METAB OLIC PANEL creatinine 1.19 mg/dL 0.76-1 .27 normal Not Available [facility] (Lab) [address], [place], [address], 09/29/2024 21:42:28 09/30/19 25 09/29/2024 COMPR EHENS ARNOLD METAB OLIC PANEL glomerular filtration rate 54 mL/mi n/1 Not Available [facility] (Lab) [address] [place], [address], 09/29/2024 21:42:28 09/30/19 25 09/29/2024 COMPR EHENS ARNOLD METAB OLIC PANEL BUN creatinine ratio 13 9-23 normal Not Available [facility] (Lab) [address] [place], [address], 09/29/2024 21:42:28 09/30/19 25 09/29/2024 COMPR EHENS ARNOLD METAB OLIC PANEL glucose 86 mg/dL 70-99 normal Not Available [facility] (Lab) [address], [place], [address], 09/29/2024 21:42:28 09/30/19 25 09/29/2024 COMPR EHENS ARNOLD METAB OLIC PANEL osmolality calculated 285 275-29 5 normal Not Available [facility] (Lab) [address] [place], [address], 09/29/2024 21:42:28 09/30/19 25 09/29/2024 COMPR EHENS ARNOLD METAB OLIC PANEL calcium 9.6 mg/dL 8.7-10 .2 normal Not Available [facility] (Lab) [address] [place], [address], 09/29/2024 21:42:28 09/30/19 25 09/29/2024 COMPR EHENS ARNOLD METAB OLIC PANEL bilirubin total 0.3 mg/dL 0.0-1. 2 normal Not Available [facility] (Lab) [address], [place], [address], 09/29/2024 21:42:28 09/30/19 25 09/29/2024 COMPR EHENS ARNOLD METAB OLIC PANEL AST aspartate aminotransfe rase 16 U/L 0-40 normal Not Available [facility] [address], [place], [address], 09/29/2024 21:42:28 09/30/19 25 09/29/2024 COMPR EHENS ARNOLD METAB OLIC PANEL ALT (alanine aminotransfe rase) 19 IU/L 0-32 normal Not Available [facility] (Lab) [address], [place], [address], 09/29/2024 21:42:28 09/30/19 25 09/29/2024 COMPR EHENS ARNOLD METAB OLIC PANEL total protein 6.7 g/dL 6.0-8. 5 normal Not Available [facility] (Lab) [address], [place], [address], 09/29/2024 21:42:28 09/30/19 25 09/29/2024 COMPR EHENS ARNOLD METAB OLIC PANEL albumin level 4.6 g/dL 3.8-4. 9 normal Not Available [facility] (Lab) [address], [place], [address], 09/29/2024 21:42:28 09/30/19 25 09/29/2024 COMPR EHENS ARNOLD METAB OLIC PANEL globulin 2.1 g/dL 1.5-4. 5 normal Not Available [facility] (Lab) [address] [place], [address], 09/29/2024 21:42:28 09/30/19 25 09/29/2024 COMPR EHENS ARNOLD METAB OLIC PANEL albumin globulin ratio 2.0 1.2-2. 2 normal Not Available [facility] (Lab) [address] [place], [address], 09/29/2024 21:42:28 09/30/19 25 09/29/2024 COMPR EHENS ARNOLD METAB OLIC PANEL alkaline phosphatase 127 IU/L 44-121 high Not Available [facility] (Lab) [address] [facility], [place], [address], 09/29/2024 21:42:28 09/30/19 25 09/29/2024 COMPR EHENS ARNOLD METAB OLIC PANEL hemolysis 4 0-19 Not Available [facility] (Lab) [address] [facility], [place], [address], 09/29/2024 21:42:28 09/30/19 25 09/29/2024 COMPR EHENS ARNOLD METAB OLIC PANEL icterus 1 0.5-4. 9 Not Available [facility] (Lab) [address] [facility], [place], [address], 09/29/2024 21:42:28 09/30/19 25 09/29/2024 COMPR EHENS ARNOLD METAB OLIC PANEL lipemia 7 0-99 Not Available [facility] (Lab) [address] [facility], [place], [address], 09/29/2024 21:42:28 10/01/19 25 10/01/2024 C DIFFI CILE TOXIN S A+B, EIA C difficile toxins A+B, EIA NEGATI VE negati ve Not Available [facility] ([facility]) [address] [facility], [place], [address], 10/01/2024 16:37:08 10/01/19 25 10/03/2024 YERSI ZOEY + VIBRI O, STOOL yersinia + vibrio, stool FINAL REPORT Not Available [facility] ([facility]) [address] [place], [address], 10/03/2024 16:36:18 10/01/19 25 10/03/2024 YERSI ZOEY + VIBRI O, STOOL result 1 NO VIBRIO ISOLAT ED. Not Available [facility] ([facility]) [address] [facility], [place], [address], 10/03/2024 16:36:18 10/01/19 25 10/03/2024 YERSI ZOEY + VIBRI O, STOOL result 2 NO YERSIN IA ISOLAT ED Not Available [facility] ([facility]) [address] [facility], [place], [address], 10/03/2024 16:36:18 Result Notes None recorded. Problems Name Problem SNOMED Code Status Onset Date Resolution Date Notes Provider Name and Address Organization Details Recorded Time Recurrent urinary tract infection 954870684 Active 2023 Evans Restrepo MD Attn: Lefty barton,[address] [place], [address], [place] [facility] 4 11:03:28 Bilateral lower leg edema 154969204 Active 2023 Evans Restrepo MD Attn: Luisavidya barton,[address] [place], [address], [place] [facility] 4 11:03:30 Atopic dermatitis 14366116 Active 2023 Evans Restrepo MD Attn: Luisavidya barton,[address] [place], [address], [place] [facility] 4 11:03:33 Hypothyroidism 77829128 Active 2023 Evans Restrepo MD Attn: Lefty mick,[address] [place], [address], [place] [facility] 4 11:03:36 Depressive disorder 64331855 Active 2023 Evans Restrepo MD Attn: Luisavidya barton,[address] [place], [address], [place] [facility] 4 11:03:37 Obesity 986476346 Active 2023 Evans Restrepo MD Attn: Lefty mick,[address] [place], [address], [place] [facility] 4 09:34:33 Hypertriglycer idemia 760542684 Active 2023 Evans Restrepo MD Attn: Lefty g,[address], [place], [address], [facility] - [facility] 4 09:34:34 Hypercholester olemia 10304272 Active 2023 Evans Restrepo MD Attn: Lefty g,[address] [facility], [place], [address], [facility] 4 09:34:37 Chronic renal failure 23864400 Active 2023 Evans Restrepo MD Attn: Lefty g,[address] [facility], [place], [address], [facility] 4 09:35:36 Problem Notes None recorded. Procedures Surgical History Date Name Laterality Status Provider Name and Address Organization Details Recorded Time Appendectomy completed Kalli Lopez MA [facility] 12/09/2023 10:37:42 Cholecystectomy completed Kalli Lopez MA [facility] 12/09/2023 10:37:52 Knee Surgery completed Kalli Lopez MA [facility] 12/09/2023 10:38:11 Breast Surgery completed Kalli Lopez MA [facility] 12/09/2023 10:38:21 hysterectomy completed Kalli Lopez MA [facility] 12/09/2023 10:38:33 Imaging Results None recorded. Procedure [...] completed Not Available Not Available Not Available diphenoxyla te-atropine 2.5 mg-0.025 mg tablet Take 1 tablet 3 times a day by oral route as needed for 30 days. 2024 active Not Available Not Available Not Avai lable sulfamethox azole 800 mg-trimetho prim 160 mg [...] Updated DateTime 5 170.18 cm 37.1 kg/m2 185657. 74 g 97 % 97 % 80 /min 122 mm[Hg] 72 mm[Hg] Kalli Lopez [place] [facility] 5 14:47:02 Date Recorded Body weight Oxygen saturation Oxygen saturation in Arterial blood by Pulse oximetry Heart rate Body temperature Body mass index (BMI) Body height Systolic blood pressure Diastolic blood pressure Provider Name and Address Organization Details Last Updated DateTime 4 27191.2 1 g 97 % 97 % 83 /min 96.7 [degF] 32.6 kg/m2 170.18 cm 118 mm[Hg] 58 mm[Hg] Kalli Lopez [place] [facility] 4 10:24:16 Date Recorded Body height Body mass index (BMI) Body weight Oxygen saturation Oxygen saturation in Arterial blood by Pulse oximetry Heart rate Systolic blood pressure Diastolic blood pressure Provider Name and Address Organization Details Last Updated DateTime 4 170.18 cm 35.7 kg/m2 114666. 06 g 97 % 97 % 70 /min 124 mm[Hg] 70 mm[Hg] Kalli Lopez MA [facility] 09:02:48 Social History Question Answer Notes LastModified by Organizat ion Details LastModified Time Tobacco Smoking Status Former Smoker Kalli Lopez MA null, [facility] 12/09/2023 10:39:14 What Was The Date Of Your Most Recent Tobacco Screening? 09/29/2024 Information not available 09/29/2024 Sex: Unknown Functional Status Question Answer Note LastModified by Organizat ion Details LastModified Time What is your level [...] or Bladder Problems N Thyroid Problems Y Blood Clots N COPD N Depression N GI Problems N Have you had a mammogram in the last yea r? N Skin Problems N Eating Disorder N Anemia N Heart Attack ([place]) N Anxiety Disorder N Diabetes N Muscle, [...] Recorded Time Tdap 07/06/2018 completed Not Available [facility] 09/29/[facility]24 14:37:07 Past Encounters Encounter ID Performer Location Encounter Start Date Encounter Closed Date Diagnosis/Indication Diagnosis SNOMED-CT Code Diagnosis ICD10 Code Diagnosis Note [id number] Evans Restrepo MD [facility] [address] [facility] [address] [place] [address] 12/09/2023 09:59:50 12/10/2023 09:24:43 Adult health examination 926945107 Z00.00 order cbc, cmp, lipid panel Depressive disorder 3548 9007 F32.A condition chronic and at goal refill the cymbalta for 90 days and 3 refills Hypothyroidism 39834648 E03.9 condition chroinc and at goal follow with endo Atopic dermatitis 245080 01 L20.9 condition chronic and at goal refill the triamcinal one 60 gram tube with 5 refills. Bilateral lower leg edema 176168870 R60.0 condiotn chronic and at goal refill the maxide for 90 days nad 3 refills. Migraine 33650599 G43.90 9 condiion chronic and at goal refill the topamax for 90 days nad 3 refills. Recurrent urinary tract infection 486262480 N39.0 condiotn chroinc and at goal order bactrim for 3 days with 5 refills. [id number] Evans Restrepo MD [facility] [address] [facility] [address] [place] [address] 04/20/2024 08:54:08 04/26/2024 17:42:05 Pain of bilateral hands 7615258678 8761695 M79.641 conditon acute order xrays bilateral hands. order connective tissue pain order medrol dose pack Chronic renal failure 90 683016 N18.9 conditon chroic and not at goal refer to dr grant Hypothyroidism 98884351 E03.9 condition chroinc and at goal follow with endo Depressive disorder 8856 5537 F32.A condition chronic and at goal refill the cymbalta for 90 days and 3 refills Hypercholesterolemia 136 03758 E78.00 condition acute start low fat diet. Hypertriglyceridemia 302 472804 E78.1 conditon chroinc and not at goal start low fat diet. Obesity 022191790 E66.9 conditon chronic and not at goal start low fat diet. [id number] Evans Restrepo MD [facility] m[facility] [place] [facility] [address] [facility] [address] [facility] [place] [address] 09/29/2024 14:35:11 10/01/2024 10:38:33 Colitis 96975884 K52.[address] abd/pelvis with contrast tomorrow order cbc, cmp. Acute diarrhea 269943884 R19.7 conditoin acute order stool culture, o & p, c diff after the culture start pepto bismal tablets 2 tid. Nausea 071816355 R11.0 condition acute order zofan odt 4 mg tid #90 Hypercholesterolemia 136 25864 E78.00 condition acute start low fat diet. Chronic renal failure 90 096151 N18.9 conditon chroic and not at goal refer to dr grant Health Concerns Section Related Observation LastModified by Organization Detai ls LastModified Time None Recorded Concern Status LastModified by Organization Details LastModified Time None Recorded Advance Directives Directive None Recorded Payers Insurance Date Sequence Insurance Name Policy Number Policy Maldonado Covered Member ID Maldonado Member ID Guarantor Name 09/28/2024 1 [facility] [employer] (HMO) [id number] Alethea Newsome [id number] OI Alethea Newsome Notes Date Note Type [...] utd. Evans Restrepo MD Attn: Accounting,[address] [facility], [place], [address], [facility] 12/09/2023 13:26:15 04/20/2024 text/html states that she has pain and swelling in the hands. 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 the chol and hte triglycerides are under control has crf Evans Restrepo MD Attn: Accounting,[address] [facility], [place], [address], [facility] 04/20/2024 10:41:32 09/29/2024 text/html states that she has been having nausea, diarrhea watery and abdominal cramping 1 month. the depression adn the chol is under control the crf is under control taking her meds as directed. Delisa Lane RN null, [place] [facility] 09/29/2024 17:04:43 OBGyn Episode No OBEpisode recorded.
--- OUTSIDE RECORDS SUMMARY | 2024-10-09 07:28 | XMS_ITS | Clinical Summary ---
Author Organization [facility] Address [address] [place] [address] Care Team Providers Care Residential Roofer Helper Name Role Phone Ajay Díaz MD Primary Care Provider [phone] Source Comments [facility],non-owned Affiliates and Associated Physician Practices is amultiple site organization consisting of ambulatory clinics and hospital sitesin [place], [place], [place] and [place]. This disclosure is being madepursuant to the Care Everywhere program and may not contain all information available regarding this patient. 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
--- OUTSIDE RECORDS SUMMARY | 2024-10-09 07:28 | XMS_ITS | Continuity of Care Document ---
Author Organization [facility] Address [address] [place] [address] Phone Care Team Providers Care Chemical Sprayer Name Role Phone Shawn Rico MD Unavailable [...] Providers Copied on Encounter [facility], [address], [place], [address], [place] tel:[phone] [facility] No Information 7 Trisha Escobar. [address], [place], [place], [id number] . tel: [phone] OFFICE/OUTPAT IENT VISIT EST [facility], [address], [place], [address], [place] tel:[phone] [facility] LBP and bilateral leg pain (chief complaint) Lumbar radiculitisDJD (degenerative joint disease), lumbosacral 5 Flip Rose. [address] , [place], [place], [id number] . tel: [phone] [facility], [address] [facility] [address], [address], tel:[phone] [facility] No Information 5 Flip Rose. [address] , [place], [place], [id number] . tel: [phone] OFFICE CONSULTATION [facility], [address], [address], tel:[phone] [facility] LBP abd bilateral leg pain (chief complaint) DJD (degenerative joint disease), lumbosacralLum bar radiculitisKne e pain 5 Flip Rose. [address] [facility] [place], [place], [id number] . tel:[phone] Referring Provider: Ajay Lisa, RETIRED [address] [place] [address] [address], [place], [address]. tel:[phone] [facility], [address] [facility] [address], [address], [place] tel:[phone] [facility] No Information 5 Flip Rose. [address] [facility] [place], [place], [id number] . tel:[phone] Family History Family Member Type Diagnosis Age [...]
--- OUTSIDE RECORDS SUMMARY | 2024-10-09 07:28 | XMS_ITS | Data Portability ---
Author Organization [facility] [employer], Main Office Address [address] [place] [address] Assessment No assessment recorded. Plan of Treatment [...] Care in Diabe michael(A DA). Not Available [facility] [address] [place], [address], 01/16/2022 09:21:01 01/16/20 22 01/16/2022 VITAM IN [...] /MS is recom sacha d: order code 69094 (julian ents >2yrs ). See Note 1 Note 1 For addit ional infor jeff moise e refer to http: //[facility] stD[facility] gnost ics.c om/fa q/FAQ 199 (This link is being provi ded for infor everardo esteban/ chetna agee purpo ses only. ) Not Available [facility] [address] [place], [address], 01/16/2022 09:21:00 01/16/20 22 01/16/2022 TSH TSH 0.01 mIU/L low Refer ence Range > or = 20 Years 0.40- 4.50 Pregn anand Range s First trime ster 0.26- 2.66 Secon d trime ster 0.55- 2.73 Third trime ster 0.43- 2.91 Not Available [facility] [address] [place], [address], 01/16/2022 09:20:59 01/16/20 22 01/16/2022 CBC (INCL UDES DIFF/ PLT) white blood cell count 7.8 thous and/u L 3.8-10 .8 normal Not Available [address], [address], 01/16/2022 09:20:59 01/16/20 22 01/16/2022 CBC (INCL UDES DIFF/ PLT) red blood cell count 5.26 judy on/uL 3.80-5 .10 high Not Available [address], [address], 01/16/2022 09:20:59 01/16/20 22 01/16/2022 CBC (INCL UDES DIFF/ PLT) hemoglobin 16.0 g/dL 11.7-1 5.5 high Not Available [address], [address], 01/16/2022 09:20:59 01/16/20 22 01/16/2022 CBC (INCL UDES DIFF/ PLT) hematocrit 46.4 % 35.0-4 5.0 high Not Available [address], [address], 01/16/2022 09:20:59 01/16/20 22 01/16/2022 CBC (INCL UDES DIFF/ PLT) MCV 88.2 fL 80.0-1 00.0 normal Not Available [address], [address], 01/16/2022 09:20:59 01/16/20 22 01/16/2022 CBC (INCL UDES DIFF/ PLT) MCH 30.4 pg 27.0-3 3.0 normal Not Available [address], [address], 01/16/2022 09:20:59 01/16/20 22 01/16/2022 CBC (INCL UDES DIFF/ PLT) MCHC 34.5 g/dL 32.0-3 6.0 normal Not Available [facility] [address], [address], 01/16/2022 09:20:59 01/16/20 22 01/16/2022 CBC (INCL UDES DIFF/ PLT) RDW 13.3 % 11.0-1 5.0 normal Not Available [address], [address], 01/16/2022 09:20:59 01/16/20 22 01/16/2022 CBC (INCL UDES DIFF/ PLT) platelet count 352 thous and/u L 140-40 0 normal Not Available [address], [address], 01/16/2022 09:20:59 01/16/20 22 01/16/2022 CBC (INCL UDES DIFF/ PLT) MPV 11.2 fL 7.5-12 .5 normal Not Available [address], [address], 01/16/2022 09:20:59 01/16/20 22 01/16/2022 CBC (INCL UDES DIFF/ PLT) absolute neutrophils 4625 cells /uL 1500-7 800 normal Not Available [address], [address], 01/16/2022 09:20:59 01/16/20 22 01/16/2022 CBC (INCL UDES DIFF/ PLT) absolute lymphocytes 2426 cells /uL 850-39 00 normal Not Available [address], [address], 01/16/2022 09:20:59 01/16/20 22 01/16/2022 CBC (INCL UDES DIFF/ PLT) absolute monocytes 515 cells /uL 200-95 0 normal Not Available [address], [address], 01/16/2022 09:20:59 01/16/20 22 01/16/2022 CBC (INCL UDES DIFF/ PLT) absolute eosinophils 156 cells /uL 15-500 normal Not Available [address], [address], 01/16/2022 09:20:59 01/16/20 22 01/16/2022 CBC (INCL UDES DIFF/ PLT) absolute basophils 78 cells /uL 0-200 normal Not Available [address], [address], 01/16/2022 09:20:59 01/16/20 22 01/16/2022 CBC (INCL UDES DIFF/ PLT) neutrophils 59.3 % normal Not Available [address], [address], 01/16/2022 09:20:59 01/16/20 22 01/16/2022 CBC (INCL UDES DIFF/ PLT) lymphocytes 31.1 % normal Not Available [address], [address], 01/16/2022 09:20:59 01/16/20 22 01/16/2022 CBC (INCL UDES DIFF/ PLT) monocytes 6.6 % normal Not Available [address], [address], 01/16/2022 09:20:59 01/16/20 22 01/16/2022 CBC (INCL UDES DIFF/ PLT) eosinophils 2.0 % normal Not Available [address], [address], 01/16/2022 09:20:59 01/16/20 22 01/16/2022 CBC (INCL UDES DIFF/ PLT) basophils 1.0 % normal Not Available [address], [address], 01/16/2022 09:20:59 01/16/20 22 01/16/2022 HEPAT IC FUNCT ION PANEL protein, total 7.0 g/dL 6.1-8. 1 normal Not Available [address], [address], 01/16/2022 09:20:58 01/16/20 22 01/16/2022 HEPAT IC FUNCT ION PANEL albumin 4.5 g/dL 3.6-5. 1 normal Not Available [address], [address], 01/16/2022 09:20:58 01/16/20 22 01/16/2022 HEPAT IC FUNCT ION PANEL globulin 2.5 g/dL_ (calc ) 1.9-3. 7 normal Not Available [address], [address], 01/16/2022 09:20:58 01/16/20 22 01/16/2022 HEPAT IC FUNCT ION PANEL albumin/glob ulin ratio 1.8 (calc ) 1.0-2. 5 normal Not Available [address], [address], 01/16/2022 09:20:58 01/16/20 22 01/16/2022 HEPAT IC FUNCT ION PANEL bilirubin, total 0.5 mg/dL 0.2-1. 2 normal Not Available [address], [address], 01/16/2022 09:20:58 01/16/20 22 01/16/2022 HEPAT IC FUNCT ION PANEL bilirubin, direct 0.1 mg/dL < or = 0.2 normal Not Available [address], [address], 01/16/2022 09:20:58 01/16/20 22 01/16/2022 HEPAT IC FUNCT ION PANEL ALT 27 U/L 6-29 normal Not Available [address], [address], 01/16/2022 09:20:58 01/16/20 22 01/16/2022 HEPAT IC FUNCT ION PANEL bilirubin, indirect 0.4 mg/dL _(wilton c) 0.2-1. 2 normal Not Available [address], [address], 01/16/2022 09:20:58 01/16/20 22 01/16/2022 HEPAT IC FUNCT ION PANEL alkaline phosphatase 129 U/L 37-153 normal Not Available [facility] [employer] [address], [address], 01/16/2022 09:20:58 01/16/20 22 01/16/2022 HEPAT IC FUNCT ION PANEL AST 21 U/L 10-35 normal Not Available [facility] [employer] [address], [address], 01/16/2022 09:20:58 01/16/20 22 01/16/2022 BASIC METAB OLIC PANEL glucose 130 mg/dL 65-99 high Fasti ng refer ence inter reagan For someo ne witho ut known diabe michael, a gluco se value >125 mg/dL indic ates that they may have diabe michael and this shoul d be confi rmed with a follo w-up test. Not Available [facility] [employer] [address], [address], 01/16/2022 09:20:57 01/16/20 22 01/16/2022 BASIC METAB OLIC PANEL urea nitrogen (BUN) 22 mg/dL 7-25 normal Not Available [facility] [address], [address], 01/16/2022 09:20:57 01/16/20 22 01/16/2022 BASIC METAB OLIC PANEL creatinine 1.17 mg/dL 0.50-1 .03 high Not Available [facility] [address], [address], 01/16/2022 09:20:57 01/16/20 22 01/16/2022 BASIC METAB [...] kdoqi /gfr% 5Fcal culat or Not Available [address], [address], 01/16/2022 09:20:57 01/16/20 22 01/16/2022 BASIC METAB OLIC PANEL BUN/creatini ne ratio 19 (calc ) 6-22 normal Not Available [address], [address], 01/16/2022 09:20:57 01/16/20 22 01/16/2022 BASIC METAB OLIC PANEL sodium 140 mmol/ L 135-14 6 normal Not Available [address], [address], 01/16/2022 09:20:57 01/16/20 22 01/16/2022 BASIC METAB OLIC PANEL potassium 3.2 mmol/ L 3.5-5. 3 low Not Available [address], [address], 01/16/2022 09:20:57 01/16/20 22 01/16/2022 BASIC METAB OLIC PANEL chloride 100 mmol/ L 98-110 normal Not Available [address], [address], 01/16/2022 09:20:57 01/16/20 22 01/16/2022 BASIC METAB OLIC PANEL carbon dioxide 29 mmol/ L 20-32 normal Not Available [facility] [address] [address] [place], [address], 01/16/2022 09:20:57 01/16/20 22 01/16/2022 BASIC METAB OLIC PANEL calcium 9.5 mg/dL 8.6-10 .4 normal Not Available [address] [address] [place], [address], 01/16/2022 09:20:57 03/04/20 22 03/05/2022 BASIC METAB OLIC PANEL creatinine 1.31 mg/dL 0.50-1 .03 high Not Available [address], [address], 03/05/2022 15:21:12 03/04/20 22 03/05/2022 BASIC METAB OLIC PANEL glucose 61 mg/dL 65-99 low Fasti ng refer ence inter reagan Not Available [address], [address], 03/05/2022 15:21:12 03/04/20 22 03/05/2022 BASIC METAB OLIC PANEL urea nitrogen (BUN) 23 mg/dL 7-25 normal Not Available [address], [address], 03/05/2022 15:21:12 03/04/20 22 03/05/2022 BASIC METAB [...] kdoqi /gfr% 5Fcal culat or Not Available [address] [address] [place], [address], 03/05/2022 15:21:12 03/04/20 22 03/05/2022 BASIC METAB OLIC PANEL BUN/creatini ne ratio 18 (calc ) 6-22 normal Not Available [address] [address] [place], [address], 03/05/2022 15:21:12 03/04/20 22 03/05/2022 BASIC METAB OLIC PANEL sodium 138 mmol/ L 135-14 6 normal Not Available [address], [address], 03/05/2022 15:21:12 03/04/20 22 03/05/2022 BASIC METAB OLIC PANEL potassium 3.8 mmol/ L 3.5-5. 3 normal Not Available [address], [address], 03/05/2022 15:21:12 03/04/20 22 03/05/2022 BASIC METAB OLIC PANEL chloride 96 mmol/ L 98-110 low Not Available [address], [address], 03/05/2022 15:21:12 03/04/20 22 03/05/2022 BASIC METAB OLIC PANEL carbon dioxide 29 mmol/ L 20-32 normal Not Available [address], [address], 03/05/2022 15:21:12 03/04/20 22 03/05/2022 BASIC METAB OLIC PANEL calcium 9.3 mg/dL 8.6-10 .4 normal Not Available [address], [address], 03/05/2022 15:21:12 03/04/20 22 03/05/2022 SPECI MEN [...] ct with red cells . Not Available [address], [address], 03/05/2022 15:21:11 03/05/20 22 03/05/2022 XR, abdom en No observ ation record ed. [id number] [address] [facility], [place], [address], 06/27/2022 00:34:34 07/13/19 23 07/11/2022 MAMMO , scree iram, digit al, bilat eral No observ ation record ed. [address] [address], [place], [address], 07/15/2022 08:03:43 07/13/19 23 07/12/2022 MRI, cervi wilton spine , w/o contr ast No observ ation record ed. [address] [address], [place], [address], 07/15/2022 08:04:07 02/12/20 23 02/11/2023 XR, abdom en No observ ation record ed. [address] [address], [place], [address], 06/26/2023 16:33:02 06/20/19 24 06/20/2023 XR, abdom en No observ ation record ed. [address] [address], [place], [address], 06/26/2023 16:36:17 07/04/19 24 07/04/2023 XR, abdom en No observ ation record ed. [address] [address], [place], [address], 09/12/2023 16:35:52 08/10/19 24 08/10/2023 XR, abdom en No observ ation record ed. [address] [address], [place], [address], 09/12/2023 16:36:07 09/16/19 24 09/16/2023 MAMMO , scree iram, digit al, bilat eral No observ ation record ed. [facility] [address], [place], [address], 09/22/2023 11:07:43 12/20/1912/20/2023 imagi ng/tru alainaos tic resul t No observ ation record ed. [facility] [address], [place], [address], 12/22/2023 13:32:03 Result Notes None recorded. Problems Name Problem SNOMED Code Status Onset Date Resolution Date Notes Provider Name and Address Organization Details Recorded Time Mixed anxiety and depressive disorder 181719894 Active 2021 Not Available [facility] 3 00:30:37 Degeneration of lumbar intervertebra l disc 06164980 Active 2021 Not Available [facility] 3 00:30:37 Gastroesophag eal reflux disease without esophagitis 690049394 Active 2021 Not Available [facility] 3 00:30:37 Edema 367986254 Active 2021 Not Available [facility] 3 00:30:37 Restless legs 56888798 Active 2021 Not Available [facility] 3 00:30:38 Migraine 56993427 Active 2021 Not Available [facility] 3 00:30:38 Hypothyroidis m 15817647 Active 2021 [facility] Available [facility] 3 00:30:38 Small bowel bacterial overgrowth syndrome 365349910 Active 2021 Not Available [facility] 3 00:30:38 Postcholecyst ectomy syndrome 96055010 Active 2021 Not Available [facility] 3 00:30:38 Acute situational disturbance 177205701 Active 2022 Annetta Le MD [address] [facility], [address] [address], [place], [address] , [facility] 3 07:53:32 Eruption 858989246 Active 2022 Annetta Le MD [address] [facility], [address], [place], [address] , [place] [facility] 10:09:40 Problem Notes None recorded. Procedures Surgical History Date Name Laterality Status Provider Name and Address Organization Details Recorded Time Breast reduction completed Not Available [facility] 06/27/2022 00:28:12 Imaging Results None recorded. Procedure [...] Updated DateTime 3 170.18 cm 23.3 kg/m2 61160.2 6 g 97 [degF] 70 /min 98 % 98 % 118 mm[Hg] 80 mm[Hg] Luiza Hernandez MA [place] [facility] [employer] 3 14:21:06 Date Recorded Body mass index (BMI) Body height Oxygen saturation Oxygen saturation in Arterial blood by Pulse oximetry Heart rate Body temperature Body weight Systolic blood pressure Diastolic blood pressure Provider Name and Address Organization Details Last Updated DateTime 2 26.3 kg/m2 170.18 cm 97 % 97 % 82 /min 97.6 [degF] 80091.5 2 g 118 mm[Hg] 78 mm[Hg] Not Available [facility] 3 00:29:01 Date Recorded Body mass index (BMI) Body height Oxygen saturation Oxygen saturation in Arterial blood by Pulse oximetry Heart rate Body temperature Body weight Systolic blood pressure Diastolic blood pressure Provider Name and Address Organization Details Last Updated DateTime 2 25.1 kg/m2 170.18 cm 99 % 99 % 80 /min 96.79 [degF] 18010.7 8 g 108 mm[Hg] 64 mm[Hg] Not Available [facility] 3 00:29:01 Date Recorded Body height Body mass index (BMI) Body weight Body temperature Heart rate Oxygen saturation Oxygen saturation in Arterial blood by Pulse oximetry Systolic blood pressure Diastolic blood pressure Provider Name and Address Organization Details Last Updated DateTime 3 170.18 cm 27.6 kg/m2 03179.2 6 g 97.3 [degF] 68 /min 98 % 98 % 142 mm[Hg] 80 mm[Hg] Samantha Dawn RN [place] [facility] 3 12:20:23 Date Recorded Body mass index (BMI) Body height Oxygen saturation Oxygen saturation in Arterial blood by Pulse oximetry Heart rate Body temperature Body weight Systolic blood pressure Diastolic blood pressure Provider Name and Address Organization Details Last Updated DateTime 2 23.8 kg/m2 170.18 cm 98 % 98 % 70 /min 97.1 [degF] 70959.0 4 g 98 mm[Hg] 64 mm[Hg] Not Available [facility] 3 00:29:02 Social History Question Answer Notes LastModified by [employer] Details LastModified Time Tobacco Smoking Status Former Smoker quit 2015 Not Available [facility] 06/27/2022 00:27:25 Do You Have An Advance Directive? No Information not available 01/06/2024 What Is Your Level Of Caffeine Consumption? Moderate [id number] Information not available 06/27/2022 How Much Tobacco Do You Chew? None Information not available 01/06/2024 In The 14 Days Before Symptom Onset, Have You Had Close Contact With A Laboratory-confir med COVID-19 While That Case Was Ill? No [id number] Information not available 06/27/2022 In The 14 Days Before Symptom Onset, Have You Had Close Contact With A Person Who Is Under Investigation For COVID-19 While That Person Was Ill? No [id number] Information not available 06/27/2022 What Type Of Diet Are You Following? REGULAR [id number] Information not available 06/27/2022 Do You Have A Medical Power Of Director Of Direct Marketing? No [id number] Information not available 06/27/2022 What Was The Date Of Your Most Recent Tobacco Screening? 06/07/2021 [id number] Information not available 06/27/2022 What Is Your Relationship Status? Information not available 01/06/2024 Do You Use Your Seat Belt Or Car Seat Routinely? Yes [id number] Information not available 06/27/2022 How Much Tobacco Do You Smoke? No Information not available 01/06/2024 Have You Recently Traveled Abroad? No [id number] Information not available 06/27/2022 Do You Have Any Dietary Restrictions? No [id number] Information not available 06/27/2022 Sex: Unknown Functional Status Question Answer Note LastModified by Organizat ion Details LastModified Time Do you use any illicit or recreational drugs? No [id number] Information not available 06/27/2022 What is your level of alcohol consumption? 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 Moderate [id number] 026 Information not available 06/27/2022 Mental Status Question Answer Note LastModified by Organizat ion Details LastModified Time Do you feel stressed (tense, restless, nervous, or anxious, or unable to sleep at night)? [id number] Information not available 06/27/2022 Family History Relationship Description Onset Age of this Age Resolved Age Notes LastModified by Organization Details LastModified Time Mother Malignant tumor of breast [email or web address] Not available 2022 12:17:04 Mother Prediabetes [email or web address] Not availa ble 04/01/2023 12:17:04 Father Myocardial infarction [id number] Not available 06/27/2022 00:28:15 Father Epilepsy [email or web address] Not available 04/01/2023 12:17:04 Medical History Condition Response OTHER # 1 Y HEADACHES/MIGRAINES Y Gynecological HistoryNo gynecological history recorded. Obstetrics History GPAL:G 0 P 0 0 0 0 Immunizations Vaccine Type Date Status Note Provider Nam e and Address Organization Details Recorded Time Tdap 07/06/2018 completed Debbie Chris, CARDIAC CATH RN [address] [facility], [address], [place], [address], [facility] 01/06/2024 08:45:53 Past Encounters Encounter ID Performer Location Encounter Start Date Encounter Closed Date Diagnosis/Indication Diagnosis SNOMED-CT Code Diagnosis ICD10 Code Diagnosis Note [id number] Annetta Le MD [facility] Primary [facility] [place] [address] [place] [address] 06/07/2021 00:00:00 06/20/2021 14:16:09 [id number] OSKAR Santos [facility] Primary [place] [address] [facility] [address] [place] [address] 06/18/2021 00:00:00 06/18/2021 10:01:26 [id number] _ATHN_MIGR ATION_1 _ATHENA_M IGRATION_ DEFAULT_1 _1 , 07/04/2021 00:00:00 07/04/2021 17:24:02 [id number] Annetta Le MD [facility] Primary [place] [address] [place] [address] 01/15/2022 00:00:00 01/23/2022 18:57:28 [id number] Annetta Le MD [facility] Primary [facility] [place] [address] [place] [address] 02/26/2022 00:00:00 03/05/2022 16:15:18 [id number] Annetta Le MD [facility] Primary [place] [address] [place] [address] 04/16/2022 00:00:00 04/16/2022 14:35:59 [id number] Annetta Le MD [facility] Primary [facility] [place] [address] [place] [address] 07/16/2022 14:14:20 07/16/2022 14:44:57 Acute situational disturbance 126839300 F43.20 improvedco ntinue duloxetine 60 mg daily [id number] Annetta Le MD [facility] [place] [address] [facility] [address] [place] [address] 04/01/2023 12:14:43 04/01/2023 12:41:02 Acute situational disturbance 764076580 F43.20 improvedco ntinue duloxetine 60 mg daily Health Concerns Section Related Observation LastModified by Organization Detai ls LastModified Time None Recorded Concern Status LastModified by Organization Details LastModified Time None Recorded Advance Directives Directive N: Payers Insurance Date Sequence Insurance Name Policy Number Policy Maldonado Covered Member ID Maldonado Member ID Guarantor Name 03/31/2023 1 [email or web address] NOW (INDEMNITY) [id number] Alethea Newsome [id number] OI Alethea Newsome Notes Date Note Type Note Provider Name and Address Organization Details Recorded Time 07/16/2022 text/html will have f/u [facility]o regarding cervical spondylosis on 07/26 she did notice duloxetine 60 mg daily has helped her nerves/mood Annetta Le MD [address], [address] [address], [place], [address], [employer] 07/25/2022 07:54:07 04/01/2023 text/html she did notice duloxetine 60 mg daily has helped her nerves/mood Annetta Le MD [address], [address], [place], [address], [employer] 04/24/2023 09:02:49 OBGyn Episode No OBEpisode recorded.
--- OUTSIDE RECORDS SUMMARY | 2024-10-09 07:28 | XMS_ITS | Clinical Summary ---
Author Organization [facility] Address [address] [place] [address] Care Team Providers Care Machine Former Name Role Phone Elza Martinez Primary Care Provider [phone] Allergies Active Allergy Reactions Criticality Noted Date [...] 05/03/2021 Assessment & Plan (2021 3:31 PM MUSIC COPYIST): Symptoms improving and almost resolved. Patient advised to continue with tylenol every six hours as needed for fever/body aches. Will send in prednisone x 5d - encouraged her to start this if cough is not improving in the next 24h. Note provided for return to work on Friday. Advised her to contact [facility] office Friday/friday if symptoms are not improving as she may need to extend leave. Assessment & Plan (05/03/2021 1:23 PM MUSIC COPYIST): We discussed supportive treatment, including Tylenol every [...] 06/26/2020 Assessment & Plan (06/26/2020 3:49 PM MUSIC COPYIST): Will refer to ortho for further evaluation and treatment. She has tried and failed lyrica and gabapentin in the past. Arthritis, senescent 06/26/2020 Colon cancer screening 06/26/2020 Assessment & Plan (06/26/2020 3:48 PM MUSIC COPYIST): Will refer for screening cscope Intractable migraine with status migrainosus Assessment & Plan (06/12/2020 11:11 AM MUSIC COPYIST): Continue with tylenol q6h as needed for headache Advised to er if worsens Will start topamax bid. Discussed increasing strength at end of week pending response - she will contact office on Friday. Will retrieve records from [facility] for review. Nausea 06/08/2020 Assessment & Plan (06/08/2020 2:14 PM MUSIC COPYIST): Patient was advised given symptoms to report to er for further evaluation and treatment. She will have drive. Shortness of breath 06/08/2020 Assessment & Plan (06/08/2020 2:14 PM MUSIC COPYIST): Patient was advised given symptoms to report to er for further evaluation and treatment. She will have drive. Vertigo 06/06/2020 Assessment & Plan (06/12/2020 11:12 AM MUSIC COPYIST): Will retrieve records from [facility] for review. She will start meclizine 25mg q8h as needed for dizziness from [place] er. She was advised caution after taking as it may make her drowsy. Assessment & Plan (06/08/2020 2:14 PM MUSIC COPYIST): Patient was advised given symptoms to report to er for further evaluation and treatment. She will have drive. Assessment & Plan (06/06/2020 2:46 PM MUSIC COPYIST): Will send patient to [facility] for Covid-19 testing. The patient was advised to quarantine at least 10 days from symptom onset, but this determination will depend on result of testing. They were advised to contact us in the next 72h if they have not heard results of testing. They were advised to report to the ER if worsening. Nasal congestion 06/06/2020 Assessment & Plan (06/06/2020 2:46 PM MUSIC COPYIST): Will send patient to [facility] for Covid-19 testing. The patient was advised [...] labs Assessment & Plan (06/13/2019 10:53 PM MUSIC COPYIST): Encouraged patient to continue low fat/low chol diet. Continue exercise. Increase good fats in the diet. Monitor labs as needed. Breast cancer screening by mammogram 04/25/2019 Assessment & Plan (04/25/2019 7:01 PM MUSIC COPYIST): Mammogram order provided Polyarthralgia 03/05/2019 Assessment & Plan (06/26/2020 3:49 PM MUSIC COPYIST): Will evaluate further with labs and imaging. Will notify her of results as available. Will add a topical voltaren gel. We discussed changing celebrex to mobic, however she reports she has tried and failed mobic in the past. Assessment & Plan (03/05/2019 1:57 PM MUSIC COPYIST): Check labs. Continue K and Mg as stable with replacement. Monitor closely as not on meds that would be electrolyte lowering Other fatigue 08/30/2018 Assessment & Plan (06/13/2019 10:51 PM MUSIC COPYIST): Probably multifactorial. Check labs and followup to re-evaluate Assessment & Plan (08/30/2018 4:08 PM CDT): Probably multifactorial. Check labs and followup to re-evaluate Abdominal pain 08/30/2018 Assessment & Plan (06/17/2019 11:23 AM MUSIC COPYIST): Sxs seem to be c/w GERD. Discussed GERD at length including anatomy, behavioral changes (raise HOB, meal timings), dietary changes and medication options. Reviewed risks, benefits alternatives, side effects and proper use. Followup if sxs worsen or has hematochezia or hematemeis. Start Omeprazole. May use TUMS prn. F.u 4-6 weeks. Assessment & Plan (06/13/2019 10:50 PM MUSIC COPYIST): Improved since having gallbladder removed. Assessment & [...] cymbalta Assessment & Plan (06/17/2019 11:25 AM MUSIC COPYIST): Stable with Cymbalta. Continue current dose. Assessment & Plan (06/13/2019 10:51 PM MUSIC COPYIST): Stable with the cymbalta Assessment & Plan (04/25/2019 7:01 PM MUSIC COPYIST): Continue the Cymbalta. Start wellbutrinXL 150mg q am. Reviewed risks, benefit, alternatives, side effects and proper use. No history of seizures. Assessment & Plan (03/05/2019 2:05 PM MUSIC COPYIST): Continue the Cymbalta. Start Wellbutrinxl 150mg. Reviewed [...] 07/06/2018 Assessment & Plan (05/28/2021 8:31 PM MUSIC COPYIST): We reviewed medication list. She notes that [...] migraines. Assessment & Plan (06/26/2020 3:50 PM MUSIC COPYIST): Will add a prn maxalt. Advised her of potential drowsiness after taking. Assessment & Plan (06/13/2019 10:51 PM MUSIC COPYIST): Felling better off the Topamax. Assessment & Plan (04/25/2019 7:04 PM MUSIC COPYIST): Continue the Topamax but work on stretching to see if helps with the tension type PIERSON. She is on Celebrex so no further NSAIDs. Monitor to see if Wellbutrin/Cymbalta helps too. Assessment & Plan (08/30/2018 4:06 PM CDT): Lower extremity edema 07/06/2018 Assessment & Plan (08/30/2018 4:07 PM CDT): Increase the maxzide. Keep legs elevated. Hypokalemia 07/06/2018 Overview (06/26/2020): monitored by [employer] Dr. Tovar Venous insufficiency of both lower extremities 1 Overview (06/26/2020): Dr. Winn also saw and examined the patient today. Although venous insufficiency was identified by reflux exam, the patient does not experience significant edema that worsens throughout the day and lower extremity edema is also not an exacerbating facto Acquired hypothyroidism 09/11/2013 Overview (06/26/2020): HYPOTHYROIDISM NOS monitored by [employer] Dr. Tovar Assessment & Plan (12/15/2020 8:11 PM CDT): Continue levothyroxine. Monitor labs. Continue per Dr. Martínez Assessment & Plan (08/13/2020 11:08 PM CDT): Continue with Endocrinology Assessment & Plan (12/10/2019 8:16 PM CDT): Check labs and adjust as indicated. Assessment & Plan (06/13/2019 10:52 PM MUSIC COPYIST): Stable with levothyoroxine and cytomel Monitor levels. Assessment & Plan (03/05/2019 1:57 PM MUSIC COPYIST): Continue current regimen Assessment & Plan (12/24/2018 [...] 07/11/2020 Assessment & Plan (06/26/2020 1:55 PM MUSIC COPYIST): Obesity is unchanged. Discussed the patient's BMI. The BMI is above average. BMI management plan is completed. BMI Follow-up includes: nutrition counseling, exercise counseling and education provided. Cough 06/06/2020 08/06/2021 Assessment & Plan (06/06/2020 2:46 PM MUSIC COPYIST): Will send patient to [facility] for Covid-19 testing. The patient was advised [...] labs Assessment & Plan (06/13/2019 10:53 PM MUSIC COPYIST): Check labs Breast cancer screening by mammogram 03/05/2019 03/05/2019 Assessment & Plan (03/05/2019 2:04 PM MUSIC COPYIST): Mammogram order provided BMI 39.0-39.9,adult 10/19/2018 07/12/19 21 Assessment & Plan (12/10/2019 8:16 PM CDT): Obesity is unchanged. Discussed the patient's BMI. The BMI is above average. BMI management plan is completed. BMI Follow-up includes: nutrition counseling, exercise counseling and education provided. Assessment & Plan (06/17/2019 7:09 AM MUSIC COPYIST): Obesity is unchanged. Discussed the patient's BMI. The BMI is above average. BMI management plan is completed. BMI Follow-up includes: nutrition counseling, exercise counseling and education provided. Assessment & Plan (06/09/2019 7:07 AM MUSIC COPYIST): Obesity is unchanged. Discussed the patient's BMI. The BMI is above average. BMI management plan is completed. BMI Follow-up includes: nutrition counseling, exercise counseling and education provided. Assessment & Plan (04/16/2019 7:14 AM MUSIC COPYIST): Obesity is unchanged. Discussed the patient's BMI. The BMI is above average. BMI management plan is completed. BMI Follow-up includes: nutrition counseling, exercise counseling and education provided. Assessment & Plan (03/05/2019 1:58 PM MUSIC COPYIST): Obesity is unchanged. Discussed the patient's BMI. [...] provided. Assessment & Plan (06/17/2019 7:09 AM MUSIC COPYIST): Obesity is unchanged. Discussed the patient's BMI. The BMI is above average. BMI management plan is completed. BMI Follow-up includes: nutrition counseling, exercise counseling and education provided. Assessment & Plan (06/09/2019 7:07 AM MUSIC COPYIST): Obesity is unchanged. Discussed the patient's BMI. The BMI is above average. BMI management plan is completed. BMI Follow-up includes: nutrition counseling, exercise counseling and education provided. Assessment & Plan (04/16/2019 7:14 AM MUSIC COPYIST): Obesity is unchanged. Discussed the patient's BMI. [...] Type Department Care Team Description 08/04/2024 Telephone [facility] Nephrology at [address] [place] [address] Mark Gandara MD 08/04/2024 Orders Only [facility] Nephrology at [address] [place] [address] ProviderPartha MD 07/26/2024 Telephone [facility] Nephrology at [address] [place] [address] Mark Gandara MD 07/23/2024 Telephone [facility] Gastroenterology at [address] [place] [address] Brian Carson MD 07/15/2024 6:30 AM CDT - 07/15/2024 11:59 PM CDT Hospital Encounter [facility] Ultrasound [address] [place] [address] Stage 3b chronic kidney disease (HCC); Nephrolithiasis Discharge Disposition: Discharge to home or self care 07/12/2024 Results Follow-Up [facility] Nephrology at [address] [place] [address] Brian Carson MD Protein / creatinine ratio, urine, random, PTH, Renal function panel, Additional followed-up results: 6 07/09/2024 Orders Only [facility] Nephrology at [address] [address] Provider, MD Partha from Last 3 Months Immunizations Immunization Administration [...] on file Legal Sex Female 11:29 AM MUSIC COPYIST Gender Identity Not on file Sexual Orientation Not on file 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..] - GENERAL ORDERABLES Final Result [facility] [address] [place] [address] * (ABNORMAL) CBC with auto differential (08/05/2024 [...] LAB BLOOD ORDERABLES Final Result [facility] [address] [address] * Protein / creatinine ratio, urine, random [...] URINE ORDERABLES Final Result Performing Organization Address [facility] Co de Phone Number Content [facility] [address] [place] [address] * Vitamin D 25 hydroxy (08/05/2024 7:29 AM CDT) Vitamin D 25-OH 57 30 - 100 ng/mL [facility] Comment: Vitamin D Status 25-OH Vitamin D: Deficiency: <20 ng/mL Insufficiency: 20 - 29 ng/mL Optimal: > or = 30 ng/mL For 25-OH Vitamin D testing on patients on D2-supplementation and patients for whom quantitation of D2 and D3 fractions is required, the Quest[facility]ure[facility](TM) 25-OH VIT D, (D2,D3), LC/MS/MS is recommended: order code 03120 (patients >2yrs). See Note 1 Note 1 For additional information, please refer to http://education.DAQRI.[employer]/faq/WNK575 (This link is being provided for informational/ educational purposes only.) Blood 08/05/2024 7:29 AM CDT 08/05/2024 7:31 AM CDT Narrative [facility] - 08/06/2024 6:32 AM CDT FASTING:YES FASTING: YES Mark Gandara MD LAB BLOOD ORDERABLES Final Result Performing Organization Address [facility]/ZIP Co de Phone Number [facility] [address] [place] [address] * PTH (08/05/2024 7:29 AM CDT) Parathyroid hormone, intact 38 16 - 77 [...] MD LAB BLOOD ORDERABLES Final Result [facility] [address] [place] [address] * (ABNORMAL) Renal function panel (08/05/2024 7:29 AM CDT) Pathologist [facility] Glucose 107(H) 65 - 99 mg/dL [facility] [...] LAB BLOOD ORDERABLES Final Result [facility] [address] [facility] [address] [place] [address] * US Kidney Complete (07/15/2024 7:02 AM [...] Electronically signed by Mary Salmon M.D. TW: Report ID: [id number] Reading Location: [id number] Procedure Note Mary Salmon MD - 07/20/2024 [...] Electronically signed by Mary Salmon M.D. TW: Report ID: [id number] Reading Location: [place] [address] Mark Gandara MD IMG US PROCEDURES Final Re sult * Urine supersaturation, 24 hour (07/12/2024 2:31 PM CDT) Historical Provider LAB BLOOD ORDERABLES Colette l Result * (ABNORMAL) STONERISK(R) DIAGNOSTIC PROFILE (07/12/2024 7:35 AM CDT) Volume, ur 0.96(L) >2.00 L/day [facility], Comment:See Note 1 pH, ur 7.6(H) 5.5 - 7.0 [facility] [place], Calcium, ur 141 <250.0 mg/day [facility] [place], Comment:See Note 1 Oxalate ur 21 <45 mg/day [facility], Comment:See Note 1 Uric acid, ur 447 <700 mg/day [facility] [place], Comment:See Note 1 Citrate ur 271(L) >320 mg/day [facility], Comment:See Note 1 Sodium ur 93 <200 mEq/day [facility] [place], Comment:See Note 1 Sulfate ur 9 <30 mmol/day [facility], Comment:See Note 1 Phosphorus ur 773 <1,100 mg/day [facility], Comment:See Note 1 Magnesium ur 93 >60.0 mg/day [facility], Comment:See Note 1 Ammonium ur 10(L) 14 - 62 mEq/day [facility] [place], Comment:See Note 1 Potassium ur 46 19 - 135 mEq/day [facility] [place], Comment:See Note 1 Creatinine ur 968 600 - 1,800 mg/day [facility], Comment:See Note 1 Calcium oxalate 1.81 <2.00 [facility]/ [facility] [place], Brushite crystals, ur 7.88(H) <2.00 [facility] [place], Sodium urate crystals, ur 3.76(H) <2.00 [facility] [place], STRUVITE 76.64(H) <75.00 [facility] [place], Uric acid 0.06 <2.00 [facility] [place], THE PATIENT HAS: See Below [facility] [place], Comment: Hypocitraturia High urinary pH Low urine volume Saturation ratio, ur See Below [facility] [place], Comment: Brushite (Ca phosphate) Monosodium urate Struvite SUSPECTED PROBLEM IS: See Below [facility] [place], Comment: Hypocitraturic Nephrolithiasis Infection Lithiasis Note 1 This test was developed and its analytical performance characteristics have been determined by [facility]. It has not been cleared or approved by the FDA. This assay has been validated pursuant to the CLIA regulations and is used for clinical purposes. Urine 07/12/2024 7:35 AM CDT 07/12/2024 11:15 PM CDT Mark Gandara MD LAB BLOOD ORDERABLES Final Result [facility] [address] [place] [address] * (ABNORMAL) Protein / creatinine ratio, urine, [...] URINE ORDERABLES Final Result Performing Organization Address [facility] Co de Phone Number [facility] [address] [place] [address] * PTH (07/09/2024 7:34 AM CDT) Parathyroid [...] BLOOD ORDERABLES Final Result Performing Organization Address [facility] Co de Phone Number [employer] [facility] [address] [place] [address] * (ABNORMAL) Renal function panel (07/09/2024 7:33 AM CDT) Pathologist [facility] Glucose 92 65 - 99 mg/dL [facility] [...] LAB BLOOD ORDERABLES Final Result [facility] [address] [place] [address] * Vitamin D 25 hydroxy (07/09/2024 7:32 [...] D, (D2,D3), LC/MS/MS is recommended: order code 43758 (patients >2yrs). See Note 1 Note 1 For additional information, please refer to http://education.[employer]/faq/RQQ121 (This link is being provided for informational/ educational purposes only.) Blood 07/09/2024 7:32 AM CDT 07/09/2024 7:32 AM CDT Narrative [facility] - 07/10/2024 12:49 AM CDT FASTING:YES FASTING: YES Mark Gandara MD LAB BLOOD ORDERABLES Final Result [facility] [address] [address] * (ABNORMAL) CBC with auto differential (07/09/2024 [...] LAB BLOOD ORDERABLES Final Result [facility] [address] [place] [address] * REFLEXIVE URINE CULTURE (07/09/2024 7:29 AM CDT) Urine culture [facility] Comment:CULTURE INDICATED - RESULTS TO FOLLOW 07/09/2024 7:29 AM CDT 07/09/2024 7:30 AM CDT Mark Gandara MD LAB MICROBIOLOGY - GENERAL ORDERABLES Final Result [facility] [address] [place] [address] * (ABNORMAL) Urinalysis reflex to microscopic and [...] t Brady Nitrites, ur NEGATIVE NEGATIVE [facility] Leukocyte esterase, ur TRACE(A) NEGATIVE [facility] WBC, ur NONE SEEN < OR = 5 /HPF [facility] RBC, ur NONE SEEN < OR = 2 /HPF [facility] Epithelial cells, squamous, ur NONE SEEN < OR = 5 /HPF [facility] Bacteria, ur, quant NONE SEEN NONE SEEN /HPF [facility] Hyaline cast NONE SEEN NONE SEEN /LPF [facility] Note [facility] Comment: This urine was analyzed for the presence of WBC, RBC, bacteria, casts, and other formed elements. Only those elements seen were reported. Urine, clean voided 07/09/2024 7:29 AM CDT 07/09/2024 7:30 AM CDT Result [facility] Mark Gandara MD LAB MICROBIOLOGY - GENERAL ORDERABLES Final Result Performing Organization Address [facility] Co de Phone Number [facility] [address] [place] [address] * Urine culture (07/09/2024 7:29 AM CDT) Urine culture [facility] Comment: CULTURE, URINE, ROUTINE Micro Number: [id number] Test Status: Final Specimen Source: Urine Specimen Quality: Adequate Result: No Growth 07/09/2024 7:29 AM CDT 07/09/2024 7:30 AM CDT Result [facility] Mark Gandara MD LAB MICROBIOLOGY - GENERAL ORDERABLES Final Result Performing Organization Address [facility] Co de Phone Number [facility] [address] [place] [address] * HM COLONOSCOPY (08/28/2020) Result [facility] Partha Provider HEALTH MAINTENANCE Final Result * Diagnostic Mammogram Bilateral [facility] [place] (06/21/2020) Anatomical Region Laterality Modality Breast Bilateral Mammography Evans Perez MD IMG MAMMO PROCEDURES Colette l Result * HM PAP SMEAR WITH HPV (04/29/2020) Historical Provider HEALTH MAINTENANCE Final Result from Last 3 Months or Most Recently Relevant to Health Maintenance Insurance [employer] [facility] [id number] [facility] [id number] Member Subscriber Plan / Payer (Ef fective 2020-Present) Name:Alethea Newsome Member ID:[id number] Relation to Subscriber:Self Name:Alethea Newsome Subscriber ID:[id number] Payer ID:[id number] Type:[employer] HMO/PPO Address: [place] [id number] [place] [id number] Care Teams Machine Former Relationship Specialty Start Date End Date Elza Martinez PA PCP - General Real Estate Firm Manager 05/28/21
--- OUTSIDE RECORDS SUMMARY | 2024-10-09 07:28 | XMS_ITS | Referral Summary ---
Author Organization [facility] [address] Address [address] [place] [address] Care Team Providers Care Pit Recorder Name Role Phone Elza Martinez Primary Care Provider [phone] Encounters Date Type Department Care Team Description 08/04/[address] [facility] Nephrology at [address] [place] [address] Mark Gandara MD 08/04/[address] [facility] Nephrology at [address] [facility] [place] [phone] Partha Durán MD 07/26/[address] [facility] Nephrology at [address] [place] [address] Mark Gandara MD 07/23/[address] [facility] Gastroenterology at [address] [place] [address] Brian Carson MD 07/15/2024 6:30 AM CDT - 07/15/2024 11:59 PM CDT Hospital Encounter [address] [address] Stage 3b chronic kidney disease (HCC); Nephrolithiasis Discharge Disposition: Discharge to home or self care 07/12/2024 Results Follow-Up [facility] Nephrology at [address] [place] [phone] Brian Carson MD Protein / creatinine ratio, urine, random, PTH, Renal function panel, Additional followed-up results: 6 07/09/[address] [facility] Nephrology at [address] [phone] Provider, MD Partha from Last 3 Months Allergies Active Allergy [...] 05/03/2021 Assessment & Plan (2021 3:31 PM OIL WELL SERVICES DISPATCHER): Symptoms improving and almost resolved. Patient advised to continue with tylenol every six hours as needed for fever/body aches. Will send in prednisone x 5d - encouraged her to start this if cough is not improving in the next 24h. Note provided for return to work on Friday. Advised her to contact e office Friday/friday if symptoms are not improving as she may need to extend leave. Assessment & Plan (05/03/2021 1:23 PM OIL WELL SERVICES DISPATCHER): We discussed supportive treatment, including Tylenol every [...] 06/26/2020 Assessment & Plan (06/26/2020 3:49 PM OIL WELL SERVICES DISPATCHER): Will refer to ortho for further evaluation and treatment. She has tried and failed lyrica and gabapentin in the past. Arthritis, senescent 06/26/2020 Colon cancer screening 06/26/2020 Assessment & Plan (06/26/2020 3:48 PM OIL WELL SERVICES DISPATCHER): Will refer for screening cscope Intractable migraine with status migrainosus Assessment & Plan (06/12/2020 11:11 AM OIL WELL SERVICES DISPATCHER): Continue with tylenol q6h as needed for headache Advised to er if worsens Will start topamax bid. Discussed increasing strength at end of week pending response - she will contact office on Friday. Will retrieve records from [place] for review. Nausea 06/08/2020 Assessment & Plan (06/08/2020 2:14 PM OIL WELL SERVICES DISPATCHER): Patient was advised given symptoms to report to er for further evaluation and treatment. She will have drive. Shortness of breath 06/08/2020 Assessment & Plan (06/08/2020 2:14 PM OIL WELL SERVICES DISPATCHER): Patient was advised given symptoms to report to er for further evaluation and treatment. She will have drive. Vertigo 06/06/2020 Assessment & Plan (06/12/2020 11:12 AM OIL WELL SERVICES DISPATCHER): Will retrieve records from [place] for review. She will start meclizine 25mg q8h as needed for dizziness from [place] er. She was advised caution after taking as it may make her drowsy. Assessment & Plan (06/08/2020 2:14 PM OIL WELL SERVICES DISPATCHER): Patient was advised given symptoms to report to er for further evaluation and treatment. She will have drive. Assessment & Plan (06/06/2020 2:46 PM OIL WELL SERVICES DISPATCHER): Will send patient to [facility] for Covid-19 testing. The patient was advised to quarantine at least 10 days from symptom onset, but this determination will depend on result of testing. They were advised to contact us in the next 72h if they have not heard results of testing. They were advised to report to the ER if worsening. Nasal congestion 06/06/2020 Assessment & Plan (06/06/2020 2:46 PM OIL WELL SERVICES DISPATCHER): Will send patient to [facility] for Covid-19 testing. The patient was advised [...] labs Assessment & Plan (06/13/2019 10:53 PM OIL WELL SERVICES DISPATCHER): Encouraged patient to continue low fat/low chol diet. Continue exercise. Increase good fats in the diet. Monitor labs as needed. Breast cancer screening by mammogram 04/25/2019 Assessment & Plan (04/25/2019 7:01 PM OIL WELL SERVICES DISPATCHER): Mammogram order provided Polyarthralgia 03/05/2019 Assessment & Plan (06/26/2020 3:49 PM OIL WELL SERVICES DISPATCHER): Will evaluate further with labs and imaging. Will notify her of results as available. Will add a topical voltaren gel. We discussed changing celebrex to mobic, however she reports she has tried and failed mobic in the past. Assessment & Plan (03/05/2019 1:57 PM OIL WELL SERVICES DISPATCHER): Check labs. Continue K and Mg as stable with replacement. Monitor closely as not on meds that would be electrolyte lowering Other fatigue 08/30/2018 Assessment & Plan (06/13/2019 10:51 PM OIL WELL SERVICES DISPATCHER): Probably multifactorial. Check labs and followup to re-evaluate Assessment & Plan (08/30/2018 4:08 PM CDT): Probably multifactorial. Check labs and followup to re-evaluate Abdominal pain 08/30/2018 Assessment & Plan (06/17/2019 11:23 AM OIL WELL SERVICES DISPATCHER): Sxs seem to be c/w GERD. Discussed GERD at length including anatomy, behavioral changes (raise HOB, meal timings), dietary changes and medication options. Reviewed risks, benefits alternatives, side effects and proper use. Followup if sxs worsen or has hematochezia or hematemeis. Start Omeprazole. May use TUMS prn. F.u 4-6 weeks. Assessment & Plan (06/13/2019 10:50 PM OIL WELL SERVICES DISPATCHER): Improved since having gallbladder removed. Assessment & [...] cymbalta Assessment & Plan (06/17/2019 11:25 AM OIL WELL SERVICES DISPATCHER): Stable with Cymbalta. Continue current dose. Assessment & Plan (06/13/2019 10:51 PM OIL WELL SERVICES DISPATCHER): Stable with the cymbalta Assessment & Plan (04/25/2019 7:01 PM OIL WELL SERVICES DISPATCHER): Continue the Cymbalta. Start wellbutrinXL 150mg q am. Reviewed risks, benefit, alternatives, side effects and proper use. No history of seizures. Assessment & Plan (03/05/2019 2:05 PM OIL WELL SERVICES DISPATCHER): Continue the Cymbalta. Start Wellbutrinxl 150mg. Reviewed [...] 07/06/2018 Assessment & Plan (05/28/2021 8:31 PM OIL WELL SERVICES DISPATCHER): We reviewed medication list. She notes that [...] migraines. Assessment & Plan (06/26/2020 3:50 PM OIL WELL SERVICES DISPATCHER): Will add a prn maxalt. Advised her of potential drowsiness after taking. Assessment & Plan (06/13/2019 10:51 PM OIL WELL SERVICES DISPATCHER): [place] better off the Topamax. Assessment & Plan (04/25/2019 7:04 PM OIL WELL SERVICES DISPATCHER): Continue the Topamax but work on stretching to see if helps with the tension type PIERSON. She is on Celebrex so no further NSAIDs. Monitor to see if Wellbutrin/Cymbalta helps too. Assessment & Plan (08/30/2018 4:06 PM CDT): Lower extremity edema 07/06/2018 Assessment & Plan (08/30/2018 4:07 PM CDT): Increase the maxzide. Keep legs elevated. Hypokalemia 07/06/2018 Overview (06/26/2020): monitored by [facility] Dr. Tovar Venous insufficiency of both lower extremities 1 Overview (06/26/2020): Dr. Winn also saw and examined the patient today. Although venous insufficiency was identified by reflux exam, the patient does not experience significant edema that worsens throughout the day and lower extremity edema is also not an exacerbating facto Acquired hypothyroidism 09/11/2013 Overview (06/26/2020): HYPOTHYROIDISM NOS monitored by [facility] Dr. Tovar Assessment & Plan (12/15/2020 8:11 PM CDT): Continue levothyroxine. Monitor labs. Continue per Dr. Martínez Assessment & Plan (08/13/2020 11:08 PM CDT): Continue with Endocrinology Assessment & Plan (12/10/2019 8:16 PM CDT): Check labs and adjust as indicated. Assessment & Plan (06/13/2019 10:52 PM OIL WELL SERVICES DISPATCHER): Stable with levothyoroxine and cytomel Monitor levels. Assessment & Plan (03/05/2019 1:57 PM OIL WELL SERVICES DISPATCHER): Continue current regimen Assessment & Plan (12/24/2018 [...] 07/11/2020 Assessment & Plan (06/26/2020 1:55 PM OIL WELL SERVICES DISPATCHER): Obesity is unchanged. Discussed the patient's BMI. The BMI is above average. BMI management plan is completed. BMI Follow-up includes: nutrition counseling, exercise counseling and education provided. Cough 06/06/2020 08/06/2021 Assessment & Plan (06/06/2020 2:46 PM OIL WELL SERVICES DISPATCHER): Will send patient to [facility] for Covid-19 testing. The patient was advised [...] labs Assessment & Plan (06/13/2019 10:53 PM OIL WELL SERVICES DISPATCHER): Check labs Breast cancer screening by mammogram 03/05/2019 03/05/2019 Assessment & Plan (03/05/2019 2:04 PM OIL WELL SERVICES DISPATCHER): Mammogram order provided BMI 39.0-39.9,adult 10/19/2018 07/12/19 21 Assessment & Plan (12/10/2019 8:16 PM CDT): Obesity is unchanged. Discussed the patient's BMI. The BMI is above average. BMI management plan is completed. BMI Follow-up includes: nutrition counseling, exercise counseling and education provided. Assessment & Plan (06/17/2019 7:09 AM OIL WELL SERVICES DISPATCHER): Obesity is unchanged. Discussed the patient's BMI. The BMI is above average. BMI management plan is completed. BMI Follow-up includes: nutrition counseling, exercise counseling and education provided. Assessment & Plan (06/09/2019 7:07 AM OIL WELL SERVICES DISPATCHER): Obesity is unchanged. Discussed the patient's BMI. The BMI is above average. BMI management plan is completed. BMI Follow-up includes: nutrition counseling, exercise counseling and education provided. Assessment & Plan (04/16/2019 7:14 AM OIL WELL SERVICES DISPATCHER): Obesity is unchanged. Discussed the patient's BMI. The BMI is above average. BMI management plan is completed. BMI Follow-up includes: nutrition counseling, exercise counseling and education provided. Assessment & Plan (03/05/2019 1:58 PM OIL WELL SERVICES DISPATCHER): Obesity is unchanged. Discussed the patient's BMI. [...] provided. Assessment & Plan (06/17/2019 7:09 AM OIL WELL SERVICES DISPATCHER): Obesity is unchanged. Discussed the patient's BMI. The BMI is above average. BMI management plan is completed. BMI Follow-up includes: nutrition counseling, exercise counseling and education provided. Assessment & Plan (06/09/2019 7:07 AM OIL WELL SERVICES DISPATCHER): Obesity is unchanged. Discussed the patient's BMI. The BMI is above average. BMI management plan is completed. BMI Follow-up includes: nutrition counseling, exercise counseling and education provided. Assessment & Plan (04/16/2019 7:14 AM OIL WELL SERVICES DISPATCHER): Obesity is unchanged. Discussed the patient's BMI. 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 Not on faby e [...] CULTURE (08/05/2024 7:29 AM CDT) Urine culture [employer] [facility] Comment:NO CULTURE INDICATED 08/05/2024 7:29 AM CDT 08/05/2024 7:31 AM CDT Narrative [facility] - 08/06/2024 6:32 AM CDT FASTING:YES FASTING: YES us Mark Gandara MD LAB MICROBIOLOGY - GENERAL ORDERABLES Final Result Performing Organization Address [facility] Co de Phone Number [facility] [address] [place] [phone] * Urinalysis reflex to microscopic and culture [...] GENERAL ORDERABLES Final Result Performing Organization Address [facility] Co de Phone Number [facility] [address] [place] [phone] * (ABNORMAL) CBC with auto differential (08/05/2024 7:29 AM CDT) [facility] WBC 6.0 3.8 - 10.8 Thousand/u L [...] BLOOD ORDERABLES Final Result Performing Organization Address [facility] Co de Phone Number [facility] [employer] [address] [place] [address] * Protein / creatinine ratio, urine, random [...] URINE ORDERABLES Final Result Performing Organization Address [facility] Co de Phone Number [facility] [address] [place] [address] * Vitamin D 25 hydroxy (08/05/2024 7:29 AM CDT) Vitamin D 25-OH 57 30 - 100 ng/mL [facility] Comment: Vitamin D Status 25-OH Vitamin D: Deficiency: <20 ng/mL Insufficiency: 20 - 29 ng/mL Optimal: > or = 30 ng/mL For 25-OH Vitamin D testing on patients on D2-supplementation and patients for whom quantitation of D2 and D3 fractions is required, the QuestAssureD(TM) 25-OH VIT D, (D2,D3), LC/MS/MS is recommended: order code 38299 (patients >2yrs). See Note 1 Note 1 For additional information, please refer to http://education.[employer]/faq/OCJ506 (This link is being provided for informational/ educational purposes only.) Blood 08/05/2024 7:29 AM CDT 08/05/2024 7:31 AM CDT Narrative [facility] - 08/06/2024 6:32 AM CDT FASTING:YES FASTING: YES Mark Gandara MD LAB BLOOD ORDERABLES Final Result Performing Organization Address [facility] Co de Phone Number [facility] [address] [place] [address] * PTH (08/05/2024 7:29 AM CDT) Parathyroid [...] ORDERABLES Final Result Performing Organization Address [facility] de Phone Number [facility] [address] [place] [address] * (ABNORMAL) Renal function panel (08/05/2024 7:29 [...] Gandara MD LAB BLOOD ORDERABLES Final Result [facility] [address] [place] [address] * US Kidney Complete (07/15/2024 7:02 AM [...] Mary Salmon M.D. TW: TW Report ID: [id number] Reading Location: [id number] Procedure Note Mary Salmon MD - 07/20/2024 [...] Mary Salmon M.D. TW: TW Report ID: [id number] Reading Location: [id number] Mark Gandara MD IMG US PROCEDURES Final Re sult * Urine supersaturation, 24 hour (07/12/2024 2:31 PM CDT) Historical Provider LAB BLOOD ORDERABLES Colette l Result * (ABNORMAL) STONERISK(R) DIAGNOSTIC PROFILE (07/12/2024 7:35 AM CDT) Volume, ur 0.96(L) >2.00 L/day [facility], Comment:See Note 1 pH, ur 7.6(H) 5.5 - 7.0 [facility], Calcium, ur 141 <250.0 mg/day [facility], Comment:See Note 1 Oxalate ur 21 <45 mg/day [facility], Comment:See Note 1 Uric acid, ur 447 <700 mg/day [facility], Comment:See Note 1 Citrate ur 271(L) >320 mg/day [facility], Comment:See Note 1 Sodium ur 93 <200 mEq/day [facility], Comment:See Note 1 Sulfate ur 9 <30 mmol/day [facility], Comment:See Note 1 Phosphorus ur 773 <1,100 mg/day [facility], Comment:See Note 1 Magnesium ur 93 >60.0 mg/day [facility], Comment:See Note 1 Ammonium ur 10(L) 14 - 62 mEq/day [facility], Comment:See Note 1 Potassium ur 46 19 - 135 mEq/day [facility], Comment:See Note 1 Creatinine ur 968 600 - 1,800 mg/day [facility], Comment:See Note 1 Calcium oxalate 1.81 <2.00 [facility], Brushite crystals, ur 7.88(H) <2.00 [facility], Sodium urate crystals, ur 3.76(H) <2.00 [facility], STRUVITE 76.64(H) <75.00 [facility], Uric acid 0.06 <2.00 [facility], THE PATIENT HAS: See Below Que [facility], Comment: Hypocitraturia High urinary pH Low urine volume Saturation ratio, ur See Below [facility], Comment: Brushite (Ca phosphate) Monosodium urate [employer] SUSPECTED PROBLEM IS: See Below [facility], Comment: Hypocitraturic Nephrolithiasis Infection Lithiasis Note 1 This test was developed and its analytical performance characteristics have been determined by [employer]. It has not been cleared or approved by the FDA. This assay has been validated pursuant to the CLIA regulations and is used for clinical purposes. Urine 07/12/2024 7:35 AM CDT 07/12/2024 11:15 PM CDT Result [facility] Mark Gandara MD LAB BLOOD ORDERABLES Final Result [facility], [address] [place] [address] * (ABNORMAL) Protein / creatinine ratio, urine, [...] Gandara MD LAB URINE ORDERABLES Final Result [facility] [address] [place] [address] * PTH (07/09/2024 7:34 AM CDT) Parathyroid [...] MD LAB BLOOD ORDERABLES Final Result [facility] [employer] [address] [address] * (ABNORMAL) Renal function panel (07/09/2024 7:33 [...] 07/10/2024 1:42 AM CDT FASTING:YES FASTING: YES us Mark Gandara MD LAB BLOOD ORDERABLES Final Result [facility] [address] [place] [address] * Vitamin D 25 hydroxy (07/09/2024 7:32 [...] D, (D2,D3), LC/MS/MS is recommended: order code 39478 (patients >2yrs). See Note 1 Note 1 For additional information, please refer to http://education.[employer]/faq/THQ671 (This link is being provided for informational/ educational purposes only.) Blood 07/09/2024 7:32 AM CDT 07/09/2024 7:32 AM CDT Narrative [facility] - 07/10/2024 12:49 AM CDT FASTING:YES FASTING: YES Mark Gandara MD LAB BLOOD ORDERABLES Final Result [facility] [address] [place] [address] * (ABNORMAL) CBC with auto differential (07/09/2024 7:30 AM CDT) Pathologist [facility] WBC 5.9 3.8 - 10.8 Thousand/u [...] LAB BLOOD ORDERABLES Final Result [facility] [address] [place] [address] * REFLEXIVE URINE CULTURE (07/09/2024 7:29 AM CDT) Urine culture [facility] Comment:CULTURE INDICATED - RESULTS TO FOLLOW 07/09/2024 7:29 AM CDT 07/09/2024 7:30 AM CDT us Mark Gandara MD LAB MICROBIOLOGY - GENERAL ORDERABLES Final Result [facility] [address] [place] [phone] * (ABNORMAL) Urinalysis reflex to microscopic and [...] AM CDT 07/09/2024 7:30 AM CDT Result Trent Gandara MD LAB MICROBIOLOGY - GENERAL ORDERABLES Final Result [facility] [address] [place] [address] * Urine culture (07/09/2024 7:29 AM CDT) Urine culture [facility] Comment: CULTURE, URINE, ROUTINE Micro Number: [id number] Test Status: Final Specimen Source: Urine Specimen Quality: Adequate Result: No Growth 07/09/2024 7:29 AM CDT 07/09/2024 7:30 AM CDT us Mark Gandara MD LAB MICROBIOLOGY - GENERAL ORDERABLES Final Result [facility] [address] [place] [address] * HM COLONOSCOPY (08/28/2020) Historical Provider HEALTH MAINTENANCE Final Result * Diagnostic Mammogram Bilateral W [place] (06/21/2020) Anatomical Region Laterality Modality Breast Bilateral Mammography us Evans Perez MD IMG MAMMO PROCEDURES Colette l Result * HM PAP SMEAR WITH HPV (04/29/2020) Historical Provider HEALTH MAINTENANCE Final Result from Last 3 Months or Most Recently Relevant to Health Maintenance Insurance [place] [facility] [id number] [facility] [id number] Care Teams Pit Recorder Relationship Specialty Start Date End Date Elza Martinez PA PCP - General [employer] 05/28/21
== END 2024-10-09 07:22 | disposition home or self-care (01) ==
LOC: ANHIMG 07:25
PROVIDERS: PCP Family Medicine; Visit Provider Obstetrics & Gynecology
DX: Z12.31 Encounter for screening mammogram for malignant neoplasm of breast (principal); N64.89 Other specified disorders of breast
CPT/HCPCS: 77063; 77067

== ENCOUNTER 2024-10-19 13:23 | Outpatient (CLI) | payer OTHER, SELFPAY ==
--- NOTE | ~2024-10-19 | MM_ITS ---
EXAMINATION: MM diagnostic rad LT w dalton HISTORY: Left breast asymmetry TECHNIQUE: Additional 3-D tomosynthesis images of the left breast were performed and synthetic 2-D im ages were generated. CAD analysis was submitted and interpreted. COMPARISON: 10/09/2024, 09/16/2023, 07/11/2022, 07/03/2021 BREAST PARENCHYMAL COMPOSITION: There are scattered areas of fibroglandular density. FINDINGS: Left breast asymmetry demonstrates relative effacement, and is relatively stable as compare d to multiple prior exams. No suspicious mass lesion or distortion. Benign calcifications are present . IMPRESSION: No mammographic evidence for malignancy. BI-RADS Category 2: Benign finding(s). Reviewed, dictated and finalized at location .
== END 2024-10-19 13:24 | disposition home or self-care (01) ==
PROVIDERS: PCP Family Medicine; Visit Provider Obstetrics & Gynecology
DX: R92.8 Other abnormal and inconclusive findings on diagnostic imaging of breast (principal)
CPT/HCPCS: 77061; 77065; G0279